=== PATIENT | female | born 1965 | race Caucasian/White ===

== ENCOUNTER 2020-09-02 10:09 | Inpatient (IN) | payer OTHER ==
[~2020-09-02] VITALS: Ht 157.5 cm; Wt 85.1 kg
[2020-09-02 09:30] VITALS: BP 102/59
[~2020-09-02 10:09] MED LIST: ACETAMINOPHEN 325 MG TABLET PO PRN; CALCIUM CARBONATE 500 MG (TUMS) TAB.CHEW PO PRN; DOCUSATE SODIUM 100 MG (COLACE) CAP PO PRN; FLEET ENEMA ADULT 1 EA BTL PR PRN; LACTULOSE SYRUP 10GM/15ML (ENULOSE) 30ML UDC PO PRN; MELATONIN 3 MG TABLET PO PRN; ONDANSETRON 4 MG (ZOFRAN) ORAL DISSOLVE TAB PO PRN; diphenhydrAMINE 25 MG TAB (BENADRYL) PO PRN; guaiFENesin/CODEINE (ROBITUSSIN AC) 10ML UDC PO PRN
[2020-09-02] MEDS ORDERED: BISACODYL 10 MG SUPP (DULCOLAX) PR PRN (10:30)
[2020-09-02] MEDS: DOCUSATE SODIUM 100 MG (COLACE) CAP PO SCH ×2 (12:08→19:40)
[2020-09-02] MEDS: polyethylene glycoL POWDER 17 GM (MIRALAX) PACK PO SCH ×2 (12:09→19:40)
[2020-09-02] MEDS: SENNA W/DOCUSATE (SENOKOT S) TABLET PO SCH ×2 (12:09→19:40)
--- NOTE | 2020-09-02 12:24 | Occupational Therapy Eval ---
OT Evaluation-General/PLF Medical Diagnosis Admission Date Sep 02, 2020 at 10:09 Medical Diagnosis: Debility s/p COVID Onset Date: June 20, 2020 Therapy Diagnosis Therapy Diagnosis: Weakness, Decreased ADL skills Weight Bear Status Weight Bearing Restriction: Weight Bearing/Tolerated Referral Physician: Dr. Kim Referral Reason: Activity Tolerance, Self Care, Evaluation/Treatment, Strengthening/ROM Medical History Additional Medical History Scoliosis, breast reduction, hysterectomy, tonsillectomy, gout, breast reduction Current History Pt. admitted to [place] on 06-20-20 with Covid- 19. Treated with Remdesivir and Decadron. Discharged. Returned to ED secondary to worsening breathing. Placed on bipap. Transferred eventually to Bipap. Reviewed History: Yes Social History Home: Single Level Current Living Status: Alone Entry Into Home: Stairs With Railing Steps Into Home: 4 ADL-Prior Level of Function SCALE: Activities may be completed with or without assistive devices. 2-Uzmwchrfpq-eapwfdc completes the activity by him/herself with no assistance from a helper. 5-Set-up or Clean-up Assistance-helper sets up or cleans up; patient completes activity. [place] assists only prior to or following the activity. 4-Supervision or Touching Assistance-helper provides verbal cues and/or touching/steadying and/or contact guard assistance as patient completes activity. Assistance may be provided throughout the activity or intermittently. 3-Partial/Moderate Assistance-helper does LESS THAN HALF the effort. [place] lifts, holds or supports trunk or limbs, but provides less than half the effort. 2-Substantial/Maximal Assistance-helper does MORE THAN HALF the effort. [place] lifts or holds trunk or limbs and provides more than half the effort. 3-Pxfpgdhdr-zcosgr does ALL the effort. Patient does none of the effort to complete the activity. Or, the assistance of 2 or more helpers is required for the patient to complete the activity. If activity was not attempted, code reason: 7-Patient Refused. 9-Not Applicable-not attempted and the patient did not perform the activity before the current illness, exacerbation or injury. 10-Not Attempted due to Environmental Limitations-(lack of equipment, weather restraints, etc.). 88-Not Attempted due to Medical Conditions or Safety Concerns. ADL PLOF Comments Pt. states that she is independent with daily skills. She lives alone and drives. Works at [employer]. She has a friend that will come and stay with her. Self Care: Independent Functional Cognition: Independent DME/Equipment: Tub/Shower Occupation: Conformity Self: Yes OT Current Status Subjective No pain reported but pt. does have SOA with any exertion. Mental Status/Objective Patient Orientation: Person, Place, Time, Situation Attachments: Oxygen Current Upper Extremity ROM WFL Upper Extremity Strength 3/5 bilateral UE strength. Overall weakness and decreased endurance. ADL-Treatment Eating (QC): 88 Oral Hygiene (QC): 88 Shower/Bathe Self (QC): 88 Upper Body Dressing (QC): 88 Lower Body Dressing (QC): 1 (Per clinical judgement) On/Off Footwear (QC): 3 (Mod assist. Pt. able to don right slipper sock at bed level, but unable to bring left LE up at bed level to don.) Toileting Hygiene (QC): 2 (Per clinical judgement.) Other Treatments OT/PT completed co-treatment due to pt's need of skilled assistance x 2. Pt. transferred this date via EMS. Pt. significantly weak. OT facilitated UE assessment and ADL skills assessment while PT assessed mobility and transfers. Pt. on 4 L 02 when therapy entered, but per nursing, bumped up to 6 L during mo vement as pt. dropped from 92% -low 70s. Pt. recovers with cues for breathing and rest, back up to 90-92%. Transferred supine-sit with min/mod assist. Stood at bed side with walker and max x 2. Pt. unable to tolerate standing very long and had to sit quickly. Rested, and stood again. Able to stand approximately 1-2 minutes. Transferred sit-supine with mod assist and bed mobility with max x 2. After sats recovered, oxygen turned back to 4L per nursing. All needs met in room. Education OT Patient Education: Correct positioning, Exercise program, Modified ADL techniques, Progress toward Goal/Update tx plan, Purpose of tx/functional activities, Reviewed precautions, Rehab process, Transfer techniques Teaching Recipient: Patient Teaching Methods: Demonstration, Discussion Response to Teaching: Verbalize Understanding, Return Demonstration OT Short Term Goals Short Term Goals Time Frame: Sep 16, 2020 Eatin Oral hygiene: 4 Toileting hygiene: 3 Shower/bathe self: 3 Upper body dressin Lower body dressin Putting on/taking off footwear: 3 OT Set Designer Goals Set Designer Goals Time Frame: Sep 30, 2020 Eating (QC): 6 Oral Hygiene (QC): 6 Toileting Hygiene (QC): 6 Shower/Bathe Self (QC): 4 Upper Body Dressing (QC): 5 Lower Body Dressing (QC): 4 On/Off Footwear (QC): 5 Additional Goals: 1-Demonstrate ADL Tasks, 2-Verbalize Understanding, 3- ImproveStrength/Luis Manuel 1=Demonstrate adherence to instructed precautions during ADL tasks. 2=Patient will verbalize/demonstrate understanding of assistive devices /modifications for ADL. 3=Patient will improve strength/tolerance for activity to enable patient to perform ADL's. OT Education/Plan Problem List/Assessment Assessment: Decreased Activ Tolerance, Decreased UE Strength, Dependent Transfers, Impaired Bed Mobility, Impaired Funct Balance, Impaired I ADL's, Impaired Self-Care Skills Discharge Recommendations Plan/Recommendations: Continue POC Therapy Discharge Recommendati: Post Acute OT Treatment Plan/Plan of Care Treatment,Training & Education: Yes Patient would benefit from OT for education, treatment and training to promote independence in ADL's, mobility, safety and/or upper extremity function for ADL's. Plan of Care: ADL Retraining, Functional Mobility, UE Funct Exercise/Act Treatment Duration: Sep 30, 2020 Frequency: At least 5 of 7 days/Wk (IRF) Estimated Hrs Per Day: 1.5 hours per day Agreement: Yes Rehab Potential: Good Time/GCodes Start Time: 11:12 Stop Time: 11:43 Total Time Billed (hr/min): 31 Billed Treatment Time 1629-9795 PT eval, no charge [id number] 1, EVH x 10minutes [id number] FA x 11minutes- Co-treatment. Please see above note for designated roles. YEE ROJAS OT Sep 02, 2020 12:24
--- NOTE | 2020-09-02 13:34 | Physical Therapy Evaluation ---
PT Evaluation-General Medical Diagnosis Admission Date Sep 02, 2020 at 10:09 Medical Diagnosis: Debility s/p COVID Onset Date: June 20, 2020 Therapy Diagnosis Therapy Diagnosis: debility Precautions Precautions/Isolations: Fall Prevention, Standard Precautions Weight Bear Status Right Lower Extremity: Right Full Weight Bearing Left Lower Extremity: Left Full Weight Bearing Referral Physician: Dr. Kim Reason for Referral: Evaluation/Treatment Medical History Additional Medical History Claustrophobia, scoliosis, breast reduction, hysterectomy, tonsillectomy, gout, (B) knee pain, tendonitis Current History 06/20/20 admit to [place] with COVID-19, treated with Remdesivir and Decadron. On 06/26/20, returned to ER with difficulty breathing. Transferred to [place] with eventual transfer to ARU today. Reviewed History: Yes Social History Home: Single Level Current Living Status: Alone Entry Into Home: Stairs With Railing PT Steps Into Home: 4 Prior Prior Level of Function SCALE: Activities may be completed with or without assistive devices. 7-Vpuffgytbr-cxjfpet completes the activity by him/herself with no assistance from a helper. 5-Set-up or Clean-up Assistance-helper sets up or cleans up; patient completes activity. [place] assists only prior to or following the activity. 4-Supervision or Touching Assistance-helper provides verbal cues and/or touching/steadying and/or contact guard assistance as patient completes activity. Assistance may be provided throughout the activity or intermittently. 3-Partial/Moderate Assistance-helper does LESS THAN HALF the effort. [place] lifts, holds or supports trunk or limbs, but provides less than half the effort. 2-Substantial/Maximal Assistance-helper does MORE THAN HALF the effort. [place] lifts or holds trunk or limbs and provides more than half the effort. 2-Gpwihmtnk-xrcpvg does ALL the effort. Patient does none of the effort to complete the activity. Or, the assistance of 2 or more helpers is required for the patient to complete the activity. If activity was not attempted, code reason: 7-Patient Refused. 9-Not Applicable-not attempted and the patient did not perform the activity before the current illness, exacerbation or injury. 10-Not Attempted due to Environmental Limitations-(lack of equipment, weather restraints, etc.). 88-Not Attempted due to Medical Conditions or Safety Concerns. Bed Mobility: 6 Transfers (B,C,W/C): 6 Gait: 6 Stairs: 6 Wheelchair Mobility: 9 Indoor Mobility (Ambulation): Independent Stairs: Independent Prior Devices Use: None (+) driving, works at [employer] PT Evaluation-Current Subjective Pt agreeable. Motivated to improve. Pt/Family Goals Home with friend Objective Patient Orientation: Person, Place, Time, Situation Attachments: Oxygen ROM/Strength ROM Upper Extremities See OT ROM Lower Extremities Grossly WFL for functional mobility Strength Upper Extremities See OT Strength Lower Extremities (B) ankles grossly 3/5, (B) knee extension 3-/5, (B) knee flexion: 3+/5, (B) hip flexion: 2+/5, (B) hip extension: 2+/5 Integumentary/Posture Integumentary See nursing notes Bowel Incontinence: No Posture kyphotic, scoliosis Neuromuscular (Tone, Coordination, Reflexes) Decreased coordination Sensory Vision: Functional Hearing: Functional Hand Dominance: Right Sensation Right Upper Extremit: Intact Sensation Left Upper Extremity: Intact Sensation Right Lower Extremit: Intact Sensation Left Lower Extremity: Intact Transfers Roll Left & Right (QC): 4 Sit to Lying (QC): 4 Lying to Sitting/Side of Bed(Q: 3 Sit to Stand (QC): 1 Chair/Jsp-tl-Rkfua Xfer(QC): 88 Toilet Transfer (QC): 88 Car Transfer (QC): 88 Gait Does the Patient Walk?: No and Walking Goal IS indicated Mode of Locomotion: Walk Anticipated Mode of Locomotion: Walk Walk 10 feet (QC): 88 Walk 50 ft with 2 Turns(QC): 88 Walk 150 ft (QC): 88 Walking 10ft/uneven surface-QC: 88 Wheelchair Training Does the Pt Use a Wheelchair?: No Wheel 50 ft with 2 turns (QC): 9 Wheel 150 ft (QC): 9 Type of Wheelchair: N/A Stairs 1 Step (curb) (QC): 88 4 Steps (QC): 88 12 Steps (QC): 88 Balance Sitting Static: Normal Sitting Dynamic: Good Standing Static: Fair Standing Dynamic: Poor Picking up an Object (QC): 88 Treatment Pt. on 4 L 02 when therapy entered, but per nursing, bumped up to 6 L during movement as pt. dropped from 92% -low 70s. Pt. recovers with cues for breathing and rest, back up to 90-92%. Able to stand approximately 1-2 minutes. Transferred sit-supine with mod assist and bed mobility with max x 2. After sats recovered, oxygen turned back to 4L per nursing. All needs met in room. Assessment/Needs Pt would benefit from skilled PT to improve LE functional strength to increase (I) with transfers and gait to restore PLOF. Rehab Potential: Good PT Short Term Goals Short Term Goals Time Frame: Sep 16, 2020 Roll Left & Right: 6 Sit to lyin Lying to sitting on side of be: 6 Sit to stand: 4 PT Fish Machine Feeder Goals Fish Machine Feeder Goals PT Longterm Goals Time Frame: Sep 30, 2020 Roll Left & Right (QC): 6 Sit to Lying (QC): 6 Lying-Sitting on Side/Bed(QC): 6 Sit to Stand (QC): 6 Chair/Ijq-mg-Bdqbp Xfer(QC): 6 Toilet Transfer (QC): 6 Car Transfer (QC): 6 Does the Patient Walk: No and Walking Goal IS indicated Walk 10 feet (QC): 6 Walk 50ft with 2 Turns (QC): 6 Walk 150 ft (QC): 6 Walking 10ft on Uneven Surface: 6 1 Step (curb) (QC): 6 4 Steps (QC): 6 12 Steps (QC): 9 Picking up an Object (QC): 6 Does the Pt use WC or Scooter?: No Wheel 50 feet with 2 turns (QC: 9 Type: N/A Wheel 150 feet: 9 Type: N/A PT LTGs established to allow safe return home (I) PT Plan Problem List Problem List: Activity Tolerance, Functional Strength, Safety, Balance, Gait, Transfer, Bed Mobility, ROM Treatment/Plan Treatment Plan: Continue Plan of Care Treatment Plan: Bed Mobility, Education, Functional Activity Luis Manuel, Functional Strength, Group Therapy, Gait, Safety, Therapeutic Exercise, Transfers Treatment Duration: Sep 30, 2020 Frequency: Modified Program (IRF) Estimated Hrs Per Day: 1.5 hours per day Patient and/or Family Agrees t: Yes Safety Risks/Education Teaching Recipient: Patient Teaching Methods: Discussion Response to Teaching: Verbalize Understanding PT POC Time/GCodes Time In: 1112 Time Out: 1143 Total Billed Treatment Time: 21 Total Billed Treatment [id number] PT eval [id number] Unattended OT eval [id number] FA OT/PT completed co-treatment due to pt's need of skilled assistance x 2. Pt. transferred this date via EMS. Pt. significantly weak. OT facilitated UE assessment and ADL skills assessment while PT assessed mobility and transfers. JESSICA MICHELE DPT Sep 02, 2020 13:34
[2020-09-02] MEDS: RT-ALBUTEROL/IPRATROPIUM 3 ML (DUONEB) VIAL INH SCH ×2 (14:38→18:40)
--- NOTE | 2020-09-02 16:55 | Progress Note ---
Progress Note Chief complaint: COVID-19 with debility and severe hypoxia History of present illness: This is a 54-year-old white female of Dr. Gutierrez who presents to the inpatient rehab unit in need of recovery following a long course at [facility] after originally admitted to [facility] on 06/20/2020. She was hypoxic at that time and she was treated with remdesivir and Decadron and bacterial pneumonia was treated with antibiotic course. She was then discharged with a diagnosis of hypoxic respiratory failure secondary to Covid pneumonia complicated by restrictive lung disease elevated D-dimer and anxiety with chronic scoliosis pain. She then presented to the ER on 06/26/2020 due to respiratory distress and her O2 sat was in the 70s was placed on BiPAP but could not tolerate that so she was eventually transferred to [facility] maintained on nonrebreather mask and transition to Vapotherm at 30 L of 80% FiO2. She eventually weaned down to nasal cannula but fluctuates with hypoxia requiring anywhere from 5-12 L/min nasal cannula at any given time. She lives at home alone but her high school friend will be helping her when she is discharged. She quit smoking in 2004. She works at [employer] in the [employer]. Her scoliosis back pain is managed with nonnarcotics due to previous difficulty with addiction potential with narcotics. Assessment: COVID-19 pneumonia with ongoing hypoxic respiratory failure Chronic scoliosis back pain History of pain pill addiction Claustrophobia Anxiety Gout Restrictive lung disease Recent pneumomediastinum Thrombocytopenia Plan: Inpatient rehab protocol Slow therapy 31/08 due to severe hypoxia with exertion due to COVID-19 pneumonia Monitor closely JULES ROJAS DO Sep 02, 2020 16:55
[2020-09-02] MEDS: ALPRAZolam 0.25 MG (XANAX) TAB PO PRN (19:36)
[2020-09-02 20:00] VITALS: BP 115/55
[2020-09-02] MEDS: SILDENAFIL 20 MG (REVATIO) TAB NON-FORMULARY PO SCH (21:47)
[2020-09-02] MEDS: clonazePAM 1 MG (KlonoPIN) TAB PO SCH (21:48)
[2020-09-02] MEDS: MONTELUKAST 10 MG (SINGULAIR) TAB PO SCH (21:49)
[2020-09-02] MEDS: ATENOLOL 25 MG (TENORMIN) TAB PO SCH (21:50)
[2020-09-02] MEDS: ASCORBIC ACID (VIT C) 500 MG TABLET PO SCH (21:50)
[2020-09-02] MEDS: guaiFENesin (MUCINEX) 600 MG TAB PO SCH (21:50)
[2020-09-02] MEDS: MELATONIN 3 MG TABLET PO SCH (21:50)
[2020-09-02] MEDS: HYDROcodone/APAP 5 MG/325 MG (LORTAB) TAB PO PRN (21:59)
[2020-09-03 05:27] LABS: BASOPHILS % (AUTO) 1 % (0-10); EOSINOPHILS # (AUTO) 0.1 10^3/uL (0.0-0.3); EOSINOPHILS % (AUTO) 1 % (0-10); HEMATOCRIT 28 % (35-52); HEMOGLOBIN 8.9 g/dL (11.5-16.0); LYMPHOCYTES # (AUTO) 1.8 10^3/uL (1.0-4.0); LYMPHOCYTES % (AUTO) 33 % (12-44); MEAN CORPUSCULAR HEMOGLOBIN 30 pg (25-34); MEAN CORPUSCULAR HGB CONC 32 g/dL (32-36); MEAN CORPUSCULAR VOLUME 95 fL (80-99); MEAN PLATELET VOLUME 9.1 fL (9.0-12.2); MONOCYTES # (AUTO) 0.5 10^3/uL (0.0-1.0); MONOCYTES % (AUTO) 10 % (0-12); NEUTROPHILS # (AUTO) 2.8 10^3/uL (1.8-7.8); NEUTROPHILS % (AUTO) 51 % (42-75); PLATELET COUNT 172 10^3/uL (130-400); WHITE BLOOD COUNT 5.5 10^3/uL (4.3-11.0)
[2020-09-03 05:48] LABS: ALBUMIN 3.1 GM/DL (3.2-4.5); CHLORIDE 103 MMOL/L (98-107); POTASSIUM 3.1 MMOL/L (3.6-5.0); SODIUM 144 MMOL/L (135-145)
[2020-09-03 05:49] LABS: CALCIUM 8.1 MG/DL (8.5-10.1)
[2020-09-03 05:51] LABS: GLUCOSE 109 MG/DL (70-105); TOTAL PROTEIN 5.4 GM/DL (6.4-8.2)
[2020-09-03 05:52] LABS: BILIRUBIN,TOTAL 0.4 MG/DL (0.1-1.0); CARBON DIOXIDE 29 MMOL/L (21-32)
[2020-09-03 05:54] LABS: ALKALINE PHOSPHATASE 52 U/L (40-136); CREATININE SERUM 0.43 MG/DL (0.60-1.30); GFR ESTIMATED > 60
[2020-09-03 05:55] LABS: BUN/CREATININE RATIO 26
[2020-09-03 05:57] LABS: ALANINE AMINOTRANSFERASE 35 U/L (0-55)
[2020-09-03] MEDS: predniSONE 20 MG TAB PO SCH (06:31)
--- NOTE | 2020-09-03 06:38 | PM&R Post Admission Assessment ---
PM&R HP Date of Visit: Sep 03, 2020 Time of Visit: 10:00 History of Present Illness Chief complaint: COVID-19 with debility and severe hypoxia History of present illness: This is a 54-year-old white female of Dr. Gutierrez who presents to the inpatient rehab unit in need of recovery following a long course at [facility] after originally admitted to [facility] on 06/20/2020. She was hypoxic at that time and she was treated with remdesivir and Decadron and bacterial pneumonia was treated with antibiotic course. She was then discharged with a diagnosis of hypoxic respiratory failure secondary to Covid pneumonia complicated by restrictive lung disease elevated D-dimer and anxiety with chronic scoliosis pain. She then presented to the ER on 06/26/2020 due to respiratory distress and her O2 sat was in the 70s was placed on BiPAP but could not tolerate that so she was eventually transferred to [facility] maintained on nonrebreather mask and transition to Vapotherm at 30 L of 80% FiO2. She eventually weaned down to nasal cannula but fluctuates with hypoxia requiring anywhere from 5-12 L/min nasal cannula at any given time. She lives at home alone but her high school friend will be helping her when she is discharged. She quit smoking in 2004. She works at [employer] in the [employer] department. Her scoliosis back pain is managed with nonnarcotics due to previous difficulty with addiction potential with narcotics. Past Yfjhmln-Dllnzb-Zwkqon Hx Past Med/Social Hx: Reviewed Nursing Past Med/Soc Hx, Reviewed and Corrections made Patient Social History Marrital Status: single Employed/Student: employed Alcohol Use: Denies Use Smoking Status: Former Smoker (quit 2004) Recent Foreign Travel: No Contact w/other who traveled: No Past Medical History COVID-19 PNA 06/20/20 Musculoskeletal: Scoliosis, Chronic Back Pain Prior Level of Function Bed Mobility: 6 Transfers: 6 Gait: 6 Stairs: 6 Wheelchair Mobility: 9 Indoor Mobility (Ambulation): Independent Stairs: Independent Prior Devices Use: None Self Care: Independent Functional Cognition: Independent Occupation: [employer] Self: Yes Current Level of Fuctioning Roll Left to Right: 4 Sit to Lyin Lying to Sitting/Side of Bed: 3 Sit to Stand: 1 Chair/Jay-rh-Prttt Xfer: 88 Car Transfer: 88 Does the Patient Walk: No and Walking Goal IS indicated Mode of Locomotion: Walk Anticipated Mode of Locomotion: Walk Walk 10 feet: 88 Walk 50 ft with 2 Turns: 88 Walk 150 ft: 88 Walking 10ft on uneven surface: 88 Does the Pt Use a Wheelchair: No Wheel 50 ft with 2 turns: 9 Wheel 150 ft: 9 Type of Wheelchair: N/A 1 Step (curb): 88 4 Steps: 88 12 Steps: 88 Picking up an Object: 88 Eatin Oral Hygiene: 88 Shower/Bathe Self: 88 Upper Body Dressin Lower Body Dressin (Per clinical judgement) On/Off Footwear: 3 (Mod assist. Pt. able to don right slipper sock at bed level, but unable to bring left LE up at bed level to don.) Toileting Hygiene: 2 (Per clinical judgement.) PM&R Allergy/Meds/Data Review Allergies Coded Allergies: latex (Verified Allergy, Unknown, 09/02/20) Current Medications Current Medications Reviewed Laboratory Data Laboratory Tests 09/03/20 05:05: White Blood Count 5.5, Red Blood Count 2.97L, Hemoglobin 8.9L, Hematocrit 28L, Mean Corpuscular Volume 95, Mean Corpuscular Hemoglobin 30, Mean Corpuscular Hemoglobin Concent 32, Red Cell Distribution Width 18.4H, Platelet Count 172, Mean Platelet Volume 9.1, Immature Granulocyte % (Auto) 5, Neutrophils (%) (Auto) 51, Lymphocytes (%) (Auto) 33, Monocytes (%) (Auto) 10, Eosinophils (%) (Auto) 1, Basophils (%) (Auto) 1, Neutrophils # (Auto) 2.8, Lymphocytes # (Auto) 1.8, Monocytes # (Auto) 0.5, Eosinophils # (Auto) 0.1, Basophils # (Auto) 0.0, Immature Granulocyte # (Auto) 0.3H, Sodium Level 144, Potassium Level 3.1L, Chloride Level 103, Carbon Dioxide Level 29, Anion Gap 12, Blood Urea Nitrogen 11, Creatinine 0.43L, Estimat Glomerular Filtration Rate > 60, BUN/Creatinine Ratio 26, Glucose Level 109H, Calcium Level 8.1L, Corrected Calcium 8.8, Total Bilirubin 0.4, Aspartate Amino Transf (AST/SGOT) 15, Alanine Aminotransferase (ALT/SGPT) 35, Alkaline Phosphatase 52, Total Protein 5.4L, Albumin 3.1L Review of Systems Constitutional: see HPI EENTM: no symptoms reported Respiratory: dyspnea on exertion, short of breath Cardiovascular: no symptoms reported Gastrointestinal: no symptoms reported Musculoskeletal: back pain Skin: no symptoms reported Psychiatric/Neurological: No Symptoms Reported All Other Systems Reviewed Negative Unless Noted: Yes Physical Exam Physical Exam Vital Signs Vital Signs - First Documented 09/02/20 09:30 Temp 36.2 Pulse 82 Resp 20 B/P (MAP) 102/59 (73) Pulse Ox 87 O2 Delivery Nasal Cannula O2 Flow Rate 4.00 Capillary Refill : Height, Weight, BMI Height: '" Weight: lbs. oz. kg; 31.40 BMI Method: General Appearance: No Apparent Distress, WD/WN, Chronically ill, Obese Eyes: Bilateral Eye Normal Inspection, Bilateral Eye PERRL HEENT: PERRL/EOMI, Normal ENT Inspection, Pharynx Normal Neck: Full Range of Motion, Normal Inspection, Non Tender, Supple, Carotid Bruit Respiratory: Chest Non Tender, Lungs Clear, No Accessory Muscle Use, No Respiratory Distress, Decreased Breath Sounds Cardiovascular: Regular Rate, Rhythm, No Edema, No Gallop, No JVD, No Murmur, Normal Peripheral Pulses Gastrointestinal: Normal Bowel Sounds, No Organomegaly, No Pulsatile Mass, Non Tender, Soft Back: Normal Inspection, No CVA Tenderness, No Vertebral Tenderness Extremity: Normal Capillary Refill, Normal Inspection, Normal Range of Motion, Non Tender, No Calf Tenderness, No Pedal Edema Neurologic/Psychiatric: Alert, Oriented x3, No Motor/Sensory Deficits, Normal Mood/Affect, oceanography professor II-XII Norm as Tested, Motor Weakness (generalized 3/5) Skin: Normal Color, Warm/Dry Lymphatic: No Adenopathy PM&R Medical Assessment & Plan REHAB/MEDICAL ASSESSMENT AND PLAN: REHAB IMPAIRMENT GROUP: COVID 19 ETIOLOGIC DIAGNOSIS: COVID 19 The comorbidities that impact the patients function and/or functional outcome by: severe hypoxia, severe debility, severe hypokalemia REHAB PLAN: The patient is being admitted to our comprehensive inpatient rehabilitation facility and can tolerate the intensity of service consisting of at least: 180 minutes of therapy a day, 5 out of 7 days a week Rehab treatment will consist of: PT OT will focus in regaining function in ambulation and independence in ADL's while supporting oxygen requirements The patient/family has a good understanding of our discharge process and will benefit from an interdisciplinary inpatient rehabilitation program. The patient has potential to make improvement and is in need of at least two of the following multidisciplinary therapies including but not limited to physical, occupational, speech, and prosthetics and orthotics. Additionally the patient will need services from respiratory, nutritional services, wound care, psych ology, etc. (Customize this to each patient). Given the patients complex condition and risk of further medical complications, rehabilitation services cannot be safely or effectively provided at a lower level of care such as a longterm facility. BARRIERS TO DISCHARGE: Severe hypoxia ESTIMATED LOS: 21 days DISPOSITION: Home with friend RELEVANT CHANGES SINCE PREADMISSION SCREENING: I have compared the patients medical and functional status at the time of the preadmission screening and there are: no changes PROGNOSIS: Good REHABILITATION GOALS: 1. PT OT will focus in regaining function in ambulation and independence in ADL's while supporting oxygen requirements All the above goals were reviewed with the patient and he/she is in agreement. By signing this document, I acknowledge that I have personally performed a full physical examination on this patient within 24 hours of admission to this inpatient rehabilitation facility and have determined the patient to be able to tolerate the above course of treatment at an intensive level for a reasonable period of time. I will be completing a detailed individualized Plan of Care for this patient by day #4 of the patients stay based upon the Preadmission Screen, the Post-Admission Evaluation, and the therapy evaluations. Admission Dx/Comorbidities: (1) COVID-19 ICD Codes: U07.1 - COVID-19 Assessment/Plan Assessment and Plan Assess & Plan/Chief Complaint Assessment: COVID-19 pneumonia with ongoing hypoxic respiratory failure Chronic scoliosis back pain History of pain pill addiction Claustrophobia Anxiety Gout Restrictive lung disease Recent pneumomediastinum Thrombocytopenia Anemia Hypokalemia Hypomag Plan: Inpatient rehab protocol Slow therapy 31/08 due to severe hypoxia with exertion due to COVID-19 pneumonia Monitor closely Replace potassium and mag JULES ROJAS DO Sep 03, 2020 06:38
[2020-09-03 06:51] LABS: PHOSPHORUS 4.5 MG/DL (2.3-4.7)
[2020-09-03] MEDS ORDERED: KCL 20 MEQ TAB (K-DUR) PO SCH (07:00)
[2020-09-03 07:24] LABS: MAGNESIUM 1.1 MG/DL (1.6-2.4)
[2020-09-03 07:30] VITALS: BP 141/85
[2020-09-03] MEDS: clonazePAM 1 MG (KlonoPIN) TAB PO SCH ×2 (09:01→21:43)
[2020-09-03] MEDS: ATENOLOL 25 MG (TENORMIN) TAB PO SCH ×2 (09:01→21:43)
[2020-09-03] MEDS: PANTOPRAZOLE 40 MG (PROTONIX) TAB PO SCH (09:02)
[2020-09-03] MEDS: guaiFENesin (MUCINEX) 600 MG TAB PO SCH ×2 (09:02→21:43)
[2020-09-03] MEDS: ASCORBIC ACID (VIT C) 500 MG TABLET PO SCH ×2 (09:02→21:43)
[2020-09-03] MEDS: COLCHICINE 0.6 MG (COLCRYS) TABLET PO SCH (09:02)
[2020-09-03] MEDS: ROFLUMILAST 500 MCG TAB (DALIRESP) PO SCH (09:03)
[2020-09-03] MEDS: SILDENAFIL 20 MG (REVATIO) TAB NON-FORMULARY PO SCH ×3 (09:03→21:47)
[2020-09-03] MEDS: KCL 20 MEQ TAB (K-DUR) PO SCH ×3 (09:03→17:44)
[2020-09-03] MEDS: DOCUSATE SODIUM 100 MG (COLACE) CAP PO SCH ×2 (09:04→21:48)
[2020-09-03] MEDS: polyethylene glycoL POWDER 17 GM (MIRALAX) PACK PO SCH ×2 (09:04→21:48)
[2020-09-03] MEDS: SENNA W/DOCUSATE (SENOKOT S) TABLET PO SCH ×2 (09:04→21:53)
[2020-09-03] MEDS: LIDOCAINE 4% (SALONPAS) PATCH TOP SCH (09:05)
[2020-09-03] MEDS: RT-ALBUTEROL/IPRATROPIUM 3 ML (DUONEB) VIAL INH SCH ×3 (09:35→19:11)
[2020-09-03] MEDS ORDERED: ENOXAPARIN 40 MG/0.4 ML (LOVENOX) SYR SC SCH (10:00)
[2020-09-03] MEDS: PARoxetine 20 MG (PAXIL) TAB PO SCH (10:07)
--- NOTE | 2020-09-03 10:09 | Individualized Plan of Care ---
Individualized Plan of Care Rehab Nursing IPOC Order Admission Date Sep 02, 2020 at 10:09 Current Orders Orders Admission Order(Inpt,Obs,Sdc) (09/01/20 12:18) Vital Signs: Per Unit Policy ( (09/01/20 12:18) Osmel Ladonnaconstance (09/01/20 12:18) Sequential Compression Device .admit (09/01/20 12:18) Tire Changer-Inpt Rehab Con (09/01/20 12:18) Rehab Nursing Orders-Ipoc (09/01/20 12:18) Physical Therapy Rehab Orders (09/01/20 12:18) Occupational Therapy Rehab Ord (09/01/20 12:18) Speech Therapy Rehab Orders (09/01/20 12:18) Cbc With Automated Diff (09/03/20 06:00) Comprehensive Metabolic Panel (09/03/20 06:00) Precautions (Aru) (09/01/20 12:18) Initiate Admission Nursing Pro .admission (09/01/20 12:18) Acetaminophen Tablet/Caplet (Tylenol T (09/01/20 12:30) Alprazolam Tablet (Xanax Tablet) (09/01/20 12:30) Calcium Carbonate Chew Tablet (Antacid C (09/01/20 12:30) Diphenhydramine Tablet (Benadryl Tablet) (09/01/20 12:30) Docusate Sodium Capsule (Colace Capsule) (09/01/20 12:30) Lactulose Oral Solution (Enulose Oral So (09/01/20 12:30) Na Phos/Na Biphos Enema (Fleet Enema Dwain (09/01/20 12:30) Guaifenesin/Codeine Syrup (Robitussin Ac (09/01/20 12:30) Hydrocodone/Apap 5/325 Tablet (Lortab 5 (09/01/20 12:30) Loperamide Tablet (Imodium Tablet) (09/01/20 12:30) Melatonin Tablet (Melatonin Tablet) (09/01/20 12:30) Ondansetron Oral Dissolve Tab (Zofran (09/01/20 12:30) Initiate Admission Nursing Pro .admission (09/01/20 12:18) Admission Arrival Bed Request (09/02/20 09:33) Melatonin Tablet (Melatonin Tablet) (09/02/20 21:00) Albuterol/Ipra Inhalation Soln (Duoneb I (09/02/20 14:00) Svn Small Volume Nebulizer (09/02/20 09:40) Ascorbic Acid Tablet (Vitamin C Tablet) (09/02/20 21:00) Atenolol Tablet (Tenormin Tablet) (09/02/20 21:00) Clonazepam Tablet (Klonopin Tablet) (09/02/20 21:00) Colchicine Tablet (Colcrys Tablet) (09/03/20 09:00) Guaifenesin Tablet (Mucinex Tablet) (09/02/20 21:00) Lidocaine 4% Patch (Salonpas 4% Patch) (09/03/20 09:00) Pantoprazole Tablet (Protonix Tablet) (09/03/20 09:00) Paroxetine Tablet (Paxil Tablet) (09/03/20 09:00) Potassium Chloride (Tablet) (K Dur Table (09/03/20 07:00) Prednisone Tablet (Deltasone Tablet) (09/03/20 07:00) Montelukast Tablet (Singulair Tablet) (09/02/20 21:00) Roflumilast Tablet (Daliresp Tablet) (09/03/20 09:00) Docusate Sodium Capsule (Colace Capsule) (09/02/20 10:30) Bisacodyl Suppository (Dulcolax Supposit (09/02/20 10:30) Polyethylene Glycol Powder Pkt (Miralax (09/02/20 10:30) Senna S Tablet (Senokot S Tablet) (09/02/20 10:30) Enoxaparin Injection (Lovenox Injection) (09/03/20 10:00) Patch Removal (Patch Removal) (09/03/20 21:00) Patient Visit (09/02/20 ) Pt Eval High Complexity (09/02/20 ) Functional Activities, Ea 15 (09/02/20 ) General/Regular (09/02/20 Lunch) Rt Request For Service (09/02/20 11:51) Code/Resuscitation (09/02/20 11:51) Rehab-Intensity Of Therapy (09/02/20 12:43) Pharmacy Consult/Message (09/02/20 16:57) Sildenafil Tablet (Non-Form) (Revatio Ta (09/02/20 21:00) Potassium Chloride (Tablet) (K Dur Table (09/03/20 08:00) Iron Test (Fe) (09/03/20 06:35) Magnesium (09/03/20 06:35) Phosphorus (09/03/20 06:35) Magnesium Oxide Tablet (Mag Ox Tablet) (09/03/20 10:30) Magnesium Oxide Tablet (Mag Ox Tablet) (09/03/20 18:00) Apixaban Tablet (Eliquis Tablet) (09/03/20 10:30) Sodium Chloride Flush (Catheter Flush Sy (09/03/20 13:15) Sodium Chloride Flush (Catheter Flush Sy (09/03/20 14:00) Rt Request For Service (09/03/20 14:11) Saline Nasal Sidney (Jerauld Nasal Sidney) (09/03/20 21:00) Rehab Nursing Orders: Ongoing Assess. of Cognitive Status, Ongoing Assess. of Function Status, Bladder Management, Bladder Scan, Bladder Training, Bowel Management, Bowel Training, Disease Management & Educaiton, DVT Prophylaxis, Fall Prevention, Fluid/Electrolyte/Nutrition Mgmt, Infection Prevention, Medication Management & Education, Management of Risks & Complications, Management of Skin Intergrity, Nutrition Management, Pain Management, Patient/Family Support, Safety Management Intensity of Therapy to be met Patient to be seen: 15 hrs over 7 cons. days PT IPOC Problem List: Activity Tolerance, Functional Strength, Safety, Balance, Gait, Transfer, Bed Mobility, ROM Treatment Plan: Continue Plan of Care Bed Mobility, Education, Functional Activity Luis Manuel, Functional Strength, Group Therapy, Gait, Safety, Therapeutic Exercise, Transfers Treatment Duration: Sep 30, 2020 Frequency: Modified Program (IRF) Estimated Hrs Per Day: 1.5 hours per day OT IPOC Problems: Decreased Activ Tolerance, Decreased UE Strength, Dependent Transfers, Impaired Bed Mobility, Impaired Funct Balance, Impaired I ADL's, Impaired Self-Care Skills OT Treatment, Training and Edu: Yes Plan of Care: ADL Retraining, Functional Mobility, UE Funct Exercise/Act Treatment Duration: Sep 30, 2020 Frequency: At least 5 of 7 days/Wk (IRF) Estimated Hrs Per Day: 1.[address] IPOC Speech Therapy Treatment Plan: Discontinue ST Treatment Duration: Sep 04, 2020 Frequency: Modified Program (IRF) Estimated Hrs Per Day: Other Tire Changer/Case Mgmt Tire Changer/Case Managemen: Discharge Planning Dietitian/Information Systems Security Analyst Dietitian/Information Systems Security Analyst to monitor nutritional status and make changes and/or recommendations as needed and work with speech pathology on dietary upgrades as the occur. Physician IPOC Medical Issues being managed closely and that require the 24 hour availability of a physician: Severe COVID-19 pneumonia with severe hypoxia requiring aggressive oxygen supplementation will need close monitoring for decompensation Medical Issues: Bowel/Bladder Function, DVT Prophylaxis, Falls Precautions, Fluid/Electrolyte/Nutrition Balance, Infection Protection, Pain Management Brief Synthesis of Preadmission Screen, Post-Admission Evaluation, and Therapy Evaluations: PT and OT will focus on regaining ambulatory skills and independent ADLs while supporting oxygen requirements Medical Prognosis: Good Anticipated Length of Stay: 20 days JULES ROJAS DO Sep 03, 2020 10:09
[2020-09-03] MEDS ORDERED: MAGNESIUM OXIDE (MAG-OX)400 MG TAB PO NR (10:30)
[2020-09-03] MEDS: APIXABAN 2.5 MG (ELIQUIS) TABLET PO SCH (10:39)
[2020-09-03] MEDS: CATHETER FLUSH 10 ML SYR IV SCH ×2 (13:35→21:50)
[2020-09-03] MEDS: LOPERAMIDE 2 MG (IMODIUM) TABLET PO PRN ×3 (16:22→19:37)
[2020-09-03] MEDS: MAGNESIUM OXIDE (MAG-OX)400 MG TAB PO SCH (17:44)
[2020-09-03] MEDS: ALPRAZolam 0.25 MG (XANAX) TAB PO PRN (17:53)
[2020-09-03 20:00] VITALS: BP 101/56
[2020-09-03] MEDS: SALINE NASAL SPRAY (OCEAN) 45 ML BTL SCH (21:42)
[2020-09-03] MEDS: MONTELUKAST 10 MG (SINGULAIR) TAB PO SCH (21:43)
[2020-09-03] MEDS: MELATONIN 3 MG TABLET PO SCH (21:43)
[2020-09-03] MEDS: LIDOCAINE PATCH REMOVAL TP SCH (21:53)
--- NOTE | 2020-09-04 06:01 | PM&R Progress Note ---
Subjective HPI/CC On Admission Date Seen by Provider: Sep 04, 2020 Time Seen by Provider: 09:00 Subjective/Events-last exam 09/04/2020: Pt doing pretty well Wonders if she should have a continuous pulse-ox and I told her we are monitoring that with frequent spot checks. Chest X-ray ordered for pulmonary consultation She even gets SOB on the bed-almazan Echo was recommended so we will order Review of Systems General: Fatigue, Malaise Pulmonary: Dyspnea Objective Exam Vital Signs Vital Signs Date Time Temp Pulse Resp B/P (MAP) Pulse Ox O2 Delivery O2 Flow Rate FiO2 09/04/20 22:08 Nasal Cannula 4.00 09/04/20 20:00 36.2 84 18 110/70 (83) 100 Capillary Refill : General Appearance: No Apparent Distress, WD/WN, Chronically ill, Obese HEENT: PERRL/EOMI, Normal ENT Inspection, Pharynx Normal Neck: Full Range of Motion, Normal Inspection, Non Tender, Supple, Carotid Bruit Respiratory: Chest Non Tender, Lungs Clear, No Accessory Muscle Use, No Respiratory Distress, Decreased Breath Sounds Cardiovascular: Regular Rate, Rhythm, No Edema, No Gallop, No JVD, No Murmur, Normal Peripheral Pulses Gastrointestinal: Normal Bowel Sounds, No Organomegaly, No Pulsatile Mass, Non Tender, Soft Back: Normal Inspection, No CVA Tenderness, No Vertebral Tenderness Extremity: Normal Capillary Refill, Normal Inspection, Normal Range of Motion, Non Tender, No Calf Tenderness, No Pedal Edema Neurologic/Psychiatric: Alert, Oriented x3, No Motor/Sensory Deficits, Normal Mood/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 FIM Transfers Therapy Code Descriptions/Definitions Functional [place] Measure: 0=Not Assessed/NA 4=Minimal Assistance 1=Total Assistance 5=Supervision or Setup 2=Maximal Assistance 6=Modified [place] 3=Moderate Assistance 7=Complete IndependenceSCALE: Activities may be completed with or without assistive devices. 9-Exfrgapmka-iifieze completes the activity by him/herself with no assistance from a helper. 5-Set-up or Clean-up Assistance-helper sets up or cleans up; patient completes activity. [place] assists only prior to or following the activity. 4-Supervision or Touching Assistance-helper provides verbal cues and/or touching/steadying and/or contact guard assistance as patient completes activity. Assistance may be provided throughout the activity or intermittently. 3-Partial/Moderate Assistance-helper does LESS THAN HALF the effort. [place] lifts, holds or supports trunk or limbs, but provides less than half the effort. 2-Substantial/Maximal Assistance-helper does MORE THAN HALF the effort. [place] lifts or holds trunk or limbs and provides more than half the effort. 2-Hpkrljajx-lvewek does ALL the effort. Patient does none of the effort to complete the activity. Or, the assistance of 2 or more helpers is required for the patient to complete the activity. If activity was not attempted, code reason: 7-Patient Refused. 9-Not Applicable-not attempted and the patient did not perform the activity before the current illness, exacerbation or injury. 10-Not Attempted due to Environmental Limitations-(lack of equipment, weather restraints, etc.). 88-Not Attempted due to Medical Conditions or Safety Concerns. Roll Left to Right (QC): 4 Sit to Lying (QC): 4 Sit to Stand (QC): 1 Chair/Oxy-hv-Vcqly Xfer(QC): 88 Car Transfer (QC): 88 Gait Training Does the Patient Walk?: No and Walking Goal IS indicated Walk 10 feet (QC): 88 Walk 50 ft with 2 Turns(QC): 88 Walk 150 ft (QC): 88 Walking 10ft/uneven surface-QC: 88 Wheelchair Training Does the Pt Use a Wheelchair?: No Wheel 50 ft with 2 turns (QC): 9 Wheel 150 ft (QC): 9 Type of Wheelchair: N/A Stair Training 1 Step (curb) (QC): 88 4 Steps (QC): 88 12 Steps (QC): 88 Balance Picking up an Object (QC): 88 ADL-Treatment Eating (QC): 88 Oral Hygiene (QC): 88 Shower/Bathe Self (QC): 88 Upper Body Dressing (QC): 88 Lower Body Dressing (QC): 1 (Per clinical judgement) On/Off Footwear (QC): 3 (Mod assist. Pt. able to don right slipper sock at bed level, but unable to bring left LE up at bed level to don.) Toileting Hygiene (QC): 2 (Per clinical judgement.) Assessment/Plan Assessment and Plan Assess & Plan/Chief Complaint Assessment: COVID-19 pneumonia with ongoing hypoxic respiratory failure Chronic scoliosis back pain History of pain pill addiction Claustrophobia Anxiety Gout Restrictive lung disease Recent pneumomediastinum Thrombocytopenia Anemia Hypokalemia Hypomag Plan: Inpatient rehab protocol Slow therapy 31/08 due to severe hypoxia with exertion due to COVID-19 pneumonia Monitor closely Replace potassium and mag 09/04/2020: Supportive care Pulmonary consultation appreciated Echo Slow taper (1) COVID-19 JULES ROJAS DO Sep 04, 2020 06:00
[2020-09-04] MEDS: predniSONE 20 MG TAB PO SCH (06:47)
[2020-09-04] MEDS: CATHETER FLUSH 10 ML SYR IV SCH ×3 (06:47→21:14)
[2020-09-04] MEDS: RT-ALBUTEROL/IPRATROPIUM 3 ML (DUONEB) VIAL INH SCH (07:10)
[2020-09-04 07:51] VITALS: BP 125/71
[2020-09-04] MEDS: COLCHICINE 0.6 MG (COLCRYS) TABLET PO SCH (07:56)
[2020-09-04] MEDS: PARoxetine 20 MG (PAXIL) TAB PO SCH (07:56)
[2020-09-04] MEDS: guaiFENesin (MUCINEX) 600 MG TAB PO SCH ×2 (07:56→21:11)
[2020-09-04] MEDS: clonazePAM 1 MG (KlonoPIN) TAB PO SCH ×2 (07:56→21:12)
[2020-09-04] MEDS: ROFLUMILAST 500 MCG TAB (DALIRESP) PO SCH (07:56)
[2020-09-04] MEDS: KCL 20 MEQ TAB (K-DUR) PO SCH ×3 (07:56→17:19)
[2020-09-04] MEDS: MAGNESIUM OXIDE (MAG-OX)400 MG TAB PO SCH ×2 (07:56→17:19)
[2020-09-04] MEDS: ASCORBIC ACID (VIT C) 500 MG TABLET PO SCH ×2 (07:57→21:12)
[2020-09-04] MEDS: ATENOLOL 25 MG (TENORMIN) TAB PO SCH ×2 (07:57→21:11)
[2020-09-04] MEDS: PANTOPRAZOLE 40 MG (PROTONIX) TAB PO SCH (07:57)
[2020-09-04] MEDS: SALINE NASAL SPRAY (OCEAN) 45 ML BTL SCH ×3 (07:58→21:13)
[2020-09-04] MEDS: SILDENAFIL 20 MG (REVATIO) TAB NON-FORMULARY PO SCH ×3 (07:59→21:13)
[2020-09-04] MEDS: SENNA W/DOCUSATE (SENOKOT S) TABLET PO SCH ×2 (07:59→20:57)
[2020-09-04] MEDS: DOCUSATE SODIUM 100 MG (COLACE) CAP PO SCH ×2 (08:02→20:57)
[2020-09-04] MEDS: polyethylene glycoL POWDER 17 GM (MIRALAX) PACK PO SCH ×2 (08:03→20:57)
[2020-09-04] MEDS: LIDOCAINE 4% (SALONPAS) PATCH TOP SCH (08:03)
--- NOTE | 2020-09-04 09:50 | ST Cognitive Linguistic Eval ---
Speech Evaluation-General Medical Diagnosis Debility s/p COVID Onset Date: June 20, 2020 Therapy Diagnosis Therapy Diagnosis: Cognitive-communication Medical History Reviewed History: Yes Social History Current Living Status: Alone Speech PLF-Current Status Prior Level of Function Patient lived at home alone prior to becoming ill with COVID-19 on 06/22/2020. She was employed at that time and was independent with all daily needs. Subjective Patient was pleasant and cooperative with the cognitive assessment. Language Eval: Auditory Comprehends Simple Yes/No Ques: Functional Indent/Objects Multiple Pope: Functional Ident/Pics in Multiple Pope: Functional Follows 1-Step Commands: Functional Follows Complex Directions: Functional Follows General Conversations: Functional Language Eval: Verbal Language Completes Spontaneous Greeting: Functional Produces Auto, Serial Info: Functional Imitates Simple Words/Phrases: Functional Word Finding: Functional Requests Basic Needs: Functional States Basic Personal Info: Functional Expresses Complex Ideas: Functional Objective Cognitive Domain Attention: WNL Memory: WNL Problem Solving: Functional Executive Functions: WNL Visuospatial Skills: Severe Composite Severity Rating: WNL Objective Formal/Standardized Tests [facility] Mental Status ([facility]) Results 28/30, within normal limits Oral Motor/Speech Production Within Normal Limits Impression Patient is a pleasant 54 y/o woman who was admitted to the ARU s/p COVID-19. The patient is currently on 8L of O2 and very weak. She became ill on 06/22/2020. Patient was given the SLUMS with a score of 28/30 which is within normal range of function. Patient's score does not indicate a need for further ST services at this time. Speech Patient Assess Expression of Ideas/Wants: Expression (4) Understanding Verbal Content: Understands (4) Brief Interview-Mental Status: Yes Repetition of Three Words: Three (3) Temporal Orientation: Year: Correct (3) Temporal Orientation: Month: Accurate within 5 days(2) Temporal Orientation: Day: Correct (1) Recall : Wear to say "Sock": Yes, no cue required (2) Recall : Color: Yes, after cueing (1) Recall : Bed: Yes, no cue required (2) Memory/Recall Ability: Current season, Location of own room, That he or she is in a hsp/hsp unit Speech-Plan Patient/Family Goals Patient/Family Goals: Patient plans on returning home with friends that will be staying with her during her continued recovery. Treatment Plan Speech Therapy Treatment Plan: Discontinue ST Treatment Duration: Sep 04, 2020 Frequency: 1 time per week Estimated Hrs Per Day: .5 hour per day Rehab Potential: Good Barriers to Learning: None identified Pt/Family Agrees to Plan: Yes Safety Risks/Education Teaching Recipient: Patient Teaching Methods: Discussion Response to Teaching: Verbalize Understanding Education Topics Provided: Safety within her room, communication of wants/needs Time Speech Therapy Time In: 09:30 Speech Therapy Time Out: 10:00 Total Billed Time: 30 Billed Treatment Time 1, KAVITA GARAY [address] ST Sep 04, 2020 09:50
--- NOTE | 2020-09-04 10:06 | Diagnostic Imaging Report ---
Indication: Post COVID. Findings: There are some 5 lobe coarse predominantly interstitial infiltrates present. The cardiac silhouette is at least mildly enlarged. No effusion or pneumothorax apparent. Left PICC catheter tip is into the upper right atrium. Impression: 5 lobe infiltrates largely interstitial at least mild cardiomegaly present, no acute pleural pathology. Dictated by: Dictated on workstation # [id number]
--- NOTE | 2020-09-04 10:51 | Physical Therapy Daily Note ---
PT Daily Note-Current Subjective Agrees to PT. Discovers her purse is missing and is concerned about finding it. Also desires to have a continuous pulse ox for self monitoring. Mental Status Patient Orientation: Person, Place, Time, Situation Transfers SCALE: Activities may be completed with or without assistive devices. 2-Rkzdkpmmbr-zssbodu completes the activity by him/herself with no assistance from a helper. 5-Set-up or Clean-up Assistance-helper sets up or cleans up; patient completes activity. [place] assists only prior to or following the activity. 4-Supervision or Touching Assistance-helper provides verbal cues and/or touching/steadying and/or contact guard assistance as patient completes activity. Assistance may be provided throughout the activity or intermittently. 3-Partial/Moderate Assistance-helper does LESS THAN HALF the effort. [place] lifts, holds or supports trunk or limbs, but provides less than half the effort. 2-Substantial/Maximal Assistance-helper does MORE THAN HALF the effort. [place] lifts or holds trunk or limbs and provides more than half the effort. 9-Grxjhasys-uvrbuf does ALL the effort. Patient does none of the effort to complete the activity. Or, the assistance of 2 or more helpers is required for the patient to complete the activity. If activity was not attempted, code reason: 7-Patient Refused. 9-Not Applicable-not attempted and the patient did not perform the activity before the current illness, exacerbation or injury. 10-Not Attempted due to Environmental Limitations-(lack of equipment, weather restraints, etc.). 88-Not Attempted due to Medical Conditions or Safety Concerns. Lying to Sitting/Side of Bed(Q: 3 (mod assist and cues for sequencing. ) Sit to Stand (QC): 1 Chair/Hsc-gx-Rzycs Xfer(QC): 1 Toilet Transfer (QC): 1 Sit to stand from chair or bed is dependent assist but pt able to participate and provide assist with legs, limited ability to weight shift to take steps to turn. Sit to stand at a grab bar in from with max assist. Skilled cues for task initiation, sequencing and hip extension in standing. Pt able to stand approx 20 sec x 4 in shower room with mod assist to maintain standing. Weight Bearing Right Lower Extremity: Right Full Weight Bearing Left Lower Extremity: Left Full Weight Bearing Treatments Co treat with OT as the skill of 2 clinicians indicated to safely and effectively complete all tasks due to the complexity and need for much assist of this patient. Pt transferred out of bed, onto a shower chair, commode and showered and dressed. To complete these tasks, OT addressed UE use and placement as well as assisted with all ADL care; PT addressed use and placement of LE with gross tranfers and mobility tasks. Pt sat EOB several minutes to work on trunk control and core stability to complete ADL tasks in a seated position. Sit to stand and SPT transfers utilized as well to complete bathing/dressing. O2 in situ during and post treatment with consistent monitoring of sats throughout treatment. Sats varied 75-90% throughout and oxygen adjusted accordingly. Pt in wc in her room post visit. Assessment Current Status: Good Progress Pt aware of her oxygen limits and uses pursed lip breathing well. Tremors noted throughout treatment likely due to functional weakness and impaired functional act tolerance. Follows cues well. Did will with progresison of activity but needs dependent assist with all mobilty at this time with frequent rest breaks. PT Short Term Goals Short Term Goals Time Frame: Sep 16, 2020 Roll Left & Right: 6 Sit to lyin Lying to sitting on side of be: 6 Sit to stand: 4 PT Front Desk Agent Goals Residential Goals PT Residential Goals Time Frame: Sep 30, 2020 Roll Left & Right (QC): 6 Sit to Lying (QC): 6 Lying-Sitting on Side/Bed(QC): 6 Sit to Stand (QC): 6 Chair/Bqy-lk-Ytfaa Xfer(QC): 6 Toilet Transfer (QC): 6 Car Transfer (QC): 6 Does the Patient Walk: No and Walking Goal IS indicated Walk 10 feet (QC): 6 Walk 50ft with 2 Turns (QC): 6 Walk 150 ft (QC): 6 Walking 10ft on Uneven Surface: 6 1 Step (curb) (QC): 6 4 Steps (QC): 6 12 Steps (QC): 9 Picking up an Object (QC): 6 Does the Pt use WC or Scooter?: No Wheel 50 feet with 2 turns (QC: 9 Type: N/A Wheel 150 feet: 9 Type: N/A PT Plan Problem List Problem List: Activity Tolerance, Functional Strength, Safety, Balance, Gait, Transfer, Bed Mobility Treatment/Plan Treatment Plan: Continue Plan of Care Treatment Plan: Bed Mobility, Education, Functional Activity Luis Manuel, Functional Strength, Group Therapy, Gait, Safety, Therapeutic Exercise, Transfers Treatment Duration: Sep 30, 2020 Frequency: Modified Program (IRF) Estimated Hrs Per Day: 1.5 hours per day Patient and/or Family Agrees t: Yes Safety Risks/Education Patient Education: Transfer Techniques, Safety Issues Teaching Recipient: Patient Teaching Methods: Demonstration, Discussion Response to Teaching: Reinforcement Needed Time/GCodes Time In: 845 Time Out: 930 Total Billed Treatment Time: 45 Total Billed Treatment visit FA 45 SAHIL AGUILAR PT Sep 04, 2020 10:51
--- NOTE | 2020-09-04 11:54 | Pulmonary Consultation ---
History of Present Illness History of Present Illness Date Seen by Provider: Sep 04, 2020 Time Seen by Provider: 11:46 Date of Admission 54 F asked to see for post COVID, Dx'ed in June 2020, was in hosp since, Was in MICU but not on vent, Now slowly improving, needs oxygen, at 4 lpm Has drops in SpO2 when walks drops as low as 60's Has severe thoracic scoliosis recent PFT's showed moderate drop in lung volumes, no other PMH, ex smoker smoker smoked 20y x 1 PPD and quit 2004 Previously had small PMNTX, did not get chest tube No HTN, HLD, CAD, had hysterectomy and breast reduction did not have problems wi th resp post op CXR now shows the severe scoliosis dev to right and bilateral infiltrates History of Present Illness 54 F asked to see for post COVID, Dx'ed in June 2020, was in hosp since, Was in MICU but not on vent, Now slowly improving, needs oxygen, at 4 lpm Has drops in SpO2 when walks drops as low as 60's Has severe thoracic scoliosis recent PFT's showed moderate drop in lung volumes, no other PMH, ex smoker smoker smoked 20y x 1 PPD and quit 2004 Previously had small PMNTX, did not get chest tube No HTN, HLD, CAD, had hysterectomy and breast reduction did not have problems with resp post op CXR now shows the severe scoliosis dev to right and bilateral infiltrates Previous echo at outside hospital described as "enlarged heart", pt does not know if pulm htn mentioned Has been on prednisone 60 mg Allergies and Home Medications Allergies Coded Allergies: latex (Verified Allergy, Unknown, 09/02/20) Past Medical/Social/Family Hx Patient Social History Marrital Status: single Employed/Student: employed Tobacco Use?: No Smoking Status: Former Smoker (quit 2004) Use of E-Cig and/or Vaping dev: No Substance use?: No Alcohol Use?: Yes Alcohol type: Hard Liquor Alcohol Frequency: Once in a while Pt stated abuse/neglect: No Immunizations Up To Date Influenza Vaccine Up-to-Date: No; Not Current Tetanus Booster (TDap): Unknown Hepatitis A: No Hepatitis B: No TB Skin Test: None Current Status status: No status: No Advance Directives: Yes Advance Directive Location: Home Communicates: Verbally Primary Language: Pakistani Preferred Spoken Language: Pakistani Is interpretation needed?: No Sensory deficits: Vision impairment Implanted or Applied Medical D: None Review of Systems Constitutional: weakness Respiratory: cough, dyspnea on exertion, short of breath Gastrointestinal: No RUQ, No LUQ, No RLQ, No LLQ, No no symptoms reported, No see HPI, No abdominal pain, No constipation, No diarrhea, No dysphagia, No hematemesis, No heartburn, No jaundice, No loss of appetite, No melena, No nausea, No vomiting, No other Sepsis Event Evaluation Height, Weight, BMI Height: '" Weight: lbs. oz. kg; 31.40 BMI Method: Exam Exam Patient acknowledged, consented, and participated in this virtual visit which was conducted using real time audio/video Vital Signs Date Time Temp Pulse Resp B/P (MAP) Pulse Ox O2 Delivery O2 Flow Rate FiO2 09/04/20 07:51 36.4 76 20 125/71 (89) 93 Nasal Cannula 4.00 09/04/20 07:10 95 Nasal Cannula 5.00 09/03/20 21:51 96 Nasal Cannula 4.00 09/03/20 20:00 36.8 85 26 101/56 (71) 93 Nasal Cannula 6.00 09/03/20 19:11 95 Nasal Cannula 4.00 Height & Weight Height: '" Weight: lbs. oz. kg; 31.40 BMI Method: General Appearance: No Apparent Distress, WD/WN, Chronically ill, Moderate Distress, Obese, Other (PRAKASH) HEENT: PERRL/EOMI, Normal ENT Inspection, Pharynx Normal Neck: Full Range of Motion, Normal Inspection, Non Tender, Supple, Carotid Bruit Respiratory: Chest Non Tender, Lungs Clear, No Accessory Muscle Use, No Respiratory Distress, Decreased Breath Sounds, Other (stethescope quality poor but sounds like bilateral crackles) Cardiovascular: Regular Rate, Rhythm, No Edema, No Gallop, No JVD, No Murmur, Normal Peripheral Pulses Gastrointestinal: normal bowel sounds, non tender Extremity: Normal Capillary Refill, Normal Inspection, Normal Range of Motion, Non Tender, No Calf Tenderness, No Pedal Edema Neurologic/Psychiatric: Alert, Oriented x3, No Motor/Sensory Deficits, Normal 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
[2020-09-04] MEDS: ALPRAZolam 0.25 MG (XANAX) TAB PO PRN ×2 (13:00→21:11)
[2020-09-04] MEDS: CATHETER FLUSH 10 ML SYR IV PRN (13:03)
--- NOTE | 2020-09-04 14:49 | Therapy Group Daily Note ---
Therapy Daily Group Note Patient Education Topic Fall Prevention, Exercises Exercises LE Seated Exercise, UE Exercise Session Ratio (pt:therapist): 4:1 Goal of Session: Home Safety Strategies, UE/LE Strengthing Goal Met for this Session: Yes Pt Benefit of Group: Increased Functional Safety, Increased Functional Strength, Improved Cognition, Socialization Other/Notes This group session was a combination of social interaction, functional U/LE strength training, cognition with reading, understanding and demonstrating an exercise to the group, recall of favorite events/activities, as well as U/LE strengthening. Education on fall prevention and safety completed as well. This patient was able to interact appropriately with good recall of safety and past events. This patient was able to participate in therapy session and seemed to enjoy the social aspect of the event. She performed ther ex as led and was able to lead her specific exercise. Good cognition and participation. Start Time: 13:00 Stop Time: 14:00 Total Billed Treatment Time: 60 Total Billed Treatment visit GRP 60 SAIHL AGUILAR PT Sep 04, 2020 14:49
--- NOTE | 2020-09-04 15:19 | Occupational Ther Daily Note ---
OT Current Status-Daily Note Subjective Pt alert, lying in bed. Pt agrees to therapy. No c/o pain. Monitored O2 sat levels throughout session. Multiple and lengthy recovery breaks required due to SOA and decreased O2 saturation levels. Pt was placed on 10-8L O2 during activity. Mental Status/Objective Patient Orientation: Person, Place, Time, Situation Attachments: IV, Oxygen ADL-Treatment Co treat with OT as the skill of 2 clinicians indicated to safely and effectively complete all tasks due to the complexity and need for much assist of this patient. PT focusing on strengthening, transfers and mobility while OT focusing on functional mobility and ADLs. Pt agrees to shower. During treatment, pt stated that she had left her purse at [place] or with the ambulance company, PT alerted SW. Pt fatigues quickly and requires assistance with finishing functional tasks. Sitting on BSC, pt able to complete 50% of shower then assist for other 50%. Mod A for upper body dressing. Max A for lower body dressing and footwear. After therapy, pt sitting up in w/c with call light/phone in reach. All needs met in room. Therapy Code Descriptions/Definitions Functional [place] Measure: 0=Not Assessed/NA 4=Minimal Assistance 1=Total Assistance 5=Supervision or Setup 2=Maximal Assistance 6=Modified [place] 3=Moderate Assistance 7=Complete IndependenceSCALE: Activities may be completed with or without assistive devices. 9-Qgujpypotx-rmohtbj completes the activity by him/herself with no assistance from a helper. 5-Set-up or Clean-up Assistance-helper sets up or cleans up; patient completes activity. [place] assists only prior to or following the activity. 4-Supervision or Touching Assistance-helper provides verbal cues and/or touching/steadying and/or contact guard assistance as patient completes activi ty. Assistance may be provided throughout the activity or intermittently. 3-Partial/Moderate Assistance-helper does LESS THAN HALF the effort. [place] lifts, holds or supports trunk or limbs, but provides less than half the effort. 2-Substantial/Maximal Assistance-helper does MORE THAN HALF the effort. [place] lifts or holds trunk or limbs and provides more than half the effort. 5-Ehtslhcxx-hzjybw does ALL the effort. Patient does none of the effort to complete the activity. Or, the assistance of 2 or more helpers is required for the patient to complete the activity. If activity was not attempted, code reason: 7-Patient Refused. 9-Not Applicable-not attempted and the patient did not perform the activity before the current illness, exacerbation or injury. 10-Not Attempted due to Environmental Limitations-(lack of equipment, weather restraints, etc.). 88-Not Attempted due to Medical Conditions or Safety Concerns. Eating (QC): 6 (per clinical judgement) Oral Hygiene (QC): 6 (per clinical judgement, sitting at sink to complete) Shower/Bathe Self (QC): 2 Upper Body Dressing (QC): 3 Lower Body Dressing (QC): 2 On/Off Footwear: 2 OT Short Term Goals Short Term Goals Time Frame: Sep 16, 2020 Eatin Oral hygiene: 4 Toileting hygiene: 3 Shower/bathe self: 3 Upper body dressin Lower body dressin Putting on/taking off footwear: 3 OT Long-Term Goals Metal Door Assembler Goals Time Frame: Sep 30, 2020 Eating (QC): 6 Oral Hygiene (QC): 6 Toileting Hygiene (QC): 6 Shower/Bathe Self (QC): 4 Upper Body Dressing (QC): 5 Lower Body Dressing (QC): 4 On/Off Footwear (QC): 5 Additional Goals: 1-Demonstrate ADL Tasks, 2-Verbalize Understanding, 3- ImproveStrength/Luis Manuel 1=Demonstrate adherence to instructed precautions during ADL tasks. 2=Patient will verbalize/demonstrate understanding of assistive devices/modifications for ADL. 3=Patient will improve strength/tolerance for activity to enable patient to perform ADL's. OT Education/Plan Problem List/Assessment Assessment: Decreased Activ Tolerance, Impaired Self-Care Skills Discharge Recommendations Plan/Recommendations: Continue POC Treatment Plan/Plan of Care Patient would benefit from OT for education, treatment and training to promote independence in ADL's, mobility, safety and/or upper extremity function for ADL's. Plan of Care: ADL Retraining, Functional Mobility, UE Funct Exercise/Act Treatment Duration: Sep 30, 2020 Frequency: At least 5 of 7 days/Wk (IRF) Estimated Hrs Per Day: 1.5 hours per day Agreement: Yes Rehab Potential: Good Time/GCodes Start Time: 08:45 Stop Time: 09:30 Total Time Billed (hr/min): 45 Billed Treatment Time 1 visit-ADL 3 (45 min) co-treat with PT [id number] SAHIL LARSEN Sep 04, 2020 15:19
[2020-09-04] MEDS: RT-LEVALBUTEROL (XOPENEX) 1.25 MG/3 ML NEB NON-FORMULARY INH SCH ×2 (15:47→22:08)
[2020-09-04 20:00] VITALS: BP 110/70
[2020-09-04] MEDS: LIDOCAINE PATCH REMOVAL TP SCH (20:56)
[2020-09-04] MEDS: MELATONIN 3 MG TABLET PO SCH (21:12)
[2020-09-04] MEDS: MONTELUKAST 10 MG (SINGULAIR) TAB PO SCH (21:12)
--- NOTE | 2020-09-05 05:25 | PM&R Progress Note ---
Subjective HPI/CC On Admission Date Seen by Provider: Sep 05, 2020 Time Seen by Provider: 09:00 Subjective/Events-last exam 09/05/2020: Pt doing pretty well but having loose stools Eliquis restarted since no nose bleeds Echocardiogram ordered per pulmonology consult Four liters of oxygen maintained Talked about her Scoliosis and restrictive lung disease Patient does not want inhaler or breathing treatment 09/04/2020: Pt doing pretty well Wonders if she should have a continuous pulse-ox and I told her we are monitoring that with frequent spot checks. Chest X-ray ordered for pulmonary consultation She even gets SOB on the bed-almazan Echo was recommended so we will order Review of Systems General: Fatigue, Malaise Neurological: Weakness Objective Exam Vital Signs Vital Signs Date Time Temp Pulse Resp B/P (MAP) Pulse Ox O2 Delivery O2 Flow Rate FiO2 09/05/20 20:29 36.7 84 24 109/68 (82) 92 Nasal Cannula 4.00 Capillary Refill : General Appearance: No Apparent Distress, WD/WN, Chronically ill, Obese HEENT: PERRL/EOMI, Normal ENT Inspection, Pharynx Normal Neck: Full Range of Motion, Normal Inspection, Non Tender, Supple, Carotid Bruit Respiratory: Chest Non Tender, Lungs Clear, No Accessory Muscle Use, No Respiratory Distress, Decreased Breath Sounds Cardiovascular: Regular Rate, Rhythm, No Edema, No Gallop, No JVD, No Murmur, Normal Peripheral Pulses Gastrointestinal: Normal Bowel Sounds, No Organomegaly, No Pulsatile Mass, Non Tender, Soft Back: Normal Inspection, No CVA Tenderness, No Vertebral Tenderness Extremity: Normal Capillary Refill, Normal Inspection, Normal Range of Motion, Non Tender, No Calf Tenderness, No Pedal Edema Neurologic/Psychiatric: Alert, Oriented x3, No Motor/Sensory Deficits, Normal Mood/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 FIM Transfers Therapy Code Descriptions/Definitions Functional [place] Measure: 0=Not Assessed/NA 4=Minimal Assistance 1=Total Assistance 5=Supervision or Setup 2=Maximal Assistance 6=Modified [place] 3=Moderate Assistance 7=Complete IndependenceSCALE: Activities may be completed with or without assistive devices. 7-Vmxhwwxllr-nznuobk completes the activity by him/herself with no assistance from a helper. 5-Set-up or Clean-up Assistance-helper sets up or cleans up; patient completes activity. [place] assists only prior to or following the activity. 4-Supervision or Touching Assistance-helper provides verbal cues and/or touching/steadying and/or contact guard assistance as patient completes activity. Assistance may be provided throughout the activity or intermittently. 3-Partial/Moderate Assistance-helper does LESS THAN HALF the effort. [place] lifts, holds or supports trunk or limbs, but provides less than half the effort. 2-Substantial/Maximal Assistance-helper does MORE THAN HALF the effort. [place] lifts or holds trunk or limbs and provides more than half the effort. 9-Mvwulvqvq-inajyg does ALL the effort. Patient does none of the effort to c omplete the activity. Or, the assistance of 2 or more helpers is required for the patient to complete the activity. If activity was not attempted, code reason: 7-Patient Refused. 9-Not Applicable-not attempted and the patient did not perform the activity before the current illness, exacerbation or injury. 10-Not Attempted due to Environmental Limitations-(lack of equipment, weather restraints, etc.). 88-Not Attempted due to Medical Conditions or Safety Concerns. Roll Left to Right (QC): 4 Sit to Lying (QC): 4 Sit to Stand (QC): 1 Chair/Iny-xf-Faevr Xfer(QC): 1 Car Transfer (QC): 88 Gait Training Does the Patient Walk?: No and Walking Goal IS indicated Walk 10 feet (QC): 88 Walk 50 ft with 2 Turns(QC): 88 Walk 150 ft (QC): 88 Walking 10ft/uneven surface-QC: 88 Wheelchair Training Does the Pt Use a Wheelchair?: No Wheel 50 ft with 2 turns (QC): 9 Wheel 150 ft (QC): 9 Type of Wheelchair: N/A Stair Training 1 Step (curb) (QC): 88 4 Steps (QC): 88 12 Steps (QC): 88 Balance Picking up an Object (QC): 88 ADL-Treatment Eating (QC): 6 (per clinical judgement) Oral Hygiene (QC): 6 (per clinical judgement, sitting at sink to complete) Shower/Bathe Self (QC): 2 Upper Body Dressing (QC): 3 Lower Body Dressing (QC): 2 On/Off Footwear (QC): 2 Toileting Hygiene (QC): 2 (Per clinical judgement.) Assessment/Plan Assessment and Plan Assess & Plan/Chief Complaint Assessment: COVID-19 pneumonia with ongoing hypoxic respiratory failure Chronic scoliosis back pain History of pain pill addiction Claustrophobia Anxiety Gout Restrictive lung disease Recent pneumomediastinum Thrombocytopenia Anemia Hypokalemia Hypomag Plan: Inpatient rehab protocol Slow therapy 31/08 due to severe hypoxia with exertion due to COVID-19 pneumonia Monitor closely Replace potassium and mag 09/04/2020: Supportive care Pulmonary consultation appreciated Echo Slow taper 09/05/2020: Discontinue breathing treatments since it makes her too shaky Long taper of prednisone (1) COVID-19 JULES ROJAS DO Sep 05, 2020 05:25
[2020-09-05] MEDS: predniSONE 10 MG TAB PO SCH (06:34)
[2020-09-05] MEDS: CATHETER FLUSH 10 ML SYR IV SCH ×3 (06:34→20:58)
[2020-09-05] MEDS: RT-LEVALBUTEROL (XOPENEX) 1.25 MG/3 ML NEB NON-FORMULARY INH SCH ×2 (06:35→14:23)
[2020-09-05] MEDS: MAGNESIUM OXIDE (MAG-OX)400 MG TAB PO SCH ×2 (07:05→17:54)
[2020-09-05] MEDS: ASCORBIC ACID (VIT C) 500 MG TABLET PO SCH ×2 (07:05→20:56)
[2020-09-05] MEDS: guaiFENesin (MUCINEX) 600 MG TAB PO SCH ×2 (07:05→20:56)
[2020-09-05] MEDS: PANTOPRAZOLE 40 MG (PROTONIX) TAB PO SCH (07:05)
[2020-09-05] MEDS: ATENOLOL 25 MG (TENORMIN) TAB PO SCH ×2 (07:05→19:38)
[2020-09-05] MEDS: PARoxetine 20 MG (PAXIL) TAB PO SCH (07:05)
[2020-09-05] MEDS: clonazePAM 1 MG (KlonoPIN) TAB PO SCH ×2 (07:05→20:55)
[2020-09-05] MEDS: ROFLUMILAST 500 MCG TAB (DALIRESP) PO SCH (07:05)
[2020-09-05] MEDS: ALPRAZolam 0.25 MG (XANAX) TAB PO PRN ×2 (07:05→14:29)
[2020-09-05] MEDS: KCL 20 MEQ TAB (K-DUR) PO SCH ×3 (07:05→17:54)
[2020-09-05] MEDS: COLCHICINE 0.6 MG (COLCRYS) TABLET PO SCH (07:05)
[2020-09-05] MEDS: SILDENAFIL 20 MG (REVATIO) TAB NON-FORMULARY PO SCH ×3 (07:07→20:56)
[2020-09-05 08:00] VITALS: BP 119/72
[2020-09-05] MEDS: SALINE NASAL SPRAY (OCEAN) 45 ML BTL SCH ×3 (09:53→19:24)
[2020-09-05] MEDS: SENNA W/DOCUSATE (SENOKOT S) TABLET PO SCH ×2 (09:53→19:26)
[2020-09-05] MEDS: polyethylene glycoL POWDER 17 GM (MIRALAX) PACK PO SCH ×2 (09:53→19:25)
[2020-09-05] MEDS: LIDOCAINE 4% (SALONPAS) PATCH TOP SCH (09:53)
[2020-09-05] MEDS: DOCUSATE SODIUM 100 MG (COLACE) CAP PO SCH ×2 (09:53→19:25)
--- NOTE | 2020-09-05 10:33 | Physical Therapy Daily Note ---
PT Daily Note-Current Subjective Pt. in w/c with OT upon arrival, agrees to PT. Co-tx with OT for skilled care of 2 for transfers and poor endurance. Mental Status Patient Orientation: Person, Place, Time, Situation Attachments: Oxygen 6-8L O2, monitoring sats during session Transfers SCALE: Activities may be completed with or without assistive devices. 5-Xwufjgayxg-xasorzc completes the activity by him/herself with no assistance from a helper. 5-Set-up or Clean-up Assistance-helper sets up or cleans up; patient completes activity. [place] assists only prior to or following the activity. 4-Supervision or Touching Assistance-helper provides verbal cues and/or touching/steadying and/or contact guard assistance as patient completes activity. Assistance may be provided throughout the activity or intermittently. 3-Partial/Moderate Assistance-helper does LESS THAN HALF the effort. [place] lifts, holds or supports trunk or limbs, but provides less than half the effort. 2-Substantial/Maximal Assistance-helper does MORE THAN HALF the effort. [place] lifts or holds trunk or limbs and provides more than half the effort. 1-Ixdosqrez-kjtpzq does ALL the effort. Patient does none of the effort to complete the activity. Or, the assistance of 2 or more helpers is required for the patient to complete the activity. If activity was not attempted, code reason: 7-Patient Refused. 9-Not Applicable-not attempted and the patient did not perform the activity before the current illness, exacerbation or injury. 10-Not Attempted due to Environmental Limitations-(lack of equipment, weather restraints, etc.). 88-Not Attempted due to Medical Conditions or Safety Concerns. Sit to Stand (QC): 1 Chair/Ipk-fa-Qxbkr Xfer(QC): 1 mod-max A x 2 with sit to stand transfers Weight Bearing Right Lower Extremity: Right Full Weight Bearing Left Lower Extremity: Left Full Weight Bearing Gait Training Does the Patient Walk?: Yes Distance: 2 x 6-8 ft Gait Persons Needed: 2 Gait Assistive Device: Parallel Bars mod A with walking, w/c follow Wheelchair Training Does the Pt Use a Wheelchair?: Yes Type of Wheelchair: Manual therapist propels w/c due to poor endurance and shortness of breath Treatments Co-tx with OT this date for skilled care of 2 clinicians for mobility and patien t poor endurance. Pt. stood in // bars x 3 with max A x 2 but min A upon standing. Pt. ambulated 3 x 6-8 ft with mod A and close w/c follow due to significant LE weakness and poor endurance. O2 sats frequently monitored during session and would drop to low 80s with standing and walking while on 6-8L of O2. Pt. became very short of breath with activity requiring several minutes of seated rest to recover. Pt. completed sit to stand from elevated mat x 4 with mod A x 2. Pt. returned to bedside chair post session with call light, O2 in situ at 6L with sats 98-99% and all needs met. Assessment Current Status: Good Progress Pt. continues to fatigue very quickly with therapy and becomes short of breath. O2 sats drop to low 80s with activity and 8L O2. Pt. was able to ambulate in // bars today and did 10 sit to stand transfers with therapy. PT Short Term Goals Short Term Goals Time Frame: Sep 16, 2020 Roll Left & Right: 6 Sit to lyin Lying to sitting on side of be: 6 Sit to stand: [address] Construction Inspector Goals Shelter Goals PT Shelter Goals Time Frame: Sep 30, 2020 Roll Left & Right (QC): 6 Sit to Lying (QC): 6 Lying-Sitting on Side/Bed(QC): 6 Sit to Stand (QC): 6 Chair/Pbg-qn-Qlihx Xfer(QC): 6 Toilet Transfer (QC): 6 Car Transfer (QC): 6 Does the Patient Walk: No and Walking Goal IS indicated Walk 10 feet (QC): 6 Walk 50ft with 2 Turns (QC): 6 Walk 150 ft (QC): 6 Walking 10ft on Uneven Surface: 6 1 Step (curb) (QC): 6 4 Steps (QC): 6 12 Steps (QC): 9 Picking up an Object (QC): 6 Does the Pt use WC or Scooter?: No Wheel 50 feet with 2 turns (QC: 9 Type: N/A Wheel 150 feet: 9 Type: N/A PT Plan Treatment/Plan Treatment Plan: Continue Plan of Care Treatment Plan: Bed Mobility, Education, Functional Activity Luis Manuel, Functional Strength, Group Therapy, Gait, Safety, Therapeutic Exercise, Transfers Treatment Duration: Sep 30, 2020 Frequency: Modified Program (IRF) Estimated Hrs Per Day: 1.5 hours per day Patient and/or Family Agrees t: Yes Time/GCodes Time In: 900 Time Out: 1000 Total Billed Treatment Time: 60 Total Billed Treatment 1, FA 60' (co-tx with OT 60') RAUL BULL PT Sep 05, 2020 10:33
--- NOTE | 2020-09-05 11:57 | Occupational Ther Daily Note ---
OT Current Status-Daily Note Subjective Pt alert, sitting in recliner. Pt agrees to therapy. No c/o pain at this time. Mental Status/Objective Patient Orientation: Person, Place, Time, Situation ADL-Treatment Max A x1 for SPT from EOB to w/c, pt sits quickly. Sitting at sink, pt completes oral care independently. Fatigues quickly due to using B UE at chest height to complete oral care. Therapy Code Descriptions/Definitions Functional [place] Measure: 0=Not Assessed/NA 4=Minimal Assistance 1=Total Assistance 5=Supervision or Setup 2=Maximal Assistance 6=Modified [place] 3=Moderate Assistance 7=Complete IndependenceSCALE: Activities may be completed with or without assistive devices. 5-Prbdabmsoq-fjhzvyq completes the activity by him/herself with no assistance from a helper. 5-Set-up or Clean-up Assistance-helper sets up or cleans up; patient completes activity. [place] assists only prior to or following the activity. 4-Supervision or Touching Assistance-helper provides verbal cues and/or touching/steadying and/or contact guard assistance as patient completes activity. Assistance may be provided throughout the activity or intermittently. 3-Partial/Moderate Assistance-helper does LESS THAN HALF the effort. [place] lifts, holds or supports trunk or limbs, but provides less than half the effort. 2-Substantial/Maximal Assistance-helper does MORE THAN HALF the effort. [place] lifts or holds trunk or limbs and provides more than half the effort. 1-Spaiyhawr-ixnhmr does ALL the effort. Patient does none of the effort to complete the activity. Or, the assistance of 2 or more helpers is required for the patient to complete the activity. If activity was not attempted, code reason: 7-Patient Refused. 9-Not Applicable-not attempted and the patient did not perform the activity before the current illness, exacerbation or injury. 10-Not Attempted due to Environmental Limitations-(lack of equipment, weather restraints, etc.). 88-Not Attempted due to Medical Conditions or Safety Concerns. Other Treatment Co-tx with PT ([id number]), skills of 2 clinicians required for mobility and increased stamina. PT focusing on standing, ambulation and transfers while OT focusing on ADLs and functional mobility. Pt standing at parallel bars x3 with max A x 2 but min A upon standing. Pt. ambulated 3 x 6-8 ft with mod A with w/c close following due to significant LE weakness and decreased stamina. O2 sats frequently monitored during session and would drop to low 80s with standing and walking while on 6-8L of O2. Pt. became very short of breath with activity re quiring several minutes for recovery. Pt. completed sit to stand from elevated mat x 4 with mod A x 2, working on eccentric control. Pt given medium resistance therapy sponge and 4 exercises to increase director of hemophilia and pinch strength for dressing and functional tasks. Pt able to complete 1 set 10 reps of each exercise. After therapy, pt sitting in recliner with call light/phone in reach. All needs met in room. OT Short Term Goals Short Term Goals Time Frame: Sep 16, 2020 Eatin Oral hygiene: 4 Toileting hygiene: 3 Shower/bathe self: 3 Upper body dressin Lower body dressin Putting on/taking off footwear: 3 OT Prescription Clerk Goals Prescription Clerk Goals Time Frame: Sep 30, 2020 Eating (QC): 6 Oral Hygiene (QC): 6 Toileting Hygiene (QC): 6 Shower/Bathe Self (QC): 4 Upper Body Dressing (QC): 5 Lower Body Dressing (QC): 4 On/Off Footwear (QC): 5 Additional Goals: 1-Demonstrate ADL Tasks, 2-Verbalize Understanding, 3- ImproveStrength/Luis Manuel 1=Demonstrate adherence to instructed precautions during ADL tasks. 2=Patient will verbalize/demonstrate understanding of assistive devices/modifications for ADL. 3=Patient will improve strength/tolerance for activity to enable patient to perform ADL's. OT Education/Plan Problem List/Assessment Assessment: Decreased Activ Tolerance, Decreased UE Strength, Impaired Bed Mobility, Impaired Self-Care Skills Discharge Recommendations Plan/Recommendations: Continue POC Treatment Plan/Plan of Care Patient would benefit from OT for education, treatment and training to promote independence in ADL's, mobility, safety and/or upper extremity function for ADL's. Plan of Care: ADL Retraining, Functional Mobility, UE Funct Exercise/Act Treatment Duration: Sep 30, 2020 Frequency: At least 5 of 7 days/Wk (IRF) Estimated Hrs Per Day: 1.5 hours per day Agreement: Yes Rehab Potential: Good Time/GCodes Start Time: 08:45 Stop Time: 10:15 Total Time Billed (hr/min): 75 Billed Treatment Time 1 visit-ADL 2 (30 min) FA 3 (45 min) EX 1 (15 min) co-treat with PT 0900- 1000, individual [id number] SAHIL LARSEN Sep 05, 2020 11:57
--- NOTE | 2020-09-05 12:00 | Physical Therapy Daily Note ---
PT Daily Note-Current Subjective Agreeable to PT. Transfers SCALE: Activities may be completed with or without assistive devices. 7-Lvkkhvatif-jkhvzea completes the activity by him/herself with no assistance from a helper. 5-Set-up or Clean-up Assistance-helper sets up or cleans up; patient completes activity. [place] assists only prior to or following the activity. 4-Supervision or Touching Assistance-helper provides verbal cues and/or touching/steadying and/or contact guard assistance as patient completes activity. Assistance may be provided throughout the activity or intermittently. 3-Partial/Moderate Assistance-helper does LESS THAN HALF the effort. [place] lifts, holds or supports trunk or limbs, but provides less than half the effort. 2-Substantial/Maximal Assistance-helper does MORE THAN HALF the effort. [place] lifts or holds trunk or limbs and provides more than half the effort. 2-Shpwifpbq-fgnwhf does ALL the effort. Patient does none of the effort to complete the activity. Or, the assistance of 2 or more helpers is required for the patient to complete the activity. If activity was not attempted, code reason: 7-Patient Refused. 9-Not Applicable-not attempted and the patient did not perform the activity before the current illness, exacerbation or injury. 10-Not Attempted due to Environmental Limitations-(lack of equipment, weather restraints, etc.). 88-Not Attempted due to Medical Conditions or Safety Concerns. Weight Bearing Right Lower Extremity: Right Full Weight Bearing Left Lower Extremity: Left Full Weight Bearing Exercises Supine Ex: Ankle pumps, Quad Set, Heel Slides, Short Arc Quads, Hip abd/add Supine Reps: 15 Seated Therapy Exercises: Ankle pumps, Long arc quads, Hip flexion, Glut set Seated Reps: 15 Treatments B LE ther ex with rest breaks as needed for deep breathing and monitor of sats; stayed within 85-91 % throughout treatment with oxygen at 4 l/min. Deep breathing and pursed lip breathing used as needed. Oxygen in situ post treatment Assessment Current Status: Good Progress Tolerated ther ex well. PT Short Term Goals Short Term Goals Time Frame: Sep 16, 2020 Roll Left & Right: 6 Sit to lyin Lying to sitting on side of be: 6 Sit to stand: 4 PT Auger Machine Offbearer Goals Auger Machine Offbearer Goals PT [facility] Goals Time Frame: Sep 30, 2020 Roll Left & Right (QC): 6 Sit to Lying (QC): 6 Lying-Sitting on Side/Bed(QC): 6 Sit to Stand (QC): 6 Chair/Vaa-wh-Inylm Xfer(QC): 6 Toilet Transfer (QC): 6 Car Transfer (QC): 6 Does the Patient Walk: No and Walking Goal IS indicated Walk 10 feet (QC): 6 Walk 50ft with 2 Turns (QC): 6 Walk 150 ft (QC): 6 Walking 10ft on Uneven Surface: 6 1 Step (curb) (QC): 6 4 Steps (QC): 6 12 Steps (QC): 9 Picking up an Object (QC): 6 Does the Pt use WC or Scooter?: No Wheel 50 feet with 2 turns (QC: 9 Type: N/A Wheel 150 feet: 9 Type: N/A PT Plan Problem List Problem List: Activity Tolerance, Functional Strength, Safety Treatment/Plan Treatment Plan: Continue Plan of Care Treatment Plan: Bed Mobility, Education, Functional Activity Luis Manuel, Functional Strength, Group Therapy, Gait, Safety, Therapeutic Exercise, Transfers Treatment Duration: Sep 30, 2020 Frequency: Modified Program (IRF) Estimated Hrs Per Day: 1.5 hours per day Patient and/or Family Agrees t: Yes Time/GCodes Time In: 1120 Time Out: 1155 Total Billed Treatment Time: 35 Total Billed Treatment visit Ther ex 35 SAHIL AGUILAR PT Sep 05, 2020 12:00
--- NOTE | 2020-09-05 13:28 | Occupational Ther Daily Note ---
OT Current Status-Daily Note Subjective Pt alert, sitting in recliner. Pt agrees to therapy. No c/o pain, only fatigue. Mental Status/Objective Patient Orientation: Person, Place, Time, Situation Attachments: Oxygen ADL-Treatment Pt requested to use toilet. Monitor O2 levels during activity. Increased O2 to 8L 88% with activity. 4L when lying, 91% and above. Max A x2 for sit to stand, mod A for SPT from surface to surface. Assist to manipulate clothing for toileting and pt cleansed self on toilet. Pt then chose to go back to bed. Min A x2 for sitting EOB to supine. After therapy, pt lying in bed with call light/phone in reach. Therapy Code Descriptions/Definitions Functional [place] Measure: 0=Not Assessed/NA 4=Minimal Assistance 1=Total Assistance 5=Supervision or Setup 2=Maximal Assistance 6=Modified [place] 3=Moderate Assistance 7=Complete IndependenceSCALE: Activities may be completed with or without assistive devices. 2-Gtkxeghsrv-tjagfen completes the activity by him/herself with no assistance from a helper. 5-Set-up or Clean-up Assistance-helper sets up or cleans up; patient completes activity. [place] assists only prior to or following the activity. 4-Supervision or Touching Assistance-helper provides verbal cues and/or touching/steadying and/or contact guard assistance as patient completes activity. Assistance may be provided throughout the activity or intermittently. 3-Partial/Moderate Assistance-helper does LESS THAN HALF the effort. [place] lifts, holds or supports trunk or limbs, but provides less than half the effort. 2-Substantial/Maximal Assistance-helper does MORE THAN HALF the effort. [place] lifts or holds trunk or limbs and provides more than half the effort. 3-Vfzimqhvp-xjqwcz does ALL the effort. Patient does none of the effort to complete the activity. Or, the assistance of 2 or more helpers is required for the patient to complete the activity. If activity was not attempted, code reason: 7-Patient Refused. 9-Not Applicable-not attempted and the patient did not perform the activity before the current illness, exacerbation or injury. 10-Not Attempted due to Environmental Limitations-(lack of equipment, weather restraints, etc.). 88-Not Attempted due to Medical Conditions or Safety Concerns. OT Short Term Goals Short Term Goals Time Frame: Sep 16, 2020 Eatin Oral hygiene: 4 Toileting hygiene: 3 Shower/bathe self: 3 Upper body dressin Lower body dressin Putting on/taking off footwear: 3 OT Roads Superintendent Goals Prison Goals Time Frame: Sep 30, 2020 Eating (QC): 6 Oral Hygiene (QC): 6 Toileting Hygiene (QC): 6 Shower/Bathe Self (QC): 4 Upper Body Dressing (QC): 5 Lower Body Dressing (QC): 4 On/Off Footwear (QC): 5 Additional Goals: 1-Demonstrate ADL Tasks, 2-Verbalize Understanding, 3- ImproveStrength/Luis Manuel 1=Demonstrate adherence to instructed precautions during ADL tasks. 2=Patient will verbalize/demonstrate understanding of assistive devices/modifications for ADL. 3=Patient will improve strength/tolerance for activity to enable patient to perform ADL's. OT Education/Plan Problem List/Assessment Assessment: Decreased Activ Tolerance, Dependent Transfers, Impaired Self-Care Skills Discharge Recommendations Plan/Recommendations: Continue POC Treatment Plan/Plan of Care Patient would benefit from OT for education, treatment and training to promote independence in ADL's, mobility, safety and/or upper extremity function for ADL's. Plan of Care: ADL Retraining, Functional Mobility, UE Funct Exercise/Act Treatment Duration: Sep 30, 2020 Frequency: At least 5 of 7 days/Wk (IRF) Estimated Hrs Per Day: 1.5 hours per day Agreement: Yes Rehab Potential: Good Time/GCodes Start Time: 13:00 Stop Time: 13:20 Total Time Billed (hr/min): 20 Billed Treatment Time 1 visit-ADL 1 (20 min) SAHIL LARSEN Sep 05, 2020 13:28
[2020-09-05] MEDS: CATHETER FLUSH 10 ML SYR IV PRN (13:44)
[2020-09-05] MEDS ORDERED: RT-LEVALBUTEROL (XOPENEX) 1.25 MG/3 ML NEB NON-FORMULARY INH PRN (15:00)
--- NOTE | 2020-09-05 16:17 | Diagnostic Imaging Report ---
INDICATION: PICC line placement. TECHNIQUE: Frontal chest obtained at 03:56 p.m. and compared with yesterday. FINDINGS: There is cardiomegaly. There are extensive bilateral infiltrates again present. There is no pneumothorax or pleural fluid. Left-sided PICC line is seen with tip overlying the superior portion of the right atrium, its exact location is difficult to determine due to marked scoliotic change and rotation. IMPRESSION: Cardiomegaly with extensive bilateral infiltrates again noted. No pneumothorax or pleural fluid. PICC line is essentially unchanged with tip overlying the right atrium, its exact location is difficult to determine due to marked scoliotic change and rotation. Dictated by: Dictated on workstation # [id number]
[2020-09-05] MEDS: LIDOCAINE PATCH REMOVAL TP SCH (19:27)
[2020-09-05 20:29] VITALS: BP 109/68
[2020-09-05] MEDS: MELATONIN 3 MG TABLET PO SCH (20:55)
[2020-09-05] MEDS: MONTELUKAST 10 MG (SINGULAIR) TAB PO SCH (20:55)
[2020-09-05] MEDS: APIXABAN 2.5 MG (ELIQUIS) TABLET PO SCH (20:55)
[2020-09-06] MEDS: CATHETER FLUSH 10 ML SYR IV SCH ×3 (05:44→21:23)
--- NOTE | 2020-09-06 06:16 | PM&R Progress Note ---
Subjective HPI/CC On Admission Date Seen by Provider: Sep 06, 2020 Time Seen by Provider: 10:00 Subjective/Events-last exam 09/06/2020: Pt doing pretty well Had an episode of SOB in the shower Doing okay now Feels like no other problems are occurring X-ray for picc line to be sure it is functioning adequately 09/05/2020: Pt doing pretty well but having loose stools Eliquis restarted since no nose bleeds Echocardiogram ordered per pulmonology consult Four liters of oxygen maintained Talked about her Scoliosis and restrictive lung disease Patient does not want inhaler or breathing treatment 09/04/2020: Pt doing pretty well Wonders if she should have a continuous pulse-ox and I told her we are monitoring that with frequent spot checks. Chest X-ray ordered for pulmonary consultation She even gets SOB on the bed-almazan Echo was recommended so we will order Review of Systems Pulmonary: Dyspnea Objective Exam Vital Signs Vital Signs Date Time Temp Pulse Resp B/P (MAP) Pulse Ox O2 Delivery O2 Flow Rate FiO2 09/06/20 20:10 Nasal Cannula 4.00 09/06/20 20:00 36.4 87 20 104/67 (79) 95 Capillary Refill : General Appearance: No Apparent Distress, WD/WN, Chronically ill, Obese HEENT: PERRL/EOMI, Normal ENT Inspection, Pharynx Normal Neck: Full Range of Motion, Normal Inspection, Non Tender, Supple, Carotid Bruit Respiratory: Chest Non Tender, Lungs Clear, No Accessory Muscle Use, No Respiratory Distress, Decreased Breath Sounds Cardiovascular: Regular Rate, Rhythm, No Edema, No Gallop, No JVD, No Murmur, Normal Peripheral Pulses Gastrointestinal: Normal Bowel Sounds, No Organomegaly, No Pulsatile Mass, Non Tender, Soft Back: Normal Inspection, No CVA Tenderness, No Vertebral Tenderness Extremity: Normal Capillary Refill, Normal Inspection, Normal Range of Motion, Non Tender, No Calf Tenderness, No Pedal Edema Neurologic/Psychiatric: Alert, Oriented x3, No Motor/Sensory Deficits, Normal Mood/Affect, cosmetic surgeon II-XII Norm as Tested, Motor Weakness (generalized 3/5) Skin: Normal Color, Warm/Dry Lymphatic: No Adenopathy Results/Procedures Lab Patient resulted labs reviewed. FIM Transfers Therapy Code Descriptions/Definitions Functional [place] Measure: 0=Not Assessed/NA 4=Minimal Assistance 1=Total Assistance 5=Supervision or Setup 2=Maximal Assistance 6=Modified [place] 3=Moderate Assistance 7=Complete IndependenceSCALE: Activities may be completed with or without assistive devices. 7-Snbfdrflql-koknoad completes the activity by him/herself with no assistance from a helper. 5-Set-up or Clean-up Assistance-helper sets up or cleans up; patient completes activity. [place] assists only prior to or following the activity. 4-Supervision or Touching Assistance-helper provides verbal cues and/or touching/steadying and/or contact guard assistance as patient completes activity. Assistance may be provided throughout the activity or intermittently. 3-Partial/Moderate Assistance-helper does LESS THAN HALF the effort. [place] lifts, holds or supports trunk or limbs, but provides less than half the effort. 2-Substantial/Maximal Assistance-helper does MORE THAN HALF the effort. [place] lifts or holds trunk or limbs and provides more than half the effort. 6-Citrflype-awixys does ALL the effort. Patient does none of the effort to complete the activity. Or, the assistance of 2 or more helpers is required for the patient to complete the activity. If activity was not attempted, code reason: 7-Patient Refused. 9-Not Applicable-not attempted and the patient did not perform the activity before the current illness, exacerbation or injury. 10-Not Attempted due to Environmental Limitations-(lack of equipment, weather restraints, etc.). 88-Not Attempted due to Medical Conditions or Safety Concerns. Roll Left to Right (QC): 4 Sit to Lying (QC): 4 Sit to Stand (QC): 1 Chair/Bwq-tu-Npqqy Xfer(QC): 1 Car Transfer (QC): 88 Gait Training Does the Patient Walk?: Yes Distance: 2 x 6-8 ft Walk 10 feet (QC): 88 Walk 50 ft with 2 Turns(QC): 88 Walk 150 ft (QC): 88 Walking 10ft/uneven surface-QC: 88 Gait Persons Needed: 2 Gait Assistive Device: Parallel Bars Wheelchair Training Does the Pt Use a Wheelchair?: Yes Wheel 50 ft with 2 turns (QC): 9 Wheel 150 ft (QC): 9 Type of Wheelchair: Manual Stair Training 1 Step (curb) (QC): 88 4 Steps (QC): 88 12 Steps (QC): 88 Balance Picking up an Object (QC): 88 ADL-Treatment Eating (QC): 6 (per clinical judgement) Oral Hygiene (QC): 6 (per clinical judgement, sitting at sink to complete) Shower/Bathe Self (QC): 2 Upper Body Dressing (QC): 3 Lower Body Dressing (QC): 2 On/Off Footwear (QC): 2 Toileting Hygiene (QC): 2 (Per clinical judgement.) Assessment/Plan Assessment and Plan Assess & Plan/Chief Complaint Assessment: COVID-19 pneumonia with ongoing hypoxic respiratory failure Chronic scoliosis back pain History of pain pill addiction Claustrophobia Anxiety Gout Restrictive lung disease Recent pneumomediastinum Thrombocytopenia Anemia Hypokalemia [place] Plan: Inpatient rehab protocol Slow therapy 31/08 due to severe hypoxia with exertion due to COVID-19 pneumonia Monitor closely Replace potassium and mag 09/04/2020: Supportive care Pulmonary consultation appreciated Echo Slow taper 09/05/2020: Discontinue breathing treatments since it makes her too shaky Long taper of prednisone 09/06/2020: Supportive care Oxygen supplementation (1) COVID-19 JULES ROJAS DO Sep 06, 2020 06:16
[2020-09-06] MEDS: predniSONE 10 MG TAB PO SCH (06:53)
[2020-09-06 07:43] VITALS: BP 134/73
[2020-09-06] MEDS: KCL 20 MEQ TAB (K-DUR) PO SCH ×3 (07:54→18:08)
[2020-09-06] MEDS: MAGNESIUM OXIDE (MAG-OX)400 MG TAB PO SCH ×2 (07:54→18:08)
[2020-09-06] MEDS: SALINE NASAL SPRAY (OCEAN) 45 ML BTL SCH ×3 (07:54→20:36)
[2020-09-06] MEDS: DOCUSATE SODIUM 100 MG (COLACE) CAP PO SCH ×2 (07:55→20:36)
[2020-09-06] MEDS: polyethylene glycoL POWDER 17 GM (MIRALAX) PACK PO SCH ×2 (07:55→20:36)
[2020-09-06] MEDS: ATENOLOL 25 MG (TENORMIN) TAB PO SCH ×2 (07:56→20:41)
[2020-09-06] MEDS: guaiFENesin (MUCINEX) 600 MG TAB PO SCH ×2 (07:56→21:20)
[2020-09-06] MEDS: ROFLUMILAST 500 MCG TAB (DALIRESP) PO SCH (07:56)
[2020-09-06] MEDS: PARoxetine 20 MG (PAXIL) TAB PO SCH (07:56)
[2020-09-06] MEDS: APIXABAN 2.5 MG (ELIQUIS) TABLET PO SCH ×2 (07:56→21:20)
[2020-09-06] MEDS: COLCHICINE 0.6 MG (COLCRYS) TABLET PO SCH (07:56)
[2020-09-06] MEDS: LIDOCAINE 4% (SALONPAS) PATCH TOP SCH (07:57)
[2020-09-06] MEDS: ASCORBIC ACID (VIT C) 500 MG TABLET PO SCH ×2 (07:57→21:20)
[2020-09-06] MEDS: SENNA W/DOCUSATE (SENOKOT S) TABLET PO SCH ×2 (07:57→20:36)
[2020-09-06] MEDS: clonazePAM 1 MG (KlonoPIN) TAB PO SCH ×2 (07:57→21:20)
[2020-09-06] MEDS: PANTOPRAZOLE 40 MG (PROTONIX) TAB PO SCH (07:57)
[2020-09-06] MEDS: SILDENAFIL 20 MG (REVATIO) TAB NON-FORMULARY PO SCH ×3 (07:59→21:20)
--- NOTE | 2020-09-06 09:12 | Physical Therapy Daily Note ---
PT Daily Note-Current Subjective Pt agreeable. Pt contemplating if she has enough energy and ability to shower this morning. Pt given options and pt states "I want to shower. I am a shower everyday person." Mental Status Patient Orientation: Person, Place, Situation Transfers SCALE: Activities may be completed with or without assistive devices. 7-Uowudnpwvm-szrrutw completes the activity by him/herself with no assistance from a helper. 5-Set-up or Clean-up Assistance-helper sets up or cleans up; patient completes activity. [place] assists only prior to or following the activity. 4-Supervision or Touching Assistance-helper provides verbal cues and/or t ouching/steadying and/or contact guard assistance as patient completes activity. Assistance may be provided throughout the activity or intermittently. 3-Partial/Moderate Assistance-helper does LESS THAN HALF the effort. [place] lifts, holds or supports trunk or limbs, but provides less than half the effort. 2-Substantial/Maximal Assistance-helper does MORE THAN HALF the effort. [place] lifts or holds trunk or limbs and provides more than half the effort. 3-Jjvzjfhwu-kwrghj does ALL the effort. Patient does none of the effort to complete the activity. Or, the assistance of 2 or more helpers is required for the patient to complete the activity. If activity was not attempted, code reason: 7-Patient Refused. 9-Not Applicable-not attempted and the patient did not perform the activity before the current illness, exacerbation or injury. 10-Not Attempted due to Environmental Limitations-(lack of equipment, weather restraints, etc.). 88-Not Attempted due to Medical Conditions or Safety Concerns. Sit to stand from chair or bed is dependent assist but pt able to participate and provide assist with legs, limited ability to weight shift to take steps to turn. Sit to stand from w/c with max assist of 2 persons. Skilled cues for task initiation, sequencing and hip extension in standing. Pt able to stand approx 20 sec x 2 in shower room with mod assist to maintain standing. Pt transfers max A of 2 persons with dance fashion turning Bed<->w/c. Weight Bearing Right Lower Extremity: Right Full Weight Bearing Left Lower Extremity: Left Full Weight Bearing Treatments Co treat with OT as the skill of 2 clinicians indicated to safely and effectively complete all tasks due to the complexity and need for much assist of this patient. Pt transferred out of bed, onto w/c, commode and showered and dressed. To complete these tasks, OT addressed UE use and placement as well as assisted with all ADL care; PT addressed use and placement of LE with gross tranfers and mobility tasks. Pt sat EOB several minutes to work on trunk control and core stability to complete ADL tasks in a seated position. Sit to stand and SPT transfers utilized as well to complete bathing/dressing. Consistent monitoring of sats throughout treatment. Sats varied 73-98% throughout and oxygen adjusted accordingly. Vc's for diaphragmatic breathing. Pt began coughing during shower and unable to bring up phlegm. Pt non productive cough for several minutes. O2 sats remaining 98% during this time. Pt shallow breathing requiring vc's to slow breathing and fill lower lungs. Pt with increasing anxiety and RT called. Pt returned to her bed requiring Max A of 2 persons for transfers. Pt in care of nurse and RT post therapy session due to labored breathing. Assessment Current Status: Fair Progress Pt continues to be dependent for transfers at this time due to weakness (B) LE. Pt required frequent rest breaks, easily fatigues with exertion. Pt able to bring O2 >90% with pursed lip breathing as needed. Pt appeared to tolerate treatment fair for the first portion of treatment. Pt had episode of coughing with shallow/rapid breathing and subsequent high anxiety. Pt O2 sats were remaining 97-98% during this time with portable O2 increased to 10L/min. Pt would benefit from continued diaphragmatic breathing training. PT Short Term Goals Short Term Goals Time Frame: Sep 16, 2020 Roll Left & Right: 6 Sit to lyin Lying to sitting on side of be: 6 Sit to stand: 4 PT Custodial Goals Restorative Aide Goals PT Restorative Aide Goals Time Frame: Sep 30, 2020 Roll Left & Right (QC): 6 Sit to Lying (QC): 6 Lying-Sitting on Side/Bed(QC): 6 Sit to Stand (QC): 6 Chair/Ola-ei-Fryqv Xfer(QC): 6 Toilet Transfer (QC): 6 Car Transfer (QC): 6 Does the Patient Walk: No and Walking Goal IS indicated Walk 10 feet (QC): 6 Walk 50ft with 2 Turns (QC): 6 Walk 150 ft (QC): 6 Walking 10ft on Uneven Surface: 6 1 Step (curb) (QC): 6 4 Steps (QC): 6 12 Steps (QC): 9 Picking up an Object (QC): 6 Does the Pt use WC or Scooter?: No Wheel 50 feet with 2 turns (QC: 9 Type: N/A Wheel 150 feet: 9 Type: N/A PT Plan Treatment/Plan Treatment Plan: Continue Plan of Care Treatment Plan: Bed Mobility, Education, Functional Activity Luis Manuel, Functional Strength, Group Therapy, Gait, Safety, Therapeutic Exercise, Transfers Treatment Duration: Sep 30, 2020 Frequency: Modified Program (IRF) Estimated Hrs Per Day: 1.5 hours per day Patient and/or Family Agrees t: Yes Time/GCodes Time In: 850 Time Out: 0945 Total Billed Treatment Time: 55 Total Billed Treatment 1, FA 55' (Co-treat with OT x 55') LINCOLN GONZALEZ CPTA Sep 06, 2020 09:12
--- NOTE | 2020-09-06 09:56 | Occupational Ther Daily Note ---
OT Current Status-Daily Note Subjective Pt sleeping in bed, woke easily to name. Pt agrees to therapy. No c/o pain. Monitored pt's O2 levels throughout treatment. With activity upped O2 to 8L then due to anxiety with coughing up phlegm upped to 10L. Pt continued to cough up phlegm, nrsg and respiratory called. Co-treat with PT ([id number]), skilled instructions requires skills of 2 clinicians to increase mobility, decrease fall risk and increase stamina. Mental Status/Objective Patient Orientation: Person, Place, Time, Situation Attachments: Oxygen ADL-Treatment Pt agrees to shower. Throughout session, DIALYSIS REGISTERED NURSE working with pt's deep breathing and decreasing anxiety. PT focusing on breathing, transfers and standing while OT focusing on ADLs and functional transfers. Max A x2 for all transfers. For shower transfer, pt stood with max A x2 then while standing assist x1, 2nd person able to switch out w/c for BSC. Using hand held shower, grabbars and LH sponge pt was able to wash all areas except buttocks. Assist to dry lower legs and buttocks. Assist x2 for lower body drsg. Pt able to complete doffing shirt by self assist only to don by pulling shirt down in back. Max A for footwear. Pt began to cough and was able to cough up some phlegm though continued with coughing and increase of anxiety. Pt placed in bed. Nrsg and respiratory in room. All needs met. Therapy Code Descriptions/Definitions Functional [place] Measure: 0=Not Assessed/NA 4=Minimal Assistance 1=Total Assistance 5=Supervision or Setup 2=Maximal Assistance 6=Modified [place] 3=Moderate Assistance 7=Complete IndependenceSCALE: Activities may be completed with or without assistive devices. 5-Zjqlmlxbly-opapimo completes the activity by him/herself with no assistance from a helper. 5-Set-up or Clean-up Assistance-helper sets up or cleans up; patient completes activity. [place] assists only prior to or following the activity. 4-Supervision or Touching Assistance-helper provides verbal cues and/or touching/steadying and/or contact guard assistance as patient completes activit y. Assistance may be provided throughout the activity or intermittently. 3-Partial/Moderate Assistance-helper does LESS THAN HALF the effort. [place] lifts, holds or supports trunk or limbs, but provides less than half the effort. 2-Substantial/Maximal Assistance-helper does MORE THAN HALF the effort. [place] lifts or holds trunk or limbs and provides more than half the effort. 6-Zsikhpixw-lsrjce does ALL the effort. Patient does none of the effort to complete the activity. Or, the assistance of 2 or more helpers is required for the patient to complete the activity. If activity was not attempted, code reason: 7-Patient Refused. 9-Not Applicable-not attempted and the patient did not perform the activity before the current illness, exacerbation or injury. 10-Not Attempted due to Environmental Limitations-(lack of equipment, weather restraints, etc.). 88-Not Attempted due to Medical Conditions or Safety Concerns. Shower/Bathe Self (QC): 2 Upper Body Dressing (QC): 3 Lower Body Dressing (QC): 1 On/Off Footwear: 2 Toileting Hygiene (QC): 1 Toilet Transfer (QC): 1 OT Short Term Goals Short Term Goals Time Frame: Sep 16, 2020 Eatin Oral hygiene: 4 Toileting hygiene: 3 Shower/bathe self: 3 Upper body dressin Lower body dressin Putting on/taking off footwear: 3 OT Chcf Goals Tax Representative Goals Time Frame: Sep 30, 2020 Eating (QC): 6 Oral Hygiene (QC): 6 Toileting Hygiene (QC): 6 Shower/Bathe Self (QC): 4 Upper Body Dressing (QC): 5 Lower Body Dressing (QC): 4 On/Off Footwear (QC): 5 Additional Goals: 1-Demonstrate ADL Tasks, 2-Verbalize Understanding, 3- ImproveStrength/Luis Manuel 1=Demonstrate adherence to instructed precautions during ADL tasks. 2=Patient will verbalize/demonstrate understanding of assistive devices/modifications for ADL. 3=Patient will improve strength/tolerance for activity to enable patient to perform ADL's. OT Education/Plan Problem List/Assessment Assessment: Decreased Activ Tolerance, Decreased UE Strength, Dependent Transfers, Impaired Bed Mobility, Impaired Coordination, Impaired Funct Balance, Impaired Self-Care Skills Discharge Recommendations Plan/Recommendations: Continue POC Treatment Plan/Plan of Care Patient would benefit from OT for education, treatment and training to promote independence in ADL's, mobility, safety and/or upper extremity function for ADL's. Plan of Care: ADL Retraining, Functional Mobility, UE Funct Exercise/Act Treatment Duration: Sep 30, 2020 Frequency: At least 5 of 7 days/Wk (IRF) Estimated Hrs Per Day: 1.5 hours per day Agreement: Yes Rehab Potential: Good Time/GCodes Start Time: 08:40 Stop Time: 09:45 Total Time Billed (hr/min): 65 Billed Treatment Time 1 visit-ADL 4 (65 min) co-treat with PT [id number], individual [id number] SAHIL LARSEN Sep 06, 2020 09:56
[2020-09-06] MEDS: ALPRAZolam 0.25 MG (XANAX) TAB PO PRN (11:00)
--- NOTE | 2020-09-06 14:42 | Therapy Group Daily Note ---
Therapy Daily Group Note Patient Education Topic Other List Below (energy conservation) Exercises LE Seated Exercise Session Ratio (pt:therapist): 3:1 Goal of Session: Energy Conservation Tech., UE/LE Strengthing Goal Met for this Session: Yes Pt Benefit of Group: Contributions to Others, F/U Use of Strategies @Home, Increased Functional Safety, Increased Functional Strength, Improved Cognition, Recognition of Peers, Socialization Other/Notes Pt transported via w/c to [facility] for OT/PT group. Group consisted of introductions (name, place living, childhood activity), socialization, seated B UE/LE exercises and energy conservation education. Pt introduced self appropriately and actively listened to peers. Pt completed B UE/LE seated exercises though was modified due to low activity tolerance. Pt was able to give own personal examples of energy conservation to acknowledge understanding of topic. After therapy, pt lying in bed with call light/phone in reach. All needs met in room. Start Time: 13:00 Stop Time: 14:00 Total Billed Treatment Time: 60 Total Billed Treatment 1-[facility] SAHIL LARSEN Sep 06, 2020 14:41
[2020-09-06 20:00] VITALS: BP 104/67
[2020-09-06] MEDS: MONTELUKAST 10 MG (SINGULAIR) TAB PO SCH (21:20)
[2020-09-06] MEDS: MELATONIN 3 MG TABLET PO SCH (21:21)
[2020-09-06] MEDS: LIDOCAINE PATCH REMOVAL TP SCH (21:23)
--- NOTE | 2020-09-07 06:34 | PM&R Progress Note ---
Subjective HPI/CC On Admission Date Seen by Provider: Sep 07, 2020 Time Seen by Provider: 12:00 Subjective/Events-last exam 09/07/2020: Pt doing pretty well Pulmonary consult today Nose bleed a little bit today Bowels moving On six liters during bed-almazan which seems to help recovery 09/06/2020: Pt doing pretty well Had an episode of SOB in the shower Doing okay now Feels like no other problems are occurring X-ray for picc line to be sure it is functioning adequately 09/05/2020: Pt doing pretty well but having loose stools Eliquis restarted since no nose bleeds Echocardiogram ordered per pulmonology consult Four liters of oxygen maintained Talked about her Scoliosis and restrictive lung disease Patient does not want inhaler or breathing treatment 09/04/2020: Pt doing pretty well Wonders if she should have a continuous pulse-ox and I told her we are monitoring that with frequent spot checks. Chest X-ray ordered for pulmonary consultation She even gets SOB on the bed-almazan Echo was recommended so we will order Review of Systems General: Fatigue Pulmonary: Dyspnea, Cough Objective Exam Vital Signs Vital Signs Date Time Temp Pulse Resp B/P (MAP) Pulse Ox O2 Delivery O2 Flow Rate FiO2 09/07/20 21:08 36.4 86 14 112/74 (87) 97 Nasal Cannula 6.00 Capillary Refill : General Appearance: No Apparent Distress, WD/WN, Chronically ill, Obese HEENT: PERRL/EOMI, Normal ENT Inspection, Pharynx Normal Neck: Full Range of Motion, Normal Inspection, Non Tender, Supple, Carotid Bruit Respiratory: Chest Non Tender, Lungs Clear, No Accessory Muscle Use, No Respiratory Distress, Decreased Breath Sounds Cardiovascular: Regular Rate, Rhythm, No Edema, No Gallop, No JVD, No Murmur, Normal Peripheral Pulses Gastrointestinal: Normal Bowel Sounds, No Organomegaly, No Pulsatile Mass, Non Tender, Soft Back: Normal Inspection, No CVA Tenderness, No Vertebral Tenderness Extremity: Normal Capillary Refill, Normal Inspection, Normal Range of Motion, Non Tender, No Calf Tenderness, No Pedal Edema Neurologic/Psychiatric: Alert, Oriented x3, No Motor/Sensory Deficits, Normal Mood/Affect, 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 FIM Transfers Therapy Code Descriptions/Definitions Functional [place] Measure: 0=Not Assessed/NA 4=Minimal Assistance 1=Total Assistance 5=Supervision or Setup 2=Maximal Assistance 6=Modified [place] 3=Moderate Assistance 7=Complete IndependenceSCALE: Activities may be completed with or without assistive devices. 9-Rdzdfxozmh-asvfzen completes the activity by him/herself with no assistance from a helper. 5-Set-up or Clean-up Assistance-helper sets up or cleans up; patient completes activity. [place] assists only prior to or following the activity. 4-Supervision or Touching Assistance-helper provides verbal cues and/or touching/steadying and/or contact guard assistance as patient completes activity. Assistance may be provided throughout the activity or intermittently. 3-Partial/Moderate Assistance-helper does LESS THAN HALF the effort. [place] lifts, holds or supports trunk or limbs, but provides less than half the effort. 2-Substantial/Maximal Assistance-helper does MORE THAN HALF the effort. [place] lifts or holds trunk or limbs and provides more than half the effort. 7-Izraeaivz-uwnqky does ALL the effort. Patient does none of the effort to complete the activity. Or, the assistance of 2 or more helpers is required for the patient to complete the activity. If activity was not attempted, code reason: 7-Patient Refused. 9-Not Applicable-not attempted and the patient did not perform the activity before the current illness, exacerbation or injury. 10-Not Attempted due to Environmental Limitations-(lack of equipment, weather restraints, etc.). 88-Not Attempted due to Medical Conditions or Safety Concerns. Roll Left to Right (QC): 4 Sit to Lying (QC): 4 Sit to Stand (QC): 1 Chair/Yko-kb-Kbwai Xfer(QC): 1 Car Transfer (QC): 88 Gait Training Does the Patient Walk?: Yes Distance: 2 x 6-8 ft Walk 10 feet (QC): 88 Walk 50 ft with 2 Turns(QC): 88 Walk 150 ft (QC): 88 Walking 10ft/uneven surface-QC: 88 Gait Persons Needed: 2 Gait Assistive Device: Parallel Bars Wheelchair Training Does the Pt Use a Wheelchair?: Yes Wheel 50 ft with 2 turns (QC): 9 Wheel 150 ft (QC): 9 Type of Wheelchair: Manual Stair Training 1 Step (curb) (QC): 88 4 Steps (QC): 88 12 Steps (QC): 88 Balance Picking up an Object (QC): 88 ADL-Treatment Eating (QC): 6 (per clinical judgement) Oral Hygiene (QC): 6 (per clinical judgement, sitting at sink to complete) Shower/Bathe Self (QC): 2 Upper Body Dressing (QC): 3 Lower Body Dressing (QC): 1 On/Off Footwear (QC): 2 Toileting Hygiene (QC): 1 Toilet Transfer (QC): 1 Assessment/Plan Assessment and Plan Assess & Plan/Chief Complaint Assessment: COVID-19 pneumonia with ongoing hypoxic respiratory failure Chronic scoliosis back pain History of pain pill addiction Claustrophobia Anxiety Gout Restrictive lung disease Recent pneumomediastinum Thrombocytopenia Anemia Hypokalemia [place] Plan: Inpatient rehab protocol Slow therapy 31/08 due to severe hypoxia with exertion due to COVID-19 pneumonia Monitor closely Replace potassium and mag 09/04/2020: Supportive care Pulmonary consultation appreciated Echo Slow taper 09/05/2020: Discontinue breathing treatments since it makes her too shaky Long taper of prednisone 09/06/2020: Supportive care Oxygen supplementation 09/07/2020: Monitor desaturation Supportive care (1) COVID-19 JULES ROJAS DO Sep 07, 2020 06:33
[2020-09-07] MEDS: predniSONE 10 MG TAB PO SCH (06:39)
[2020-09-07] MEDS: CATHETER FLUSH 10 ML SYR IV SCH ×3 (06:39→21:22)
[2020-09-07 07:55] VITALS: BP 114/72
[2020-09-07] MEDS: ATENOLOL 25 MG (TENORMIN) TAB PO SCH ×2 (08:14→21:21)
[2020-09-07] MEDS: guaiFENesin (MUCINEX) 600 MG TAB PO SCH ×2 (08:14→21:20)
[2020-09-07] MEDS: KCL 20 MEQ TAB (K-DUR) PO SCH ×3 (08:14→18:15)
[2020-09-07] MEDS: clonazePAM 1 MG (KlonoPIN) TAB PO SCH ×2 (08:14→21:20)
[2020-09-07] MEDS: COLCHICINE 0.6 MG (COLCRYS) TABLET PO SCH (08:14)
[2020-09-07] MEDS: ROFLUMILAST 500 MCG TAB (DALIRESP) PO SCH (08:15)
[2020-09-07] MEDS: ASCORBIC ACID (VIT C) 500 MG TABLET PO SCH ×2 (08:15→21:21)
[2020-09-07] MEDS: SILDENAFIL 20 MG (REVATIO) TAB NON-FORMULARY PO SCH ×3 (08:15→21:21)
[2020-09-07] MEDS: MAGNESIUM OXIDE (MAG-OX)400 MG TAB PO SCH ×2 (08:15→18:15)
[2020-09-07] MEDS: PANTOPRAZOLE 40 MG (PROTONIX) TAB PO SCH (08:15)
[2020-09-07] MEDS: APIXABAN 2.5 MG (ELIQUIS) TABLET PO SCH ×2 (08:15→21:21)
[2020-09-07] MEDS: PARoxetine 20 MG (PAXIL) TAB PO SCH (08:15)
[2020-09-07] MEDS: polyethylene glycoL POWDER 17 GM (MIRALAX) PACK PO SCH ×2 (08:16→21:00)
[2020-09-07] MEDS: LIDOCAINE 4% (SALONPAS) PATCH TOP SCH (08:16)
[2020-09-07] MEDS: SALINE NASAL SPRAY (OCEAN) 45 ML BTL SCH ×3 (08:16→21:00)
[2020-09-07] MEDS: DOCUSATE SODIUM 100 MG (COLACE) CAP PO SCH ×2 (08:16→21:00)
[2020-09-07] MEDS: SENNA W/DOCUSATE (SENOKOT S) TABLET PO SCH ×2 (08:16→21:00)
--- NOTE | 2020-09-07 09:42 | Physical Therapy Daily Note ---
PT Daily Note-Current Subjective Agreeable to PT. Post treatment, pt requests a Xanax. Transfers SCALE: Activities may be completed with or without assistive devices. 1-Entuknwulu-zibndcj completes the activity by him/herself with no assistance from a helper. 5-Set-up or Clean-up Assistance-helper sets up or cleans up; patient completes activity. [place] assists only prior to or following the activity. 4-Supervision or Touching Assistance-helper provides verbal cues and/or touching/steadying and/or contact guard assistance as patient completes activity. Assistance may be provided throughout the activity or intermittently. 3-Partial/Moderate Assistance-helper does LESS THAN HALF the effort. [place] lifts, holds or supports trunk or limbs, but provides less than half the effort. 2-Substantial/Maximal Assistance-helper does MORE THAN HALF the effort. [place] lifts or holds trunk or limbs and provides more than half the effort. 2-Hezsrfwtt-budzkw does ALL the effort. Patient does none of the effort to complete the activity. Or, the assistance of 2 or more helpers is required for the patient to complete the activity. If activity was not attempted, code reason: 7-Patient Refused. 9-Not Applicable-not attempted and the patient did not perform the activity before the current illness, exacerbation or injury. 10-Not Attempted due to Environmental Limitations-(lack of equipment, weather restraints, etc.). 88-Not Attempted due to Medical Conditions or Safety Concerns. Weight Bearing Right Lower Extremity: Right Full Weight Bearing Left Lower Extremity: Left Full Weight Bearing Treatments Co treat with OT as the skill of 2 clinicians is indicated due to the complexity and high skilled need for this patient. OT addresses use and placement of UE for mobility and self care as PT addressed gross LE mobility and functional transfers. Pt performed SPT x 2 wc to chair with dep assist. Toilet transfer x 2 with dep assist. Sit to tape controlled machine stitcher // bars x 2 with max assist and pt pulling up on the bars. Pt able to take 6-8 steps in // bars with max assist. Pt coughed throughout treatment. Oxygen adjusted and varied to meet pt needs. O2 sats monitored and at times drop to 75%. Nose bleed today as well. Pt in recliner post treatment with needs me.t Assessment Current Status: Fair Progress Difficulty with maintaining sats today, much coughing and a nose bleed. Able to bear weight and take steps with max assist. Pt is motivated. PT Short Term Goals Short Term Goals Time Frame: Sep 16, 2020 Roll Left & Right: 6 Sit to lyin Lying to sitting on side of be: 6 Sit to stand: 4 PT Superintendent Colliery Goals Care Home Goals PT Superintendent Colliery Goals Time Frame: Sep 30, 2020 Roll Left & Right (QC): 6 Sit to Lying (QC): 6 Lying-Sitting on Side/Bed(QC): 6 Sit to Stand (QC): 6 Chair/Sor-tn-Zqyts Xfer(QC): 6 Toilet Transfer (QC): 6 Car Transfer (QC): 6 Does the Patient Walk: No and Walking Goal IS indicated Walk 10 feet (QC): 6 Walk 50ft with 2 Turns (QC): 6 Walk 150 ft (QC): 6 Walking 10ft on Uneven Surface: 6 1 Step (curb) (QC): 6 4 Steps (QC): 6 12 Steps (QC): 9 Picking up an Object (QC): 6 Does the Pt use WC or Scooter?: No Wheel 50 feet with 2 turns (QC: 9 Type: N/A Wheel 150 feet: 9 Type: N/A PT Plan Problem List Problem List: Activity Tolerance, Functional Strength, Safety, Balance, Gait, Transfer, Bed Mobility Treatment/Plan Treatment Plan: Continue Plan of Care Treatment Plan: Bed Mobility, Education, Functional Activity Luis Manuel, Functional Strength, Group Therapy, Gait, Safety, Therapeutic Exercise, Transfers Treatment Duration: Sep 30, 2020 Frequency: Modified Program (IRF) Estimated Hrs Per Day: 1.5 hours per day Patient and/or Family Agrees t: Yes Safety Risks/Education Patient Education: Safety Issues Teaching Recipient: Patient Teaching Methods: Discussion Response to Teaching: Verbalize Understanding Time/GCodes Time In: 845 Time Out: 945 Total Billed Treatment Time: 60 Total Billed Treatment visit FA 60 (co treat with OT) SAHIL AGUILAR PT Sep 07, 2020 09:42
--- NOTE | 2020-09-07 09:49 | Occupational Ther Daily Note ---
OT Current Status-Daily Note Subjective Pt alert, lying in bed. Pt agrees to therapy. No c/o pain. Monitor O2 levels during therapy. Pt began coughing during therapy and was able to bring up phlegm multiple times. Pt's nose began to bleed due to O2 use, reported to nrsg all issues that developed during therapy. Mental Status/Objective Patient Orientation: Person, Place, Time, Situation Attachments: IV, Oxygen (6-10L) ADL-Treatment Therapy Code Descriptions/Definitions Functional [place] Measure: 0=Not Assessed/NA 4=Minimal Assistance 1=Total Assistance 5=Supervision or Setup 2=Maximal Assistance 6=Modified [place] 3=Moderate Assistance 7=Complete IndependenceSCALE: Activities may be completed with or without assistive devices. 2-Vmsrbmjrjb-xywjbdv completes the activity by him/herself with no assistance from a helper. 5-Set-up or Clean-up Assistance-helper sets up or cleans up; patient completes activity. [place] assists only prior to or following the activity. 4-Supervision or Touching Assistance-helper provides verbal cues and/or touching/steadying and/or contact guard assistance as patient completes activity. Assistance may be provided throughout the activity or intermittently. 3-Partial/Moderate Assistance-helper does LESS THAN HALF the effort. [place] lifts, holds or supports trunk or limbs, but provides less than half the effort. 2-Substantial/Maximal Assistance-helper does MORE THAN HALF the effort. [place] lifts or holds trunk or limbs and provides more than half the effort. 7-Qugfycpax-higjaq does ALL the effort. Patient does none of the effort to complete the activity. Or, the assistance of 2 or more helpers is required for the patient to complete the activity. If activity was not attempted, code reason: 7-Patient Refused. 9-Not Applicable-not attempted and the patient did not perform the activity before the current illness, exacerbation or injury. 10-Not Attempted due to Environmental Limitations-(lack of equipment, weather restraints, etc.). 88-Not Attempted due to Medical Conditions or Safety Concerns. Toileting Hygiene (QC): 1 Toilet Transfer (QC): 1 Other Treatment PT/OT co-treat ([id number]), 2 clinician required for skilled instruction, care and modifications to increase activity tolerance, functional mobility, BUE/LE strength and decrease fall risk. PT focusing on transfers, standing and ambulation while OT focusing on functional transfers and mobility. Pt takes increased time to complete tasks due to lengthy multiple recovery breaks to increase O2 levels, nose bleeding and coughing. Pt able to go from supine to EOB sitting with HOB elevated by self. Sitting EOB independently. Max A x2 for toilet transfer. Pt able to cleanse rony area then felt like she was leaning to far forward when attempting to cleanse after BM. Pt requires max A x2 for sit to stand then max to mod A for ambulation with PT and OT following with w/c due to pt's quick need to sit after a few steps. After ambulation, pt began to cough and nose began to bleed. Pt taken back to room to complete OT/PT session. Assist x2 for transfer from w/c to recliner. Pt made comfortable in recliner, call light/phone in reach. All needs met after session. OT Short Term Goals Short Term Goals Time Frame: Sep 16, 2020 Eatin Oral hygiene: 4 Toileting hygiene: 3 Shower/bathe self: 3 Upper body dressin Lower body dressin Putting on/taking off footwear: 3 OT Long-Term Goals Long-Term Goals Time Frame: Sep 30, 2020 Eating (QC): 6 Oral Hygiene (QC): 6 Toileting Hygiene (QC): 6 Shower/Bathe Self (QC): 4 Upper Body Dressing (QC): 5 Lower Body Dressing (QC): 4 On/Off Footwear (QC): 5 Additional Goals: 1-Demonstrate ADL Tasks, 2-Verbalize Understanding, 3- ImproveStrength/Luis Manuel 1=Demonstrate adherence to instructed precautions during ADL tasks. 2=Patient will verbalize/demonstrate understanding of assistive devices/modifications for ADL. 3=Patient will improve strength/tolerance for activity to enable patient to perform ADL's. OT Education/Plan Problem List/Assessment Assessment: Decreased Activ Tolerance, Decreased UE Strength, Dependent Trans fers, Impaired Bed Mobility, Impaired Self-Care Skills Discharge Recommendations Plan/Recommendations: Continue POC Treatment Plan/Plan of Care Patient would benefit from OT for education, treatment and training to promote independence in ADL's, mobility, safety and/or upper extremity function for ADL's. Plan of Care: ADL Retraining, Functional Mobility, UE Funct Exercise/Act Treatment Duration: Sep 30, 2020 Frequency: At least 5 of 7 days/Wk (IRF) Estimated Hrs Per Day: 1.5 hours per day Agreement: Yes Rehab Potential: Good Time/GCodes Start Time: 08:45 Stop Time: 09:45 Total Time Billed (hr/min): 60 Billed Treatment Time 1 visit-ADL 2 (30 min) FA 2 (30 min) co-treat with PT [id number] SAHIL LARSEN Sep 07, 2020 09:49
--- NOTE | 2020-09-07 12:06 | Pulmonary Progress Note ---
Subjective Date Seen by a Provider: Sep 07, 2020 Time Seen by a Provider: 15:00 Subjective/Events-last exam Still getting breathless on exertion, has extensive chronic infiltrates on CXR, on NC @ 5 lpm, goes up to 8 during rehab remains on sildenafil, Eliquis [was having nose bleeds], prednisone 10 mg/d, X openex Coughs frequently and this causes SOB, SpO2 drops to 80's with quick recovery Review of Systems Cardiovascular: Chest Pain Sepsis Event Evaluation Height, Weight, BMI Height: '" Weight: lbs. oz. kg; 31.40 BMI Method: Exam Exam Patient acknowledged, consented, and participated in this virtual visit which was conducted using real time audio/video Vital Signs Date Time Temp Pulse Resp B/P (MAP) Pulse Ox O2 Delivery O2 Flow Rate FiO2 09/07/20 08:21 Nasal Cannula 5.00 09/07/20 07:55 36.2 93 20 114/72 (86) 94 Nasal Cannula 6.00 09/06/20 20:10 Nasal Cannula 4.00 09/06/20 20:00 36.4 87 20 104/67 (79) 95 Nasal Cannula 4.00 09/06/20 19:00 96 High Flow N/C 5.00 Height & Weight Height: '" Weight: lbs. oz. kg; 31.40 BMI Method: General Appearance: No Apparent Distress, WD/WN, Chronically ill, Obese HEENT: PERRL/EOMI, Normal ENT Inspection, Pharynx Normal Neck: Full Range of Motion, Normal Inspection, Non Tender, Supple, Carotid Bruit Respiratory: Chest Non Tender, Lungs Clear, No Accessory Muscle Use, No Respiratory Distress, Crackles (quality of stethescope is poor), Decreased Breath Sounds Cardiovascular: Regular Rate, Rhythm, No Edema, No Gallop, No JVD, No Murmur, Normal Peripheral Pulses Gastrointestinal: normal bowel sounds, non tender, soft, other (obese) Extremity: Normal Capillary Refill, Normal Inspection, Normal Range of Motion, Non Tender, No Calf Tenderness, No Pedal Edema Neurologic/Psychiatric: Alert, Oriented x3, No Motor/Sensory Deficits, Normal Mood/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
--- NOTE | 2020-09-07 13:40 | Occupational Ther Daily Note ---
OT Current Status-Daily Note Subjective Pt alert,sitting in recliner. Pt agrees to therapy. No c/o pain. Mental Status/Objective Patient Orientation: Person, Place, Time, Situation Attachments: IV, Oxygen (6L) ADL-Treatment Max A for sit to stand. Max A for SPT from recliner to w/c. Cushion placed in w/c to raise pt up so that she can reach bathroom sink easier. Pt independent completing oral care sitting at sink. Therapy Code Descriptions/Definitions Functional [place] Measure: 0=Not Assessed/NA 4=Minimal Assistance 1=Total Assistance 5=Supervision or Setup 2=Maximal Assistance 6=Modified [place] 3=Moderate Assistance 7=Complete IndependenceSCALE: Activities may be completed with or without assistive devices. 4-Kpsohnggns-zxgxzlk completes the activity by him/herself with no assistance from a helper. 5-Set-up or Clean-up Assistance-helper sets up or cleans up; patient completes activity. [place] assists only prior to or following the activity. 4-Supervision or Touching Assistance-helper provides verbal cues and/or touching/steadying and/or contact guard assistance as patient completes activity. Assistance may be provided throughout the activity or intermittently. 3-Partial/Moderate Assistance-helper does LESS THAN HALF the effort. [place] lifts, holds or supports trunk or limbs, but provides less than half the effort. 2-Substantial/Maximal Assistance-helper does MORE THAN HALF the effort. [place] lifts or holds trunk or limbs and provides more than half the effort. 0-Uiadbugru-avtaci does ALL the effort. Patient does none of the effort to complete the activity. Or, the assistance of 2 or more helpers is required for the patient to complete the activity. If activity was not attempted, code reason: 7-Patient Refused. 9-Not Applicable-not attempted and the patient did not perform the activity before the current illness, exacerbation or injury. 10-Not Attempted due to Environmental Limitations-(lack of equipment, weather restraints, etc.). 88-Not Attempted due to Medical Conditions or Safety Concerns. Oral Hygiene (QC): 6 Other Treatment Pt able to complete 10 horizontal shldr abd, 10 modified shldr abd, 10 diagonal shldr abd. Recovery break between each exercise. PT took over care of pt in room. All needs met. OT Short Term Goals Short Term Goals Time Frame: Sep 16, 2020 Eatin Oral hygiene: 4 Toileting hygiene: 3 Shower/bathe self: 3 Upper body dressin Lower body dressin Putting on/taking off footwear: 3 OT Discovery Guide Goals Senior Living Goals Time Frame: Sep 30, 2020 Eating (QC): 6 Oral Hygiene (QC): 6 Toileting Hygiene (QC): 6 Shower/Bathe Self (QC): 4 Upper Body Dressing (QC): 5 Lower Body Dressing (QC): 4 On/Off Footwear (QC): 5 Additional Goals: 1-Demonstrate ADL Tasks, 2-Verbalize Understanding, 3- ImproveStrength/Luis Manuel 1=Demonstrate adherence to instructed precautions during ADL tasks. 2=Patient will verbalize/demonstrate understanding of assistive devices/modifications for ADL. 3=Patient will improve strength/tolerance for activity to enable patient to perform ADL's. OT Education/Plan Problem List/Assessment Assessment: Decreased Activ Tolerance, Decreased UE Strength, Impaired Self- Care Skills Discharge Recommendations Plan/Recommendations: Continue POC Treatment Plan/Plan of Care Patient would benefit from OT for education, treatment and training to promote independence in ADL's, mobility, safety and/or upper extremity function for ADL 's. Plan of Care: ADL Retraining, Functional Mobility, UE Funct Exercise/Act Treatment Duration: Sep 30, 2020 Frequency: At least 5 of 7 days/Wk (IRF) Estimated Hrs Per Day: 1.5 hours per day Agreement: Yes Rehab Potential: Good Time/GCodes Start Time: 13:00 Stop Time: 13:30 Total Time Billed (hr/min): 30 Billed Treatment Time 1 visit-ADL 1 (20 min) EX 1 (10 min) SAHIL LARSEN Sep 07, 2020 13:40
--- NOTE | 2020-09-07 14:36 | Physical Therapy Daily Note ---
PT Daily Note-Current Subjective Agreeable to PT. No specific complaints. Mental Status Patient Orientation: Person, Place, Time, Situation Attachments: Oxygen (6-8l/min on during and post treatment) Transfers SCALE: Activities may be completed with or without assistive devices. 6-Wfvuwmtxef-wugsfgo completes the activity by him/herself with no assistance from a helper. 5-Set-up or Clean-up Assistance-helper sets up or cleans up; patient completes activity. [place] assists only prior to or following the activity. 4-Supervision or Touching Assistance-helper provides verbal cues and/or touching/steadying and/or contact guard assistance as patient completes activity. Assistance may be provided throughout the activity or intermittently. 3-Partial/Moderate Assistance-helper does LESS THAN HALF the effort. [place] lifts, holds or supports trunk or limbs, but provides less than half the effort. 2-Substantial/Maximal Assistance-helper does MORE THAN HALF the effort. [place] lifts or holds trunk or limbs and provides more than half the effort. 3-Mkzftbdnh-cpwwls does ALL the effort. Patient does none of the effort to complete the activity. Or, the assistance of 2 or more helpers is required for the patient to complete the activity. If activity was not attempted, code reason: 7-Patient Refused. 9-Not Applicable-not attempted and the patient did not perform the activity before the current illness, exacerbation or injury. 10-Not Attempted due to Environmental Limitations-(lack of equipment, weather restraints, etc.). 88-Not Attempted due to Medical Conditions or Safety Concerns. Sit to Lying (QC): 3 (assist with both legs. ) Sit to Stand (QC): 2 Chair/Fbz-xy-Pnegs Xfer(QC): 2 (able to take steps to transfer) Weight Bearing Right Lower Extremity: Right Full Weight Bearing Left Lower Extremity: Left Full Weight Bearing Exercises Supine Ex: Bridging (10), Ankle pumps (15), Quad Set (15), Glut sets (5), Heel Slides (10), Short Arc Quads (15), Hip abd/add (10) Treatments LE ther ex performed to promote functional strength and activity tolerance to improve functional transfers and gait progression. Assessment Current Status: Good Progress Performed ther ex well with good tolerance. PT Short Term Goals Short Term Goals Time Frame: Sep 16, 2020 Roll Left & Right: 6 Sit to lyin Lying to sitting on side of be: 6 Sit to stand: 4 PT Vendor Management Specialist Goals Vendor Management Specialist Goals PT Vendor Management Specialist Goals Time Frame: Sep 30, 2020 Roll Left & Right (QC): 6 Sit to Lying (QC): 6 Lying-Sitting on Side/Bed(QC): 6 Sit to Stand (QC): 6 Chair/Eer-yg-Nkdvt Xfer(QC): 6 Toilet Transfer (QC): 6 Car Transfer (QC): 6 Does the Patient Walk: No and Walking Goal IS indicated Walk 10 feet (QC): 6 Walk 50ft with 2 Turns (QC): 6 Walk 150 ft (QC): 6 Walking 10ft on Uneven Surface: 6 1 Step (curb) (QC): 6 4 Steps (QC): 6 12 Steps (QC): 9 Picking up an Object (QC): 6 Does the Pt use WC or Scooter?: No Wheel 50 feet with 2 turns (QC: 9 Type: N/A Wheel 150 feet: 9 Type: N/A PT Plan Problem List Problem List: Activity Tolerance, Functional Strength, Safety, Balance, Gait, Transfer, Bed Mobility Treatment/Plan Treatment Plan: Continue Plan of Care Treatment Plan: Bed Mobility, Education, Functional Activity Luis Manuel, Functional Strength, Group Therapy, Gait, Safety, Therapeutic Exercise, Transfers Treatment Duration: Sep 30, 2020 Frequency: Modified Program (IRF) Estimated Hrs Per Day: 1.5 hours per day Patient and/or Family Agrees t: Yes Time/GCodes Time In: 1330 Time Out: 1400 Total Billed Treatment Time: 30 Total Billed Treatment visit EX 30 SAHIL AGUILAR PT Sep 07, 2020 14:36
[2020-09-07] MEDS: ALPRAZolam 0.25 MG (XANAX) TAB PO PRN (19:24)
[2020-09-07 20:00] VITALS: BP 112/74
[2020-09-07] MEDS: LIDOCAINE PATCH REMOVAL TP SCH (21:00)
[2020-09-07 21:08] VITALS: BP 112/74
[2020-09-07] MEDS: MELATONIN 3 MG TABLET PO SCH (21:21)
[2020-09-07] MEDS: MONTELUKAST 10 MG (SINGULAIR) TAB PO SCH (21:21)
[2020-09-07] MEDS: LOPERAMIDE 2 MG (IMODIUM) TABLET PO PRN (21:22)
--- NOTE | 2020-09-08 06:20 | PM&R Progress Note ---
Subjective HPI/CC On Admission Date Seen by Provider: Sep 08, 2020 Time Seen by Provider: 10:00 Subjective/Events-last exam 09/08/2020: Pt doing well but Prednisone was 10mg daily, supposed to be 50 so getting that corrected Oxygenation does go down with any activity but actually showed today and did pretty well 09/07/2020: Pt doing pretty well Pulmonary consult today Nose bleed a little bit today Bowels moving On six liters during bed-almazan which seems to help recovery 09/06/2020: Pt doing pretty well Had an episode of SOB in the shower Doing okay now Feels like no other problems are occurring X-ray for picc line to be sure it is functioning adequately 09/05/2020: Pt doing pretty well but having loose stools Eliquis restarted since no nose bleeds Echocardiogram ordered per pulmonology consult Four liters of oxygen maintained Talked about her Scoliosis and restrictive lung disease Patient does not want inhaler or breathing treatment 09/04/2020: Pt doing pretty well Wonders if she should have a continuous pulse-ox and I told her we are monitoring that with frequent spot checks. Chest X-ray ordered for pulmonary consultation She even gets SOB on the bed-almazan Echo was recommended so we will order Review of Systems General: Fatigue, Malaise Pulmonary: Dyspnea (Get those of back) Objective Exam Vital Signs Vital Signs Date Time Temp Pulse Resp B/P (MAP) Pulse Ox O2 Delivery O2 Flow Rate FiO2 09/08/20 20:00 36.6 83 20 107/71 (83) 97 High Flow N/C 6.00 Capillary Refill : General Appearance: No Apparent Distress, WD/WN, Chronically ill, Obese HEENT: PERRL/EOMI, Normal ENT Inspection, Pharynx Normal Neck: Full Range of Motion, Normal Inspection, Non Tender, Supple, Carotid Bruit Respiratory: Chest Non Tender, Lungs Clear, No Accessory Muscle Use, No Respiratory Distress, Decreased Breath Sounds Cardiovascular: Regular Rate, Rhythm, No Edema, No Gallop, No JVD, No Murmur, Normal Peripheral Pulses Gastrointestinal: Normal Bowel Sounds, No Organomegaly, No Pulsatile Mass, Non Tender, Soft Back: Normal Inspection, No CVA Tenderness, No Vertebral Tenderness Extremity: Normal Capillary Refill, Normal Inspection, Normal Range of Motion, Non Tender, No Calf Tenderness, No Pedal Edema Neurologic/Psychiatric: Alert, Oriented x3, No Motor/Sensory Deficits, Normal Mood/Affect, rewards consultant II-XII Norm as Tested, Motor Weakness (generalized 3/5) Skin: Normal Color, Warm/Dry Lymphatic: No Adenopathy Results/Procedures Lab Patient resulted labs reviewed. FIM Transfers Therapy Code Descriptions/Definitions Functional [place] Measure: 0=Not Assessed/NA 4=Minimal Assistance 1=Total Assistance 5=Supervision or Setup 2=Maximal Assistance 6=Modified [place] 3=Moderate Assistance 7=Complete IndependenceSCALE: Activities may be completed with or without assistive devices. 6-Ibjfdhcdwh-xukgtxb completes the activity by him/herself with no assistance from a helper. 5-Set-up or Clean-up Assistance-helper sets up or cleans up; patient completes activity. [place] assists only prior to or following the activity. 4-Supervision or Touching Assistance-helper provides verbal cues and/or touching/steadying and/or contact guard assistance as patient completes activity. Assistance may be provided throughout the activity or intermittently. 3-Partial/Moderate Assistance-helper does LESS THAN HALF the effort. [place] lifts, holds or supports trunk or limbs, but provides less than half the effort. 2-Substantial/Maximal Assistance-helper does MORE THAN HALF the effort. [place] lifts or holds trunk or limbs and provides more than half the effort. 0-Geejfubro-kbhvuy does ALL the effort. Patient does none of the effort to complete the activity. Or, the assistance of 2 or more helpers is required for the patient to complete the activity. If activity was not attempted, code reason: 7-Patient Refused. 9-Not Applicable-not attempted and the patient did not perform the activity before the current illness, exacerbation or injury. 10-Not Attempted due to Environmental Limitations-(lack of equipment, weather restraints, etc.). 88-Not Attempted due to Medical Conditions or Safety Concerns. Roll Left to Right (QC): 4 Sit to Lying (QC): 3 (assist with both legs. ) Sit to Stand (QC): 2 Chair/Ief-zo-Nczky Xfer(QC): 2 (able to take steps to transfer) Car Transfer (QC): 88 Gait Training Does the Patient Walk?: Yes Distance: 2 x 6-8 ft Walk 10 feet (QC): 88 Walk 50 ft with 2 Turns(QC): 88 Walk 150 ft (QC): 88 Walking 10ft/uneven surface-QC: 88 Gait Persons Needed: 2 Gait Assistive Device: Parallel Bars Wheelchair Training Does the Pt Use a Wheelchair?: Yes Wheel 50 ft with 2 turns (QC): 9 Wheel 150 ft (QC): 9 Type of Wheelchair: Manual Stair Training 1 Step (curb) (QC): 88 4 Steps (QC): 88 12 Steps (QC): 88 Balance Picking up an Object (QC): 88 ADL-Treatment Eating (QC): 6 (per clinical judgement) Oral Hygiene (QC): 6 Shower/Bathe Self (QC): 2 Upper Body Dressing (QC): 3 Lower Body Dressing (QC): 1 On/Off Footwear (QC): 2 Toileting Hygiene (QC): 1 Toilet Transfer (QC): 1 Assessment/Plan Assessment and Plan Assess & Plan/Chief Complaint Assessment: COVID-19 pneumonia with ongoing hypoxic respiratory failure Chronic scoliosis back pain History of pain pill addiction Claustrophobia Anxiety Gout Restrictive lung disease Recent pneumomediastinum Thrombocytopenia Anemia Hypokalemia [place] Plan: Inpatient rehab protocol Slow therapy 31/08 due to severe hypoxia with exertion due to COVID-19 pneumonia Monitor closely Replace potassium and mag 09/04/2020: Supportive care Pulmonary consultation appreciated Echo Slow taper 09/05/2020: Discontinue breathing treatments since it makes her too shaky Long taper of prednisone 09/06/2020: Supportive care Oxygen supplementation 09/07/2020: Monitor desaturation Supportive care 09/08/2020: Maintain prednisone slow taper Monitor closely Improved (1) COVID-19 JULES ROJAS DO Sep 08, 2020 06:20
[2020-09-08] MEDS: predniSONE 10 MG TAB PO SCH (06:38)
[2020-09-08] MEDS: CATHETER FLUSH 10 ML SYR IV SCH ×3 (06:39→21:54)
[2020-09-08 08:00] VITALS: BP 90/61
[2020-09-08] MEDS: APIXABAN 2.5 MG (ELIQUIS) TABLET PO SCH ×2 (08:39→21:45)
[2020-09-08] MEDS: COLCHICINE 0.6 MG (COLCRYS) TABLET PO SCH (08:39)
[2020-09-08] MEDS: ASCORBIC ACID (VIT C) 500 MG TABLET PO SCH ×2 (08:39→21:44)
[2020-09-08] MEDS: clonazePAM 1 MG (KlonoPIN) TAB PO SCH ×2 (08:39→21:44)
[2020-09-08] MEDS: KCL 20 MEQ TAB (K-DUR) PO SCH ×3 (08:39→18:08)
[2020-09-08] MEDS: ATENOLOL 25 MG (TENORMIN) TAB PO SCH ×2 (08:39→21:51)
[2020-09-08] MEDS: ROFLUMILAST 500 MCG TAB (DALIRESP) PO SCH (08:39)
[2020-09-08] MEDS: SILDENAFIL 20 MG (REVATIO) TAB NON-FORMULARY PO SCH ×3 (08:39→21:45)
[2020-09-08] MEDS: PANTOPRAZOLE 40 MG (PROTONIX) TAB PO SCH (08:39)
[2020-09-08] MEDS: PARoxetine 20 MG (PAXIL) TAB PO SCH (08:39)
[2020-09-08] MEDS: MAGNESIUM OXIDE (MAG-OX)400 MG TAB PO SCH ×2 (08:39→18:08)
[2020-09-08] MEDS: guaiFENesin (MUCINEX) 600 MG TAB PO SCH ×2 (08:39→21:44)
[2020-09-08] MEDS: SALINE NASAL SPRAY (OCEAN) 45 ML BTL SCH ×3 (08:41→21:50)
[2020-09-08] MEDS: polyethylene glycoL POWDER 17 GM (MIRALAX) PACK PO SCH ×2 (08:41→21:50)
[2020-09-08] MEDS: SENNA W/DOCUSATE (SENOKOT S) TABLET PO SCH ×2 (08:41→21:51)
[2020-09-08] MEDS: DOCUSATE SODIUM 100 MG (COLACE) CAP PO SCH ×2 (08:41→21:50)
[2020-09-08] MEDS: LIDOCAINE 4% (SALONPAS) PATCH TOP SCH (08:42)
[2020-09-08] MEDS: LOPERAMIDE 2 MG (IMODIUM) TABLET PO PRN ×2 (08:43→23:47)
[2020-09-08] MEDS ORDERED: predniSONE 20 MG TAB PO ONE (10:00)
--- NOTE | 2020-09-08 10:04 | Physical Therapy Daily Note ---
PT Daily Note-Current Subjective Pt with OT finishing shower upon arrival to room, agreeable to PT session. No complaints of pain this date. Appearance Following session, pt up in recliner chair with BLE elevated and call light within reach. All needs currently met. Mental Status Patient Orientation: Person, Place, Situation Transfers SCALE: Activities may be completed with or without assistive devices. 4-Avwlxfxerp-apjhlda completes the activity by him/herself with no assistance from a helper. 5-Set-up or Clean-up Assistance-helper sets up or cleans up; patient completes activity. [place] assists only prior to or following the activity. 4-Supervision or Touching Assistance-helper provides verbal cues and/or touching/steadying and/or contact guard assistance as patient completes activity. Assistance may be provided throughout the activity or intermittently. 3-Partial/Moderate Assistance-helper does LESS THAN HALF the effort. [place] lifts, holds or supports trunk or limbs, but provides less than half the effort. 2-Substantial/Maximal Assistance-helper does MORE THAN HALF the effort. [place] lifts or holds trunk or limbs and provides more than half the effort. 8-Tnlsdzuyq-criqkz does ALL the effort. Patient does none of the effort to complete the activity. Or, the assistance of 2 or more helpers is required for the patient to complete the activity. If activity was not attempted, code reason: 7-Patient Refused. 9-Not Applicable-not attempted and the patient did not perform the activity before the current illness, exacerbation or injury. 10-Not Attempted due to Environmental Limitations-(lack of equipment, weather restraints, etc.). 88-Not Attempted due to Medical Conditions or Safety Concerns. Sit to Stand (QC): 2 Chair/Mok-mw-Gfpio Xfer(QC): 2 Pt transfers x 2 with max A SPT. She is able to progress feet to step towards chair. Weight Bearing Right Lower Extremity: Right Full Weight Bearing Left Lower Extremity: Left Full Weight Bearing Exercises Seated Therapy Exercises: Ankle pumps, Sit to stand (2), Long arc quads, Hip flexion, Glut set Seated Reps: 20 Treatments Co treat with OT as the skill of 2 clinicians is indicated due to the complexity and high skilled need for this patient. OT addresses use and placement of UE for mobility and self care as PT addressed gross LE mobility and functional transfers. Pt transferred from shower chair to de, then had small coughing spell after leaving bathroom. Pt then transferred from wc to recliner chair and completed seated LE exercises to improve functional strength. Pt O2 adjusted to meet pts needs during session. Assessment Current Status: Fair Progress Pt with poor endurance, continues to require max A for transfers. Will continue to progress strength, functional mobility and activity tolerance as able. PT Short Term Goals Short Term Goals Time Frame: Sep 16, 2020 Roll Left & Right: 6 Sit to lyin Lying to sitting on side of be: 6 Sit to stand: 4 PT Bone Worker Goals Bone Worker Goals PT Bone Worker Goals Time Frame: Sep 30, 2020 Roll Left & Right (QC): 6 Sit to Lying (QC): 6 Lying-Sitting on Side/Bed(QC): 6 Sit to Stand (QC): 6 Chair/Mye-cb-Bphnr Xfer(QC): 6 Toilet Transfer (QC): 6 Car Transfer (QC): 6 Does the Patient Walk: No and Walking Goal IS indicated Walk 10 feet (QC): 6 Walk 50ft with 2 Turns (QC): 6 Walk 150 ft (QC): 6 Walking 10ft on Uneven Surface: 6 1 Step (curb) (QC): 6 4 Steps (QC): 6 12 Steps (QC): 9 Picking up an Object (QC): 6 Does the Pt use WC or Scooter?: No Wheel 50 feet with 2 turns (QC: 9 Type: N/A Wheel 150 feet: 9 Type: N/A PT Plan Problem List Problem List: Activity Tolerance, Functional Strength, Safety, Balance, Gait, Transfer, Bed Mobility, ROM, Other Treatment/Plan Treatment Plan: Continue Plan of Care Treatment Plan: Bed Mobility, Education, Functional Activity Luis Manuel, Functional Strength, Group Therapy, Gait, Safety, Therapeutic Exercise, Transfers Treatment Duration: Sep 30, 2020 Frequency: Modified Program (IRF) Estimated Hrs Per Day: 1.5 hours per day Patient and/or Family Agrees t: Yes Time/GCodes Time In: 900 Time Out: 1000 Total Billed Treatment Time: 60 Total Billed Treatment [id number] PT/OT cotreat [id number] PT only 1, FA (30') EX (30') IAM FRAUSTO PT Sep 08, 2020 10:04
--- NOTE | 2020-09-08 11:20 | Occupational Ther Daily Note ---
OT Current Status-Daily Note Subjective Pt alert, lying in bed. Pt agrees to therapy. No c/o pain. Mental Status/Objective Patient Orientation: Person, Place, Time, Situation Attachments: IV, Oxygen (6-9L depending on activity level) ADL-Treatment Co-treat with PT([id number]), skills of 2 clinicians requires skilled instruction and modifications to increase endurance, working on decreasing O2 needs, decreasing fall risk and increasing functional mobility. PT focusing on transfers, sitting balance, increasing endurance while OT working on ADLs and functional mobility. Pt agrees to shower. HOB raised, pt able to go from supine to sitting EOB by self. Mod A for SPT from EOB to w/c. Min A x2 (1 assisting transfer, 1 assisting with manipulating clothing) for SPT from w/c to toilet. Pt completed hygiene for voiding by self sitting on BSC. Min A to transfer from BSC to w/c due to no clothing to manipulate. Mod A to transfer into shower due to longer distance to travel. Sitting on BSC, pt able to complete shower using hand held shower and LH sponge by self with SBA for safety. Assist given to dry buttocks and lower legs. After set up, pt complete s upper body dressing by self. Pt able to thread pants over feet and pull up legs then with assist from PT to stand [place] hiked pants over hips. PT transferred pt to recliner. After OT session, pt left in care of PT. All needs met. Therapy Code Descriptions/Definitions Functional [place] Measure: 0=Not Assessed/NA 4=Minimal Assistance 1=Total Assistance 5=Supervision or Setup 2=Maximal Assistance 6=Modified [place] 3=Moderate Assistance 7=Complete IndependenceSCALE: Activities may be completed with or without assistive devices. 2-Hcotqbuebf-bnuskxh completes the activity by him/herself with no assistance from a helper. 5-Set-up or Clean-up Assistance-helper sets up or cleans up; patient completes activity. [place] assists only prior to or following the activity. 4-Supervision or Touching Assistance-helper provides verbal cues and/or touching/steadying and/or contact guard assistance as patient completes activity. Assistance may be provided throughout the activity or intermittently. 3-Partial/Moderate Assistance-helper does LESS THAN HALF the effort. [place] lifts, holds or supports trunk or limbs, but provides less than half the effort. 2-Substantial/Maximal Assistance-helper does MORE THAN HALF the effort. [place] lifts or holds trunk or limbs and provides more than half the effort. 1-Plsiuiqad-isgvga does ALL the effort. Patient does none of the effort to complete the activity. Or, the assistance of 2 or more helpers is required for the patient to complete the activity. If activity was not attempted, code reason: 7-Patient Refused. 9-Not Applicable-not attempted and the patient did not perform the activity before the current illness, exacerbation or injury. 10-Not Attempted due to Environmental Limitations-(lack of equipment, weather restraints, etc.). 88-Not Attempted due to Medical Conditions or Safety Concerns. Shower/Bathe Self (QC): 3 Upper Body Dressing (QC): 5 Lower Body Dressing (QC): 1 On/Off Footwear: 2 Toileting Hygiene (QC): 1 Toilet Transfer (QC): 3 OT Short Term Goals Short Term Goals Time Frame: Sep 16, 2020 Eatin Oral hygiene: 4 Toileting hygiene: 3 Shower/bathe self: 3 Upper body dressin Lower body dressin Putting on/taking off footwear: 3 OT Alf Goals Group Marketing Vp Goals Time Frame: Sep 30, 2020 Eating (QC): 6 Oral Hygiene (QC): 6 Toileting Hygiene (QC): 6 Shower/Bathe Self (QC): 4 Upper Body Dressing (QC): 5 Lower Body Dressing (QC): 4 On/Off Footwear (QC): 5 Additional Goals: 1-Demonstrate ADL Tasks, 2-Verbalize Understanding, 3-ImproveStrength/Luis Manuel 1=Demonstrate adherence to instructed precautions during ADL tasks. 2=Patient will verbalize/demonstrate understanding of assistive devices/modifications for ADL. 3=Patient will improve strength/tolerance for activity to enable patient to per form ADL's. OT Education/Plan Problem List/Assessment Assessment: Decreased Activ Tolerance, Decreased UE Strength, Impaired Funct Balance, Impaired Self-Care Skills Discharge Recommendations Plan/Recommendations: Continue POC Treatment Plan/Plan of Care Patient would benefit from OT for education, treatment and training to promote independence in ADL's, mobility, safety and/or upper extremity function for ADL's. Plan of Care: ADL Retraining, Functional Mobility, UE Funct Exercise/Act Treatment Duration: Sep 30, 2020 Frequency: At least 5 of 7 days/Wk (IRF) Estimated Hrs Per Day: 1.5 hours per day Agreement: Yes Rehab Potential: Good Time/GCodes Start Time: 08:30 Stop Time: 09:30 Total Time Billed (hr/min): 60 Billed Treatment Time 1 visit-ADL 4 (60 min) co-treat with PT [id number], individual [id number] SAHIL LARSEN Sep 08, 2020 11:20
--- NOTE | 2020-09-08 12:46 | Pulmonary Progress Note ---
Subjective Date Seen by a Provider: Sep 08, 2020 Subjective/Events-last exam Continues on 5 lpm, SpO2 96%, on Revatio for pulmonary hypertension, Singulair, prednisone 10 mg Sepsis Event Evaluation Height, Weight, BMI Height: '" Weight: lbs. oz. kg; 31.40 BMI Method: Exam Exam Patient acknowledged, consented, and participated in this virtual visit which was conducted using real time audio/video Vital Signs Date Time Temp Pulse Resp B/P (MAP) Pulse Ox O2 Delivery O2 Flow Rate FiO2 09/08/20 09:02 Nasal Cannula 5.00 09/08/20 08:00 36.9 80 18 90/61 (71) 96 Nasal Cannula 6.00 09/07/20 21:08 36.4 86 14 112/74 (87) 97 Nasal Cannula 6.00 09/07/20 21:00 Nasal Cannula 5.00 09/07/20 20:00 36.4 86 14 112/74 (87) 97 Room Air Height & Weight Height: '" Weight: lbs. oz. kg; 31.40 BMI Method: General Appearance: No Apparent Distress, WD/WN, Chronically ill, Obese HEENT: PERRL/EOMI, Normal ENT Inspection, Pharynx Normal Neck: Full Range of Motion, Normal Inspection, Non Tender, Supple, Carotid Bruit Respiratory: Chest Non Tender, Lungs Clear, No Accessory Muscle Use, No Respiratory Distress, Decreased Breath Sounds Cardiovascular: Regular Rate, Rhythm, No Edema, No Gallop, No JVD, No Murmur, Normal Peripheral Pulses Gastrointestinal: normal bowel sounds, non tender, soft, other (obese) Extremity: Normal Capillary Refill, Normal Inspection, Normal Range of Motion, Non Tender, No Calf Tenderness, No Pedal Edema Neurologic/Psychiatric: Alert, Oriented x3, No Motor/Sensory Deficits, Normal Mood/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
--- NOTE | 2020-09-08 14:48 | Therapy Group Daily Note ---
Therapy Daily Group Note Patient Education Topic Other List Below (memory, ARU description/expectations) Exercises LE Seated Exercise, UE Exercise Session Ratio (pt:therapist): 8:2 Goal of Session: Education on ARU Expectations, Memory Strategies, UE/LE Strengthing Goal Met for this Session: Yes Pt Benefit of Group: Contributions to Others, F/U Use of Strategies @Home, Increased Functional Safety, Increased Functional Strength, Improved Cognition, Recognition of Peers, Socialization Other/Notes Pt transported via w/c to [facility] for OT/PT group. Group consisted of introductions (name, place living, memory of historical event), socialization, ARU description/expectation, seated B UE/LE exercises and memory strategies/activity. Pt introduced self appropriately and actively listened to peers. Pt participated in B UE/LE seated exercises and tolerated well. Pt acknowledged understanding of educational topics by giving own personal strategies and experiences. After therapy, pt lying in bed with call light/phone in reach. Start Time: 13:00 Stop Time: 14:00 Total Billed Treatment Time: 60 Total Billed Treatment 1-GRP SAHIL LARSEN Sep 08, 2020 14:48
[2020-09-08] MEDS: ALPRAZolam 0.25 MG (XANAX) TAB PO PRN (19:46)
[2020-09-08 20:00] VITALS: BP 107/71
[2020-09-08] MEDS: MONTELUKAST 10 MG (SINGULAIR) TAB PO SCH (21:49)
[2020-09-08] MEDS: MELATONIN 3 MG TABLET PO SCH (21:49)
[2020-09-08] MEDS: LIDOCAINE PATCH REMOVAL TP SCH (21:52)
[2020-09-09] MEDS: predniSONE 20 MG TAB PO SCH (06:46)
[2020-09-09] MEDS: predniSONE 10 MG TAB PO SCH (06:47)
[2020-09-09] MEDS: CATHETER FLUSH 10 ML SYR IV SCH ×3 (06:48→21:55)
[2020-09-09 07:30] VITALS: BP 100/61
--- NOTE | 2020-09-09 07:38 | PM&R Progress Note ---
Subjective HPI/CC On Admission Date Seen by Provider: Sep 09, 2020 Time Seen by Provider: 07:00 Subjective/Events-last exam 09/09/2020: Pt progressing nicely Down to five liters of oxygen Bowels moved on the Much improved 09/08/2020: Pt doing well but Prednisone was 10mg daily, supposed to be 50 so getting that corrected Oxygenation does go down with any activity but actually showed today and did pretty well 09/07/2020: Pt doing pretty well Pulmonary consult today Nose bleed a little bit today Bowels moving On six liters during bed-almazan which seems to help recovery 09/06/2020: Pt doing pretty well Had an episode of SOB in the shower Doing okay now Feels like no other problems are occurring X-ray for picc line to be sure it is functioning adequately 09/05/2020: Pt doing pretty well but having loose stools Eliquis restarted since no nose bleeds Echocardiogram ordered per pulmonology consult Four liters of oxygen maintained Talked about her Scoliosis and restrictive lung disease Patient does not want inhaler or breathing treatment 09/04/2020: Pt doing pretty well Wonders if she should have a continuous pulse-ox and I told her we are monitoring that with frequent spot checks. Chest X-ray ordered for pulmonary consultation She even gets SOB on the bed-almazan Echo was recommended so we will order Review of Systems General: Fatigue, Malaise Pulmonary: Dyspnea Objective Exam Vital Signs Vital Signs Date Time Temp Pulse Resp B/P (MAP) Pulse Ox O2 Delivery O2 Flow Rate FiO2 09/09/20 20:15 36.7 83 20 105/72 (83) 94 Nasal Cannula 4.00 Capillary Refill : General Appearance: No Apparent Distress, WD/WN, Chronically ill, Obese HEENT: PERRL/EOMI, Normal ENT Inspection, Pharynx Normal Neck: Full Range of Motion, Normal Inspection, Non Tender, Supple, Carotid Bruit Respiratory: Chest Non Tender, Lungs Clear, No Accessory Muscle Use, No Resp iratory Distress, Decreased Breath Sounds Cardiovascular: Regular Rate, Rhythm, No Edema, No Gallop, No JVD, No Murmur, Normal Peripheral Pulses Gastrointestinal: Normal Bowel Sounds, No Organomegaly, No Pulsatile Mass, Non Tender, Soft Back: Normal Inspection, No CVA Tenderness, No Vertebral Tenderness Extremity: Normal Capillary Refill, Normal Inspection, Normal Range of Motion, Non Tender, No Calf Tenderness, No Pedal Edema Neurologic/Psychiatric: Alert, Oriented x3, No Motor/Sensory Deficits, Normal 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 FIM Transfers Therapy Code Descriptions/Definitions Functional [place] Measure: 0=Not Assessed/NA 4=Minimal Assistance 1=Total Assistance 5=Supervision or Setup 2=Maximal Assistance 6=Modified [place] 3=Moderate Assistance 7=Complete IndependenceSCALE: Activities may be completed with or without assistive devices. 4-Gabydkzwic-smdimvc completes the activity by him/herself with no assistance from a helper. 5-Set-up or Clean-up Assistance-helper sets up or cleans up; patient completes activity. [place] assists only prior to or following the activity. 4-Supervision or Touching Assistance-helper provides verbal cues and/or touching/steadying and/or contact guard assistance as patient completes activity. Assistance may be provided throughout the activity or intermittently. 3-Partial/Moderate Assistance-helper does LESS THAN HALF the effort. [place] lifts, holds or supports trunk or limbs, but provides less than half the effort. 2-Substantial/Maximal Assistance-helper does MORE THAN HALF the effort. [place] lifts or holds trunk or limbs and provides more than half the effort. 3-Broxnbdch-tocajz does ALL the effort. Patient does none of the effort to complete the activity. Or, the assistance of 2 or more helpers is required for the patient to complete the activity. If activity was not attempted, code reason: 7-Patient Refused. 9-Not Applicable-not attempted and the patient did not perform the activity before the current illness, exacerbation or injury. 10-Not Attempted due to Environmental Limitations-(lack of equipment, weather restraints, etc.). 88-Not Attempted due to Medical Conditions or Safety Concerns. Roll Left to Right (QC): 4 Sit to Lying (QC): 3 (assist with both legs. ) Sit to Stand (QC): 2 Chair/Rxw-ua-Xdrhq Xfer(QC): 2 Car Transfer (QC): 88 Gait Training Does the Patient Walk?: Yes Distance: 2 x 6-8 ft Walk 10 feet (QC): 88 Walk 50 ft with 2 Turns(QC): 88 Walk 150 ft (QC): 88 Walking 10ft/uneven surface-QC: 88 Gait Persons Needed: 2 Gait Assistive Device: Parallel Bars Wheelchair Training Does the Pt Use a Wheelchair?: Yes Wheel 50 ft with 2 turns (QC): 9 Wheel 150 ft (QC): 9 Type of Wheelchair: Manual Stair Training 1 Step (curb) (QC): 88 4 Steps (QC): 88 12 Steps (QC): 88 Balance Picking up an Object (QC): 88 ADL-Treatment Eating (QC): 6 (per clinical judgement) Oral Hygiene (QC): 6 Shower/Bathe Self (QC): 3 Upper Body Dressing (QC): 5 Lower Body Dressing (QC): 1 On/Off Footwear (QC): 2 Toileting Hygiene (QC): 1 Toilet Transfer (QC): 3 Assessment/Plan Assessment and Plan Assess & Plan/Chief Complaint Assessment: COVID-19 pneumonia with ongoing hypoxic respiratory failure Chronic scoliosis back pain History of pain pill addiction Claustrophobia Anxiety Gout Restrictive lung disease Recent pneumomediastinum Thrombocytopenia Anemia Hypokalemia Hypomag Plan: Inpatient rehab protocol Slow therapy 31/08 due to severe hypoxia with exertion due to COVID-19 pneumonia Monitor closely Replace potassium and mag 09/04/2020: Supportive care Pulmonary consultation appreciated Echo Slow taper 09/05/2020: Discontinue breathing treatments since it makes her too shaky Long taper of prednisone 09/06/2020: Supportive care Oxygen supplementation 09/07/2020: Monitor desaturation Supportive care 09/08/2020: Maintain prednisone slow taper Monitor closely Improved 09/09/2020: Supportive care Monitor closely Much improved (1) COVID-19 JULES ROJAS DO Sep 09, 2020 07:38
[2020-09-09] MEDS: APIXABAN 2.5 MG (ELIQUIS) TABLET PO SCH ×2 (08:12→21:49)
[2020-09-09] MEDS: ROFLUMILAST 500 MCG TAB (DALIRESP) PO SCH (08:12)
[2020-09-09] MEDS: guaiFENesin (MUCINEX) 600 MG TAB PO SCH ×2 (08:12→21:49)
[2020-09-09] MEDS: MAGNESIUM OXIDE (MAG-OX)400 MG TAB PO SCH ×2 (08:12→18:36)
[2020-09-09] MEDS: COLCHICINE 0.6 MG (COLCRYS) TABLET PO SCH (08:12)
[2020-09-09] MEDS: PANTOPRAZOLE 40 MG (PROTONIX) TAB PO SCH (08:12)
[2020-09-09] MEDS: ATENOLOL 25 MG (TENORMIN) TAB PO SCH ×2 (08:13→21:49)
[2020-09-09] MEDS: SILDENAFIL 20 MG (REVATIO) TAB NON-FORMULARY PO SCH ×3 (08:13→21:48)
[2020-09-09] MEDS: PARoxetine 20 MG (PAXIL) TAB PO SCH (08:13)
[2020-09-09] MEDS: ASCORBIC ACID (VIT C) 500 MG TABLET PO SCH ×2 (08:13→21:49)
[2020-09-09] MEDS: clonazePAM 1 MG (KlonoPIN) TAB PO SCH ×2 (08:13→21:48)
[2020-09-09] MEDS: KCL 20 MEQ TAB (K-DUR) PO SCH ×3 (08:13→18:36)
[2020-09-09] MEDS: SALINE NASAL SPRAY (OCEAN) 45 ML BTL SCH ×3 (09:49→21:45)
[2020-09-09] MEDS: DOCUSATE SODIUM 100 MG (COLACE) CAP PO SCH ×2 (09:50→21:45)
[2020-09-09] MEDS: polyethylene glycoL POWDER 17 GM (MIRALAX) PACK PO SCH ×2 (09:50→21:45)
[2020-09-09] MEDS: SENNA W/DOCUSATE (SENOKOT S) TABLET PO SCH ×2 (09:50→21:45)
[2020-09-09] MEDS: LIDOCAINE 4% (SALONPAS) PATCH TOP SCH (09:52)
--- NOTE | 2020-09-09 10:52 | Physical Therapy Daily Note ---
PT Daily Note-Current Subjective Pt agreeable and denies pain. Pt says she feels she is improving. Mental Status Patient Orientation: Person, Place, Situation Attachments: Oxygen O2 at 4L/min upon arrival. O2 increased to 6L/min during therapy and returned to 4L/min at end of treatment session. Pt O2 sats monitored throughout treatment. O2 sat prior to treatment 93%, dropped to 80% with bed->recliner transfer. Pt easily recovered to 92% with 1 min rest. O2 dropped again to 78% with sit->stand practice but recovered to 96% with 1 min rest and recovery. Transfers SCALE: Activities may be completed with or without assistive devices. 7-Eewqnwcrvx-ksbcfjf completes the activity by him/herself with no assistance from a helper. 5-Set-up or Clean-up Assistance-helper sets up or cleans up; patient completes activity. [place] assists only prior to or following the activity. 4-Supervision or Touching Assistance-helper provides verbal cues and/or touching/steadying and/or contact guard assistance as patient completes activity. Assistance may be provided throughout the activity or intermittently. 3-Partial/Moderate Assistance-helper does LESS THAN HALF the effort. [place] lifts, holds or supports trunk or limbs, but provides less than half the effort. 2-Substantial/Maximal Assistance-helper does MORE THAN HALF the effort. [place] lifts or holds trunk or limbs and provides more than half the effort. 5-Vnzeiemni-cyvibz does ALL the effort. Patient does none of the effort to complete the activity. Or, the assistance of 2 or more helpers is required for the patient to complete the activity. If activity was not attempted, code reason: 7-Patient Refused. 9-Not Applicable-not attempted and the patient did not perform the activity before the current illness, exacerbation or injury. 10-Not Attempted due to Environmental Limitations-(lack of equipment, weather restraints, etc.). 88-Not Attempted due to Medical Conditions or Safety Concerns. Pt transfer to EOB mod (I). Sit ->stand with mod A and elevated bed. Pt took 2-3 steps in dance fashion bed->recliner. Pt practiced sit-stand x 3 bouts with mod A and elevated lift chair. Weight Bearing Right Lower Extremity: Right Full Weight Bearing Left Lower Extremity: Left Full Weight Bearing Exercises Seated Therapy Exercises: Ankle pumps, Long arc quads, Hip abd/add Seated Reps: 15 Assessment Current Status: Good Progress O2 sats drop easily but pt recovers quickly with rest. Pt pleasant and in good spirits throughout treatment, feels she is making progress. Pt resting in recliner with call light and all needs met. PT Short Term Goals Short Term Goals Time Frame: Sep 16, 2020 Roll Left & Right: 6 Sit to lyin Lying to sitting on side of be: 6 Sit to stand: 4 PT Transcribing Machine Mechanic Goals Fpc Goals PT Transcribing Machine Mechanic Goals Time Frame: Sep 30, 2020 Roll Left & Right (QC): 6 Sit to Lying (QC): 6 Lying-Sitting on Side/Bed(QC): 6 Sit to Stand (QC): 6 Chair/Okj-ib-Dwjgn Xfer(QC): 6 Toilet Transfer (QC): 6 Car Transfer (QC): 6 Does the Patient Walk: No and Walking Goal IS indicated Walk 10 feet (QC): 6 Walk 50ft with 2 Turns (QC): 6 Walk 150 ft (QC): 6 Walking 10ft on Uneven Surface: 6 1 Step (curb) (QC): 6 4 Steps (QC): 6 12 Steps (QC): 9 Picking up an Object (QC): 6 Does the Pt use WC or Scooter?: No Wheel 50 feet with 2 turns (QC: 9 Type: N/A Wheel 150 feet: 9 Type: N/A PT Plan Treatment/Plan Treatment Plan: Continue Plan of Care Treatment Plan: Bed Mobility, Education, Functional Activity Luis Manuel, Functional Strength, Group Therapy, Gait, Safety, Therapeutic Exercise, Transfers Treatment Duration: Sep 30, 2020 Frequency: Modified Program (IRF) Estimated Hrs Per Day: 1.5 hours per day Patient and/or Family Agrees t: Yes Time/GCodes Time In: 1000 Time Out: 1025 Total Billed Treatment Time: 25 Total Billed Treatment 1, ther ex 10', FA 15' LINCOLN GONZALEZ CPTA Sep 09, 2020 10:52
[2020-09-09] MEDS: CATHETER FLUSH 10 ML SYR IV PRN (12:57)
[2020-09-09] MEDS: ALPRAZolam 0.25 MG (XANAX) TAB PO PRN (18:36)
[2020-09-09 20:15] VITALS: BP 105/72
[2020-09-09] MEDS: LIDOCAINE PATCH REMOVAL TP SCH (21:45)
[2020-09-09] MEDS: MELATONIN 3 MG TABLET PO SCH (21:49)
[2020-09-09] MEDS: MONTELUKAST 10 MG (SINGULAIR) TAB PO SCH (21:49)
[2020-09-10] MEDS: predniSONE 20 MG TAB PO SCH (06:33)
[2020-09-10] MEDS: CATHETER FLUSH 10 ML SYR IV SCH ×3 (06:33→21:30)
[2020-09-10] MEDS: predniSONE 10 MG TAB PO SCH (06:33)
--- NOTE | 2020-09-10 06:59 | PM&R Progress Note ---
Subjective HPI/CC On Admission Date Seen by Provider: Sep 10, 2020 Time Seen by Provider: 13:00 Subjective/Events-last exam 09/10/2020: Patient improving Now on 4 L of oxygen Uses bedpan still We will monitor closely 09/09/2020: Pt progressing nicely Down to five liters of oxygen Bowels moved on the Much improved 09/08/2020: Pt doing well but Prednisone was 10mg daily, supposed to be 50 so getting that corrected Oxygenation does go down with any activity but actually showed today and did pretty well 09/07/2020: Pt doing pretty well Pulmonary consult today Nose bleed a little bit today Bowels moving On six liters during bed-almazan which seems to help recovery 09/06/2020: Pt doing pretty well Had an episode of SOB in the shower Doing okay now Feels like no other problems are occurring X-ray for picc line to be sure it is functioning adequately 09/05/2020: Pt doing pretty well but having loose stools Eliquis restarted since no nose bleeds Echocardiogram ordered per pulmonology consult Four liters of oxygen maintained Talked about her Scoliosis and restrictive lung disease Patient does not want inhaler or breathing treatment 09/04/2020: Pt doing pretty well Wonders if she should have a continuous pulse-ox and I told her we are monitoring that with frequent spot checks. Chest X-ray ordered for pulmonary consultation She even gets SOB on the bed-almazan Echo was recommended so we will order Review of Systems General: Fatigue Pulmonary: Dyspnea Objective Exam Vital Signs Vital Signs Date Time Temp Pulse Resp B/P (MAP) Pulse Ox O2 Delivery O2 Flow Rate FiO2 09/10/20 20:15 36.3 89 20 104/50 (68) 94 Nasal Cannula 4.00 Capillary Refill : General Appearance: No Apparent Distress, WD/WN, Chronically ill, Obese HEENT: PERRL/EOMI, Normal ENT Inspection, Pharynx Normal Neck: Full Range of Motion, Normal Inspection, Non Tender, Supple, Carotid Bruit Respiratory: Chest Non Tender, Lungs Clear, No Accessory Muscle Use, No Respiratory Distress, Decreased Breath Sounds Cardiovascular: Regular Rate, Rhythm, No Edema, No Gallop, No JVD, No Murmur, Normal Peripheral Pulses Gastrointestinal: Normal Bowel Sounds, No Organomegaly, No Pulsatile Mass, Non Tender, Soft Back: Normal Inspection, No CVA Tenderness, No Vertebral Tenderness Extremity: Normal Capillary Refill, Normal Inspection, Normal Range of Motion, Non Tender, No Calf Tenderness, No Pedal Edema Neurologic/Psychiatric: Alert, Oriented x3, No Motor/Sensory Deficits, Normal Mood/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 FIM Transfers Therapy Code Descriptions/Definitions Functional [place] Measure: 0=Not Assessed/NA 4=Minimal Assistance 1=Total Assistance 5=Supervision or Setup 2=Maximal Assistance 6=Modified [place] 3=Moderate Assistance 7=Complete IndependenceSCALE: Activities may be completed with or without assistive devices. 3-Ybgcnfopiv-lpuqupi completes the activity by him/herself with no assistance from a helper. 5-Set-up or Clean-up Assistance-helper sets up or cleans up; patient completes activity. [place] assists only prior to or following the activity. 4-Supervision or Touching Assistance-helper provides verbal cues and/or touching/steadying and/or contact guard assistance as patient completes activity. Assistance may be provided throughout the activity or intermittently. 3-Partial/Moderate Assistance-helper does LESS THAN HALF the effort. [place] lifts, holds or supports trunk or limbs, but provides less than half the effort. 2-Substantial/Maximal Assistance-helper does MORE THAN HALF the effort. [place] lifts or holds trunk or limbs and provides more than half the effort. 2-Ebixaobru-zafuwj does ALL the effort. Patient does none of the effort to complete the activity. Or, the assistance of 2 or more helpers is required for the patient to complete the activity. If activity was not attempted, code reason: 7-Patient Refused. 9-Not Applicable-not attempted and the patient did not perform the activity before the current illness, exacerbation or injury. 10-Not Attempted due to Environmental Limitations-(lack of equipment, weather restraints, etc.). 88-Not Attempted due to Medical Conditions or Safety Concerns. Roll Left to Right (QC): 4 Sit to Lying (QC): 3 (assist with both legs. ) Sit to Stand (QC): 2 Chair/Wdh-cs-Lmszt Xfer(QC): 2 Car Transfer (QC): 88 Gait Training Does the Patient Walk?: Yes Distance: 2 x 6-8 ft Walk 10 feet (QC): 88 Walk 50 ft with 2 Turns(QC): 88 Walk 150 ft (QC): 88 Walking 10ft/uneven surface-QC: 88 Gait Persons Needed: 2 Gait Assistive Device: Parallel Bars Wheelchair Training Does the Pt Use a Wheelchair?: Yes Wheel 50 ft with 2 turns (QC): 9 Wheel 150 ft (QC): 9 Type of Wheelchair: Manual Stair Training 1 Step (curb) (QC): 88 4 Steps (QC): 88 12 Steps (QC): 88 Balance Picking up an Object (QC): 88 ADL-Treatment Eating (QC): 6 (per clinical judgement) Oral Hygiene (QC): 6 Shower/Bathe Self (QC): 3 Upper Body Dressing (QC): 5 Lower Body Dressing (QC): 1 On/Off Footwear (QC): 2 Toileting Hygiene (QC): 1 Toilet Transfer (QC): 3 Assessment/Plan Assessment and Plan Assess & Plan/Chief Complaint Assessment: COVID-19 pneumonia with ongoing hypoxic respiratory failure Chronic scoliosis back pain History of pain pill addiction Claustrophobia Anxiety Gout Restrictive lung disease Recent pneumomediastinum Thrombocytopenia Anemia Hypokalemia Hypomag Plan: Inpatient rehab protocol Slow therapy 31/08 due to severe hypoxia with exertion due to COVID-19 pneumonia Monitor closely Replace potassium and mag 09/04/2020: Supportive care Pulmonary consultation appreciated Echo Slow taper 09/05/2020: Discontinue breathing treatments since it makes her too shaky Long taper of prednisone 09/06/2020: Supportive care Oxygen supplementation 09/07/2020: Monitor desaturation Supportive care 09/08/2020: Maintain prednisone slow taper Monitor closely Improved 09/09/2020: Supportive care Monitor closely Much improved 09/10/2020: Continue oxygen wean Maintain slow taper prednisone (1) COVID-19 JULES ROJAS DO Sep 10, 2020 06:59
[2020-09-10 08:09] VITALS: BP 94/52
[2020-09-10] MEDS: PANTOPRAZOLE 40 MG (PROTONIX) TAB PO SCH (08:13)
[2020-09-10] MEDS: clonazePAM 1 MG (KlonoPIN) TAB PO SCH ×2 (08:14→21:29)
[2020-09-10] MEDS: guaiFENesin (MUCINEX) 600 MG TAB PO SCH ×2 (08:14→21:29)
[2020-09-10] MEDS: HYDROcodone/APAP 5 MG/325 MG (LORTAB) TAB PO PRN (08:14)
[2020-09-10] MEDS: KCL 20 MEQ TAB (K-DUR) PO SCH ×3 (08:14→17:01)
[2020-09-10] MEDS: ROFLUMILAST 500 MCG TAB (DALIRESP) PO SCH (08:14)
[2020-09-10] MEDS: COLCHICINE 0.6 MG (COLCRYS) TABLET PO SCH (08:14)
[2020-09-10] MEDS: MAGNESIUM OXIDE (MAG-OX)400 MG TAB PO SCH ×2 (08:14→17:01)
[2020-09-10] MEDS: APIXABAN 2.5 MG (ELIQUIS) TABLET PO SCH ×2 (08:14→21:29)
[2020-09-10] MEDS: PARoxetine 20 MG (PAXIL) TAB PO SCH (08:15)
[2020-09-10] MEDS: ASCORBIC ACID (VIT C) 500 MG TABLET PO SCH ×2 (08:15→21:30)
[2020-09-10] MEDS: SILDENAFIL 20 MG (REVATIO) TAB NON-FORMULARY PO SCH ×3 (08:15→21:29)
[2020-09-10] MEDS: DOCUSATE SODIUM 100 MG (COLACE) CAP PO SCH ×2 (08:15→21:30)
[2020-09-10] MEDS: polyethylene glycoL POWDER 17 GM (MIRALAX) PACK PO SCH ×2 (08:18→21:30)
[2020-09-10] MEDS: SENNA W/DOCUSATE (SENOKOT S) TABLET PO SCH ×2 (08:18→21:30)
[2020-09-10] MEDS: SALINE NASAL SPRAY (OCEAN) 45 ML BTL SCH ×3 (08:18→21:30)
[2020-09-10] MEDS: LIDOCAINE 4% (SALONPAS) PATCH TOP SCH (08:19)
[2020-09-10] MEDS: ATENOLOL 25 MG (TENORMIN) TAB PO SCH ×2 (08:19→21:30)
[2020-09-10] MEDS: ALPRAZolam 0.25 MG (XANAX) TAB PO PRN (10:21)
[2020-09-10] MEDS: CATHETER FLUSH 10 ML SYR IV PRN (12:55)
[2020-09-10] MEDS: LOPERAMIDE 2 MG (IMODIUM) TABLET PO PRN (17:58)
[2020-09-10 20:15] VITALS: BP 104/50
[2020-09-10] MEDS: MONTELUKAST 10 MG (SINGULAIR) TAB PO SCH (21:29)
[2020-09-10] MEDS: MELATONIN 3 MG TABLET PO SCH (21:30)
[2020-09-10] MEDS: LIDOCAINE PATCH REMOVAL TP SCH (21:30)
[2020-09-11] MEDS: CATHETER FLUSH 10 ML SYR IV SCH ×3 (05:46→21:26)
[2020-09-11] MEDS: predniSONE 20 MG TAB PO SCH (05:46)
[2020-09-11] MEDS: predniSONE 10 MG TAB PO SCH (05:46)
[2020-09-11 06:10] LABS: BASOPHILS % (AUTO) 0 % (0-10); EOSINOPHILS # (AUTO) 0.1 10^3/uL (0.0-0.3); EOSINOPHILS % (AUTO) 1 % (0-10); HEMATOCRIT 30 % (35-52); HEMOGLOBIN 9.4 g/dL (11.5-16.0); LYMPHOCYTES # (AUTO) 2.5 10^3/uL (1.0-4.0); LYMPHOCYTES % (AUTO) 30 % (12-44); MEAN CORPUSCULAR HEMOGLOBIN 30 pg (25-34); MEAN CORPUSCULAR HGB CONC 31 g/dL (32-36); MEAN CORPUSCULAR VOLUME 98 fL (80-99); MEAN PLATELET VOLUME 9.4 fL (9.0-12.2); MONOCYTES % (AUTO) 11 % (0-12); NEUTROPHILS # (AUTO) 4.5 10^3/uL (1.8-7.8); NEUTROPHILS % (AUTO) 54 % (42-75); PLATELET COUNT 249 10^3/uL (130-400); WHITE BLOOD COUNT 8.4 10^3/uL (4.3-11.0)
--- NOTE | 2020-09-11 06:23 | PM&R Progress Note ---
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 09/10/2020: Patient improving Now on 4 L of oxygen Uses bedpan still We will monitor closely 09/09/2020: Pt progressing nicely Down to five liters of oxygen Bowels moved on the Much improved 09/08/2020: Pt doing well but Prednisone was 10mg daily, supposed to be 50 so getting that corrected Oxygenation does go down with any activity but actually showed today and did pretty well 09/07/2020: Pt doing pretty well Pulmonary consult today Nose bleed a little bit today Bowels moving On six liters during bed-almazan which seems to help recovery 09/06/2020: Pt doing pretty well Had an episode of SOB in the shower Doing okay now Feels like no other problems are occurring X-ray for picc line to be sure it is functioning adequately 09/05/2020: Pt doing pretty well but having loose stools Eliquis restarted since no nose bleeds Echocardiogram ordered per pulmonology consult Four liters of oxygen maintained Talked about her Scoliosis and restrictive lung disease Patient does not want inhaler or breathing treatment 09/04/2020: Pt doing pretty well Wonders if she should have a continuous pulse-ox and I told her we are monitoring that with frequent spot checks. Chest X-ray ordered for pulmonary consultation She even gets SOB on the bed-almazan Echo was recommended so we will order Review of Systems General: Fatigue, Malaise Pulmonary: Dyspnea Neurological: Weakness Objective Exam Vital Signs Vital Signs Date Time Temp Pulse Resp B/P (MAP) Pulse Ox O2 Delivery O2 Flow Rate FiO2 09/11/20 21:58 94 High Flow N/C 4.00 09/11/20 20:00 36.2 76 20 114/68 (83) Capillary Refill : General Appearance: No Apparent Distress, WD/WN, Chronically ill, Obese HEENT: PERRL/EOMI, Normal ENT Inspection, Pharynx Normal Neck: Full Range of Motion, Normal Inspection, Non Tender, Supple, Carotid Bruit Respiratory: Chest Non Tender, Lungs Clear, No Accessory Muscle Use, No Respiratory Distress, Decreased Breath Sounds Cardiovascular: Regular Rate, Rhythm, No Edema, No Gallop, No JVD, No Murmur, Normal Peripheral Pulses Gastrointestinal: Normal Bowel Sounds, No Organomegaly, No Pulsatile Mass, Non Tender, Soft Back: Normal Inspection, No CVA Tenderness, No Vertebral Tenderness Extremity: Normal Capillary Refill, Normal Inspection, Normal Range of Motion, Non Tender, No Calf Tenderness, No Pedal Edema Neurologic/Psychiatric: Alert, Oriented x3, No Motor/Sensory Deficits, Normal Mood/Affect, ribbon inker II-XII Norm as Tested, Motor Weakness (generalized 3/5) Skin: Normal Color, Warm/Dry Lymphatic: No Adenopathy Results/Procedures Lab Laboratory Tests 09/11/20 05:50 Patient resulted labs reviewed. FIM Transfers Therapy Code Descriptions/Definitions Functional [place] Measure: 0=Not Assessed/NA 4=Minimal Assistance 1=Total Assistance 5=Supervision or Setup 2=Maximal Assistance 6=Modified [place] 3=Moderate Assistance 7=Complete IndependenceSCALE: Activities may be completed with or without assistive devices. 2-Uxvzqallmu-ofvmial completes the activity by him/herself with no assistance from a helper. 5-Set-up or Clean-up Assistance-helper sets up or cleans up; patient completes activity. [place] assists only prior to or following the activity. 4-Supervision or Touching Assistance-helper provides verbal cues and/or touching/steadying and/or contact guard assistance as patient completes activity. Assistance may be provided throughout the activity or intermittently. 3-Partial/Moderate Assistance-helper does LESS THAN HALF the effort. [place] lifts, holds or supports trunk or limbs, but provides less than half the effort. 2-Substantial/Maximal Assistance-helper does MORE THAN HALF the effort. [place] lifts or holds trunk or limbs and provides more than half the effort. 4-Pxrilghwm-gzfrfm does ALL the effort. Patient does none of the effort to complete the activity. Or, the assistance of 2 or more helpers is required for the patient to complete the activity. If activity was not attempted, code reason: 7-Patient Refused. 9-Not Applicable-not attempted and the patient did not perform the activity before the current illness, exacerbation or injury. 10-Not Attempted due to Environmental Limitations-(lack of equipment, weather restraints, etc.). 88-Not Attempted due to Medical Conditions or Safety Concerns. Roll Left to Right (QC): 4 Sit to Lying (QC): 3 (assist with both legs. ) Sit to Stand (QC): 2 Chair/Drq-fm-Lsukq Xfer(QC): 2 Car Transfer (QC): 88 Gait Training Does the Patient Walk?: Yes Distance: 2 x 6-8 ft Walk 10 feet (QC): 88 Walk 50 ft with 2 Turns(QC): 88 Walk 150 ft (QC): 88 Walking 10ft/uneven surface-QC: 88 Gait Persons Needed: 2 Gait Assistive Device: Parallel Bars Wheelchair Training Does the Pt Use a Wheelchair?: Yes Wheel 50 ft with 2 turns (QC): 9 Wheel 150 ft (QC): 9 Type of Wheelchair: Manual Stair Training 1 Step (curb) (QC): 88 4 Steps (QC): 88 12 Steps (QC): 88 Balance Picking up an Object (QC): 88 ADL-Treatment Eating (QC): 6 (per clinical judgement) Oral Hygiene (QC): 6 Shower/Bathe Self (QC): 3 Upper Body Dressing (QC): 5 Lower Body Dressing (QC): 1 On/Off Footwear (QC): 2 Toileting Hygiene (QC): 1 Toilet Transfer (QC): 3 Assessment/Plan Assessment and Plan Assess & Plan/Chief Complaint Assessment: COVID-19 pneumonia with ongoing hypoxic respiratory failure Chronic scoliosis back pain History of pain pill addiction Claustrophobia Anxiety Gout Restrictive lung disease Recent pneumomediastinum Thrombocytopenia Anemia Hypokalemia [place] Plan: Inpatient rehab protocol Slow therapy 31/08 due to severe hypoxia with exertion due to COVID-19 pneumonia Monitor closely Replace potassium and mag 09/04/2020: Supportive care Pulmonary consultation appreciated Echo Slow taper 09/05/2020: Discontinue breathing treatments since it makes her too shaky Long taper of prednisone 09/06/2020: Supportive care Oxygen supplementation 09/07/2020: Monitor desaturation Supportive care 09/08/2020: Maintain prednisone slow taper Monitor closely Improved 09/09/2020: Supportive care Monitor closely Much improved 09/10/2020: Continue oxygen wean Maintain slow taper prednisone 09/11/2020: Continue to wean oxygen Slow taper prednisone (1) COVID-19 JULES ROJAS DO Sep 11, 2020 06:23
[2020-09-11 06:36] LABS: ALBUMIN 3.3 GM/DL (3.2-4.5); BILIRUBIN,TOTAL 0.3 MG/DL (0.1-1.0); CALCIUM 8.8 MG/DL (8.5-10.1); CREATININE SERUM 0.49 MG/DL (0.60-1.30); POTASSIUM 4.4 MMOL/L (3.6-5.0); TOTAL PROTEIN 5.7 GM/DL (6.4-8.2)
[2020-09-11 07:37] VITALS: BP 114/61
[2020-09-11] MEDS: ATENOLOL 25 MG (TENORMIN) TAB PO SCH ×2 (08:37→21:19)
[2020-09-11] MEDS: MAGNESIUM OXIDE (MAG-OX)400 MG TAB PO SCH ×2 (08:37→17:47)
[2020-09-11] MEDS: PARoxetine 20 MG (PAXIL) TAB PO SCH (08:37)
[2020-09-11] MEDS: ROFLUMILAST 500 MCG TAB (DALIRESP) PO SCH (08:37)
[2020-09-11] MEDS: COLCHICINE 0.6 MG (COLCRYS) TABLET PO SCH (08:37)
[2020-09-11] MEDS: PANTOPRAZOLE 40 MG (PROTONIX) TAB PO SCH (08:37)
[2020-09-11] MEDS: guaiFENesin (MUCINEX) 600 MG TAB PO SCH ×2 (08:37→21:20)
[2020-09-11] MEDS: KCL 20 MEQ TAB (K-DUR) PO SCH ×3 (08:37→17:47)
[2020-09-11] MEDS: polyethylene glycoL POWDER 17 GM (MIRALAX) PACK PO SCH (08:38)
[2020-09-11] MEDS: DOCUSATE SODIUM 100 MG (COLACE) CAP PO SCH (08:38)
[2020-09-11] MEDS: SENNA W/DOCUSATE (SENOKOT S) TABLET PO SCH (08:38)
[2020-09-11] MEDS: APIXABAN 2.5 MG (ELIQUIS) TABLET PO SCH ×2 (08:38→21:19)
[2020-09-11] MEDS: ASCORBIC ACID (VIT C) 500 MG TABLET PO SCH ×2 (08:38→21:19)
[2020-09-11] MEDS: clonazePAM 1 MG (KlonoPIN) TAB PO SCH ×2 (08:38→21:19)
[2020-09-11] MEDS: SILDENAFIL 20 MG (REVATIO) TAB NON-FORMULARY PO SCH ×3 (08:38→21:20)
[2020-09-11] MEDS: SALINE NASAL SPRAY (OCEAN) 45 ML BTL SCH (08:39)
--- NOTE | 2020-09-11 08:55 | Occupational Ther Daily Note ---
OT Current Status-Daily Note Subjective Pt alert, lying in bed. Pt agrees to therapy. No c/o pain. Pt able to tolerate more activity today. Mental Status/Objective Patient Orientation: Person, Place, Time, Situation Attachments: IV ADL-Treatment Pt agrees to shower. Independent with HOB elevated for supine to EOB sitting. Mod A x1 for SBA from bed to w/c. Mod A to transfer w/c <--> BSC in shower. SBA for shower sitting on BSC, completing all areas in sitting, assist only to dry feet. After set up, complete upper body dressing by self. Threads pants over feet by self then assist to hike pants over hips with pt stabilizes self with grabbar. Assist to don/doff socks. After therapy, pt sitting in w/c with call light/phone in reach. All needs met in room. Therapy Code Descriptions/Definitions Functional [place] Measure: 0=Not Assessed/NA 4=Minimal Assistance 1=Total Assistance 5=Supervision or Setup 2=Maximal Assistance 6=Modified [place] 3=Moderate Assistance 7=Complete IndependenceSCALE: Activities may be completed with or without assistive devices. 7-Xrklkaujci-hknjnsx completes the activity by him/herself with no assistance from a helper. 5-Set-up or Clean-up Assistance-helper sets up or cleans up; patient completes activity. [place] assists only prior to or following the activity. 4-Supervision or Touching Assistance-helper provides verbal cues and/or touching/steadying and/or contact guard assistance as patient completes activity. Assistance may be provided throughout the activity or intermittently. 3-Partial/Moderate Assistance-helper does LESS THAN HALF the effort. [place] lifts, holds or supports trunk or limbs, but provides less than half the effort. 2-Substantial/Maximal Assistance-helper does MORE THAN HALF the effort. [place] lifts or holds trunk or limbs and provides more than half the effort. 8-Gsqwbaydp-nvqgym does ALL the effort. Patient does none of the effort to complete the activity. Or, the assistance of 2 or more helpers is required for the patient to complete the activity. If activity was not attempted, code reason: 7-Patient Refused. 9-Not Applicable-not attempted and the patient did not perform the activity before the current illness, exacerbation or injury. 10-Not Attempted due to Environmental Limitations-(lack of equipment, weather restraints, etc.). 88-Not Attempted due to Medical Conditions or Safety Concerns. Shower/Bathe Self (QC): 4 Upper Body Dressing (QC): 5 Lower Body Dressing (QC): 3 On/Off Footwear: 2 OT Short Term Goals Short Term Goals Time Frame: Sep 16, 2020 Eatin Oral hygiene: 4 Toileting hygiene: 3 Shower/bathe self: 3 Upper body dressin Lower body dressin Putting on/taking off footwear: 3 OT Human Resources Receptionist Goals Human Resources Receptionist Goals Time Frame: Sep 30, 2020 Eating (QC): 6 Oral Hygiene (QC): 6 Toileting Hygiene (QC): 6 Shower/Bathe Self (QC): 4 Upper Body Dressing (QC): 5 Lower Body Dressing (QC): 4 On/Off Footwear (QC): 5 Additional Goals: 1-Demonstrate ADL Tasks, 2-Verbalize Understanding, 3- ImproveStrength/Luis Manuel 1=Demonstrate adherence to instructed precautions during ADL tasks. 2=Patient will verbalize/demonstrate understanding of assistive devices/modifications for ADL. 3=Patient will improve strength/tolerance for activity to enable patient to perform ADL's. OT Education/Plan Problem List/Assessment Assessment: Decreased Activ Tolerance, Decreased UE Strength, Impaired Self- Care Skills Discharge Recommendations Plan/Recommendations: Continue POC Treatment Plan/Plan of Care Patient would benefit from OT for education, treatment and training to promote independence in ADL's, mobility, safety and/or upper extremity function for ADL's. Plan of Care: ADL Retraining, Functional Mobility, UE Funct Exercise/Act Treatment Duration: Sep 30, 2020 Frequency: At least 5 of 7 days/Wk (IRF) Estimated Hrs Per Day: 1.5 hours per day Agreement: Yes Rehab Potential: Good Time/GCodes Start Time: 08:00 Stop Time: 09:00 Total Time Billed (hr/min): 60 Billed Treatment Time 1 visit-ADL 4 (60 min) SAHIL LARSEN Sep 11, 2020 08:55
[2020-09-11] MEDS ORDERED: LIDOCAINE 4% (SALONPAS) PATCH TOP PRN (09:30)
--- NOTE | 2020-09-11 09:34 | Physical Therapy Daily Note ---
PT Daily Note-Current Subjective Pt up in w/c ready for PT. Pt in good spirits, denies pain at this time. "I have already had one coughing episode so hopefully, I am done." Mental Status Patient Orientation: Person, Place, Situation Attachments: Oxygen Pt on 4L/min per nasal canula. Increased to 6L/min for activity. Portable O2 6L/min for treatment session. Transfers SCALE: Activities may be completed with or without assistive devices. 7-Hozfsxpjkd-wvpnxhl completes the activity by him/herself with no assistance from a helper. 5-Set-up or Clean-up Assistance-helper sets up or cleans up; patient completes activity. [place] assists only prior to or following the activity. 4-Supervision or Touching Assistance-helper provides verbal cues and/or touching/steadying and/or contact guard assistance as patient completes activity. Assistance may be provided throughout the activity or intermittently. 3-Partial/Moderate Assistance-helper does LESS THAN HALF the effort. [place] lifts, holds or supports trunk or limbs, but provides less than half the effort. 2-Substantial/Maximal Assistance-helper does MORE THAN HALF the effort. [place] lifts or holds trunk or limbs and provides more than half the effort. 4-Cmcrlxqud-myhxju does ALL the effort. Patient does none of the effort to complete the activity. Or, the assistance of 2 or more helpers is required for the patient to complete the activity. If activity was not attempted, code reason: 7-Patient Refused. 9-Not Applicable-not attempted and the patient did not perform the activity before the current illness, exacerbation or injury. 10-Not Attempted due to Environmental Limitations-(lack of equipment, weather restraints, etc.). 88-Not Attempted due to Medical Conditions or Safety Concerns. Transfers sit-stand min A of 1 person. Pt able to transfer w/c-Nu-step dance fashion taking 2-3 steps min A. Weight Bearing Right Lower Extremity: Right Full Weight Bearing Left Lower Extremity: Left Full Weight Bearing Gait Training Gait Assistive Device: Parallel Bars Pt amb with close f/u of w/c and CGA 2 x 7ft Wheelchair Training Type of Wheelchair: Manual Pt propelled w/c (I) 2 x 100ft Exercises Seated Therapy Exercises: Ankle pumps, Long arc quads, Hip flexion, Hip abd/add Seated Reps: 20 Performed Nu-step 2 x 5' with 4' rest break between NuStep Minutes: 10 NuStep Workload: 1 Treatments Pt education on diaphragmatic breathing, practiced with hand on diaphragm for feedback. O2 sat monitored throughout treatment: Resting O2 sat 99% and HR 106bpm, after 1st 5 min on Nu-step O2 sat 98% and HR 106bpm. After 2nd 5 min O2 sat 98% and HR 104bpm Assessment Current Status: Good Progress Decreasing dependence with transfers and increasing endurance by maintaining O2 sats > 95% throughout treatment even after ambulation in //bars. Pt SOB with exertion but recovers quickly with pursed lip breathing. Pt progressing nicely. Pt in recliner with call light and all needs met. PT Short Term Goals Short Term Goals Time Frame: Sep 16, 2020 Roll Left & Right: 6 Sit to lyin Lying to sitting on side of be: 6 Sit to stand: 4 PT Care Home Goals Care Home Goals PT Care Home Goals Time Frame: Sep 30, 2020 Roll Left & Right (QC): 6 Sit to Lying (QC): 6 Lying-Sitting on Side/Bed(QC): 6 Sit to Stand (QC): 6 Chair/Nar-zl-Yofin Xfer(QC): 6 Toilet Transfer (QC): 6 Car Transfer (QC): 6 Does the Patient Walk: No and Walking Goal IS indicated Walk 10 feet (QC): 6 Walk 50ft with 2 Turns (QC): 6 Walk 150 ft (QC): 6 Walking 10ft on Uneven Surface: 6 1 Step (curb) (QC): 6 4 Steps (QC): 6 12 Steps (QC): 9 Picking up an Object (QC): 6 Does the Pt use WC or Scooter?: No Wheel 50 feet with 2 turns (QC: 9 Type: N/A Wheel 150 feet: 9 Type: N/A PT Plan Treatment/Plan Treatment Plan: Continue Plan of Care Treatment Plan: Bed Mobility, Education, Functional Activity Luis Manuel, Functional Strength, Group Therapy, Gait, Safety, Therapeutic Exercise, Transfers Treatment Duration: Sep 30, 2020 Frequency: Modified Program (IRF) Estimated Hrs Per Day: 1.5 hours per day Patient and/or Family Agrees t: Yes Time/GCodes Time In: 900 Time Out: 1000 Total Billed Treatment Time: 60 Total Billed Treatment 1, ther ex 30', FA 30' LINCOLN GONZALEZ [facility] HEALTHCAREChicho Sep 11, 2020 09:34
[2020-09-11] MEDS ORDERED: polyethylene glycoL POWDER 17 GM (MIRALAX) PACK PO PRN (10:15)
[2020-09-11] MEDS ORDERED: SALINE NASAL SPRAY (OCEAN) 45 ML BTL PRN (10:15)
[2020-09-11] MEDS ORDERED: SENNA W/DOCUSATE (SENOKOT S) TABLET PO PRN (10:15)
--- NOTE | 2020-09-11 15:15 | Occupational Ther Daily Note ---
OT Current Status-Daily Note Subjective Pt alert, sitting in recliner. Pt agrees to therapy. No c/o pain. Mental Status/Objective Patient Orientation: Person, Place, Time, Situation Attachments: IV (midline), Oxygen ADL-Treatment Co-treat with PT ([id number]), skilled instruction and modifications requires 2 clinicians to increase activity tolerance, safe transfers, decrease fall risk and increase overall strength. PT focusing on transfers, standing and B LE strengthening while OT focusing on functional transfers, dressing and B UE strengthening. After set up, pt dressed upper body by self. Assist x2 to complete lower body drsg due to increased fatigue. Sit to stand mod A x2 then pt able to use FWW to transfer from recliner to bed min A x2 for safety. Sitting to supine independent. Therapy Code Descriptions/Definitions Functional [place] Measure: 0=Not Assessed/NA 4=Minimal Assistance 1=Total Assistance 5=Supervision or Setup 2=Maximal Assistance 6=Modified [place] 3=Moderate Assistance 7=Complete IndependenceSCALE: Activities may be completed with or without assistive devices. 0-Kawqewtcrs-thhcvwo completes the activity by him/herself with no assistance from a helper. 5-Set-up or Clean-up Assistance-helper sets up or cleans up; patient completes activity. [place] assists only prior to or following the activity. 4-Supervision or Touching Assistance-helper provides verbal cues and/or touching/steadying and/or contact guard assistance as patient completes activity. Assistance may be provided throughout the activity or intermittently. 3-Partial/Moderate Assistance-helper does LESS THAN HALF the effort. [place] lifts, holds or supports trunk or limbs, but provides less than half the effort. 2-Substantial/Maximal Assistance-helper does MORE THAN HALF the effort. [place] lifts or holds trunk or limbs and provides more than half the effort. 7-Dbmkiljtj-hhzyta does ALL the effort. Patient does none of the effort to complete the activity. Or, the assistance of 2 or more helpers is required for the patient to complete the activity. If activity was not attempted, code reason: 7-Patient Refused. 9-Not Applicable-not attempted and the patient did not perform the activity before the current illness, exacerbation or injury. 10-Not Attempted due to Environmental Limitations-(lack of equipment, weather restraints, etc.). 88-Not Attempted due to Medical Conditions or Safety Concerns. Upper Body Dressing (QC): 5 Lower Body Dressing (QC): 1 Other Treatment Pt completed B LE exercises for PT in supine. Completed 3 B UE exercises to strengthen shldrs for dressing and functional mobility. After therapy, pt lying in bed with call light/phone in reach. All needs met in room. OT Short Term Goals Short Term Goals Time Frame: Sep 16, 2020 Eatin Oral hygiene: 4 Toileting hygiene: 3 Shower/bathe self: 3 Upper body dressin Lower body dressin Putting on/taking off footwear: 3 OT Retirement Goals Physician Obstetrician Goals Time Frame: Sep 30, 2020 Eating (QC): 6 Oral Hygiene (QC): 6 Toileting Hygiene (QC): 6 Shower/Bathe Self (QC): 4 Upper Body Dressing (QC): 5 Lower Body Dressing (QC): 4 On/Off Footwear (QC): 5 Additional Goals: 1-Demonstrate ADL Tasks, 2-Verbalize Understanding, 3- ImproveStrength/Luis Manuel 1=Demonstrate adherence to instructed precautions during ADL tasks. 2=Patient will verbalize/demonstrate understanding of assistive devices/modifications for ADL. 3=Patient will improve strength/tolerance for activity to enable patient to perform ADL's. OT Education/Plan Problem List/Assessment Assessment: Decreased Activ Tolerance, Decreased UE Strength, Impaired Self- Care Skills Discharge Recommendations Plan/Recommendations: Continue POC Treatment Plan/Plan of Care Patient would benefit from OT for education, treatment and training to promote independence in ADL's, mobility, safety and/or upper extremity function for ADL's. Plan of Care: ADL Retraining, Functional Mobility, UE Funct Exercise/Act Treatment Duration: Sep 30, 2020 Frequency: At least 5 of 7 days/Wk (IRF) Estimated Hrs Per Day: 1.5 hours per day Agreement: Yes Rehab Potential: Good Time/GCodes Start Time: 14:35 Stop Time: 15:05 Total Time Billed (hr/min): 30 Billed Treatment Time 1 visit-ADL 1 (20 min) EX 1 (10 min) co-treat with PT 30 min SAHIL LARSEN Sep 11, 2020 15:15
--- NOTE | 2020-09-11 16:09 | Physical Therapy Daily Note ---
PT Daily Note-Current Subjective Pt sitting in recliner upon arrival. Pt agrees to PT/OT co-treat. Pain Location: No Pain Reported Mental Status Patient Orientation: Person, Place, Situation Attachments: Oxygen (6L while in tx, 4L after tx.) Transfers SCALE: Activities may be completed with or without assistive devices. 5-Pjqsnniusr-lmsvqrh completes the activity by him/herself with no assistance from a helper. 5-Set-up or Clean-up Assistance-helper sets up or cleans up; patient completes activity. [place] assists only prior to or following the activity. 4-Supervision or Touching Assistance-helper provides verbal cues and/or touching/steadying and/or contact guard assistance as patient completes activity. Assistance may be provided throughout the activity or intermittently. 3-Partial/Moderate Assistance-helper does LESS THAN HALF the effort. [place] lifts, holds or supports trunk or limbs, but provides less than half the effort. 2-Substantial/Maximal Assistance-helper does MORE THAN HALF the effort. [place] lifts or holds trunk or limbs and provides more than half the effort. 1-Ffvawnvkt-tdyhcj does ALL the effort. Patient does none of the effort to complete the activity. Or, the assistance of 2 or more helpers is required for the patient to complete the activity. If activity was not attempted, code reason: 7-Patient Refused. 9-Not Applicable-not attempted and the patient did not perform the activity before the current illness, exacerbation or injury. 10-Not Attempted due to Environmental Limitations-(lack of equipment, weather restraints, etc.). 88-Not Attempted due to Medical Conditions or Safety Concerns. Sit to Lying (QC): 6 Sit to Stand (QC): 2 Chair/Mau-pq-Zxtxa Xfer(QC): 3 Weight Bearing Right Lower Extremity: Right Full Weight Bearing Left Lower Extremity: Left Full Weight Bearing Exercises Supine Ex: Ankle pumps, Quad Set, Heel Slides, Hip abd/add Supine Reps: 15 Treatments Co-treat with PT ([id number]), skilled instruction and modifications requires 2 clinicians to increase activity tolerance, safe transfers, decrease fall risk and increase overall strength. PT focusing on transfers, standing and B LE strengthening while OT focusing on functional transfers, dressing and B UE strengthening. After set up, pt dressed upper body by self. Assist x2 to c omplete lower body drsg due to increased fatigue. Sit to stand mod A x2 then pt able to use FWW to transfer from recliner to bed min A x2 for safety. Sitting to supine independent. Assessment Current Status: Fair Progress Pt is gaining strength although still Mod A x2 for sit to stand due to fatigue and weakness. PT Short Term Goals Short Term Goals Time Frame: Sep 16, 2020 Roll Left & Right: 6 Sit to lyin Lying to sitting on side of be: 6 Sit to stand: 4 PT Senior Living Goals Senior Living Goals PT Senior Living Goals Time Frame: Sep 30, 2020 Roll Left & Right (QC): 6 Sit to Lying (QC): 6 Lying-Sitting on Side/Bed(QC): 6 Sit to Stand (QC): 6 Chair/Vbb-bg-Jvqvk Xfer(QC): 6 Toilet Transfer (QC): 6 Car Transfer (QC): 6 Does the Patient Walk: No and Walking Goal IS indicated Walk 10 feet (QC): 6 Walk 50ft with 2 Turns (QC): 6 Walk 150 ft (QC): 6 Walking 10ft on Uneven Surface: 6 1 Step (curb) (QC): 6 4 Steps (QC): 6 12 Steps (QC): 9 Picking up an Object (QC): 6 Does the Pt use WC or Scooter?: No Wheel 50 feet with 2 turns (QC: 9 Type: N/A Wheel 150 feet: 9 Type: N/A PT Plan Problem List Problem List: Activity Tolerance, Functional Strength Treatment/Plan Treatment Plan: Continue Plan of Care Treatment Plan: Bed Mobility, Education, Functional Activity Luis Manuel, Functional Strength, Group Therapy, Gait, Safety, Therapeutic Exercise, Transfers Treatment Duration: Sep 30, 2020 Frequency: Modified Program (IRF) Estimated Hrs Per Day: 1.5 hours per day Patient and/or Family Agrees t: Yes Safety Risks/Education Patient Education: Transfer Techniques Teaching Recipient: Patient Teaching Methods: Discussion Response to Teaching: Verbalize Understanding Time/GCodes Time In: 1435 Time Out: 1505 Total Billed Treatment Time: 30 Total Billed Treatment Co-treat w/OT for 30m 1, FA (15m) & EX (15m) JOSHUA CRANDALL MIXING TECHNICIAN Sep 11, 2020 16:09
[2020-09-11] MEDS: ALPRAZolam 0.25 MG (XANAX) TAB PO PRN (17:47)
--- NOTE | 2020-09-11 17:48 | Behavioral Health Consult ---
Consult- Consult Date Seen by Provider: Sep 11, 2020 Time Seen by Provider: 13:02 [facility]. [facility] PSYCHOLOGICAL CONSULTATION PATIENT: Rosana Zhu DATE: 1965 DATES OF EVALUATION: 09/11/20 (13:02-14:00) DATE OF REPORT: 09/11/20 REFERRAL QUESTION: Rosana Zhu is a 54 year-old female who was admitted to the hospital for rehabilitation following COVID. Dr. Kim asked for a psychological consultation due to anxiety related to COVID. TEST ADMINISTERED: Clinical Interview with Patient PRESENTING PROBLEMS: Rosana Zhu is currently on the rehabilitation unit to gain strength and movement since having COVID. She talked about how she can stand up with only one person helping now instead of two but knows that she needs to get better at that and with walking. She talked about not having issues with anxiety prior to being hospitalized with COVID. She states that she was prescribed Klonopin when at [facility] as she had an anxious/shaky reaction to the antibiotics she was given. She states that her anxiety seems to occur three different times a day now: after taking her morning medications, she feels shaky; when at group; and when she is waiting for her nighttime medication. She states that she does not get her nighttime medication until after 10pm, which frustrates her. She reports that she was prescribed Xanax and Paxil at this hospital. She expressed her concern about being on anxiety medication technician terminal and repeater. CURRENT/PREVIOUS MENTAL HEALTH TREATMENT: Rosana did not report any previous therapy or counseling. MEDICAL HISTORY: See medical chart for detailed history. She reports having severe scoliosis in which she had to wear a back brace for 22 hours a day from 4th to 8th grade. She states that she was not having any physical problems prior to being diagnosed with COVID in June of this year. RECREATIONAL DRUG USAGE: This area was not assessed. 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 She states that she is not sure she will return to work but is on leave until December. FAMILY AND SOCIAL HISTORIES/SOCIAL SUPPORT: Rosana reports that she lives at home on her own. She states that Kane, someone she refers to as a son but is n ot blood-related, is staying down in [place] now with his two daughters and . She states that she they were living in a house on the same property as her. She states that her plan is to move down there with them if they end up liking it down there. She states that she has grown close to them and cannot imagine living away from them. BEHAVIORAL OBSERVATIONS/MENTAL STATUS: The patient was seen in her hospital room as she was sitting up in a chair dressed in street clothes and covered in a blanket. She was alert and engaged well with this telegraphic typewriter repairer. She was open and answered all the questions that were asked. She made good eye contact and was cooperative. She appeared anxious about her current state but did not appear overly anxious. Her appetite is reportedly poor as she admits to losing over forty pounds since COVID and states that sleep has been difficult as well. She states that neither of these were problems prior to COVID. She talked freely during the session and seems to want to get better. SUMMARY: Ms. Rosana Zhu is currently at the hospital for rehabilitation following being hospitalized for COVID. She is experiencing anxiety as she worries about her breathing and her ability to return to normal. This telegraphic typewriter repairer provided her with some ways to cope with her anxiety. Ms. Zhu is likely to benefit from continuing Paxil after discharge but may benefit from being taken off Xanax and Klonopin as her anxiety appears to improve. Some of her anxiety seems to be more related to shakiness with some of the medications such as Prednisone that she is taking. Her anxiety at night could be related to how she perceives getting her medication for nighttime later than everyone else. Hopefully, Ms. Zhu can continue to improve in her therapy. DIAGNOSTIC IMPRESSIONS: F43.22 Adjustment Disorder with Anxiety Thank you for the opportunity to consult on this patient. MAYA BOLAÑOS PSYD Sep 11, 2020 17:48
[2020-09-11 20:00] VITALS: BP 114/68
[2020-09-11] MEDS: MELATONIN 3 MG TABLET PO SCH (21:20)
[2020-09-11] MEDS: MONTELUKAST 10 MG (SINGULAIR) TAB PO SCH (21:20)
[2020-09-11] MEDS: LIDOCAINE PATCH REMOVAL TP SCH (21:23)
--- NOTE | 2020-09-12 05:34 | PM&R Progress Note ---
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 09/10/2020: Patient improving Now on 4 L of oxygen Uses bedpan still We will monitor closely 09/09/2020: Pt progressing nicely Down to five liters of oxygen Bowels moved on the Much improved 09/08/2020: Pt doing well but Prednisone was 10mg daily, supposed to be 50 so getting that corrected Oxygenation does go down with any activity but actually showed today and did pretty well 09/07/2020: Pt doing pretty well Pulmonary consult today Nose bleed a little bit today Bowels moving On six liters during bed-almazan which seems to help recovery 09/06/2020: Pt doing pretty well Had an episode of SOB in the shower Doing okay now Feels like no other problems are occurring X-ray for picc line to be sure it is functioning adequately 09/05/2020: Pt doing pretty well but having loose stools Eliquis restarted since no nose bleeds Echocardiogram ordered per pulmonology consult Four liters of oxygen maintained Talked about her Scoliosis and restrictive lung disease Patient does not want inhaler or breathing treatment 09/04/2020: Pt doing pretty well Wonders if she should have a continuous pulse-ox and I told her we are monitoring that with frequent spot checks. Chest X-ray ordered for pulmonary consultation She even gets SOB on the bed-almazan Echo was recommended so we will order Review of Systems General: Fatigue, Malaise Pulmonary: Dyspnea Objective Exam Vital Signs Vital Signs Date Time Temp Pulse Resp B/P (MAP) Pulse Ox O2 Delivery O2 Flow Rate FiO2 09/12/20 18:44 High Flow N/C 4.00 09/12/20 10:16 82 18 101/62 (75) 95 09/12/20 08:00 36.1 Capillary Refill : General Appearance: No Apparent Distress, WD/WN, Chronically ill, Obese HEENT: PERRL/EOMI, Normal ENT Inspection, Pharynx Normal Neck: Full Range of Motion, Normal Inspection, Non Tender, Supple, Carotid Bruit Respiratory: Chest Non Tender, Lungs Clear, No Accessory Muscle Use, No Respiratory Distress, Decreased Breath Sounds Cardiovascular: Regular Rate, Rhythm, No Edema, No Gallop, No JVD, No Murmur, Normal Peripheral Pulses Gastrointestinal: Normal Bowel Sounds, No Organomegaly, No Pulsatile Mass, Non Tender, Soft Back: Normal Inspection, No CVA Tenderness, No Vertebral Tenderness Extremity: Normal Capillary Refill, Normal Inspection, Normal Range of Motion, Non Tender, No Calf Tenderness, No Pedal Edema Neurologic/Psychiatric: Alert, Oriented x3, No Motor/Sensory Deficits, Normal Mood/Affect, back tender II-XII Norm as Tested, Motor Weakness (generalized 3/5) Skin: Normal Color, Warm/Dry Lymphatic: No Adenopathy Results/Procedures Lab Patient resulted labs reviewed. FIM Transfers Therapy Code Descriptions/Definitions Functional [place] Measure: 0=Not Assessed/NA 4=Minimal Assistance 1=Total Assistance 5=Supervision or Setup 2=Maximal Assistance 6=Modified [place] 3=Moderate Assistance 7=Complete IndependenceSCALE: Activities may be completed with or without assistive devices. 2-Wsmtbvqysi-tbbffgu completes the activity by him/herself with no assistance from a helper. 5-Set-up or Clean-up Assistance-helper sets up or cleans up; patient completes activity. [place] assists only prior to or following the activity. 4-Supervision or Touching Assistance-helper provides verbal cues and/or john torres/steadying and/or contact guard assistance as patient completes activity. Assistance may be provided throughout the activity or intermittently. 3-Partial/Moderate Assistance-helper does LESS THAN HALF the effort. [place] lifts, holds or supports trunk or limbs, but provides less than half the effort. 2-Substantial/Maximal Assistance-helper does MORE THAN HALF the effort. [place] lifts or holds trunk or limbs and provides more than half the effort. 3-Kqrrgzbhz-ognpzv does ALL the effort. Patient does none of the effort to complete the activity. Or, the assistance of 2 or more helpers is required for the patient to complete the activity. If activity was not attempted, code reason: 7-Patient Refused. 9-Not Applicable-not attempted and the patient did not perform the activity before the current illness, exacerbation or injury. 10-Not Attempted due to Environmental Limitations-(lack of equipment, weather restraints, etc.). 88-Not Attempted due to Medical Conditions or Safety Concerns. Roll Left to Right (QC): 4 Sit to Lying (QC): 6 Sit to Stand (QC): 2 Chair/Tdh-ie-Kspzo Xfer(QC): 3 Car Transfer (QC): 88 Gait Training Does the Patient Walk?: Yes Distance: 2 x 6-8 ft Walk 10 feet (QC): 88 Walk 50 ft with 2 Turns(QC): 88 Walk 150 ft (QC): 88 Walking 10ft/uneven surface-QC: 88 Gait Persons Needed: 2 Gait Assistive Device: Parallel Bars Wheelchair Training Does the Pt Use a Wheelchair?: Yes Wheel 50 ft with 2 turns (QC): 9 Wheel 150 ft (QC): 9 Type of Wheelchair: Manual Stair Training 1 Step (curb) (QC): 88 4 Steps (QC): 88 12 Steps (QC): 88 Balance Picking up an Object (QC): 88 ADL-Treatment Eating (QC): 6 (per clinical judgement) Oral Hygiene (QC): 6 Shower/Bathe Self (QC): 4 Upper Body Dressing (QC): 5 Lower Body Dressing (QC): 1 On/Off Footwear (QC): 2 Toileting Hygiene (QC): 1 Toilet Transfer (QC): 3 Assessment/Plan Assessment and Plan Assess & Plan/Chief Complaint Assessment: COVID-19 pneumonia with ongoing hypoxic respiratory failure Chronic scoliosis back pain History of pain pill addiction Claustrophobia Anxiety Gout Restrictive lung disease Recent pneumomediastinum Thrombocytopenia Anemia Hypokalemia Hypomag Plan: Inpatient rehab protocol Slow therapy 31/08 due to severe hypoxia with exertion due to COVID-19 pneumonia Monitor closely Replace potassium and mag 09/04/2020: Supportive care Pulmonary consultation appreciated Echo Slow taper 09/05/2020: Discontinue breathing treatments since it makes her too shaky Long taper of prednisone 09/06/2020: Supportive care Oxygen supplementation 09/07/2020: Monitor desaturation Supportive care 09/08/2020: Maintain prednisone slow taper Monitor closely Improved 09/09/2020: Supportive care Monitor closely Much improved 09/10/2020: Continue oxygen wean Maintain slow taper prednisone 09/11/2020: Continue to wean oxygen Slow taper prednisone 7/27/21: Maintain prednisone O2 wean (1) COVID-19 JULES ROJAS DO Sep 12, 2020 05:34
[2020-09-12] MEDS: predniSONE 20 MG TAB PO SCH (06:35)
[2020-09-12] MEDS: CATHETER FLUSH 10 ML SYR IV SCH ×3 (06:35→22:16)
[2020-09-12] MEDS: predniSONE 10 MG TAB PO SCH (06:35)
[2020-09-12 08:00] VITALS: BP_SYST 112; BP_SYST 92; BP_SYST 93; BP_DIAS 50; BP_DIAS 52; BP_DIAS 67
[2020-09-12] MEDS: MAGNESIUM OXIDE (MAG-OX)400 MG TAB PO SCH ×2 (08:05→17:11)
[2020-09-12] MEDS: guaiFENesin (MUCINEX) 600 MG TAB PO SCH ×2 (08:05→20:05)
[2020-09-12] MEDS: COLCHICINE 0.6 MG (COLCRYS) TABLET PO SCH (08:05)
[2020-09-12] MEDS: clonazePAM 1 MG (KlonoPIN) TAB PO SCH ×2 (08:05→20:05)
[2020-09-12] MEDS: KCL 20 MEQ TAB (K-DUR) PO SCH ×3 (08:05→17:11)
[2020-09-12] MEDS: PARoxetine 20 MG (PAXIL) TAB PO SCH (08:05)
[2020-09-12] MEDS: APIXABAN 2.5 MG (ELIQUIS) TABLET PO SCH ×2 (08:05→20:05)
[2020-09-12] MEDS: PANTOPRAZOLE 40 MG (PROTONIX) TAB PO SCH (08:05)
[2020-09-12] MEDS: ASCORBIC ACID (VIT C) 500 MG TABLET PO SCH ×2 (08:05→20:05)
[2020-09-12] MEDS: ROFLUMILAST 500 MCG TAB (DALIRESP) PO SCH (08:06)
[2020-09-12] MEDS: SILDENAFIL 20 MG (REVATIO) TAB NON-FORMULARY PO SCH ×3 (08:07→20:05)
--- NOTE | 2020-09-12 09:58 | Physical Therapy Daily Note ---
PT Daily Note-Current Subjective Patient in bed pre tx, agrees to PT, has no complaints of pain. Will be co- treating with OT due to poor patient mobility, strength, endurance, severe SOB and drop in O2 with activity, coordinate UE and LE during activity, safety and reduce risk of falls. Appearance Patient in recliner post tx with nurse call, phone, tray, all needs met. Mental Status Patient Orientation: Person, Place, Situation Attachments: Oxygen O2 turned up to 6L with activity, O2 drops to 80% with activity, comes back up to 90% after a minute with purse lip breathing Transfers SCALE: Activities may be completed with or without assistive devices. 8-Dajdjunewn-lruecrb completes the activity by him/herself with no assistance from a helper. 5-Set-up or Clean-up Assistance-helper sets up or cleans up; patient completes activity. [place] assists only prior to or following the activity. 4-Supervision or Touching Assistance-helper provides verbal cues and/or touching/steadying and/or contact guard assistance as patient completes activity. Assistance may be provided throughout the activity or intermittently. 3-Partial/Moderate Assistance-helper does LESS THAN HALF the effort. [place] lifts, holds or supports trunk or limbs, but provides less than half the effort. 2-Substantial/Maximal Assistance-helper does MORE THAN HALF the effort. [place] lifts or holds trunk or limbs and provides more than half the effort. 3-Ctpvvykev-aqbpzv does ALL the effort. Patient does none of the effort to comp lete the activity. Or, the assistance of 2 or more helpers is required for the patient to complete the activity. If activity was not attempted, code reason: 7-Patient Refused. 9-Not Applicable-not attempted and the patient did not perform the activity before the current illness, exacerbation or injury. 10-Not Attempted due to Environmental Limitations-(lack of equipment, weather restraints, etc.). 88-Not Attempted due to Medical Conditions or Safety Concerns. Roll Left & Right (QC): 6 Lying to Sitting/Side of Bed(Q: 6 Sit to Stand (QC): 3 Chair/Hge-ao-Urubm Xfer(QC): 3 Toilet Transfer (QC): 3 Patient sits on the side of the bed for dressing, transfers to and to the restroom, has to perform a stand pivot transfer to toilet with mod assist, OT assists with dressing/undressing for toileting. Weight Bearing Right Lower Extremity: Right Full Weight Bearing Left Lower Extremity: Left Full Weight Bearing Gait Training Does the Patient Walk?: Yes Distance: 3', 5', 10'x2 Walk 10 feet (QC): 4 Gait Assistive Device: FWW WC follow, slow, leans heavily on arms, fatigues quickly Wheelchair Training Does the Pt Use a Wheelchair?: Yes Wheel 50 ft with 2 turns (QC): 4 Type of Wheelchair: Manual 120'x2 SBA, occasional cues for obstacles or positioning through doorways Exercises sit to stand on elevated therapy table x5 Treatments PT performed bed mobility and transfers, toilet transfer, balance and positioning during dressing, ambulation, WC mobility, functional strengthening, OT performed ADL's, UE positioning and safety during activity Assessment Current Status: Fair Progress slightly improved endurance but her O2 goes into the low 80's with activity PT Short Term Goals Short Term Goals Time Frame: Sep 16, 2020 Roll Left & Right: 6 Sit to lyin Lying to sitting on side of be: 6 Sit to stand: 4 PT Railroad Engineer Goals Railroad Engineer Goals PT Shelter Goals Time Frame: Sep 30, 2020 Roll Left & Right (QC): 6 Sit to Lying (QC): 6 Lying-Sitting on Side/Bed(QC): 6 Sit to Stand (QC): 6 Chair/Zng-um-Nvjuy Xfer(QC): 6 Toilet Transfer (QC): 6 Car Transfer (QC): 6 Does the Patient Walk: No and Walking Goal IS indicated Walk 10 feet (QC): 6 Walk 50ft with 2 Turns (QC): 6 Walk 150 ft (QC): 6 Walking 10ft on Uneven Surface: 6 1 Step (curb) (QC): 6 4 Steps (QC): 6 12 Steps (QC): 9 Picking up an Object (QC): 6 Does the Pt use WC or Scooter?: No Wheel 50 feet with 2 turns (QC: 9 Type: N/A Wheel 150 feet: 9 Type: N/A PT Plan Problem List Problem List: Activity Tolerance, Functional Strength, Safety, Balance, Gait, Transfer, Bed Mobility, ROM Treatment/Plan Treatment Plan: Continue Plan of Care Treatment Plan: Bed Mobility, Education, Functional Activity Luis Manuel, Functional Strength, Group Therapy, Gait, Safety, Therapeutic Exercise, Transfers Treatment Duration: Sep 30, 2020 Frequency: Modified Program (IRF) Estimated Hrs Per Day: 1.5 hours per day Patient and/or Family Agrees t: Yes Safety Risks/Education Patient Education: Gait Training, Transfer Techniques, Correct Positioning, W/C Management, Safety Issues Teaching Recipient: Patient Teaching Methods: Demonstration, Discussion Response to Teaching: Reinforcement Needed Time/GCodes Time In: 0900 Time Out: 1000 Total Billed Treatment Time: 60 Total Billed Treatment 1 visit EX 15' FA 45' co-treated with OT for 60' OCTAVIO HENDERSON PT Sep 12, 2020 09:58
[2020-09-12 10:16] VITALS: BP 101/62
[2020-09-12] MEDS: ATENOLOL 25 MG (TENORMIN) TAB PO SCH ×2 (10:16→20:05)
--- NOTE | 2020-09-12 10:16 | Occupational Ther Daily Note ---
OT Current Status-Daily Note Subjective Pt alert, lying in bed. Pt agrees to therapy. No c/o pain at this time. Mental Status/Objective Patient Orientation: Person, Place, Time, Situation Attachments: IV (midline), Oxygen (4-6L) ADL-Treatment 1st treatment: Co-treat with PT ([id number]), skilled instruction and modifications requires 2 clinicians to decrease fall risk, increase activity tolerance, increase functional mobility and transfers. PT working on B LE strengthening, sit to stands, transfers and ambulation while OT working on B UE strengthening, ADLs, functional mobility and increasing activity tolerance. With HOB fully elevated, pt able to go from sit to stand independently. After set up, pt able to complete upper body dressing and footwear by self. Pt is able to thread pants over feet/legs then 1 person assist for standing and 1 person assist to hike pants over hips. Pt ambulated a few steps with FWW then sat in w/c to go to bathroom. Assist to SPT with 1 person, 2nd person to manipulate clothing. Pt completed hygiene by self sitting on toilet. 2nd treatment: Co-treat with PT ([id number]), skilled instruction and modifications requires 2 clinicians to decrease fall risk, increase activity tolerance, increase functional mobility and transfers. PT working on B LE strengthening, sit to stands, transfers and ambulation while OT working on B UE strengthening, ADLs, functional mobility and increasing activity tolerance. Pt propelled w/c to <--> from bathroom. Assist x1 SPT to toilet with PT while MONTENEGRO manipulated clothing for toileting. During return SPT, PT completed SPT while pt was able to hike pants over hips, MONTENEGRO assisted with back of pants. Then pt stood at sink using counter to stabilize self 2x's. Pt able to complete washing hands and oral care with CGA in standing with 1 lengthy recovery break. Pt requested to go back to bed. Mod A for sit to stand and min A using bed rail to SPT from w/c to bed. Pt changed clothing sitting on EOB. Pt able to complete bed mobility with HOB flat with mod A. After therapy, pt lying in bed with call light/phone in reach. All needs met in room. Therapy Code Descriptions/Definitions Functional [place] Measure: 0=Not Assessed/NA 4=Minimal Assistance 1=Total Assistance 5=Supervision or Setup 2=Maximal Assistance 6=Modified [place] 3=Moderate Assistance 7=Complete IndependenceSCALE: Activities may be completed with or without assistive devices. 9-Qmdredmnod-yhhccav completes the activity by him/herself with no assistance from a helper. 5-Set-up or Clean-up Assistance-helper sets up or cleans up; patient completes activity. [place] assists only prior to or following the activity. 4-Supervision or Touching Assistance-helper provides verbal cues and/or touching/steadying and/or contact guard assistance as patient completes activity. Assistance may be provided throughout the activity or intermittently. 3-Partial/Moderate Assistance-helper does LESS THAN HALF the effort. [place] lifts, holds or supports trunk or limbs, but provides less than half the effort. 2-Substantial/Maximal Assistance-helper does MORE THAN HALF the effort. [place] lifts or holds trunk or limbs and provides more than half the effort. 3-Ngbnxvate-jvdgrb does ALL the effort. Patient does none of the effort to complete the activity. Or, the assistance of 2 or more helpers is required for the patient to complete the activity. If activity was not attempted, code reason: 7-Patient Refused. 9-Not Applicable-not attempted and the patient did not perform the activity before the current illness, exacerbation or injury. 10-Not Attempted due to Environmental Limitations-(lack of equipment, weather restraints, etc.). 88-Not Attempted due to Medical Conditions or Safety Concerns. Eating (QC): 6 (per clinical judgment) Oral Hygiene (QC): 4 Upper Body Dressing (QC): 5 Lower Body Dressing (QC): 1 On/Off Footwear: 5 Toileting Hygiene (QC): 1 Toilet Transfer (QC): 2 Other Treatment 1st treatment ([id number])Pt propelled w/c to/from gym to/from room. See PT notes for ambulation and sit to stand progress. After therapy, pt sitting in recliner with call light/phone in reach. All needs met in room. OT Short Term Goals Short Term Goals Time Frame: Sep 16, 2020 Eatin Oral hygiene: 4 Toileting hygiene: 3 Shower/bathe self: 3 Upper body dressin Lower body dressin Putting on/taking off footwear: 3 OT Seismograph Operator Goals Mcc Goals Time Frame: Sep 30, 2020 Eating (QC): 6 Oral Hygiene (QC): 6 Toileting Hygiene (QC): 6 Shower/Bathe Self (QC): 4 Upper Body Dressing (QC): 5 Lower Body Dressing (QC): 4 On/Off Footwear (QC): 5 Additional Goals: 1-Demonstrate ADL Tasks, 2-Verbalize Understanding, 3- ImproveStrength/Luis Manuel 1=Demonstrate adherence to instructed precautions during ADL tasks. 2=Patient will verbalize/demonstrate understanding of assistive devices/modifications for ADL. 3=Patient will improve strength/tolerance for activity to enable patient to perform ADL's. OT Education/Plan Problem List/Assessment Assessment: Decreased Activ Tolerance, Decreased UE Strength, Impaired Funct Balance, Impaired Self-Care Skills Discharge Recommendations Plan/Recommendations: Continue POC Treatment Plan/Plan of Care Patient would benefit from OT for education, treatment and training to promote independence in ADL's, mobility, safety and/or upper extremity function for ADL's. Plan of Care: ADL Retraining, Functional Mobility, UE Funct Exercise/Act Treatment Duration: Sep 30, 2020 Frequency: At least 5 of 7 days/Wk (IRF) Estimated Hrs Per Day: 1.5 hours per day Agreement: Yes Rehab Potential: Good Time/GCodes Start Time: 09:00 (1300) Stop Time: 10:00 (1330) Total Time Billed (hr/min): 90 Billed Treatment Time 1 visit-ADL 2 (35 min) FA 2 (25 min) co-treat with PT [id number] 1 visit-ADL 2 (30 min) co-treat with PT [id number] SAHIL LARSEN Sep 12, 2020 10:16
--- NOTE | 2020-09-12 13:30 | Physical Therapy Daily Note ---
PT Daily Note-Current Subjective Patient in recliner pre tx, agrees to PT, has no complaints of pain. Appearance Patient in WC post tx, to continue with OT for a bit for dressing. Mental Status Patient Orientation: Normal For Age Attachments: Oxygen Transfers SCALE: Activities may be completed with or without assistive devices. 9-Dbsijfibvy-vrjwigh completes the activity by him/herself with no assistance from a helper. 5-Set-up or Clean-up Assistance-helper sets up or cleans up; patient completes activity. [place] assists only prior to or following the activity. 4-Supervision or Touching Assistance-helper provides verbal cues and/or touching/steadying and/or contact guard assistance as patient completes activity. Assistance may be provided throughout the activity or intermittently. 3-Partial/Moderate Assistance-helper does LESS THAN HALF the effort. [place] lifts, holds or supports trunk or limbs, but provides less than half the effort. 2-Substantial/Maximal Assistance-helper does MORE THAN HALF the effort. [place] lifts or holds trunk or limbs and provides more than half the effort. 0-Vxjyzhsyo-lsvdce does ALL the effort. Patient does none of the effort to complete the activity. Or, the assistance of 2 or more helpers is required for the patient to complete the activity. If activity was not attempted, code reason: 7-Patient Refused. 9-Not Applicable-not attempted and the patient did not perform the activity before the current illness, exacerbation or injury. 10-Not Attempted due to Environmental Limitations-(lack of equipment, weather restraints, etc.). 88-Not Attempted due to Medical Conditions or Safety Concerns. Sit to Stand (QC): 3 Chair/Tcr-cs-Agbps Xfer(QC): 3 Toilet Transfer (QC): 3 Stand pivot from recliner to mod assist, propel to restroom and toilet transfer min assist, OT help get pants down/up during toileting, mod assist stand pivot back to , propel to sink and stands twice for cleaning teeth and washing hands. Weight Bearing Right Lower Extremity: Right Full Weight Bearing Left Lower Extremity: Left Full Weight Bearing Treatments transfers, standing balance and positioning during ADL's Assessment Current Status: Fair Progress very SOB with activity, shallow breathing PT Short Term Goals Short Term Goals Time Frame: Sep 16, 2020 Roll Left & Right: 6 Sit to lyin Lying to sitting on side of be: 6 Sit to stand: 4 PT Sport [employer] Goals Senior Care Goals PT Senior Care Goals Time Frame: Sep 30, 2020 Roll Left & Right (QC): 6 Sit to Lying (QC): 6 Lying-Sitting on Side/Bed(QC): 6 Sit to Stand (QC): 6 Chair/Dmd-ay-Bpmrc Xfer(QC): 6 Toilet Transfer (QC): 6 Car Transfer (QC): 6 Does the Patient Walk: No and Walking Goal IS indicated Walk 10 feet (QC): 6 Walk 50ft with 2 Turns (QC): 6 Walk 150 ft (QC): 6 Walking 10ft on Uneven Surface: 6 1 Step (curb) (QC): 6 4 Steps (QC): 6 12 Steps (QC): 9 Picking up an Object (QC): 6 Does the Pt use WC or Scooter?: No Wheel 50 feet with 2 turns (QC: 9 Type: N/A Wheel 150 feet: 9 Type: N/A PT Plan Problem List Problem List: Activity Tolerance, Functional Strength, Safety, Balance, Gait, Transfer, Bed Mobility, ROM Treatment/Plan Treatment Plan: Continue Plan of Care Treatment Plan: Bed Mobility, Education, Functional Activity Luis Manuel, Functional Strength, Group Therapy, Gait, Safety, Therapeutic Exercise, Transfers Treatment Duration: Sep 30, 2020 Frequency: Modified Program (IRF) Estimated Hrs Per Day: 1.5 hours per day Patient and/or Family Agrees t: Yes Safety Risks/Education Patient Education: Transfer Techniques, Correct Positioning, Safety Issues Teaching Recipient: Patient Teaching Methods: Demonstration, Discussion Response to Teaching: Reinforcement Needed Time/GCodes Time In: 1300 Time Out: 1330 Total Billed Treatment Time: 30 Total Billed Treatment 1 visit FA 30' OCTAVIO HENDERSON PT Sep 12, 2020 13:30
[2020-09-12] MEDS: ALPRAZolam 0.25 MG (XANAX) TAB PO PRN (13:38)
[2020-09-12 20:00] VITALS: BP 120/67
[2020-09-12] MEDS: MELATONIN 3 MG TABLET PO SCH (20:04)
[2020-09-12] MEDS: MONTELUKAST 10 MG (SINGULAIR) TAB PO SCH (20:05)
[2020-09-12] MEDS: LIDOCAINE PATCH REMOVAL TP SCH (20:08)
--- NOTE | 2020-09-13 05:26 | PM&R Progress Note ---
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 09/10/2020: Patient improving Now on 4 L of oxygen Uses bedpan still We will monitor closely 09/09/2020: Pt progressing nicely Down to five liters of oxygen Bowels moved on the Much improved 09/08/2020: Pt doing well but Prednisone was 10mg daily, supposed to be 50 so getting that corrected Oxygenation does go down with any activity but actually showed today and did pretty well 09/07/2020: Pt doing pretty well Pulmonary consult today Nose bleed a little bit today Bowels moving On six liters during bed-almazan which seems to help recovery 09/06/2020: Pt doing pretty well Had an episode of SOB in the shower Doing okay now Feels like no other problems are occurring X-ray for picc line to be sure it is functioning adequately 09/05/2020: Pt doing pretty well but having loose stools Eliquis restarted since no nose bleeds Echocardiogram ordered per pulmonology consult Four liters of oxygen maintained Talked about her Scoliosis and restrictive lung disease Patient does not want inhaler or breathing treatment 09/04/2020: Pt doing pretty well Wonders if she should have a continuous pulse-ox and I told her we are monitoring that with frequent spot checks. Chest X-ray ordered for pulmonary consultation She even gets SOB on the bed-almazan Echo was recommended so we will order Review of Systems General: Fatigue Pulmonary: Dyspnea Objective Exam Vital Signs Vital Signs Date Time Temp Pulse Resp B/P (MAP) Pulse Ox O2 Delivery O2 Flow Rate FiO2 09/13/20 21:54 Nasal Cannula 4.00 09/13/20 21:51 96 09/13/20 20:00 36.4 76 18 110/56 (74) Capillary Refill : General Appearance: No Apparent Distress, WD/WN, Chronically ill, Obese HEENT: PERRL/EOMI, Normal ENT Inspection, Pharynx Normal Neck: Full Range of Motion, Normal Inspection, Non Tender, Supple, Carotid Bruit Respiratory: Chest Non Tender, Lungs Clear, No Accessory Muscle Use, No Respiratory Distress, Decreased Breath Sounds Cardiovascular: Regular Rate, Rhythm, No Edema, No Gallop, No JVD, No Murmur, Normal Peripheral Pulses Gastrointestinal: Normal Bowel Sounds, No Organomegaly, No Pulsatile Mass, Non Tender, Soft Back: Normal Inspection, No CVA Tenderness, No Vertebral Tenderness Extremity: Normal Capillary Refill, Normal Inspection, Normal Range of Motion, Non Tender, No Calf Tenderness, No Pedal Edema Neurologic/Psychiatric: Alert, Oriented x3, No Motor/Sensory Deficits, Normal 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 FIM Transfers Therapy Code Descriptions/Definitions Functional [place] Measure: 0=Not Assessed/NA 4=Minimal Assistance 1=Total Assistance 5=Supervision or Setup 2=Maximal Assistance 6=Modified [place] 3=Moderate Assistance 7=Complete IndependenceSCALE: Activities may be completed with or without assistive devices. 3-Tqaunizwls-rxdelja completes the activity by him/herself with no assistance from a helper. 5-Set-up or Clean-up Assistance-helper sets up or cleans up; patient completes activity. [place] assists only prior to or following the activity. 4-Supervision or Touching Assistance-helper provides verbal cues and/or touching/steadying and/or contact guard assistance as patient completes activity. Assistance may be provided throughout the activity or intermittently. 3-Partial/Moderate Assistance-helper does LESS THAN HALF the effort. [place] lifts, holds or supports trunk or limbs, but provides less than half the effort. 2-Substantial/Maximal Assistance-helper does MORE THAN HALF the effort. [place] lifts or holds trunk or limbs and provides more than half the effort. 6-Sofkxnuvv-wuekyd does ALL the effort. Patient does none of the effort to complete the activity. Or, the assistance of 2 or more helpers is required for the patient to complete the activity. If activity was not attempted, code reason: 7-Patient Refused. 9-Not Applicable-not attempted and the patient did not perform the activity before the current illness, exacerbation or injury. 10-Not Attempted due to Environmental Limitations-(lack of equipment, weather restraints, etc.). 88-Not Attempted due to Medical Conditions or Safety Concerns. Roll Left to Right (QC): 6 Sit to Lying (QC): 6 Sit to Stand (QC): 3 Chair/Ccq-fh-[place] Xfer(QC): 3 Car Transfer (QC): 88 Gait Training Does the Patient Walk?: Yes Distance: 3', 5', 10'x2 Walk 10 feet (QC): 4 Walk 50 ft with 2 Turns(QC): 88 Walk 150 ft (QC): 88 Walking 10ft/uneven surface-QC: 88 Gait Persons Needed: 2 Gait Assistive Device: FWW Wheelchair Training Does the Pt Use a Wheelchair?: Yes Wheel 50 ft with 2 turns (QC): 4 Wheel 150 ft (QC): 9 Type of Wheelchair: Manual Stair Training 1 Step (curb) (QC): 88 4 Steps (QC): 88 12 Steps (QC): 88 Balance Picking up an Object (QC): 88 ADL-Treatment Eating (QC): 6 (per clinical judgment) Oral Hygiene (QC): 4 Shower/Bathe Self (QC): 4 Upper Body Dressing (QC): 5 Lower Body Dressing (QC): 1 On/Off Footwear (QC): 5 Toileting Hygiene (QC): 1 Toilet Transfer (QC): 2 Assessment/Plan Assessment and Plan Assess & Plan/Chief Complaint Assessment: COVID-19 pneumonia with ongoing hypoxic respiratory failure Chronic scoliosis back pain History of pain pill addiction Claustrophobia Anxiety Gout Restrictive lung disease Recent pneumomediastinum Thrombocytopenia Anemia Hypokalemia [place]ag Plan: Inpatient rehab protocol Slow therapy 31/08 due to severe hypoxia with exertion due to COVID-19 pneumonia Monitor closely Replace potassium and mag 09/04/2020: Supportive care Pulmonary consultation appreciated Echo Slow taper 09/05/2020: Discontinue breathing treatments since it makes her too shaky Long taper of prednisone 09/06/2020: Supportive care Oxygen supplementation 09/07/2020: Monitor desaturation Supportive care 09/08/2020: Maintain prednisone slow taper Monitor closely Improved 09/09/2020: Supportive care Monitor closely Much improved 09/10/2020: Continue oxygen wean Maintain slow taper prednisone 09/11/2020: Continue to wean oxygen Slow taper prednisone 09/12/20: Maintain prednisone O2 wean 09/13/2020: Supportive care Improving but slowly (1) COVID-19 JULES ROJAS DO Sep 13, 2020 05:26
[2020-09-13] MEDS: CATHETER FLUSH 10 ML SYR IV SCH (06:14)
[2020-09-13] MEDS: predniSONE 10 MG TAB PO SCH (06:16)
[2020-09-13] MEDS: predniSONE 20 MG TAB PO SCH (06:17)
[2020-09-13 07:25] VITALS: BP 120/69
[2020-09-13] MEDS: COLCHICINE 0.6 MG (COLCRYS) TABLET PO SCH (08:06)
[2020-09-13] MEDS: guaiFENesin (MUCINEX) 600 MG TAB PO SCH ×2 (08:06→21:02)
[2020-09-13] MEDS: MAGNESIUM OXIDE (MAG-OX)400 MG TAB PO SCH ×2 (08:06→18:54)
[2020-09-13] MEDS: APIXABAN 2.5 MG (ELIQUIS) TABLET PO SCH ×2 (08:06→21:02)
[2020-09-13] MEDS: ROFLUMILAST 500 MCG TAB (DALIRESP) PO SCH (08:07)
[2020-09-13] MEDS: clonazePAM 1 MG (KlonoPIN) TAB PO SCH ×2 (08:08→21:03)
[2020-09-13] MEDS: ASCORBIC ACID (VIT C) 500 MG TABLET PO SCH ×2 (08:08→21:03)
[2020-09-13] MEDS: ATENOLOL 25 MG (TENORMIN) TAB PO SCH ×2 (08:08→21:02)
[2020-09-13] MEDS: KCL 20 MEQ TAB (K-DUR) PO SCH ×3 (08:08→18:54)
[2020-09-13] MEDS: SILDENAFIL 20 MG (REVATIO) TAB NON-FORMULARY PO SCH ×3 (08:08→21:02)
[2020-09-13] MEDS: PARoxetine 20 MG (PAXIL) TAB PO SCH (08:08)
[2020-09-13] MEDS: PANTOPRAZOLE 40 MG (PROTONIX) TAB PO SCH (08:08)
--- NOTE | 2020-09-13 09:54 | Physical Therapy Daily Note ---
PT Daily Note-Current Subjective Patient in shower pre tx with OT, has no complaints of pain, agrees to PT. Will be co-treating with OT for part of tx due to poor patient mobility, strength, endurance, severe SOB and dropping O2 with activity, coordinate UE and LE during activity, safety and reduce risk of falls. Appearance Patient in recliner post tx with nurse call, phone, tray, all needs met. Mental Status Patient Orientation: Normal For Age Attachments: Oxygen Transfers SCALE: Activities may be completed with or without assistive devices. 7-Rkhmznelhx-ijadwos completes the activity by him/herself with no assistance from a helper. 5-Set-up or Clean-up Assistance-helper sets up or cleans up; patient completes activity. [place] assists only prior to or following the activity. 4-Supervision or Touching Assistance-helper provides verbal cues and/or touching/steadying and/or contact guard assistance as patient completes activity. Assistance may be provided throughout the activity or intermittently. 3-Partial/Moderate Assistance-helper does LESS THAN HALF the effort. [place] lifts, holds or supports trunk or limbs, but provides less than half the effort. 2-Substantial/Maximal Assistance-helper does MORE THAN HALF the effort. [place] lifts or holds trunk or limbs and provides more than half the effort. 9-Zqskxqqui-swdajy does ALL the effort. Patient does none of the effort to complete the activity. Or, the assistance of 2 or more helpers is required for the patient to complete the activity. If activity was not attempted, code reason: 7-Patient Refused. 9-Not Applicable-not attempted and the patient did not perform the activity before the current illness, exacerbation or injury. 10-Not Attempted due to Environmental Limitations-(lack of equipment, weather restraints, etc.). 88-Not Attempted due to Medical Conditions or Safety Concerns. Sit to Stand (QC): 3 Chair/Hpo-hz-Dbbxy Xfer(QC): 4 Assist during the latter part of shower for standing and transfers and positioning and the same during dressing. Weight Bearing Right Lower Extremity: Right Full Weight Bearing Left Lower Extremity: Left Full Weight Bearing Gait Training Does the Patient Walk?: Yes Distance: 5', 10' Walk 10 feet (QC): 4 Gait Assistive Device: FWW WC follow, patient more SOB today and after ambulating 10' her O2 went down to 70% on 8L of oxygen, took a couple of minutes to come back up to 90% with purse lip breathing. Wheelchair Training Does the Pt Use a Wheelchair?: Yes Wheel 50 ft with 2 turns (QC): 4 Type of Wheelchair: Manual 120'x2 Exercises NuStep Minutes: 10 NuStep Workload: 4 Treatments PT performed standing and transfers and positioning during bathing and dressing, ambulation, WC mobility, functional strengthening, OT performed bathing and dressing, UE positioning and safety during activity Assessment Current Status: Fair Progress Patient had a harder time with SOB and endurance today, worse drop in O2 with activity, even with light activity she drops into the upper 80's PT Short Term Goals Short Term Goals Time Frame: Sep 16, 2020 Roll Left & Right: 6 Sit to lyin Lying to sitting on side of be: 6 Sit to stand: 4 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 Longterm Goals 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 Goals Time Frame: Sep 30, 2020 Roll Left & Right (QC): 6 Sit to Lying (QC): 6 Lying-Sitting on Side/Bed(QC): 6 Sit to Stand (QC): 6 Chair/Bly-wx-[place]clom Xfer(QC): 6 Toilet Transfer (QC): 6 Car Transfer (QC): 6 Does the Patient Walk: No and Walking Goal IS indicated Walk 10 feet (QC): 6 Walk 50ft with 2 Turns (QC): 6 Walk 150 ft (QC): 6 Walking 10ft on Uneven Surface: 6 1 Step (curb) (QC): 6 4 Steps (QC): 6 12 Steps (QC): 9 Picking up an Object (QC): 6 Does the Pt use WC or Scooter?: No Wheel 50 feet with 2 turns (QC: 9 Type: N/A Wheel 150 feet: 9 Type: N/A PT Plan Problem List Problem List: Activity Tolerance, Functional Strength, Safety, Balance, Gait, Transfer, Bed Mobility, ROM Treatment/Plan Treatment Plan: Continue Plan of Care Treatment Plan: Bed Mobility, Education, Functional Activity Luis Manuel, Functional Strength, Group Therapy, Gait, Safety, Therapeutic Exercise, Transfers Treatment Duration: Sep 30, 2020 Frequency: Modified Program (IRF) Estimated Hrs Per Day: 1.5 hours per day Patient and/or Family Agrees t: Yes Safety Risks/Education Patient Education: Gait Training, Transfer Techniques, Correct Positioning, W/C Management, Safety Issues Teaching Recipient: Patient Teaching Methods: Demonstration, Discussion Response to Teaching: Reinforcement Needed Time/GCodes Time In: 0900 Time Out: 1000 Total Billed Treatment Time: 60 Total Billed Treatment 1 visit EX 10' FA 50' co-treated with OT from [id number] OCTAVIO HENDERSON PT Sep 13, 2020 09:54
--- NOTE | 2020-09-13 11:32 | Occupational Ther Daily Note ---
OT Current Status-Daily Note Subjective Pt alert, lying in bed. Pt agrees to therapy. No c/o pain. Mental Status/Objective Patient Orientation: Person, Place, Time, Situation Attachments: Oxygen (4-8L) ADL-Treatment PT/OT cotreat ([id number]), 2 clinicians required due to pt's O2 needs, decrease fall risk and improve mobility. PT focusing on transfers, ambulation and sit to stands while OT focusing on functional transfers and ADLs. Supine to EOB independently with HOB raised. Mod A for sit to stand and min A for SPT to s urface. Min A for toilet transfer and pt then manipulated own clothing with assist to stand and cleansed self on toilet. Sitting on BSC to allow cleansing of buttocks and rony area, pt complete shower by self. Pt able to thread pants over feet then assist to stand while she hikes pants. Therapy Code Descriptions/Definitions Functional [place] Measure: 0=Not Assessed/NA 4=Minimal Assistance 1=Total Assistance 5=Supervision or Setup 2=Maximal Assistance 6=Modified [place] 3=Moderate Assistance 7=Complete IndependenceSCALE: Activities may be completed with or without assistive devices. 1-Atrbahlykh-ztuyksk completes the activity by him/herself with no assistance from a helper. 5-Set-up or Clean-up Assistance-helper sets up or cleans up; patient completes activity. [place] assists only prior to or following the activity. 4-Supervision or Touching Assistance-helper provides verbal cues and/or touch ing/steadying and/or contact guard assistance as patient completes activity. Assistance may be provided throughout the activity or intermittently. 3-Partial/Moderate Assistance-helper does LESS THAN HALF the effort. [place] lifts, holds or supports trunk or limbs, but provides less than half the effort. 2-Substantial/Maximal Assistance-helper does MORE THAN HALF the effort. [place] lifts or holds trunk or limbs and provides more than half the effort. 6-Ncuywpjmd-txktjy does ALL the effort. Patient does none of the effort to complete the activity. Or, the assistance of 2 or more helpers is required for the patient to complete the activity. If activity was not attempted, code reason: 7-Patient Refused. 9-Not Applicable-not attempted and the patient did not perform the activity before the current illness, exacerbation or injury. 10-Not Attempted due to Environmental Limitations-(lack of equipment, weather restraints, etc.). 88-Not Attempted due to Medical Conditions or Safety Concerns. Shower/Bathe Self (QC): 6 Upper Body Dressing (QC): 5 Lower Body Dressing (QC): 3 On/Off Footwear: 5 Toileting Hygiene (QC): 2 Toilet Transfer (QC): 3 Other Treatment See PT notes for ambulation progress. After therapy, pt left in care of PT. 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 2=Patient will verbalize/demonstrate understanding of assistive devices/modifications for ADL. 3=Patient will improve strength/tolerance for activity to enable patient to perform ADL's. OT Education/Plan Problem List/Assessment Assessment: Decreased Activ Tolerance, Decreased UE Strength, Impaired Self- Care Skills Discharge Recommendations Plan/Recommendations: Continue POC Treatment Plan/Plan of Care Patient would benefit from OT for education, treatment and training to promote independence in ADL's, mobility, safety and/or upper extremity function for ADL's. Plan of Care: ADL Retraining, Functional Mobility, UE Funct Exercise/Act Treatment Duration: Sep 30, 2020 Frequency: At least 5 of 7 days/Wk (IRF) Estimated Hrs Per Day: 1.5 hours per day Agreement: Yes Rehab Potential: Good Time/GCodes Start Time: 08:30 Stop Time: 09:30 Total Time Billed (hr/min): 60 Billed Treatment Time 1 visit-ADL 3 (45 min) FA 1 (15 min) co-treat with PT [id number], individual [id number] SAHIL LARSEN Sep 13, 2020 11:32
[2020-09-13] MEDS: HYDROcodone/APAP 5 MG/325 MG (LORTAB) TAB PO PRN (14:21)
--- NOTE | 2020-09-13 15:12 | Therapy Group Daily Note ---
Therapy Daily Group Note Patient Education Topic Home Safety (environmental) Exercises LE Seated Exercise, UE Exercise Session Ratio (pt:therapist): 4:1 Goal of Session: Home Safety Strategies, UE/LE Strengthing Goal Met for this Session: Yes Pt Benefit of Group: Contributions to Others, F/U Use of Strategies @Home, Increased Functional Safety, Increased Functional Strength, Improved Cognition, Recognition of Peers, Socialization Other/Notes Pt was transported via w/c to [facility] for OT/PT group. Group consisted of introductions (name, place living), socialization, B UE/LE seated exercises and home/environmental education. Pt able to appropriately introduce self and actively listen to peers. Pt tolerated and completed B UE/LE seated exercises without difficulty. Pt completed environmental Bingo using fine and gross motor to place tokens on designated areas. Pt demonstrated knowledge of educational topic by participating in Bingo and giving own experiences. After session, pt lying in bed with call light/phone in reach. All needs met in room. Start Time: 13:00 Stop Time: 14:20 Total Billed Treatment Time: 80 Total Billed Treatment 1-GRP SAHIL LARSEN Sep 13, 2020 15:12
[2020-09-13] MEDS: ALPRAZolam 0.25 MG (XANAX) TAB PO PRN (18:59)
[2020-09-13 20:00] VITALS: BP_SYST 101; BP_SYST 110; BP_DIAS 56
[2020-09-13] MEDS: MONTELUKAST 10 MG (SINGULAIR) TAB PO SCH (21:02)
[2020-09-13] MEDS: MELATONIN 3 MG TABLET PO SCH (21:03)
--- NOTE | 2020-09-14 05:38 | PM&R Progress Note ---
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 09/10/2020: Patient improving Now on 4 L of oxygen Uses bedpan still We will monitor closely 09/09/2020: Pt progressing nicely Down to five liters of oxygen Bowels moved on the Much improved 09/08/2020: Pt doing well but Prednisone was 10mg daily, supposed to be 50 so getting that corrected Oxygenation does go down with any activity but actually showed today and did pretty well 09/07/2020: Pt doing pretty well Pulmonary consult today Nose bleed a little bit today Bowels moving On six liters during bed-almazan which seems to help recovery 09/06/2020: Pt doing pretty well Had an episode of SOB in the shower Doing okay now Feels like no other problems are occurring X-ray for picc line to be sure it is functioning adequately 09/05/2020: Pt doing pretty well but having loose stools Eliquis restarted since no nose bleeds Echocardiogram ordered per pulmonology consult Four liters of oxygen maintained Talked about her Scoliosis and restrictive lung disease Patient does not want inhaler or breathing treatment 09/04/2020: Pt doing pretty well Wonders if she should have a continuous pulse-ox and I told her we are monitoring that with frequent spot checks. Chest X-ray ordered for pulmonary consultation She even gets SOB on the bed-almazan Echo was recommended so we will order Review of Systems General: Fatigue, Malaise Objective Exam Vital Signs Vital Signs Date Time Temp Pulse Resp B/P (MAP) Pulse Ox O2 Delivery O2 Flow Rate FiO2 09/14/20 09:00 Nasal Cannula 4.00 09/14/20 07:34 36.2 70 14 116/63 (80) 97 Capillary Refill : General Appearance: No Apparent Distress, WD/WN, Chronically ill, Obese HEENT: PERRL/EOMI, Normal ENT Inspection, Pharynx Normal Neck: Full Range of Motion, Normal Inspection, Non Tender, Supple, Carotid Bruit Respiratory: Chest Non Tender, Lungs Clear, No Accessory Muscle Use, No Respiratory Distress, Decreased Breath Sounds Cardiovascular: Regular Rate, Rhythm, No Edema, No Gallop, No JVD, No Murmur, Normal Peripheral Pulses Gastrointestinal: Normal Bowel Sounds, No Organomegaly, No Pulsatile Mass, Non Tender, Soft Back: Normal Inspection, No CVA Tenderness, No Vertebral Tenderness Extremity: Normal Capillary Refill, Normal Inspection, Normal Range of Motion, Non Tender, No Calf Tenderness, No Pedal Edema Neurologic/Psychiatric: Alert, Oriented x3, No Motor/Sensory Deficits, Normal Mood/Affect, intermodal dispatcher II-XII Norm as Tested, Motor Weakness (generalized 3/5) Skin: Normal Color, Warm/Dry Lymphatic: No Adenopathy Results/Procedures Lab Patient resulted labs reviewed. FIM Transfers Therapy Code Descriptions/Definitions Functional [place] Measure: 0=Not Assessed/NA 4=Minimal Assistance 1=Total Assistance 5=Supervision or Setup 2=Maximal Assistance 6=Modified [place] 3=Moderate Assistance 7=Complete IndependenceSCALE: Activities may be completed with or without assistive devices. 1-Hcnqsyyrtq-xenehso completes the activity by him/herself with no assistance from a helper. 5-Set-up or Clean-up Assistance-helper sets up or cleans up; patient completes activity. [place] assists only prior to or following the activity. 4-Supervision or Touching Assistance-helper provides verbal cues and/or touching/steadying and/or contact guard assistance as patient completes activity. Assistance may be provided throughout the activity or intermittently. 3-Partial/Moderate Assistance-helper does LESS THAN HALF the effort. [place] li fts, holds or supports trunk or limbs, but provides less than half the effort. 2-Substantial/Maximal Assistance-helper does MORE THAN HALF the effort. [place] lifts or holds trunk or limbs and provides more than half the effort. 4-Hddghtnoq-ybilny does ALL the effort. Patient does none of the effort to complete the activity. Or, the assistance of 2 or more helpers is required for the patient to complete the activity. If activity was not attempted, code reason: 7-Patient Refused. 9-Not Applicable-not attempted and the patient did not perform the activity before the current illness, exacerbation or injury. 10-Not Attempted due to Environmental Limitations-(lack of equipment, weather restraints, etc.). 88-Not Attempted due to Medical Conditions or Safety Concerns. Roll Left to Right (QC): 6 Sit to Lying (QC): 6 Sit to Stand (QC): 3 Chair/Oee-oa-Lsaio Xfer(QC): 4 Car Transfer (QC): 88 Gait Training Does the Patient Walk?: Yes Distance: 5', 10' Walk 10 feet (QC): 4 Walk 50 ft with 2 Turns(QC): 88 Walk 150 ft (QC): 88 Walking 10ft/uneven surface-QC: 88 Gait Persons Needed: 2 Gait Assistive Device: FWW Wheelchair Training Does the Pt Use a Wheelchair?: Yes Wheel 50 ft with 2 turns (QC): 4 Wheel 150 ft (QC): 9 Type of Wheelchair: Manual Stair Training 1 Step (curb) (QC): 88 4 Steps (QC): 88 12 Steps (QC): 88 Balance Picking up an Object (QC): 88 ADL-Treatment Eating (QC): 6 (per clinical judgment) Oral Hygiene (QC): 4 Shower/Bathe Self (QC): 6 Upper Body Dressing (QC): 5 Lower Body Dressing (QC): 3 On/Off Footwear (QC): 5 Toileting Hygiene (QC): 2 Toilet Transfer (QC): 3 Assessment/Plan Assessment and Plan Assess & Plan/Chief Complaint Assessment: COVID-19 pneumonia with ongoing hypoxic respiratory failure Chronic scoliosis back pain History of pain pill addiction Claustrophobia Anxiety Gout Restrictive lung disease Recent pneumomediastinum Thrombocytopenia Anemia Hypokalemia [place]ag Plan: Inpatient rehab protocol Slow therapy 31/08 due to severe hypoxia with exertion due to COVID-19 pneumonia Monitor closely Replace potassium and mag 09/04/2020: Supportive care Pulmonary consultation appreciated Echo Slow taper 09/05/2020: Discontinue breathing treatments since it makes her too shaky Long taper of prednisone 09/06/2020: Supportive care Oxygen supplementation 09/07/2020: Monitor desaturation Supportive care 09/08/2020: Maintain prednisone slow taper Monitor closely Improved 09/09/2020: Supportive care Monitor closely Much improved 09/10/2020: Continue oxygen wean Maintain slow taper prednisone 09/11/2020: Continue to wean oxygen Slow taper prednisone 09/12/20: Maintain prednisone O2 wean 09/13/2020: Supportive care Improving but slowly 09/14/2020: Improving a little bit each day Continue aggressive treatment Oxygen supplementation (1) COVID-19 JULES ROJAS DO Sep 14, 2020 05:38
[2020-09-14] MEDS: predniSONE 20 MG TAB PO SCH (06:03)
[2020-09-14 07:34] VITALS: BP 116/63
[2020-09-14] MEDS: clonazePAM 1 MG (KlonoPIN) TAB PO SCH ×2 (07:52→21:35)
[2020-09-14] MEDS: PARoxetine 20 MG (PAXIL) TAB PO SCH (07:52)
[2020-09-14] MEDS: ASCORBIC ACID (VIT C) 500 MG TABLET PO SCH ×2 (07:52→21:36)
[2020-09-14] MEDS: APIXABAN 2.5 MG (ELIQUIS) TABLET PO SCH ×2 (07:52→21:34)
[2020-09-14] MEDS: PANTOPRAZOLE 40 MG (PROTONIX) TAB PO SCH (07:52)
[2020-09-14] MEDS: SILDENAFIL 20 MG (REVATIO) TAB NON-FORMULARY PO SCH ×3 (07:52→21:35)
[2020-09-14] MEDS: ROFLUMILAST 500 MCG TAB (DALIRESP) PO SCH (07:52)
[2020-09-14] MEDS: ATENOLOL 25 MG (TENORMIN) TAB PO SCH ×2 (07:52→21:30)
[2020-09-14] MEDS: MAGNESIUM OXIDE (MAG-OX)400 MG TAB PO SCH ×2 (07:52→17:30)
[2020-09-14] MEDS: guaiFENesin (MUCINEX) 600 MG TAB PO SCH ×2 (07:52→21:35)
[2020-09-14] MEDS: KCL 20 MEQ TAB (K-DUR) PO SCH ×3 (07:52→17:30)
[2020-09-14] MEDS: COLCHICINE 0.6 MG (COLCRYS) TABLET PO SCH (07:52)
--- NOTE | 2020-09-14 09:53 | Occupational Ther Daily Note ---
OT Current Status-Daily Note Subjective Pt alert, sitting EOB. Pt agrees to therapy. No c/o pain. Mental Status/Objective Patient Orientation: Person, Place, Time, Situation Attachments: IV (midline) ADL-Treatment 1st session: Co-treat with PT ([id number]), skills of 2 clinicians required to increase activity tolerance, functional mobility and decrease fall risk. PT focusing on transfers, ambulation while OT focusing on ADLs and functional mobility. Pt sitting EOB to complete dressing. Pt was set up for upper body dressing and footwear. Pt able to thread feet into pant legs then assist for sit to stand and CGA in standing while pt hiked pants over hips. Pt transferred using FWW with min to CGA. 2nd session([id number]): Min A for sit to stand from lift chair, CGA for SPT to BSC. CGA to manipulate clothing and pt completes hygiene sitting on BSC. Therapy Code Descriptions/Definitions Functional [place] Measure: 0=Not Assessed/NA 4=Minimal Assistance 1=Total Assistance 5=Supervision or Setup 2=Maximal Assistance 6=Modified [place] 3=Moderate Assistance 7=Complete IndependenceSCALE: Activities may be completed with or without assistive devices. 7-Jeskdiesgc-zymelpx completes the activity by him/herself with no assistance from a helper. 5-Set-up or Clean-up Assistance-helper sets up or cleans up; patient completes activity. [place] assists only prior to or following the activity. 4-Supervision or Touching Assistance-helper provides verbal cues and/or touching/steadying and/or contact guard assistance as patient completes activity. Assistance may be provided throughout the activity or intermittently. 3-Partial/Moderate Assistance-helper does LESS THAN HALF the effort. [place] lifts, holds or supports trunk or limbs, but provides less than half the effort. 2-Substantial/Maximal Assistance-helper does MORE THAN HALF the effort. [place] lifts or holds trunk or limbs and provides more than half the effort. 7-Hxumqgunj-tilofk does ALL the effort. Patient does none of the effort to complete the activity. Or, the assistance of 2 or more helpers is required for the patient to complete the activity. If activity was not attempted, code reason: 7-Patient Refused. 9-Not Applicable-not attempted and the patient did not perform the activity before the current illness, exacerbation or injury. 10-Not Attempted due to Environmental Limitations-(lack of equipment, weather restraints, etc.). 88-Not Attempted due to Medical Conditions or Safety Concerns. Upper Body Dressing (QC): 5 Lower Body Dressing (QC): 4 On/Off Footwear: 5 Toileting Hygiene (QC): 4 Toilet Transfer (QC): 3 Other Treatment 1st session([id number]): Pt propels w/c to therapy gym independently. Pt completes ambulation using FWW, increased distance and decreased assistance needed. Pt then completed the NuStep for B UE/LE strengthening. Pt using 0.5# wrist wts on each wrist to complete 4 B UE exercises 1 min each with 2 min recovery break between each exercise while pedaling NuStep with B LE's. Pt then propelled w/c back to room and transferred to recliner. At end of therapy pt sitting in recliner with call light/phone in reach. All needs met in room. 2nd session([id number]): Pt given HEP and medium resistance theraputty to increase fine motor strength for daily functional tasks. Pt demonstrated understanding of each exercise and was able to complete correctly. After session, pt sitting in recliner with call light/phone in reach. All needs met in room. Education OT Patient Education: Exercise program Teaching Recipient: Patient Teaching Methods: Demonstration, Handout Response to Teaching: Verbalize Understanding, Return Demonstration OT Short Term Goals Short Term Goals Time Frame: Sep 16, 2020 Eatin Oral hygiene: 4 Toileting hygiene: 3 Shower/bathe self: 3 Upper body dressin Lower body dressin Putting on/taking off footwear: 3 OT Sdet Goals Sdet Goals Time Frame: Sep 30, 2020 Eating (QC): 6 Oral Hygiene (QC): 6 Toileting Hygiene (QC): 6 Shower/Bathe Self (QC): 4 Upper Body Dressing (QC): 5 Lower Body Dressing (QC): 4 On/Off Footwear (QC): 5 Additional Goals: 1-Demonstrate ADL Tasks, 2-Verbalize Understanding, 3- ImproveStrength/Luis Manuel 1=Demonstrate adherence to instructed precautions during ADL tasks. 2=Patient will verbalize/demonstrate understanding of assistive devices/modifications for ADL. 3=Patient will improve strength/tolerance for activity to enable patient to perform ADL's. OT Education/Plan Problem List/Assessment Assessment: Decreased Activ Tolerance, Decreased UE Strength, Impaired Funct Balance, Impaired Self-Care Skills Discharge Recommendations Plan/Recommendations: Continue POC Treatment Plan/Plan of Care Patient would benefit from OT for education, treatment and training to promote independence in ADL's, mobility, safety and/or upper extremity function for ADL's. Plan of Care: ADL Retraining, Functional Mobility, UE Funct Exercise/Act Treatment Duration: Sep 30, 2020 Frequency: At least 5 of 7 days/Wk (IRF) Estimated Hrs Per Day: 1.5 hours per day Agreement: Yes Rehab Potential: Good Time/GCodes Start Time: 09:00 (1130) Stop Time: 10:00 (1200) Total Time Billed (hr/min): 90 Billed Treatment Time 1 visit([id number])-ADL 1 (20 min) FA 3 (40 min) co-treat with PT [id number] 1 visit([id number])-EX 1 (22 min) ADL 1 (8 min) SAHIL LARSEN Sep 14, 2020 09:53
--- NOTE | 2020-09-14 09:57 | Physical Therapy Daily Note ---
PT Daily Note-Current Subjective Patient sitting EOB pre tx, agrees to PT, has no complaints of pain. Will be co-treating with OT due to poor patient mobility, strength, endurance, severe SOB and O2 drop with activity, coordinate UE and LE during activity, safety and reduce risk of falls. Appearance Patient in recliner post tx with nurse call, phone, tray, all needs met. Mental Status Patient Orientation: Person, Place, Situation Attachments: Oxygen Transfers SCALE: Activities may be completed with or without assistive devices. 4-Molktikjed-muwxych completes the activity by him/herself with no assistance from a helper. 5-Set-up or Clean-up Assistance-helper sets up or cleans up; patient completes activity. [place] assists only prior to or following the activity. 4-Supervision or Touching Assistance-helper provides verbal cues and/or touching/steadying and/or contact guard assistance as patient completes activity. Assistance may be provided throughout the activity or intermittently. 3-Partial/Moderate Assistance-helper does LESS THAN HALF the effort. [place] lifts, holds or supports trunk or limbs, but provides less than half the effort. 2-Substantial/Maximal Assistance-helper does MORE THAN HALF the effort. [place] lifts or holds trunk or limbs and provides more than half the effort. 8-Bouhmeigc-qknqhe does ALL the effort. Patient does none of the effort to complete the activity. Or, the assistance of 2 or more helpers is required for the patient to complete the activity. If activity was not attempted, code reason: 7-Patient Refused. 9-Not Applicable-not attempted and the patient did not perform the activity before the current illness, exacerbation or injury. 10-Not Attempted due to Environmental Limitations-(lack of equipment, weather restraints, etc.). 88-Not Attempted due to Medical Conditions or Safety Concerns. Sit to Stand (QC): 3 Chair/Ljp-sr-Yyhcf Xfer(QC): 4 mod assist for sit to stand. From the side of the bed patient finishes dressing and stands to pull her pants up. Weight Bearing Right Lower Extremity: Right Full Weight Bearing Left Lower Extremity: Left Full Weight Bearing Gait Training Distance: 10'x4 Walk 10 feet (QC): 4 Gait Assistive Device: FWW WC follow, fatigues quickly, O2 goes down to around 80% on 6L of O2 just going 10'. Wheelchair Training Does the Pt Use a Wheelchair?: Yes Wheel 50 ft with 2 turns (QC): 4 Type of Wheelchair: Manual 120'x2 Exercises NuStep Minutes: 15 NuStep Workload: 5 (patient performs UE and LE exercises at the same time) Treatments PT performed transfers, ambulation, WC mobility, LE strengthening, balance and safety during dressing, OT performed dressing, UE positioning and safety during activity, UE strengthening Assessment Current Status: Fair Progress patient continues to have severe drop in O2 with minimal activity PT Short Term Goals Short Term Goals Time Frame: Sep 16, 2020 Roll Left & Right: 6 Sit to lyin Lying to sitting on side of be: 6 Sit to stand: 4 PT Residential Goals Residential Goals PT Service Promoter Salesperson Goals Time Frame: Sep 30, 2020 Roll Left & Right (QC): 6 Sit to Lying (QC): 6 Lying-Sitting on Side/Bed(QC): 6 Sit to Stand (QC): 6 Chair/Zob-pp-Dtxlb Xfer(QC): 6 Toilet Transfer (QC): 6 Car Transfer (QC): 6 Does the Patient Walk: No and Walking Goal IS indicated Walk 10 feet (QC): 6 Walk 50ft with 2 Turns (QC): 6 Walk 150 ft (QC): 6 Walking 10ft on Uneven Surface: 6 1 Step (curb) (QC): 6 4 Steps (QC): 6 12 Steps (QC): 9 Picking up an Object (QC): 6 Does the Pt use WC or Scooter?: No Wheel 50 feet with 2 turns (QC: 9 Type: N/A Wheel 150 feet: 9 Type: N/A PT Plan Problem List Problem List: Activity Tolerance, Functional Strength, Safety, Balance, Gait, Transfer, Bed Mobility, ROM Treatment/Plan Treatment Plan: Continue Plan of Care Treatment Plan: Bed Mobility, Education, Functional Activity Luis Manuel, Functional Strength, Group Therapy, Gait, Safety, Therapeutic Exercise, Transfers Treatment Duration: Sep 30, 2020 Frequency: Modified Program (IRF) Estimated Hrs Per Day: 1.5 hours per day Patient and/or Family Agrees t: Yes Safety Risks/Education Patient Education: Gait Training, Transfer Techniques, Correct Positioning, W/C Management, Safety Issues Teaching Recipient: Patient Teaching Methods: Demonstration, Discussion Response to Teaching: Reinforcement Needed Time/GCodes Time In: 0900 Time Out: 1000 Total Billed Treatment Time: 60 Total Billed Treatment 1 visit EX 15' FA 45' OCTAVIO HENDERSON PT Sep 14, 2020 09:57
[2020-09-14] MEDS: ALPRAZolam 0.25 MG (XANAX) TAB PO PRN (12:10)
[2020-09-14] MEDS: HYDROcodone/APAP 5 MG/325 MG (LORTAB) TAB PO PRN ×2 (13:37→21:35)
--- NOTE | 2020-09-14 13:37 | Physical Therapy Daily Note ---
PT Daily Note-Current Subjective Patient in recliner pre tx, agrees to PT, has no complaints of pain. Appearance Patient sitting on bedside to change into nightgown, with nurse call, phone, tray, all needs met. Mental Status Patient Orientation: Person, Place, Situation Attachments: Oxygen Transfers SCALE: Activities may be completed with or without assistive devices. 5-Ykwkktkyjj-xhvjuuj completes the activity by him/herself with no assistance from a helper. 5-Set-up or Clean-up Assistance-helper sets up or cleans up; patient completes activity. [place] assists only prior to or following the activity. 4-Supervision or Touching Assistance-helper provides verbal cues and/or touching/steadying and/or contact guard assistance as patient completes activity. Assistance may be provided throughout the activity or intermittently. 3-Partial/Moderate Assistance-helper does LESS THAN HALF the effort. [place] lifts, holds or supports trunk or limbs, but provides less than half the effort. 2-Substantial/Maximal Assistance-helper does MORE THAN HALF the effort. [place] lifts or holds trunk or limbs and provides more than half the effort. 8-Fbelbaqir-pwhxtn does ALL the effort. Patient does none of the effort to complete the activity. Or, the assistance of 2 or more helpers is required for the patient to complete the activity. If activity was not attempted, code reason: 7-Patient Refused. 9-Not Applicable-not attempted and the patient did not perform the activity before the current illness, exacerbation or injury. 10-Not Attempted due to Environmental Limitations-(lack of equipment, weather restraints, etc.). 88-Not Attempted due to Medical Conditions or Safety Concerns. Sit to Stand (QC): 3 Chair/Ybt-rl-Fjujs Xfer(QC): 4 Weight Bearing Right Lower Extremity: Right Full Weight Bearing Left Lower Extremity: Left Full Weight Bearing Gait Training Distance: 10'x2 Walk 10 feet (QC): 4 Gait Persons Needed: 1 Gait Assistive Device: FWW slow, very SOB after ambulation but recovers after a minute of purse lip breathing Exercises Seated Therapy Exercises: Ankle pumps, Hip flexion, Hip abd/add Seated Reps: 20 LAQ alternating for 5 min Treatments transfers, ambulation, LE strengthening Assessment Current Status: Fair Progress patient has very shallow breaths PT Short Term Goals Short Term Goals Time Frame: Sep 16, 2020 Roll Left & Right: 6 Sit to lyin Lying to sitting on side of be: 6 Sit to stand: 4 PT Yam Curer Goals Half-Way Goals PT Half-Way Goals Time Frame: Sep 30, 2020 Roll Left & Right (QC): 6 Sit to Lying (QC): 6 Lying-Sitting on Side/Bed(QC): 6 Sit to Stand (QC): 6 Chair/Yam-sq-Kddys Xfer(QC): 6 Toilet Transfer (QC): 6 Car Transfer (QC): 6 Does the Patient Walk: No and Walking Goal IS indicated Walk 10 feet (QC): 6 Walk 50ft with 2 Turns (QC): 6 Walk 150 ft (QC): 6 Walking 10ft on Uneven Surface: 6 1 Step (curb) (QC): 6 4 Steps (QC): 6 12 Steps (QC): 9 Picking up an Object (QC): 6 Does the Pt use WC or Scooter?: No Wheel 50 feet with 2 turns (QC: 9 Type: N/A Wheel 150 feet: 9 Type: N/A PT Plan Problem List Problem List: Activity Tolerance, Functional Strength, Safety, Balance, Gait, Transfer, Bed Mobility, ROM Treatment/Plan Treatment Plan: Continue Plan of Care Treatment Plan: Bed Mobility, Education, Functional Activity Luis Manuel, Functional Strength, Group Therapy, Gait, Safety, Therapeutic Exercise, Transfers Treatment Duration: Sep 30, 2020 Frequency: Modified Program (IRF) Estimated Hrs Per Day: 1.5 hours per day Patient and/or Family Agrees t: Yes Safety Risks/Education Patient Education: Gait Training, Transfer Techniques, Correct Positioning, Safety Issues Teaching Recipient: Patient Teaching Methods: Demonstration, Discussion Response to Teaching: Reinforcement Needed Time/GCodes Time In: 1255 Time Out: 1325 Total Billed Treatment Time: 30 Total Billed Treatment 1 visit FA 20' EX 10' OCTAVIO HENDERSON PT Sep 14, 2020 13:37
[2020-09-14 20:30] VITALS: BP 109/61
[2020-09-14] MEDS: MELATONIN 3 MG TABLET PO SCH (21:36)
[2020-09-14] MEDS: MONTELUKAST 10 MG (SINGULAIR) TAB PO SCH (21:37)
--- NOTE | 2020-09-15 05:56 | PM&R Progress Note ---
Subjective HPI/CC On Admission Date Seen by Provider: Sep 15, 2020 Time Seen by Provider: 06:00 Subjective/Events-last exam 09/15/2020: Patient doing very well Much improved Moving around a lot more Oxygen maintained Continue aggressive rehab 09/14/2020: Pt progressing Maintain on 4 liters of oxygen Checked meds and labs No major issues 09/13/2020: Pt doing pretty well No bed almazan use now, only commode 4 liters of O2 Decreasing Prednisone to 40mg daily 09/12/2020: Pt doing really well Four liters of oxygen maintained Very weak Dramatically improved though 09/11/2020: Pt doing pretty well Sleeping now 4 liters of O2 maintained Bowels moved yesterday 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 09/10/2020: Patient improving Now on 4 L of oxygen Uses bedpan still We will monitor closely 09/09/2020: Pt progressing nicely Down to five liters of oxygen Bowels moved on the Much improved 09/08/2020: Pt doing well but Prednisone was 10mg daily, supposed to be 50 so getting that corrected Oxygenation does go down with any activity but actually showed today and did pretty well 09/07/2020: Pt doing pretty well Pulmonary consult today Nose bleed a little bit today Bowels moving On six liters during bed-almazan which seems to help recovery 09/06/2020: Pt doing pretty well Had an episode of SOB in the shower Doing okay now Feels like no other problems are occurring X-ray for picc line to be sure it is functioning adequately 09/05/2020: Pt doing pretty well but having loose stools Eliquis restarted since no nose bleeds Echocardiogram ordered per pulmonology consult Four liters of oxygen maintained Talked about her Scoliosis and restrictive lung disease Patient does not want inhaler or breathing treatment 09/04/2020: Pt doing pretty well Wonders if she should have a continuous pulse-ox and I told her we are monitoring that with frequent spot checks. Chest X-ray ordered for pulmonary consultation She even gets SOB on the bed-almazan Echo was recommended so we will order Review of Systems General: Fatigue Pulmonary: Dyspnea Neurological: Weakness Objective Exam Vital Signs Vital Signs Date Time Temp Pulse Resp B/P (MAP) Pulse Ox O2 Delivery O2 Flow Rate FiO2 09/15/20 20:04 36.6 79 20 112/62 (79) 96 Nasal Cannula 4.00 Capillary Refill : General Appearance: No Apparent Distress, WD/WN, Chronically ill, Obese HEENT: PERRL/EOMI, Normal ENT Inspection, Pharynx Normal Neck: Full Range of Motion, Normal Inspection, Non Tender, Supple, Carotid Bruit Respiratory: Chest Non Tender, Lungs Clear, No Accessory Muscle Use, No Respiratory Distress, Decreased Breath Sounds Cardiovascular: Regular Rate, Rhythm, No Edema, No Gallop, No JVD, No Murmur, Normal Peripheral Pulses Gastrointestinal: Normal Bowel Sounds, No Organomegaly, No Pulsatile Mass, Non Tender, Soft Back: Normal Inspection, No CVA Tenderness, No Vertebral Tenderness Extremity: Normal Capillary Refill, Normal Inspection, Normal Range of Motion, Non Tender, No Calf Tenderness, No Pedal Edema Neurologic/Psychiatric: Alert, Oriented x3, No Motor/Sensory Deficits, Normal Mood/Affect, brush cleaner II-XII Norm as Tested, Motor Weakness (generalized 3/5) Skin: Normal Color, Warm/Dry Lymphatic: No Adenopathy Results/Procedures Lab Patient resulted labs reviewed. FIM Transfers Therapy Code Descriptions/Definitions Functional [place] Measure: 0=Not Assessed/NA 4=Minimal Assistance 1=Total Assistance 5=Supervision or Setup 2=Maximal Assistance 6=Modified [place] 3=Moderate Assistance 7=Complete IndependenceSCALE: Activities may be completed with or without assistive devices. 0-Foqxogpkhr-jgkydki completes the activity by him/herself with no assistance from a helper. 5-Set-up or Clean-up Assistance-helper sets up or cleans up; patient completes activity. [place] assists only prior to or following the activity. 4-Supervision or Touching Assistance-helper provides verbal cues and/or touching/steadying and/or contact guard assistance as patient completes activity. Assistance may be provided throughout the activity or intermittently. 3-Partial/Moderate Assistance-helper does LESS THAN HALF the effort. [place] lifts, holds or supports trunk or limbs, but provides less than half the effort. 2-Substantial/Maximal Assistance-helper does MORE THAN HALF the effort. [place] lifts or holds trunk or limbs and provides more than half the effort. 9-Joglulolp-wvfqfo does ALL the effort. Patient does none of the effort to complete the activity. Or, the assistance of 2 or more helpers is required for the patient to complete the activity. If activity was not attempted, code reason: 7-Patient Refused. 9-Not Applicable-not attempted and the patient did not perform the activity before the current illness, exacerbation or injury. 10-Not Attempted due to Environmental Limitations-(lack of equipment, weather restraints, etc.). 88-Not Attempted due to Medical Conditions or Safety Concerns. Roll Left to Right (QC): 6 Sit to Lying (QC): 6 Sit to Stand (QC): 3 Chair/Ssc-mr-Ukshw Xfer(QC): 4 Car Transfer (QC): 88 Gait Training Does the Patient Walk?: Yes Distance: 10'x2 Walk 10 feet (QC): 4 Walk 50 ft with 2 Turns(QC): 88 Walk 150 ft (QC): 88 Walking 10ft/uneven surface-QC: 88 Gait Persons Needed: 1 Gait Assistive Device: FWW Wheelchair Training Does the Pt Use a Wheelchair?: Yes Wheel 50 ft with 2 turns (QC): 4 Wheel 150 ft (QC): 9 Type of Wheelchair: Manual Stair Training 1 Step (curb) (QC): 88 4 Steps (QC): 88 12 Steps (QC): 88 Balance Picking up an Object (QC): 88 ADL-Treatment Eating (QC): 6 (per clinical judgment) Oral Hygiene (QC): 4 Shower/Bathe Self (QC): 6 Upper Body Dressing (QC): 5 Lower Body Dressing (QC): 4 On/Off Footwear (QC): 5 Toileting Hygiene (QC): 4 Toilet Transfer (QC): 3 Assessment/Plan Assessment and Plan Assess & Plan/Chief Complaint Assessment: COVID-19 pneumonia with ongoing hypoxic respiratory failure Chronic scoliosis back pain History of pain pill addiction Claustrophobia Anxiety Gout Restrictive lung disease Recent pneumomediastinum Thrombocytopenia Anemia Hypokalemia Hypomag Plan: Inpatient rehab protocol Slow therapy 31/08 due to severe hypoxia with exertion due to COVID-19 pneumonia Monitor closely Replace potassium and mag 09/04/2020: Supportive care Pulmonary consultation appreciated Echo Slow taper 09/05/2020: Discontinue breathing treatments since it makes her too shaky Long taper of prednisone 09/06/2020: Supportive care Oxygen supplementation 09/07/2020: Monitor desaturation Supportive care 09/08/2020: Maintain prednisone slow taper Monitor closely Improved 09/09/2020: Supportive care Monitor closely Much improved 09/10/2020: Continue oxygen wean Maintain slow taper prednisone 09/11/2020: Continue to wean oxygen Slow taper prednisone 09/12/20: Maintain prednisone O2 wean 09/13/2020: Supportive care Improving but slowly 09/14/2020: Improving a little bit each day Continue aggressive treatment Oxygen supplementation 09/15/2020: Oxygen maintained Continue aggressive rehab (1) COVID-19 JULES ROJAS DO Sep 15, 2020 05:56
[2020-09-15] MEDS: predniSONE 20 MG TAB PO SCH (06:12)
[2020-09-15] MEDS: PANTOPRAZOLE 40 MG (PROTONIX) TAB PO SCH (07:36)
[2020-09-15] MEDS: PARoxetine 20 MG (PAXIL) TAB PO SCH (07:36)
[2020-09-15] MEDS: KCL 20 MEQ TAB (K-DUR) PO SCH ×3 (07:36→17:21)
[2020-09-15] MEDS: guaiFENesin (MUCINEX) 600 MG TAB PO SCH ×2 (07:36→20:27)
[2020-09-15] MEDS: APIXABAN 2.5 MG (ELIQUIS) TABLET PO SCH ×2 (07:36→20:28)
[2020-09-15] MEDS: clonazePAM 1 MG (KlonoPIN) TAB PO SCH ×2 (07:36→20:27)
[2020-09-15] MEDS: ASCORBIC ACID (VIT C) 500 MG TABLET PO SCH ×2 (07:37→20:28)
[2020-09-15] MEDS: ROFLUMILAST 500 MCG TAB (DALIRESP) PO SCH (07:37)
[2020-09-15] MEDS: MAGNESIUM OXIDE (MAG-OX)400 MG TAB PO SCH ×2 (07:37→17:21)
[2020-09-15] MEDS: ATENOLOL 25 MG (TENORMIN) TAB PO SCH ×2 (07:37→19:56)
[2020-09-15] MEDS: COLCHICINE 0.6 MG (COLCRYS) TABLET PO SCH (07:37)
[2020-09-15] MEDS: SILDENAFIL 20 MG (REVATIO) TAB NON-FORMULARY PO SCH ×3 (07:37→20:27)
[2020-09-15 08:00] VITALS: BP 111/73
--- NOTE | 2020-09-15 09:59 | Physical Therapy Daily Note ---
PT Daily Note-Current Subjective Patient in shower pre tx, working with OT, has no complaints of pain, agrees to PT. Will be co-treating with OT due to poor patient mobility, strength, endurance, severe SOB and O2 drop with activity, coordinate UE and LE with activity, safety and reduce risk of falls. Appearance Patient in in room, will continue for a bit with OT. Mental Status Patient Orientation: Person, Place, Situation Attachments: Oxygen Transfers SCALE: Activities may be completed with or without assistive devices. 4-Ndsxolkpdm-egjuvpb completes the activity by him/herself with no assistance from a helper. 5-Set-up or Clean-up Assistance-helper sets up or cleans up; patient completes activity. [place] assists only prior to or following the activity. 4-Supervision or Touching Assistance-helper provides verbal cues and/or touching/steadying and/or contact guard assistance as patient completes activity. Assistance may be provided throughout the activity or intermittently. 3-Partial/Moderate Assistance-helper does LESS THAN HALF the effort. [place] lifts, holds or supports trunk or limbs, but provides less than half the effort. 2-Substantial/Maximal Assistance-helper does MORE THAN HALF the effort. [place] lifts or holds trunk or limbs and provides more than half the effort. 5-Bsbcmdkvb-jbzbxh does ALL the effort. Patient does none of the effort to comp lete the activity. Or, the assistance of 2 or more helpers is required for the patient to complete the activity. If activity was not attempted, code reason: 7-Patient Refused. 9-Not Applicable-not attempted and the patient did not perform the activity before the current illness, exacerbation or injury. 10-Not Attempted due to Environmental Limitations-(lack of equipment, weather restraints, etc.). 88-Not Attempted due to Medical Conditions or Safety Concerns. Sit to Stand (QC): 3 Chair/Rkb-as-Swgzl Xfer(QC): 4 Patient now requires min assist for sit to stand. Patient in shower at the beginning of tx, needs assist to stand and transfer to , then propel to bedside and assist to stand to complete dressing. Weight Bearing Right Lower Extremity: Right Full Weight Bearing Left Lower Extremity: Left Full Weight Bearing Gait Training Distance: 10'x3 Walk 10 feet (QC): 4 Gait Assistive Device: FWW follow, slow, SOB with ambulation and O2 dropped to 80-83%, recovers after a moderately long rest and purse lip breathing. Wheelchair Training Does the Pt Use a Wheelchair?: Yes Wheel 50 ft with 2 turns (QC): 4 Wheel 150 ft (QC): 4 Type of Wheelchair: Manual SBA, practiced endurance and figure 8 obstacle course x3 Treatments PT peformed transfers, ambulation, WC mobility, standing and transfer and positioning during bathing and dressing, OT performed bathing and dressing, ADL's, UE positioning and safety during activity Assessment Current Status: Fair Progress improving sit to stand PT Short Term Goals Short Term Goals Time Frame: Sep 16, 2020 Roll Left & Right: 6 Sit to lyin Lying to sitting on side of be: 6 Sit to stand: 4 PT Care Home Goals Care Home Goals PT Care Home Goals Time Frame: Sep 30, 2020 Roll Left & Right (QC): 6 Sit to Lying (QC): 6 Lying-Sitting on Side/Bed(QC): 6 Sit to Stand (QC): 6 Chair/Rim-lr-Nxjin Xfer(QC): 6 Toilet Transfer (QC): 6 Car Transfer (QC): 6 Does the Patient Walk: No and Walking Goal IS indicated Walk 10 feet (QC): 6 Walk 50ft with 2 Turns (QC): 6 Walk 150 ft (QC): 6 Walking 10ft on Uneven Surface: 6 1 Step (curb) (QC): 6 4 Steps (QC): 6 12 Steps (QC): 9 Picking up an Object (QC): 6 Does the Pt use WC or Scooter?: No Wheel 50 feet with 2 turns (QC: 9 Type: N/A Wheel 150 feet: 9 Type: N/A PT Plan Problem List Problem List: Activity Tolerance, Functional Strength, Safety, Balance, Gait, Transfer, Bed Mobility, ROM Treatment/Plan Treatment Plan: Continue Plan of Care Treatment Plan: Bed Mobility, Education, Functional Activity Luis Manuel, Functional Strength, Group Therapy, Gait, Safety, Therapeutic Exercise, Transfers Treatment Duration: Sep 30, 2020 Frequency: Modified Program (IRF) Estimated Hrs Per Day: 1.5 hours per day Patient and/or Family Agrees t: Yes Safety Risks/Education Patient Education: Gait Training, Transfer Techniques, Correct Positioning, W/C Management, Safety Issues Teaching Recipient: Patient Teaching Methods: Demonstration, Discussion Response to Teaching: Reinforcement Needed Time/GCodes Time In: 0900 Time Out: 1000 Total Billed Treatment Time: 60 Total Billed Treatment 1 visit FA Lakshmi' OCTAVIO HENDERSON PT Sep 15, 2020 09:59
--- NOTE | 2020-09-15 11:50 | Physical Therapy Daily Note ---
PT Daily Note-Current Subjective Patient agrees to second session of PT. Patient does report fatigue due to increase in activity this morning. Mental Status Patient Orientation: Normal For Age Attachments: Oxygen (4L NC HF with increase to 6L with activity) Transfers SCALE: Activities may be completed with or without assistive devices. 0-Zyiulzaueq-ktomqsu completes the activity by him/herself with no assistance from a helper. 5-Set-up or Clean-up Assistance-helper sets up or cleans up; patient completes activity. [place] assists only prior to or following the activity. 4-Supervision or Touching Assistance-helper provides verbal cues and/or touching/steadying and/or contact guard assistance as patient completes activity. Assistance may be provided throughout the activity or intermittently. 3-Partial/Moderate Assistance-helper does LESS THAN HALF the effort. [place] lifts, holds or supports trunk or limbs, but provides less than half the effort. 2-Substantial/Maximal Assistance-helper does MORE THAN HALF the effort. [place] lifts or holds trunk or limbs and provides more than half the effort. 3-Zlnjtbdun-hysidj does ALL the effort. Patient does none of the effort to complete the activity. Or, the assistance of 2 or more helpers is required for the patient to complete the activity. If activity was not attempted, code reason: 7-Patient Refused. 9-Not Applicable-not attempted and the patient did not perform the activity before the current illness, exacerbation or injury. 10-Not Attempted due to Environmental Limitations-(lack of equipment, weather restraints, etc.). 88-Not Attempted due to Medical Conditions or Safety Concerns. Sit to Stand (QC): 2 Patient required more assist due to weakness/fatigue from increase in activity this a.m. Weight Bearing Right Lower Extremity: Right Full Weight Bearing Left Lower Extremity: Left Full Weight Bearing Gait Training Does the Patient Walk?: Yes Distance: 25' x 2 Walk 10 feet (QC): 3 Walk 50 ft with 2 Turns(QC): 88 Walk 150 ft (QC): 88 Gait Assistive Device: FWW slow, steady gait sequence Exercises Seated Therapy Exercises: Ankle pumps, Long arc quads, Hip flexion Seated Reps: 12 seated deep breathing techniques to improve lung function (trunk rotation with grabbing arm rests and performing deep breathing and UE shoulder flexion with deep breathing) 5 reps each x 3 sets. Assessment Improving slowly. Increase SOA with activity with fairly quick recovery. Increase activity. PT Short Term Goals Short Term Goals Time Frame: Sep 16, 2020 Roll Left & Right: 6 Sit to lyin Lying to sitting on side of be: 6 Sit to stand: 4 PT Digital Marketing Executive Goals Longterm Goals PT Longterm Goals Time Frame: Sep 30, 2020 Roll Left & Right (QC): 6 Sit to Lying (QC): 6 Lying-Sitting on Side/Bed(QC): 6 Sit to Stand (QC): 6 Chair/Vjz-no-Ndzsw Xfer(QC): 6 Toilet Transfer (QC): 6 Car Transfer (QC): 6 Does the Patient Walk: No and Walking Goal IS indicated Walk 10 feet (QC): 6 Walk 50ft with 2 Turns (QC): 6 Walk 150 ft (QC): 6 Walking 10ft on Uneven Surface: 6 1 Step (curb) (QC): 6 4 Steps (QC): 6 12 Steps (QC): 9 Picking up an Object (QC): 6 Does the Pt use WC or Scooter?: No Wheel 50 feet with 2 turns (QC: 9 Type: N/A Wheel 150 feet: 9 Type: N/A PT Plan Treatment/Plan Treatment Plan: Continue Plan of Care Treatment Plan: Bed Mobility, Education, Functional Activity Luis Manuel, Functional Strength, Group Therapy, Gait, Safety, Therapeutic Exercise, Transfers Treatment Duration: Sep 30, 2020 Frequency: Modified Program (IRF) Estimated Hrs Per Day: 1.5 hours per day Patient and/or Family Agrees t: Yes Time/GCodes Time In: 1110 Time Out: 1140 Total Billed Treatment Time: 30 Total Billed Treatment 1 visit GT 9 min EX 21 min DEREJE WEISS PT Sep 15, 2020 11:50
[2020-09-15] MEDS: DICLOFENAC 1% GEL 100 GM (VOLTAREN) TUBE TOP PRN (12:05)
--- NOTE | 2020-09-15 12:59 | Occupational Ther Daily Note ---
OT Current Status-Daily Note Subjective Pt alert, lying in bed. Pt agrees to therapy. No c/o pain. Co-treat with PT ([id number]) 2 clinician required to increase activity tolerance, increase B UE/LE strength and increase functional mobility. Mental Status/Objective Patient Orientation: Person, Place, Time, Situation ADL-Treatment Pt agrees to shower. Min A for sit to stands. CGA for SBA for SPT. Min A for sit to stand then uses grabbar to transfer to shower. Pt completes bathing by self, assist to dry lower legs and feet. After set up, pt completes upper body and footwear by self. Threads feet into pant legs then CGA while pt hikes pants over hips, min A for sit to stand. Pt completed oral care in shower by self. Therapy Code Descriptions/Definitions Functional [place] Measure: 0=Not Assessed/NA 4=Minimal Assistance 1=Total Assistance 5=Supervision or Setup 2=Maximal Assistance 6=Modified [place] 3=Moderate Assistance 7=Complete IndependenceSCALE: Activities may be completed with or without assistive devices. 2-Mijweyafql-bnrlxko completes the activity by him/herself with no assistance from a helper. 5-Set-up or Clean-up Assistance-helper sets up or cleans up; patient completes activity. [place] assists only prior to or following the activity. 4-Supervision or Touching Assistance-helper provides verbal cues and/or touching/steadying and/or contact guard assistance as patient completes activity. Assistance may be provided throughout the activity or intermittently. 3-Partial/Moderate Assistance-helper does LESS THAN HALF the effort. [place] lifts, holds or supports trunk or limbs, but provides less than half the effort. 2-Substantial/Maximal Assistance-helper does MORE THAN HALF the effort. [place] lifts or holds trunk or limbs and provides more than half the effort. 2-Loztcdhag-ovprav does ALL the effort. Patient does none of the effort to complete the activity. Or, the assistance of 2 or more helpers is required for the patient to complete the activity. If activity was not attempted, code reason: 7-Patient Refused. 9-Not Applicable-not attempted and the patient did not perform the activity before the current illness, exacerbation or injury. 10-Not Attempted due to Environmental Limitations-(lack of equipment, weather restraints, etc.). 88-Not Attempted due to Medical Conditions or Safety Concerns. Oral Hygiene (QC): 6 Shower/Bathe Self (QC): 3 Upper Body Dressing (QC): 5 Lower Body Dressing (QC): 4 On/Off Footwear: 5 Toileting Hygiene (QC): 4 Toilet Transfer (QC): 3 Other Treatment PT focusing on standing, transfers and strengthening while OT focusing on functional mobility, ADLs and strengthening. Pt able to complete ambulation using FWW with assist from PT, see progress notes. Pt working on increased strength and activity tolerance with w/c mobility. While pt sitting in recliner, B UE strengthening completed 2 sets 10 reps for 3 exercises. After session, pt sitting in recliner with call light/phone in reach. All needs met in room. OT Short Term Goals Short Term Goals Time Frame: Sep 16, 2020 Eatin Oral hygiene: 4 Toileting hygiene: 3 Shower/bathe self: 3 Upper body dressin Lower body dressin Putting on/taking off footwear: 3 OT [facility] Goals Cosmetics Supervisor Goals Time Frame: Sep 30, 2020 Eating (QC): 6 Oral Hygiene (QC): 6 Toileting Hygiene (QC): 6 Shower/Bathe Self (QC): 4 Upper Body Dressing (QC): 5 Lower Body Dressing (QC): 4 On/Off Footwear (QC): 5 Additional Goals: 1-Demonstrate ADL Tasks, 2-Verbalize Understanding, 3- ImproveStrength/Luis Manuel 1=Demonstrate adherence to instructed precautions during ADL tasks. 2=Patient will verbalize/demonstrate understanding of assistive de vices/modifications for ADL. 3=Patient will improve strength/tolerance for activity to enable patient to perform ADL's. OT Education/Plan Problem List/Assessment Assessment: Decreased Activ Tolerance, Decreased UE Strength, Impaired Self- Care Skills, Restricted Funct UE ROM Discharge Recommendations Plan/Recommendations: Continue POC Treatment Plan/Plan of Care Patient would benefit from OT for education, treatment and training to promote independence in ADL's, mobility, safety and/or upper extremity function for ADL's. Plan of Care: ADL Retraining, Functional Mobility, UE Funct Exercise/Act Treatment Duration: Sep 30, 2020 Frequency: At least 5 of 7 days/Wk (IRF) Estimated Hrs Per Day: 1.5 hours per day Agreement: Yes Rehab Potential: Good Time/GCodes Start Time: 08:45 Stop Time: 10:15 Total Time Billed (hr/min): 90 Billed Treatment Time 1 visit-FA 1 (15 min) EX 2 (30 min) ADL 3 (45 min) co-treat with PT 0900- 1000, individual [id number] SAHIL LARSEN Sep 15, 2020 12:59
[2020-09-15] MEDS: LOPERAMIDE 2 MG (IMODIUM) TABLET PO PRN (13:30)
[2020-09-15] MEDS: ALPRAZolam 0.25 MG (XANAX) TAB PO PRN (17:24)
[2020-09-15 20:04] VITALS: BP 112/62
[2020-09-15] MEDS: MELATONIN 3 MG TABLET PO SCH (20:27)
[2020-09-15] MEDS: MONTELUKAST 10 MG (SINGULAIR) TAB PO SCH (20:27)
[2020-09-15] MEDS: HYDROcodone/APAP 5 MG/325 MG (LORTAB) TAB PO PRN (20:28)
--- NOTE | 2020-09-16 05:59 | PM&R Progress Note ---
Subjective HPI/CC On Admission Date Seen by Provider: Sep 16, 2020 Time Seen by Provider: 06:00 Subjective/Events-last exam 09/16/2020: Patient much improved Getting more more independent No falls No shortness of breath she really exerts herself 09/15/2020: Patient doing very well Much improved Moving around a lot more Oxygen maintained Continue aggressive rehab 09/14/2020: Pt progressing Maintain on 4 liters of oxygen Checked meds and labs No major issues 09/13/2020: Pt doing pretty well No bed almazan use now, only commode 4 liters of O2 Decreasing Prednisone to 40mg daily 09/12/2020: Pt doing really well Four liters of oxygen maintained Very weak Dramatically improved though 09/11/2020: Pt doing pretty well Sleeping now 4 liters of O2 maintained Bowels moved yesterday 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 09/10/2020: Patient improving Now on 4 L of oxygen Uses bedpan still We will monitor closely 09/09/2020: Pt progressing nicely Down to five liters of oxygen Bowels moved on the Much improved 09/08/2020: Pt doing well but Prednisone was 10mg daily, supposed to be 50 so getting that corrected Oxygenation does go down with any activity but actually showed today and did pretty well 09/07/2020: Pt doing pretty well Pulmonary consult today Nose bleed a little bit today Bowels moving On six liters during bed-almazan which seems to help recovery 09/06/2020: Pt doing pretty well Had an episode of SOB in the shower Doing okay now Feels like no other problems are occurring X-ray for picc line to be sure it is functioning adequately 09/05/2020: Pt doing pretty well but having loose stools Eliquis restarted since no nose bleeds Echocardiogram ordered per pulmonology consult Four liters of oxygen maintained Talked about her Scoliosis and restrictive lung disease Patient does not want inhaler or breathing treatment 09/04/2020: Pt doing pretty well Wonders if she should have a continuous pulse-ox and I told her we are monitoring that with frequent spot checks. Chest X-ray ordered for pulmonary consultation She even gets SOB on the bed-almazan Echo was recommended so we will order Review of Systems General: Fatigue, Malaise Neurological: Weakness Objective Exam Vital Signs Vital Signs Date Time Temp Pulse Resp B/P (MAP) Pulse Ox O2 Delivery O2 Flow Rate FiO2 09/16/20 09:40 Nasal Cannula 4.00 09/16/20 08:54 36.4 100 20 125/69 (87) 95 Capillary Refill : General Appearance: No Apparent Distress, WD/WN, Chronically ill, Obese HEENT: PERRL/EOMI, Normal ENT Inspection, Pharynx Normal Neck: Full Range of Motion, Normal Inspection, Non Tender, Supple, Carotid Bruit Respiratory: Chest Non Tender, Lungs Clear, No Accessory Muscle Use, No Respiratory Distress, Decreased Breath Sounds Cardiovascular: Regular Rate, Rhythm, No Edema, No Gallop, No JVD, No Murmur, Normal Peripheral Pulses Gastrointestinal: Normal Bowel Sounds, No Organomegaly, No Pulsatile Mass, Non Tender, Soft Back: Normal Inspection, No CVA Tenderness, No Vertebral Tenderness Extremity: Normal Capillary Refill, Normal Inspection, Normal Range of Motion, Non Tender, No Calf Tenderness, No Pedal Edema Neurologic/Psychiatric: Alert, Oriented x3, No Motor/Sensory Deficits, Normal Mood/Affect, 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 FIM Transfers Therapy Code Descriptions/Definitions Functional [place] Measure: 0=Not Assessed/NA 4=Minimal Assistance 1=Total Assistance 5=Supervision or Setup 2=Maximal Assistance 6=Modified [place] 3=Moderate Assistance 7=Complete IndependenceSCALE: Activities may be completed with or without assistive devices. 5-Nhozpcxhvk-hharrsq completes the activity by him/herself with no assistance from a helper. 5-Set-up or Clean-up Assistance-helper sets up or cleans up; patient completes activity. [place] assists only prior to or following the activity. 4-Supervision or Touching Assistance-helper provides verbal cues and/or touching/steadying and/or contact guard assistance as patient completes acti vity. Assistance may be provided throughout the activity or intermittently. 3-Partial/Moderate Assistance-helper does LESS THAN HALF the effort. [place] lifts, holds or supports trunk or limbs, but provides less than half the effort. 2-Substantial/Maximal Assistance-helper does MORE THAN HALF the effort. [place] lifts or holds trunk or limbs and provides more than half the effort. 9-Iwtkmkeuq-vhgorr does ALL the effort. Patient does none of the effort to complete the activity. Or, the assistance of 2 or more helpers is required for the patient to complete the activity. If activity was not attempted, code reason: 7-Patient Refused. 9-Not Applicable-not attempted and the patient did not perform the activity before the current illness, exacerbation or injury. 10-Not Attempted due to Environmental Limitations-(lack of equipment, weather restraints, etc.). 88-Not Attempted due to Medical Conditions or Safety Concerns. Roll Left to Right (QC): 6 Sit to Lying (QC): 6 Sit to Stand (QC): 2 Chair/Kui-vf-Cpacm Xfer(QC): 4 Car Transfer (QC): 88 Gait Training Does the Patient Walk?: Yes Distance: 25' x 2 Walk 10 feet (QC): 3 Walk 50 ft with 2 Turns(QC): 88 Walk 150 ft (QC): 88 Walking 10ft/uneven surface-QC: 88 Gait Persons Needed: 1 Gait Assistive Device: FWW Wheelchair Training Does the Pt Use a Wheelchair?: Yes Wheel 50 ft with 2 turns (QC): 4 Wheel 150 ft (QC): 4 Type of Wheelchair: Manual Stair Training 1 Step (curb) (QC): 88 4 Steps (QC): 88 12 Steps (QC): 88 Balance Picking up an Object (QC): 88 ADL-Treatment Eating (QC): 6 (per clinical judgment) Oral Hygiene (QC): 6 Shower/Bathe Self (QC): 3 Upper Body Dressing (QC): 5 Lower Body Dressing (QC): 4 On/Off Footwear (QC): 5 Toileting Hygiene (QC): 4 Toilet Transfer (QC): 3 Assessment/Plan Assessment and Plan Assess & Plan/Chief Complaint Assessment: COVID-19 pneumonia with ongoing hypoxic respiratory failure Chronic scoliosis back pain History of pain pill addiction Claustrophobia Anxiety Gout Restrictive lung disease Recent pneumomediastinum Thrombocytopenia Anemia Hypokalemia Hypomag Plan: Inpatient rehab protocol Slow therapy 31/08 due to severe hypoxia with exertion due to COVID-19 pneumonia Monitor closely Replace potassium and mag 09/04/2020: Supportive care Pulmonary consultation appreciated Echo Slow taper 09/05/2020: Discontinue breathing treatments since it makes her too shaky Long taper of prednisone 09/06/2020: Supportive care Oxygen supplementation 09/07/2020: Monitor desaturation Supportive care 09/08/2020: Maintain prednisone slow taper Monitor closely Improved 09/09/2020: Supportive care Monitor closely Much improved 09/10/2020: Continue oxygen wean Maintain slow taper prednisone 09/11/2020: Continue to wean oxygen Slow taper prednisone 09/12/20: Maintain prednisone O2 wean 09/13/2020: Supportive care Improving but slowly 09/14/2020: Improving a little bit each day Continue aggressive treatment Oxygen supplementation 09/15/2020: Oxygen maintained Continue aggressive rehab 09/16/2020: Dramatic improvement Continue recovery Maintain oxygen (1) COVID-19 JULES ROJAS DO Sep 16, 2020 05:59
[2020-09-16] MEDS: predniSONE 20 MG TAB PO SCH (06:39)
[2020-09-16 08:54] VITALS: BP 125/69
[2020-09-16] MEDS: KCL 20 MEQ TAB (K-DUR) PO SCH ×3 (08:56→17:05)
[2020-09-16] MEDS: COLCHICINE 0.6 MG (COLCRYS) TABLET PO SCH (08:56)
[2020-09-16] MEDS: guaiFENesin (MUCINEX) 600 MG TAB PO SCH ×2 (08:56→20:15)
[2020-09-16] MEDS: APIXABAN 2.5 MG (ELIQUIS) TABLET PO SCH ×2 (08:56→20:16)
[2020-09-16] MEDS: ROFLUMILAST 500 MCG TAB (DALIRESP) PO SCH (08:56)
[2020-09-16] MEDS: ASCORBIC ACID (VIT C) 500 MG TABLET PO SCH ×2 (08:56→20:16)
[2020-09-16] MEDS: clonazePAM 1 MG (KlonoPIN) TAB PO SCH ×2 (08:56→20:15)
[2020-09-16] MEDS: PANTOPRAZOLE 40 MG (PROTONIX) TAB PO SCH (08:56)
[2020-09-16] MEDS: PARoxetine 20 MG (PAXIL) TAB PO SCH (08:56)
[2020-09-16] MEDS: SILDENAFIL 20 MG (REVATIO) TAB NON-FORMULARY PO SCH ×3 (08:56→20:16)
[2020-09-16] MEDS: MAGNESIUM OXIDE (MAG-OX)400 MG TAB PO SCH ×2 (08:56→17:05)
[2020-09-16] MEDS: ATENOLOL 25 MG (TENORMIN) TAB PO SCH ×2 (08:56→20:16)
[2020-09-16] MEDS: DICLOFENAC 1% GEL 100 GM (VOLTAREN) TUBE TOP PRN (08:58)
--- NOTE | 2020-09-16 09:00 | Physical Therapy Daily Note ---
PT Daily Note-Current Subjective Patient agrees to PT. No c/o on this date. Mental Status Patient Orientation: Normal For Age Attachments: Oxygen Transfers SCALE: Activities may be completed with or without assistive devices. 1-Insuxauqas-gzondph completes the activity by him/herself with no assistance from a helper. 5-Set-up or Clean-up Assistance-helper sets up or cleans up; patient completes activity. [place] assists only prior to or following the activity. 4-Supervision or Touching Assistance-helper provides verbal cues and/or touching/steadying and/or contact guard assistance as patient completes activity. Assistance may be provided throughout the activity or intermittently. 3-Partial/Moderate Assistance-helper does LESS THAN HALF the effort. [place] lifts, holds or supports trunk or limbs, but provides less than half the effort. 2-Substantial/Maximal Assistance-helper does MORE THAN HALF the effort. [place] lifts or holds trunk or limbs and provides more than half the effort. 6-Czzbtvrvx-syudll does ALL the effort. Patient does none of the effort to complete the activity. Or, the assistance of 2 or more helpers is required for the patient to complete the activity. If activity was not attempted, code reason: 7-Patient Refused. 9-Not Applicable-not attempted and the patient did not perform the activity before the current illness, exacerbation or injury. 10-Not Attempted due to Environmental Limitations-(lack of equipment, weather restraints, etc.). 88-Not Attempted due to Medical Conditions or Safety Concerns. Lying to Sitting/Side of Bed(Q: 6 Sit to Stand (QC): 3 Chair/Wka-jl-Annzx Xfer(QC): 3 Weight Bearing Right Lower Extremity: Right Full Weight Bearing Left Lower Extremity: Left Full Weight Bearing Gait Training Does the Patient Walk?: Yes Distance: 25' x 2 Walk 10 feet (QC): 3 Gait Assistive Device: FWW slow, functional gait sequence with seated recovery period due to SOA on 6L O2 NC Exercises Seated Therapy Exercises: Ankle pumps, Long arc quads, Hip flexion, Hip abd/add, Glut set Seated Reps: 15 (x 2) Treatments deep breathing exercises with trunk rotation and shoulder flexion Assessment Improving with treatment plan. Fatigues quickly. PT Short Term Goals Short Term Goals Time Frame: Sep 16, 2020 Roll Left & Right: 6 Sit to lyin Lying to sitting on side of be: 6 Sit to stand: 4 PT Railroad Switchman Goals Shelter Goals PT Railroad Switchman Goals Time Frame: Sep 30, 2020 Roll Left & Right (QC): 6 Sit to Lying (QC): 6 Lying-Sitting on Side/Bed(QC): 6 Sit to Stand (QC): 6 Chair/Gko-mr-Cafgj Xfer(QC): 6 Toilet Transfer (QC): 6 Car Transfer (QC): 6 Does the Patient Walk: No and Walking Goal IS indicated Walk 10 feet (QC): 6 Walk 50ft with 2 Turns (QC): 6 Walk 150 ft (QC): 6 Walking 10ft on Uneven Surface: 6 1 Step (curb) (QC): 6 4 Steps (QC): 6 12 Steps (QC): 9 Picking up an Object (QC): 6 Does the Pt use WC or Scooter?: No Wheel 50 feet with 2 turns (QC: 9 Type: N/A Wheel 150 feet: 9 Type: N/A PT Plan Treatment/Plan Treatment Plan: Continue Plan of Care Treatment Plan: Bed Mobility, Education, Functional Activity Luis Manuel, Functional Strength, Group Therapy, Gait, Safety, Therapeutic Exercise, Transfers Treatment Duration: Sep 30, 2020 Frequency: Modified Program (IRF) Estimated Hrs Per Day: 1.5 hours per day Patient and/or Family Agrees t: Yes Time/GCodes Time In: 822 Time Out: 850 Total Billed Treatment Time: 28 Total Billed Treatment 1 visit GT 10 min EX 18 min DEREJE WEISS PT Sep 16, 2020 09:00
[2020-09-16] MEDS: ALPRAZolam 0.25 MG (XANAX) TAB PO PRN (17:05)
[2020-09-16 20:00] VITALS: BP 120/72
[2020-09-16] MEDS: MONTELUKAST 10 MG (SINGULAIR) TAB PO SCH (20:15)
[2020-09-16] MEDS: HYDROcodone/APAP 5 MG/325 MG (LORTAB) TAB PO PRN (20:15)
[2020-09-16] MEDS: MELATONIN 3 MG TABLET PO SCH (20:16)
--- NOTE | 2020-09-17 06:10 | PM&R Progress Note ---
Subjective HPI/CC On Admission Date Seen by Provider: Sep 17, 2020 Time Seen by Provider: 06:10 Subjective/Events-last exam 09/17/2020: Patient in a good mood Slept pretty well last night Check meds and labs 09/16/2020: Patient much improved Getting more more independent No falls No shortness of breath she really exerts herself 09/15/2020: Patient doing very well Much improved Moving around a lot more Oxygen maintained Continue aggressive rehab 09/14/2020: Pt progressing Maintain on 4 liters of oxygen Checked meds and labs No major issues 09/13/2020: Pt doing pretty well No bed almazan use now, only commode 4 liters of O2 Decreasing Prednisone to 40mg daily 09/12/2020: Pt doing really well Four liters of oxygen maintained Very weak Dramatically improved though 09/11/2020: Pt doing pretty well Sleeping now 4 liters of O2 maintained Bowels moved yesterday 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 09/10/2020: Patient improving Now on 4 L of oxygen Uses bedpan still We will monitor closely 09/09/2020: Pt progressing nicely Down to five liters of oxygen Bowels moved on the Much improved 09/08/2020: Pt doing well but Prednisone was 10mg daily, supposed to be 50 so getting that corrected Oxygenation does go down with any activity but actually showed today and did pretty well 09/07/2020: Pt doing pretty well Pulmonary consult today Nose bleed a little bit today Bowels moving On six liters during bed-almazan which seems to help recovery 09/06/2020: Pt doing pretty well Had an episode of SOB in the shower Doing okay now Feels like no other problems are occurring X-ray for picc line to be sure it is functioning adequately 09/05/2020: Pt doing pretty well but having loose stools Eliquis restarted since no nose bleeds Echocardiogram ordered per pulmonology consult Four liters of oxygen maintained Talked about her Scoliosis and restrictive lung disease Patient does not want inhaler or breathing treatment 09/04/2020: Pt doing pretty well Wonders if she should have a continuous pulse-ox and I told her we are monitoring that with frequent spot checks. Chest X-ray ordered for pulmonary consultation She even gets SOB on the bed-almazan Echo was recommended so we will order Review of Systems General: Fatigue, Malaise Pulmonary: Dyspnea Neurological: Weakness Objective Exam Vital Signs Vital Signs Date Time Temp Pulse Resp B/P (MAP) Pulse Ox O2 Delivery O2 Flow Rate FiO2 09/17/20 20:20 Nasal Cannula 4.00 09/17/20 20:00 36.6 93 24 124/59 (80) 95 Capillary Refill : General Appearance: No Apparent Distress, WD/WN, Chronically ill, Obese HEENT: PERRL/EOMI, Normal ENT Inspection, Pharynx Normal Neck: Full Range of Motion, Normal Inspection, Non Tender, Supple, Carotid Bruit Respiratory: Chest Non Tender, Lungs Clear, No Accessory Muscle Use, No Respiratory Distress, Decreased Breath Sounds Cardiovascular: Regular Rate, Rhythm, No Edema, No Gallop, No JVD, No Murmur, Normal Peripheral Pulses Gastrointestinal: Normal Bowel Sounds, No Organomegaly, No Pulsatile Mass, Non Tender, Soft Back: Normal Inspection, No CVA Tenderness, No Vertebral Tenderness Extremity: Normal Capillary Refill, Normal Inspection, Normal Range of Motion, Non Tender, No Calf Tenderness, No Pedal Edema Neurologic/Psychiatric: Alert, Oriented x3, No Motor/Sensory Deficits, Normal Mood/Affect, 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 FIM Transfers Therapy Code Descriptions/Definitions Functional [place] Measure: 0=Not Assessed/NA 4=Minimal Assistance 1=Total Assistance 5=Supervision or Setup 2=Maximal Assistance 6=Modified [place] 3=Moderate Assistance 7=Complete IndependenceSCALE: Activities may be completed with or without assistive devices. 8-Gavlaktohh-yfwyyeq completes the activity by him/herself with no assistance from a helper. 5-Set-up or Clean-up Assistance-helper sets up or cleans up; patient completes activity. [place] assists only prior to or following the activity. 4-Supervision or Touching Assistance-helper provides verbal cues and/or touching/steadying and/or contact guard assistance as patient completes activity. Assistance may be provided throughout the activity or intermittently. 3-Partial/Moderate Assistance-helper does LESS THAN HALF the effort. [place] lifts, holds or supports trunk or limbs, but provides less than half the effort. 2-Substantial/Maximal Assistance-helper does MORE THAN HALF the effort. [place] lifts or holds trunk or limbs and provides more than half the effort. 2-Bqqjgregh-prlwtx does ALL the effort. Patient does none of the effort to complete the activity. Or, the assistance of 2 or more helpers is required for the patient to complete the activity. If activity was not attempted, code reason: 7-Patient Refused. 9-Not Applicable-not attempted and the patient did not perform the activity before the current illness, exacerbation or injury. 10-Not Attempted due to Environmental Limitations-(lack of equipment, weather restraints, etc.). 88-Not Attempted due to Medical Conditions or Safety Concerns. Roll Left to Right (QC): 6 Sit to Lying (QC): 6 Sit to Stand (QC): 3 Chair/Prt-rr-Tutnz Xfer(QC): 3 Car Transfer (QC): 88 Gait Training Does the Patient Walk?: Yes Distance: 25' x 2 Walk 10 feet (QC): 3 Walk 50 ft with 2 Turns(QC): 88 Walk 150 ft (QC): 88 Walking 10ft/uneven surface-QC: 88 Gait Persons Needed: 1 Gait Assistive Device: FWW Wheelchair Training Does the Pt Use a Wheelchair?: Yes Wheel 50 ft with 2 turns (QC): 4 Wheel 150 ft (QC): 4 Type of Wheelchair: Manual Stair Training 1 Step (curb) (QC): 88 4 Steps (QC): 88 12 Steps (QC): 88 Balance Picking up an Object (QC): 88 ADL-Treatment Eating (QC): 6 (per clinical judgment) Oral Hygiene (QC): 6 Shower/Bathe Self (QC): 3 Upper Body Dressing (QC): 5 Lower Body Dressing (QC): 4 On/Off Footwear (QC): 5 Toileting Hygiene (QC): 4 Toilet Transfer (QC): 3 Assessment/Plan Assessment and Plan Assess & Plan/Chief Complaint Assessment: COVID-19 pneumonia with ongoing hypoxic respiratory failure Chronic scoliosis back pain History of pain pill addiction Claustrophobia Anxiety Gout Restrictive lung disease Recent pneumomediastinum Thrombocytopenia Anemia Hypokalemia Hypomag Plan: Inpatient rehab protocol Slow therapy 31/08 due to severe hypoxia with exertion due to COVID-19 pneumonia Monitor closely Replace potassium and mag 09/04/2020: Supportive care Pulmonary consultation appreciated Echo Slow taper 09/05/2020: Discontinue breathing treatments since it makes her too shaky Long taper of prednisone 09/06/2020: Supportive care Oxygen supplementation 09/07/2020: Monitor desaturation Supportive care 09/08/2020: Maintain prednisone slow taper Monitor closely Improved 09/09/2020: Supportive care Monitor closely Much improved 09/10/2020: Continue oxygen wean Maintain slow taper prednisone 09/11/2020: Continue to wean oxygen Slow taper prednisone 09/12/20: Maintain prednisone O2 wean 09/13/2020: Supportive care Improving but slowly 09/14/2020: Improving a little bit each day Continue aggressive treatment Oxygen supplementation 09/15/2020: Oxygen maintained Continue aggressive rehab 09/16/2020: Dramatic improvement Continue recovery Maintain oxygen 09/17/2020: Supportive care Check chest x-ray and labs in the morning (1) COVID-19 JULES ROJAS DO Sep 17, 2020 06:10
[2020-09-17] MEDS: predniSONE 20 MG TAB PO SCH (06:27)
[2020-09-17 08:03] VITALS: BP 108/53
[2020-09-17] MEDS: MAGNESIUM OXIDE (MAG-OX)400 MG TAB PO SCH ×2 (08:04→17:03)
[2020-09-17] MEDS: KCL 20 MEQ TAB (K-DUR) PO SCH ×3 (08:05→17:03)
[2020-09-17] MEDS: ROFLUMILAST 500 MCG TAB (DALIRESP) PO SCH (08:05)
[2020-09-17] MEDS: SILDENAFIL 20 MG (REVATIO) TAB NON-FORMULARY PO SCH ×3 (08:05→20:25)
[2020-09-17] MEDS: clonazePAM 1 MG (KlonoPIN) TAB PO SCH ×2 (08:05→20:25)
[2020-09-17] MEDS: COLCHICINE 0.6 MG (COLCRYS) TABLET PO SCH (08:05)
[2020-09-17] MEDS: PARoxetine 20 MG (PAXIL) TAB PO SCH (08:05)
[2020-09-17] MEDS: ASCORBIC ACID (VIT C) 500 MG TABLET PO SCH ×2 (08:05→20:25)
[2020-09-17] MEDS: APIXABAN 2.5 MG (ELIQUIS) TABLET PO SCH ×2 (08:05→20:26)
[2020-09-17] MEDS: PANTOPRAZOLE 40 MG (PROTONIX) TAB PO SCH (08:05)
[2020-09-17] MEDS: guaiFENesin (MUCINEX) 600 MG TAB PO SCH ×2 (08:05→20:26)
[2020-09-17] MEDS: ATENOLOL 25 MG (TENORMIN) TAB PO SCH ×2 (08:06→20:26)
[2020-09-17] MEDS: ALPRAZolam 0.25 MG (XANAX) TAB PO PRN ×2 (08:11→18:29)
[2020-09-17 20:00] VITALS: BP 124/59
[2020-09-17] MEDS: MONTELUKAST 10 MG (SINGULAIR) TAB PO SCH (20:26)
[2020-09-17] MEDS: MELATONIN 3 MG TABLET PO SCH (20:26)
[2020-09-17] MEDS: HYDROcodone/APAP 5 MG/325 MG (LORTAB) TAB PO PRN (20:26)
[2020-09-18] MEDS: predniSONE 20 MG TAB PO SCH (06:07)
[2020-09-18 07:08] LABS: BASOPHILS % (AUTO) 0 % (0-10); EOSINOPHILS # (AUTO) 0.2 10^3/uL (0.0-0.3); EOSINOPHILS % (AUTO) 2 % (0-10); HEMATOCRIT 34 % (35-52); HEMOGLOBIN 10.3 g/dL (11.5-16.0); LYMPHOCYTES % (AUTO) 33 % (12-44); MEAN CORPUSCULAR HEMOGLOBIN 30 pg (25-34); MEAN CORPUSCULAR HGB CONC 31 g/dL (32-36); MEAN CORPUSCULAR VOLUME 98 fL (80-99); MEAN PLATELET VOLUME 9.3 fL (9.0-12.2); MONOCYTES % (AUTO) 10 % (0-12); NEUTROPHILS # (AUTO) 4.9 10^3/uL (1.8-7.8); NEUTROPHILS % (AUTO) 53 % (42-75); PLATELET COUNT 210 10^3/uL (130-400); WHITE BLOOD COUNT 9.3 10^3/uL (4.3-11.0)
[2020-09-18 07:19] VITALS: BP 101/60
[2020-09-18 07:19] LABS: ALBUMIN 3.5 GM/DL (3.2-4.5); POTASSIUM 4.3 MMOL/L (3.6-5.0)
[2020-09-18 07:20] LABS: CALCIUM 9.3 MG/DL (8.5-10.1)
[2020-09-18 07:22] LABS: TOTAL PROTEIN 5.7 GM/DL (6.4-8.2)
[2020-09-18 07:23] LABS: BILIRUBIN,TOTAL 0.3 MG/DL (0.1-1.0)
[2020-09-18 07:25] LABS: CREATININE SERUM 0.55 MG/DL (0.60-1.30)
--- NOTE | 2020-09-18 07:46 | Diagnostic Imaging Report ---
EXAM: CHEST 1 VIEW, AP/PA ONLY INDICATION: Pneumonia. COVID. COMPARISON: Chest radiograph 09/05/2020. FINDINGS: Low lung volumes. Heart size is obscured. Dense interstitial airspace opacities throughout both lungs are similar to the prior exam. No pneumothorax is seen. No acute osseous findings. IMPRESSION: Examination limited by markedly low lung volumes. Persistent dense infiltrates throughout both lungs. Dictated by: Dictated on workstation # [id number]
[2020-09-18] MEDS: COLCHICINE 0.6 MG (COLCRYS) TABLET PO SCH (07:59)
[2020-09-18] MEDS: ASCORBIC ACID (VIT C) 500 MG TABLET PO SCH ×2 (07:59→21:24)
[2020-09-18] MEDS: clonazePAM 1 MG (KlonoPIN) TAB PO SCH ×2 (07:59→21:24)
[2020-09-18] MEDS: SILDENAFIL 20 MG (REVATIO) TAB NON-FORMULARY PO SCH ×3 (07:59→21:25)
[2020-09-18] MEDS: PARoxetine 20 MG (PAXIL) TAB PO SCH (07:59)
[2020-09-18] MEDS: ROFLUMILAST 500 MCG TAB (DALIRESP) PO SCH (08:00)
[2020-09-18] MEDS: PANTOPRAZOLE 40 MG (PROTONIX) TAB PO SCH (08:00)
[2020-09-18] MEDS: KCL 20 MEQ TAB (K-DUR) PO SCH ×3 (08:00→17:44)
[2020-09-18] MEDS: APIXABAN 2.5 MG (ELIQUIS) TABLET PO SCH ×2 (08:00→21:25)
[2020-09-18] MEDS: MAGNESIUM OXIDE (MAG-OX)400 MG TAB PO SCH ×2 (08:00→17:44)
[2020-09-18] MEDS: guaiFENesin (MUCINEX) 600 MG TAB PO SCH ×2 (08:01→21:25)
[2020-09-18] MEDS: ATENOLOL 25 MG (TENORMIN) TAB PO SCH ×2 (08:03→21:25)
[2020-09-18] MEDS: ALPRAZolam 0.25 MG (XANAX) TAB PO PRN ×2 (08:07→18:19)
--- NOTE | 2020-09-18 09:53 | PM&R Progress Note ---
Subjective HPI/CC On Admission Date Seen by Provider: Sep 18, 2020 Time Seen by Provider: 09:30 Subjective/Events-last exam 09/18/2020: Pt doing really well Remains on four liters No change in her dyspnea Magnesium is normal at 1.8 on supplement Chest X-ray no acute changes Labs good 09/17/2020: Patient in a good mood Slept pretty well last night Check meds and labs 09/16/2020: Patient much improved Getting more more independent No falls No shortness of breath she really exerts herself 09/15/2020: Patient doing very well Much improved Moving around a lot more Oxygen maintained Continue aggressive rehab 09/14/2020: Pt progressing Maintain on 4 liters of oxygen Checked meds and labs No major issues 09/13/2020: Pt doing pretty well No bed almazan use now, only commode 4 liters of O2 Decreasing Prednisone to 40mg daily 09/12/2020: Pt doing really well Four liters of oxygen maintained Very weak Dramatically improved though 09/11/2020: Pt doing pretty well Sleeping now 4 liters of O2 maintained Bowels moved yesterday 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 09/10/2020: Patient improving Now on 4 L of oxygen Uses bedpan still We will monitor closely 09/09/2020: Pt progressing nicely Down to five liters of oxygen Bowels moved on the Much improved 09/08/2020: Pt doing well but Prednisone was 10mg daily, supposed to be 50 so getting that corrected Oxygenation does go down with any activity but actually showed today and did pretty well 09/07/2020: Pt doing pretty well Pulmonary consult today Nose bleed a little bit today Bowels moving On six liters during bed-almazan which seems to help recovery 09/06/2020: Pt doing pretty well Had an episode of SOB in the shower Doing okay now Feels like no other problems are occurring X-ray for picc line to be sure it is functioning adequately 09/05/2020: Pt doing pretty well but having loose stools Eliquis restarted since no nose bleeds Echocardiogram ordered per pulmonology consult Four liters of oxygen maintained Talked about her Scoliosis and restrictive lung disease Patient does not want inhaler or breathing treatment 09/04/2020: Pt doing pretty well Wonders if she should have a continuous pulse-ox and I told her we are monitoring that with frequent spot checks. Chest X-ray ordered for pulmonary consultation She even gets SOB on the bed-almazan Echo was recommended so we will order Review of Systems General: Fatigue, Malaise Pulmonary: Dyspnea Objective Exam Vital Signs Vital Signs Date Time Temp Pulse Resp B/P (MAP) Pulse Ox O2 Delivery O2 Flow Rate FiO2 09/18/20 20:15 97 High Flow N/C 4.00 09/18/20 20:00 36.5 81 18 114/75 (88) Capillary Refill : General Appearance: No Apparent Distress, WD/WN, Chronically ill, Obese HEENT: PERRL/EOMI, Normal ENT Inspection, Pharynx Normal Neck: Full Range of Motion, Normal Inspection, Non Tender, Supple, Carotid Bruit Respiratory: Chest Non Tender, Lungs Clear, No Accessory Muscle Use, No Respiratory Distress, Decreased Breath Sounds Cardiovascular: Regular Rate, Rhythm, No Edema, No Gallop, No JVD, No Murmur, Normal Peripheral Pulses Gastrointestinal: Normal Bowel Sounds, No Organomegaly, No Pulsatile Mass, Non Tender, Soft Back: Normal Inspection, No CVA Tenderness, No Vertebral Tenderness Extremity: Normal Capillary Refill, Normal Inspection, Normal Range of Motion, Non Tender, No Calf Tenderness, No Pedal Edema Neurologic/Psychiatric: Alert, Oriented x3, No Motor/Sensory Deficits, Normal 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 FIM Transfers Therapy Code Descriptions/Definitions Functional [place] Measure: 0=Not Assessed/NA 4=Minimal Assistance 1=Total Assistance 5=Supervision or Setup 2=Maximal Assistance 6=Modified [place] 3=Moderate Assistance 7=Complete IndependenceSCALE: Activities may be completed with or without assistive devices. 3-Rzexpubjuc-hybboer completes the activity by him/herself with no assistance from a helper. 5-Set-up or Clean-up Assistance-helper sets up or cleans up; patient completes activity. [place] assists only prior to or following the activity. 4-Supervision or Touching Assistance-helper provides verbal cues and/or touching/steadying and/or contact guard assistance as patient completes activity. Assistance may be provided throughout the activity or intermittently. 3-Partial/Moderate Assistance-helper does LESS THAN HALF the effort. [place] lifts, holds or supports trunk or limbs, but provides less than half the effort. 2-Substantial/Maximal Assistance-helper does MORE THAN HALF the effort. [place] lifts or holds trunk or limbs and provides more than half the effort. 5-Bumifodby-hiazpx does ALL the effort. Patient does none of the effort to complete the activity. Or, the assistance of 2 or more helpers is required for the patient to complete the activity. If activity was not attempted, code reason: 7-Patient Refused. 9-Not Applicable-not attempted and the patient did not perform the activity before the current illness, exacerbation or injury. 10-Not Attempted due to Environmental Limitations-(lack of equipment, weather restraints, etc.). 88-Not Attempted due to Medical Conditions or Safety Concerns. Roll Left to Right (QC): 6 Sit to Lying (QC): 6 Sit to Stand (QC): 3 Chair/Sau-mw-Nzyzw Xfer(QC): 3 Car Transfer (QC): 88 Gait Training Does the Patient Walk?: Yes Distance: 25' x 2 Walk 10 feet (QC): 3 Walk 50 ft with 2 Turns(QC): 88 Walk 150 ft (QC): 88 Walking 10ft/uneven surface-QC: 88 Gait Persons Needed: 1 Gait Assistive Device: FWW Wheelchair Training Does the Pt Use a Wheelchair?: Yes Wheel 50 ft with 2 turns (QC): 4 Wheel 150 ft (QC): 4 Type of Wheelchair: Manual Stair Training 1 Step (curb) (QC): 88 4 Steps (QC): 88 12 Steps (QC): 88 Balance Picking up an Object (QC): 88 ADL-Treatment Eating (QC): 6 (per clinical judgment) Oral Hygiene (QC): 6 Shower/Bathe Self (QC): 3 Upper Body Dressing (QC): 5 Lower Body Dressing (QC): 4 On/Off Footwear (QC): 5 Toileting Hygiene (QC): 4 Toilet Transfer (QC): 3 Assessment/Plan Assessment and Plan Assess & Plan/Chief Complaint Assessment: COVID-19 pneumonia with ongoing hypoxic respiratory failure Chronic scoliosis back pain History of pain pill addiction Claustrophobia Anxiety Gout Restrictive lung disease Recent pneumomediastinum Thrombocytopenia Anemia Hypokalemia [place]omag Plan: Inpatient rehab protocol Slow therapy 31/08 due to severe hypoxia with exertion due to COVID-19 pneumonia Monitor closely Replace potassium and mag 09/04/2020: Supportive care Pulmonary consultation appreciated Echo Slow taper 09/05/2020: Discontinue breathing treatments since it makes her too shaky Long taper of prednisone 09/06/2020: Supportive care Oxygen supplementation 09/07/2020: Monitor desaturation Supportive care 09/08/2020: Maintain prednisone slow taper Monitor closely Improved 09/09/2020: Supportive care Monitor closely Much improved 09/10/2020: Continue oxygen wean Maintain slow taper prednisone 09/11/2020: Continue to wean oxygen Slow taper prednisone 09/12/20: Maintain prednisone O2 wean 09/13/2020: Supportive care Improving but slowly 09/14/2020: Improving a little bit each day Continue aggressive treatment Oxygen supplementation 09/15/2020: Oxygen maintained Continue aggressive rehab 09/16/2020: Dramatic improvement Continue recovery Maintain oxygen 09/17/2020: Supportive care Check chest x-ray and labs in the morning 09/18/2020: Supportive care Oxygen maintained (1) COVID-19 JULES ROJAS DO Sep 18, 2020 09:53
--- NOTE | 2020-09-18 10:04 | Occupational Ther Daily Note ---
OT Current Status-Daily Note Subjective Pt alert, lying in bed. Pt agrees to therapy. No c/o pain. Pt states that she has purchased handles to attach to toilet, tub seat and 4WW. Mental Status/Objective Patient Orientation: Person, Place, Time, Situation Attachments: Oxygen (4L at sitting, 6L with movement) ADL-Treatment Co-treat with PT([id number]), 2 clinicians require for higher level functional skills, increase stamina and decrease fall risks. PT focusing on transfers, mobility and ambulation while OT focusing on ADLs, B UE strength and placement during functional mobility. Pt agrees to shower. Independent for bed mobility. CGA from elevated surfaces, min A for lower surfaces to complete sit to stand. SBA for SPT. Min A for sit to stand then uses grabbar to transfer to shower. Pt completes bathing by self, assist to dry lower legs and feet. After set up, pt completes upper body and footwear by self. Threads feet into pant legs then SBA while pt hikes pants over hips, min A for sit to stand. Pt completed oral care in shower by self. Pt left in care of PT. All needs met in room. Therapy Code Descriptions/Definitions Functional [place] Measure: 0=Not Assessed/NA 4=Minimal Assistance 1=Total Assistance 5=Supervision or Setup 2=Maximal Assistance 6=Modified [place] 3=Moderate Assistance 7=Complete IndependenceSCALE: Activities may be completed with or without assistive devices. 8-Upbfawtmna-wanoiry completes the activity by him/herself with no assistance from a helper. 5-Set-up or Clean-up Assistance-helper sets up or cleans up; patient completes activity. [place] assists only prior to or following the activity. 4-Supervision or Touching Assistance-helper provides verbal cues and/or touching/steadying and/or contact guard assistance as patient completes activity. Assistance may be provided throughout the activity or intermittently. 3-Partial/Moderate Assistance-helper does LESS THAN HALF the effort. [place] lifts, holds or supports trunk or limbs, but provides less than half the effort. 2-Substantial/Maximal Assistance-helper does MORE THAN HALF the effort. [place] lifts or holds trunk or limbs and provides more than half the effort. 5-Ffsbdrbfk-hjltkh does ALL the effort. Patient does none of the effort to complete the activity. Or, the assistance of 2 or more helpers is required for the patient to complete the activity. If activity was not attempted, code reason: 7-Patient Refused. 9-Not Applicable-not attempted and the patient did not perform the activity before the current illness, exacerbation or injury. 10-Not Attempted due to Environmental Limitations-(lack of equipment, weather restraints, etc.). 88-Not Attempted due to Medical Conditions or Safety Concerns. Oral Hygiene (QC): 6 Shower/Bathe Self (QC): 3 Upper Body Dressing (QC): 5 Lower Body Dressing (QC): 3 On/Off Footwear: 5 Toileting Hygiene (QC): 4 Toilet Transfer (QC): 3 Other Treatment See PT notes for mobility progress. OT Short Term Goals Short Term Goals Time Frame: Sep 16, 2020 Eatin Oral hygiene: 4 Toileting hygiene: 3 Shower/bathe self: 3 Upper body dressin Lower body dressin Putting on/taking off footwear: 3 OT Halfway Goals Sheet Rock Installer Goals Time Frame: Sep 30, 2020 Eating (QC): 6 Oral Hygiene (QC): 6 Toileting Hygiene (QC): 6 Shower/Bathe Self (QC): 4 Upper Body Dressing (QC): 5 Lower Body Dressing (QC): 4 On/Off Footwear (QC): 5 Additional Goals: 1-Demonstrate ADL Tasks, 2-Verbalize Understanding, 3- ImproveStrength/Luis Manuel 1=Demonstrate adherence to instructed precautions during ADL tasks. 2=Patient will verbalize/demonstrate understanding of assistive devices/modifications for ADL. 3=Patient will improve strength/tolerance for activity to enable patient to perform ADL's. OT Education/Plan Problem List/Assessment Assessment: Decreased Activ Tolerance, Decreased UE Strength, Impaired Self- Care Skills Discharge Recommendations Plan/Recommendations: Continue POC Treatment Plan/Plan of Care Patient would benefit from OT for education, treatment and training to promote independence in ADL's, mobility, safety and/or upper extremity function for ADL's. Plan of Care: ADL Retraining, Functional Mobility, UE Funct Exercise/Act Treatment Duration: Sep 30, 2020 Frequency: At least 5 of 7 days/Wk (IRF) Estimated Hrs Per Day: 1.5 hours per day Agreement: Yes Rehab Potential: Good Time/GCodes Start Time: 09:00 Stop Time: 10:00 Total Time Billed (hr/min): 60 Billed Treatment Time 1 visit-ADL 4 (60 min) co-treat with PT [id number], individual [id number] SAHIL LARSEN Sep 18, 2020 10:04
--- NOTE | 2020-09-18 10:51 | Physical Therapy Daily Note ---
PT Daily Note-Current Subjective Patient working with OT already getting ready for shower, has no complaints of pain, agrees to PT. Will be co-treating with OT for part of tx due to poor patient mobility, strength, endurance, severe SOB and drop in O2 with activity, coordinate UE and LE during activity, safety and reduce risk of falls. Appearance Patient in recliner post tx with nurse call, phone, tray, all needs met. Mental Status Patient Orientation: Normal For Age Attachments: Oxygen Transfers SCALE: Activities may be completed with or without assistive devices. 6-Witpgcxgcm-adimeor completes the activity by him/herself with no assistance from a helper. 5-Set-up or Clean-up Assistance-helper sets up or cleans up; patient completes activity. [place] assists only prior to or following the activity. 4-Supervision or Touching Assistance-helper provides verbal cues and/or touching/steadying and/or contact guard assistance as patient completes activity. Assistance may be provided throughout the activity or intermittently. 3-Partial/Moderate Assistance-helper does LESS THAN HALF the effort. [place] lifts, holds or supports trunk or limbs, but provides less than half the effort. 2-Substantial/Maximal Assistance-helper does MORE THAN HALF the effort. [place] lifts or holds trunk or limbs and provides more than half the effort. 5-Hrhuzkfvm-qrlkuf does ALL the effort. Patient does none of the effort to complete the activity. Or, the assistance of 2 or more helpers is required for the patient to complete the activity. If activity was not attempted, code reason: 7-Patient Refused. 9-Not Applicable-not attempted and the patient did not perform the activity before the current illness, exacerbation or injury. 10-Not Attempted due to Environmental Limitations-(lack of equipment, weather restraints, etc.). 88-Not Attempted due to Medical Conditions or Safety Concerns. Sit to Stand (QC): 3 Chair/Dup-wh-Xsuvu Xfer(QC): 4 Patient has improved in strength and is now min assist for sit to stand. Weight Bearing Right Lower Extremity: Right Full Weight Bearing Left Lower Extremity: Left Full Weight Bearing Gait Training Distance: 10', 20'x2, 30' Walk 10 feet (QC): 4 Gait Assistive Device: FWW WC follow, severe SOB Wheelchair Training Does the Pt Use a Wheelchair?: Yes Wheel 50 ft with 2 turns (QC): 4 Type of Wheelchair: Manual 120' Exercises Standing: Heel/toe raises, Mini squats Standing Reps: 10 NuStep Minutes: 15 NuStep Workload: 4 Treatments PT performed transfers, standing and positioning and safety during shower and dressing, ambulation, WC mobility, LE strengthening, OT performed shower, dressing, UE positioning and safety during ambulation. Assessment Current Status: Fair Progress slowly improving strength and endurance PT Short Term Goals Short Term Goals Time Frame: Sep 16, 2020 Roll Left & Right: 6 Sit to lyin Lying to sitting on side of be: 6 Sit to stand: 4 PT Loan Servicing Specialist Goals Loan Servicing Specialist Goals PT Longterm Goals Time Frame: Sep 30, 2020 Roll Left & Right (QC): 6 Sit to Lying (QC): 6 Lying-Sitting on Side/Bed(QC): 6 Sit to Stand (QC): 6 Chair/Ywt-gt-Mctsn Xfer(QC): 6 Toilet Transfer (QC): 6 Car Transfer (QC): 6 Does the Patient Walk: No and Walking Goal IS indicated Walk 10 feet (QC): 6 Walk 50ft with 2 Turns (QC): 6 Walk 150 ft (QC): 6 Walking 10ft on Uneven Surface: 6 1 Step (curb) (QC): 6 4 Steps (QC): 6 12 Steps (QC): 9 Picking up an Object (QC): 6 Does the Pt use WC or Scooter?: No Wheel 50 feet with 2 turns (QC: 9 Type: N/A Wheel 150 feet: 9 Type: N/A PT Plan Problem List Problem List: Activity Tolerance, Functional Strength, Safety, Balance, Gait, Transfer, Bed Mobility, ROM Treatment/Plan Treatment Plan: Continue Plan of Care Treatment Plan: Bed Mobility, Education, Functional Activity Luis Manuel, Functional Strength, Group Therapy, Gait, Safety, Therapeutic Exercise, Transfers Treatment Duration: Sep 30, 2020 Frequency: Modified Program (IRF) Estimated Hrs Per Day: 1.5 hours per day Patient and/or Family Agrees t: Yes Safety Risks/Education Patient Education: Gait Training, Transfer Techniques, Correct Positioning, W/C Management, Safety Issues Teaching Recipient: Patient Teaching Methods: Demonstration, Discussion Response to Teaching: Reinforcement Needed Time/GCodes Time In: 0920 Time Out: 1050 Total Billed Treatment Time: 90 Total Billed Treatment 1 visit GT 30' EX 30' FA 30' co-treated with OT from [id number] OCTAVIO HENDERSON PT Sep 18, 2020 10:51
[2020-09-18 20:00] VITALS: BP 114/75
[2020-09-18] MEDS: MELATONIN 3 MG TABLET PO SCH (21:24)
[2020-09-18] MEDS: MONTELUKAST 10 MG (SINGULAIR) TAB PO SCH (21:25)
[2020-09-18] MEDS: MIRTAZAPINE 15 MG (REMERON) TAB PO SCH (21:25)
[2020-09-19] MEDS: predniSONE 20 MG TAB PO SCH (05:56)
--- NOTE | 2020-09-19 06:16 | PM&R Progress Note ---
Subjective HPI/CC On Admission Date Seen by Provider: Sep 19, 2020 Time Seen by Provider: 10:00 Subjective/Events-last exam 09/19/2020: Pt doing a little better 4 liters of O2 maintained No SOB when she is resting Overall much improved 09/18/2020: Pt doing really well Remains on four liters No change in her dyspnea Magnesium is normal at 1.8 on supplement Chest X-ray no acute changes Labs good 09/17/2020: Patient in a good mood Slept pretty well last night Check meds and labs 09/16/2020: Patient much improved Getting more more independent No falls No shortness of breath she really exerts herself 09/15/2020: Patient doing very well Much improved Moving around a lot more Oxygen maintained Continue aggressive rehab 09/14/2020: Pt progressing Maintain on 4 liters of oxygen Checked meds and labs No major issues 09/13/2020: Pt doing pretty well No bed almazan use now, only commode 4 liters of O2 Decreasing Prednisone to 40mg daily 09/12/2020: Pt doing really well Four liters of oxygen maintained Very weak Dramatically improved though 09/11/2020: Pt doing pretty well Sleeping now 4 liters of O2 maintained Bowels moved yesterday 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 09/10/2020: Patient improving Now on 4 L of oxygen Uses bedpan still We will monitor closely 09/09/2020: Pt progressing nicely Down to five liters of oxygen Bowels moved on the Much improved 09/08/2020: Pt doing well but Prednisone was 10mg daily, supposed to be 50 so getting that corrected Oxygenation does go down with any activity but actually showed today and did pretty well 09/07/2020: Pt doing pretty well Pulmonary consult today Nose bleed a little bit today Bowels moving On six liters during bed-almazan which seems to help recovery 09/06/2020: Pt doing pretty well Had an episode of SOB in the shower Doing okay now Feels like no other problems are occurring X-ray for picc line to be sure it is functioning adequately 09/05/2020: Pt doing pretty well but having loose stools Eliquis restarted since no nose bleeds Echocardiogram ordered per pulmonology consult Four liters of oxygen maintained Talked about her Scoliosis and restrictive lung disease Patient does not want inhaler or breathing treatment 09/04/2020: Pt doing pretty well Wonders if she should have a continuous pulse-ox and I told her we are mon itoring that with frequent spot checks. Chest X-ray ordered for pulmonary consultation She even gets SOB on the bed-almazan Echo was recommended so we will order Review of Systems Pulmonary: Dyspnea Objective Exam Vital Signs Vital Signs Date Time Temp Pulse Resp B/P (MAP) Pulse Ox O2 Delivery O2 Flow Rate FiO2 09/19/20 20:16 91 Nasal Cannula 4.00 09/19/20 20:00 36.5 85 20 99/65 (76) Capillary Refill : General Appearance: No Apparent Distress, WD/WN, Chronically ill, Obese HEENT: PERRL/EOMI, Normal ENT Inspection, Pharynx Normal Neck: Full Range of Motion, Normal Inspection, Non Tender, Supple, Carotid Bruit Respiratory: Chest Non Tender, Lungs Clear, No Accessory Muscle Use, No Respiratory Distress, Decreased Breath Sounds Cardiovascular: Regular Rate, Rhythm, No Edema, No Gallop, No JVD, No Murmur, Normal Peripheral Pulses Gastrointestinal: Normal Bowel Sounds, No Organomegaly, No Pulsatile Mass, Non Tender, Soft Back: Normal Inspection, No CVA Tenderness, No Vertebral Tenderness Extremity: Normal Capillary Refill, Normal Inspection, Normal Range of Motion, Non Tender, No Calf Tenderness, No Pedal Edema Neurologic/Psychiatric: Alert, Oriented x3, No Motor/Sensory Deficits, Normal Mood/Affect, 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 FIM Transfers Therapy Code Descriptions/Definitions Functional [place] Measure: 0=Not Assessed/NA 4=Minimal Assistance 1=Total Assistance 5=Supervision or Setup 2=Maximal Assistance 6=Modified [place] 3=Moderate Assistance 7=Complete IndependenceSCALE: Activities may be completed with or without assistive devices. 6-Mmjdnmsytu-wjxgtrx completes the activity by him/herself with no assistance from a helper. 5-Set-up or Clean-up Assistance-helper sets up or cleans up; patient completes activity. [place] assists only prior to or following the activity. 4-Supervision or Touching Assistance-helper provides verbal cues and/or touching/steadying and/or contact guard assistance as patient completes activity. Assistance may be provided throughout the activity or intermittently. 3-Partial/Moderate Assistance-helper does LESS THAN HALF the effort. [place] lifts, holds or supports trunk or limbs, but provides less than half the effort. 2-Substantial/Maximal Assistance-helper does MORE THAN HALF the effort. [place] lifts or holds trunk or limbs and provides more than half the effort. 0-Suoeztphe-iqrczq does ALL the effort. Patient does none of the effort to c omplete the activity. Or, the assistance of 2 or more helpers is required for the patient to complete the activity. If activity was not attempted, code reason: 7-Patient Refused. 9-Not Applicable-not attempted and the patient did not perform the activity before the current illness, exacerbation or injury. 10-Not Attempted due to Environmental Limitations-(lack of equipment, weather restraints, etc.). 88-Not Attempted due to Medical Conditions or Safety Concerns. Roll Left to Right (QC): 6 Sit to Lying (QC): 6 Sit to Stand (QC): 3 Chair/Dsy-uk-Khrgf Xfer(QC): 4 Car Transfer (QC): 88 Gait Training Does the Patient Walk?: Yes Distance: 10', 20'x2, 30' Walk 10 feet (QC): 4 Walk 50 ft with 2 Turns(QC): 88 Walk 150 ft (QC): 88 Walking 10ft/uneven surface-QC: 88 Gait Persons Needed: 1 Gait Assistive Device: FWW Wheelchair Training Does the Pt Use a Wheelchair?: Yes Wheel 50 ft with 2 turns (QC): 4 Wheel 150 ft (QC): 4 Type of Wheelchair: Manual Stair Training 1 Step (curb) (QC): 88 4 Steps (QC): 88 12 Steps (QC): 88 Balance Picking up an Object (QC): 88 ADL-Treatment Eating (QC): 6 (per clinical judgment) Oral Hygiene (QC): 6 Shower/Bathe Self (QC): 3 Upper Body Dressing (QC): 5 Lower Body Dressing (QC): 3 On/Off Footwear (QC): 5 Toileting Hygiene (QC): 4 Toilet Transfer (QC): 3 Assessment/Plan Assessment and Plan Assess & Plan/Chief Complaint Assessment: COVID-19 pneumonia with ongoing hypoxic respiratory failure Chronic scoliosis back pain History of pain pill addiction Claustrophobia Anxiety Gout Restrictive lung disease Recent pneumomediastinum Thrombocytopenia Anemia Hypokalemia Hypomag Plan: Inpatient rehab protocol Slow therapy 31/08 due to severe hypoxia with exertion due to COVID-19 pneumonia Monitor closely Replace potassium and mag 09/04/2020: Supportive care Pulmonary consultation appreciated Echo Slow taper 09/05/2020: Discontinue breathing treatments since it makes her too shaky Long taper of prednisone 09/06/2020: Supportive care Oxygen supplementation 09/07/2020: Monitor desaturation Supportive care 09/08/2020: Maintain prednisone slow taper Monitor closely Improved 09/09/2020: Supportive care Monitor closely Much improved 09/10/2020: Continue oxygen wean Maintain slow taper prednisone 09/11/2020: Continue to wean oxygen Slow taper prednisone 09/12/20: Maintain prednisone O2 wean 09/13/2020: Supportive care Improving but slowly 09/14/2020: Improving a little bit each day Continue aggressive treatment Oxygen supplementation 09/15/2020: Oxygen maintained Continue aggressive rehab 09/16/2020: Dramatic improvement Continue recovery Maintain oxygen 09/17/2020: Supportive care Check chest x-ray and labs in the morning 09/18/2020: Supportive care Oxygen maintained 09/19/2020: Titrate prednisone down Maintain oxygen (1) COVID-19 JULES ROJAS DO Sep 19, 2020 06:16
[2020-09-19 07:37] VITALS: BP 111/60
[2020-09-19 08:00] VITALS: BP 116/65
[2020-09-19] MEDS: ROFLUMILAST 500 MCG TAB (DALIRESP) PO SCH (08:02)
[2020-09-19] MEDS: PARoxetine 20 MG (PAXIL) TAB PO SCH (08:02)
[2020-09-19] MEDS: ASCORBIC ACID (VIT C) 500 MG TABLET PO SCH ×2 (08:02→20:13)
[2020-09-19] MEDS: clonazePAM 1 MG (KlonoPIN) TAB PO SCH ×2 (08:02→20:14)
[2020-09-19] MEDS: guaiFENesin (MUCINEX) 600 MG TAB PO SCH ×2 (08:02→20:14)
[2020-09-19] MEDS: KCL 20 MEQ TAB (K-DUR) PO SCH ×3 (08:02→18:04)
[2020-09-19] MEDS: MAGNESIUM OXIDE (MAG-OX)400 MG TAB PO SCH ×2 (08:02→18:05)
[2020-09-19] MEDS: APIXABAN 2.5 MG (ELIQUIS) TABLET PO SCH ×2 (08:02→20:13)
[2020-09-19] MEDS: PANTOPRAZOLE 40 MG (PROTONIX) TAB PO SCH (08:02)
[2020-09-19] MEDS: COLCHICINE 0.6 MG (COLCRYS) TABLET PO SCH (08:02)
[2020-09-19] MEDS: ATENOLOL 25 MG (TENORMIN) TAB PO SCH ×2 (08:02→20:16)
[2020-09-19] MEDS: SILDENAFIL 20 MG (REVATIO) TAB NON-FORMULARY PO SCH ×3 (08:02→20:13)
[2020-09-19] MEDS: ALPRAZolam 0.25 MG (XANAX) TAB PO PRN ×2 (08:31→18:06)
--- NOTE | 2020-09-19 10:38 | Occupational Ther Daily Note ---
OT Current Status-Daily Note Subjective Pt sleeping in bed, woke easily to name. Pt agrees to therapy. No c/o pain. Mental Status/Objective Patient Orientation: Person, Place, Time, Situation Attachments: Oxygen (4L at rest, 6L with movement) ADL-Treatment 1st session([id number]): Pt declines shower at this time. Using elevated surfaces, pt requires close SBA for SPT. If using lower surface, pt requires min A for sit to stand then close SBA for SPT. After set up, pt completes upper body dressing and footwear by self. Pt able to thread feet into pant legs then min A for sit to stand, hikes pants over hips by self with close SBA. 2nd session([id number]): Pt agrees to complete oral care and requests to change to pajamas. When MONTENEGRO entered room pt sitting on BSC. Pt requires assistance to cleanse after BM. Min A for sit to stand then SBA for pt to manipulate clothing. SBA for SPT from standing at BSC to w/c. Independent with oral care. Min A for sit to stand from w/c then SBA for SPT to bed. With bed elevated, pt able to complete sit to stand and hike pants down over hips. After set up, pt able to thread B LE's into pajama legs then SBA from elevated bed to hike pants over hips. After set up, pt able to don pajama top. Pt independent with bed mobility. After therapy, pt lying in bed with call light/phone in reach. All needs met in room. Therapy Code Descriptions/Definitions Functional [place] Measure: 0=Not Assessed/NA 4=Minimal Assistance 1=Total Assistance 5=Supervision or Setup 2=Maximal Assistance 6=Modified [place] 3=Moderate Assistance 7=Complete IndependenceSCALE: Activities may be completed with or without assistive devices. 2-Rldmxxmhym-nyuycyg completes the activity by him/herself with no assistance from a helper. 5-Set-up or Clean-up Assistance-helper sets up or cleans up; patient completes activity. [place] assists only prior to or following the activity. 4-Supervision or Touching Assistance-helper provides verbal cues and/or touching/steadying and/or contact guard assistance as patient completes activity. Assistance may be provided throughout the activity or intermittently. 3-Partial/Moderate Assistance-helper does LESS THAN HALF the effort. [place] lifts, holds or supports trunk or limbs, but provides less than half the effort. 2-Substantial/Maximal Assistance-helper does MORE THAN HALF the effort. [place] lifts or holds trunk or limbs and provides more than half the effort. 9-Nralmkzlr-ayjqux does ALL the effort. Patient does none of the effort to complete the activity. Or, the assistance of 2 or more helpers is required for the patient to complete the activity. If activity was not attempted, code reason: 7-Patient Refused. 9-Not Applicable-not attempted and the patient did not perform the activity before the current illness, exacerbation or injury. 10-Not Attempted due to Environmental Limitations-(lack of equipment, weather restraints, etc.). 88-Not Attempted due to Medical Conditions or Safety Concerns. Upper Body Dressing (QC): 5 Lower Body Dressing (QC): 3 On/Off Footwear: 5 Toileting Hygiene (QC): 3 (Min A for sit to stand then close SBA for managing clothing and hygiene in standing.) Toilet Transfer (QC): 3 (Min A for sit to stand then close SBA for SPT) Other Treatment Pt propelled w/c to therapy gym by self. Pt using 6L of O2 with exercise. B UE exercises completed to increase strength and stamina for daily functional tasks. Arm bike completed with minimal resistance for 8 min. B UE pulleys completed against gravity for 5 min. Pt then used dowel mag with B UE's to hit ball at different heights ~40x's. Pt then propelled w/c back to room. After therapy, pt sitting in recliner with call light/phone in reach. All needs met in room. OT Short Term Goals Short Term Goals Time Frame: Sep 16, 2020 Eatin Oral hygiene: 4 Toileting hygiene: 3 Shower/bathe self: 3 Upper body dressin Lower body dressin Putting on/taking off footwear: 3 OT Concrete Stone Fabricating Supervisor Goals Half-Way Goals Time Frame: Sep 30, 2020 Eating (QC): 6 Oral Hygiene (QC): 6 Toileting Hygiene (QC): 6 Shower/Bathe Self (QC): 4 Upper Body Dressing (QC): 5 Lower Body Dressing (QC): 4 On/Off Footwear (QC): 5 Additional Goals: 1-Demonstrate ADL Tasks, 2-Verbalize Understanding, 3- ImproveStrength/Luis Manuel 1=Demonstrate adherence to instructed precautions during ADL tasks. 2=Patient will verbalize/demonstrate understanding of assistive devices/modifications for ADL. 3=Patient will improve strength/tolerance for activity to enable patient to perform ADL's. OT Education/Plan Problem List/Assessment Assessment: Decreased Activ Tolerance, Decreased UE Strength, Impaired Self- Care Skills Discharge Recommendations Plan/Recommendations: Continue POC Treatment Plan/Plan of Care Patient would benefit from OT for education, treatment and training to promote independence in ADL's, mobility, safety and/or upper extremity function for ADL's. Plan of Care: ADL Retraining, Functional Mobility, UE Funct Exercise/Act Treatment Duration: Sep 30, 2020 Frequency: At least 5 of 7 days/Wk (IRF) Estimated Hrs Per Day: 1.5 hours per day Agreement: Yes Rehab Potential: Good Time/GCodes Start Time: 09:00 (13) Stop Time: 10:00 (1330) Total Time Billed (hr/min): 90 Billed Treatment Time 1 visit([id number])-ADL 2 (30 min) EX 2 (30 min) 1 visit([id number])-ADL 2 (30 min) SAHIL LARSEN Sep 19, 2020 10:38
--- NOTE | 2020-09-19 11:48 | Physical Therapy Daily Note ---
PT Daily Note-Current Subjective Patient in recliner pre tx, agrees to PT, has no complaints of pain. Appearance Patient in recliner post tx with nurse call, phone,tray, all needs met. Mental Status Patient Orientation: Normal For Age Attachments: Oxygen Transfers SCALE: Activities may be completed with or without assistive devices. 8-Lzibcppnzj-hzexvqf completes the activity by him/herself with no assistance from a helper. 5-Set-up or Clean-up Assistance-helper sets up or cleans up; patient completes activity. [place] assists only prior to or following the activity. 4-Supervision or Touching Assistance-helper provides verbal cues and/or touching/steadying and/or contact guard assistance as patient completes activity. Assistance may be provided throughout the activity or intermittently. 3-Partial/Moderate Assistance-helper does LESS THAN HALF the effort. [place] lifts, holds or supports trunk or limbs, but provides less than half the effort. 2-Substantial/Maximal Assistance-helper does MORE THAN HALF the effort. [place] lifts or holds trunk or limbs and provides more than half the effort. 0-Ghluwdgjz-zufttg does ALL the effort. Patient does none of the effort to complete the activity. Or, the assistance of 2 or more helpers is required for the patient to complete the activity. If activity was not attempted, code reason: 7-Patient Refused. 9-Not Applicable-not attempted and the patient did not perform the activity before the current illness, exacerbation or injury. 10-Not Attempted due to Environmental Limitations-(lack of equipment, weather restraints, etc.). 88-Not Attempted due to Medical Conditions or Safety Concerns. Sit to Stand (QC): 3 Chair/Klm-hg-Jocna Xfer(QC): 4 Weight Bearing Right Lower Extremity: Right Full Weight Bearing Left Lower Extremity: Left Full Weight Bearing Gait Training Distance: 20'x4 Walk 10 feet (QC): 4 Gait Persons Needed: 1 Gait Assistive Device: FWW slow but steady ambulation, very SOB after ambulation and O2 dropped to 87-88% on 6L of O2, which is better than it has been. Wheelchair Training Does the Pt Use a Wheelchair?: Yes Wheel 50 ft with 2 turns (QC): 4 Type of Wheelchair: Manual 120'x2 SBA Exercises Seated Therapy Exercises: Ankle pumps, Hip flexion, Hip abd/add (with ball and RTB) Standing: Heel/toe raises, Mini squats Standing Reps: 10 LAQ alternating for 5 min, sit to stand from elevated therapy table x5 NuStep Minutes: 15 NuStep Workload: 5 Treatments transfers, ambulation, functional strengthening Assessment Current Status: Fair Progress slowly improving in strength overall but still requires very frequent rest breaks to recover from O2 drop and fatigue PT Short Term Goals Short Term Goals Time Frame: Sep 16, 2020 Roll Left & Right: 6 Sit to lyin Lying to sitting on side of be: 6 Sit to stand: 4 PT Skilled Nursing Goals Commercial Carpet Installer Goals PT Commercial Carpet Installer Goals Time Frame: Sep 30, 2020 Roll Left & Right (QC): 6 Sit to Lying (QC): 6 Lying-Sitting on Side/Bed(QC): 6 Sit to Stand (QC): 6 Chair/Rmh-el-Uunrb Xfer(QC): 6 Toilet Transfer (QC): 6 Car Transfer (QC): 6 Does the Patient Walk: No and Walking Goal IS indicated Walk 10 feet (QC): 6 Walk 50ft with 2 Turns (QC): 6 Walk 150 ft (QC): 6 Walking 10ft on Uneven Surface: 6 1 Step (curb) (QC): 6 4 Steps (QC): 6 12 Steps (QC): 9 Picking up an Object (QC): 6 Does the Pt use WC or Scooter?: No Wheel 50 feet with 2 turns (QC: 9 Type: N/A Wheel 150 feet: 9 Type: N/A PT Plan Problem List Problem List: Activity Tolerance, Functional Strength, Safety, Balance, Gait, Transfer, Bed Mobility, ROM Treatment/Plan Treatment Plan: Continue Plan of Care Treatment Plan: Bed Mobility, Education, Functional Activity Luis Manuel, Functional Strength, Group Therapy, Gait, Safety, Therapeutic Exercise, Transfers Treatment Duration: Sep 30, 2020 Frequency: Modified Program (IRF) Estimated Hrs Per Day: 1.5 hours per day Patient and/or Family Agrees t: Yes Safety Risks/Education Patient Education: Gait Training, Transfer Techniques, Correct Positioning, W/C Management, Safety Issues Teaching Recipient: Patient Teaching Methods: Demonstration, Discussion Response to Teaching: Reinforcement Needed Time/GCodes Time In: 1030 Time Out: 1200 Total Billed Treatment Time: 90 Total Billed Treatment 1 visit GT 30' FA 15' EX 45' OCTAVIO HENDERSON PT Sep 19, 2020 11:48
[2020-09-19 20:00] VITALS: BP 99/65
[2020-09-19] MEDS: MELATONIN 3 MG TABLET PO SCH (20:13)
[2020-09-19] MEDS: HYDROcodone/APAP 5 MG/325 MG (LORTAB) TAB PO PRN (20:14)
[2020-09-19] MEDS: MIRTAZAPINE 15 MG (REMERON) TAB PO SCH (20:14)
[2020-09-19] MEDS: MONTELUKAST 10 MG (SINGULAIR) TAB PO SCH (20:14)
[2020-09-20] MEDS: predniSONE 20 MG TAB PO SCH (06:37)
[2020-09-20 07:34] VITALS: BP 122/73
[2020-09-20] MEDS: ROFLUMILAST 500 MCG TAB (DALIRESP) PO SCH (08:01)
[2020-09-20] MEDS: clonazePAM 1 MG (KlonoPIN) TAB PO SCH ×2 (08:01→21:31)
[2020-09-20] MEDS: PANTOPRAZOLE 40 MG (PROTONIX) TAB PO SCH (08:01)
[2020-09-20] MEDS: ASCORBIC ACID (VIT C) 500 MG TABLET PO SCH ×2 (08:01→21:32)
[2020-09-20] MEDS: COLCHICINE 0.6 MG (COLCRYS) TABLET PO SCH (08:01)
[2020-09-20] MEDS: APIXABAN 2.5 MG (ELIQUIS) TABLET PO SCH ×2 (08:01→21:32)
[2020-09-20] MEDS: guaiFENesin (MUCINEX) 600 MG TAB PO SCH ×2 (08:01→21:32)
[2020-09-20] MEDS: ATENOLOL 25 MG (TENORMIN) TAB PO SCH ×2 (08:01→21:32)
[2020-09-20] MEDS: KCL 20 MEQ TAB (K-DUR) PO SCH ×3 (08:01→17:50)
[2020-09-20] MEDS: SILDENAFIL 20 MG (REVATIO) TAB NON-FORMULARY PO SCH ×3 (08:01→21:32)
[2020-09-20] MEDS: PARoxetine 20 MG (PAXIL) TAB PO SCH (08:01)
[2020-09-20] MEDS: MAGNESIUM OXIDE (MAG-OX)400 MG TAB PO SCH ×2 (08:01→17:49)
[2020-09-20] MEDS: ALPRAZolam 0.25 MG (XANAX) TAB PO PRN ×2 (09:41→17:53)
--- NOTE | 2020-09-20 09:58 | Occupational Ther Daily Note ---
OT Current Status-Daily Note Subjective Pt alert, lying in bed. Pt agrees to therapy. No c/o pain. Mental Status/Objective Patient Orientation: Person, Place, Time, Situation Attachments: Oxygen (4L at rest, 6-8L with activity) ADL-Treatment 1st session ([id number])Pt agrees to shower. Independent for bed mobility. CGA from elevated surfaces, min A for lower surfaces to complete sit to stand. SBA for SPT from w/c to toilet then min A to stand from toilet due to lower height. Pt able to complete clothing manipulation and toileting with SBA. SBA for sit to stand then uses grabbar to transfer to shower. Pt completes bathing by self, assist to dry lower legs and feet. After set up, pt completes upper body and footwear by self. Threads feet into pant legs then SBA while pt hikes pants over hips, SBA for sit to stand. Pt completed oral care in shower by self. After therapy, pt sitting in recliner with call light/phone in reach. All needs met in room. Visitor in room. 2nd session ([id number])Pt ambulated from recliner to bathroom with CGA. CGA to transfer onto toilet using FWW then min A due to low surface to stand from toilet. CGA to manipulate clothing, completed hygiene sitting on toilet. After set up, pt completed lower body dressing, SBA to hike pants over hips. Therapy Code Descriptions/Definitions Functional [place] Measure: 0=Not Assessed/NA 4=Minimal Assistance 1=Total Assistance 5=Supervision or Setup 2=Maximal Assistance 6=Modified [place] 3=Moderate Assistance 7=Complete IndependenceSCALE: Activities may be completed with or without assistive devices. 6-Ysgoczqrtf-obwdpne completes the activity by him/herself with no assistance from a helper. 5-Set-up or Clean-up Assistance-helper sets up or cleans up; patient completes activity. [place] assists only prior to or following the activity. 4-Supervision or Touching Assistance-helper provides verbal cues and/or touching/steadying and/or contact guard assistance as patient completes activity. Assistance may be provided throughout the activity or intermittently. 3-Partial/Moderate Assistance-helper does LESS THAN HALF the effort. [place] lifts, holds or supports trunk or limbs, but provides less than half the effort. 2-Substantial/Maximal Assistance-helper does MORE THAN HALF the effort. [place] lifts or holds trunk or limbs and provides more than half the effort. 4-Ojerfnffg-zinclv does ALL the effort. Patient does none of the effort to complete the activity. Or, the assistance of 2 or more helpers is required for the patient to complete the activity. If activity was not attempted, code reason: 7-Patient Refused. 9-Not Applicable-not attempted and the patient did not perform the activity before the current illness, exacerbation or injury. 10-Not Attempted due to Environmental Limitations-(lack of equipment, weather restraints, etc.). 88-Not Attempted due to Medical Conditions or Safety Concerns. Oral Hygiene (QC): 6 Shower/Bathe Self (QC): 3 Upper Body Dressing (QC): 5 Lower Body Dressing (QC): 4 On/Off Footwear: 5 Toileting Hygiene (QC): 4 Toilet Transfer (QC): 3 Pt requires multiple recovery breaks throughout session. Started out a 6L of O2 with activity then pt requested to raise to 8L of O2. Other Treatment 2nd session([id number])Independent with bed mobility. Pt completed 3 B UE exercises to increase strength and stamina for daily functional tasks. Exercises completed 10 reps 2 sets in all planes. After session, pt lying in bed with call light/phone in reach. All needs met in room. OT Short Term Goals Short Term Goals Time Frame: Sep 16, 2020 Eatin Oral hygiene: 4 Toileting hygiene: 3 Shower/bathe self: 3 Upper body dressin Lower body dressin Putting on/taking off footwear: 3 OT Actuary Clerk Goals Fdc Goals Time Frame: Sep 30, 2020 Eating (QC): 6 Oral Hygiene (QC): 6 Toileting Hygiene (QC): 6 Shower/Bathe Self (QC): 4 Upper Body Dressing (QC): 5 Lower Body Dressing (QC): 4 On/Off Footwear (QC): 5 Additional Goals: 1-Demonstrate ADL Tasks, 2-Verbalize Understanding, 3- ImproveStrength/Luis Manuel 1=Demonstrate adherence to instructed precautions during ADL tasks. 2=Patient will verbalize/demonstrate understanding of assistive devices/modifications for ADL. 3=Patient will improve strength/tolerance for activity to enable patient to perform ADL's. OT Education/Plan Problem List/Assessment Assessment: Decreased Activ Tolerance, Decreased UE Strength, Impaired Self- Care Skills Discharge Recommendations Plan/Recommendations: Continue POC Treatment Plan/Plan of Care Patient would benefit from OT for education, treatment and training to promote independence in ADL's, mobility, safety and/or upper extremity function for ADL's. Plan of Care: ADL Retraining, Functional Mobility, UE Funct Exercise/Act Treatment Duration: Sep 30, 2020 Frequency: At least 5 of 7 days/Wk (IRF) Estimated Hrs Per Day: 1.5 hours per day Agreement: Yes Rehab Potential: Good Time/GCodes Start Time: 09:00 (1300) Stop Time: 10:00 (1330) Total Time Billed (hr/min): 90 Billed Treatment Time 1 visit([id number]) ADL 4 (60 min) 1 visit([id number]) ADL 1 (15 min) EX 1 (15 min) SAHIL LARSEN Sep 20, 2020 09:58
--- NOTE | 2020-09-20 11:59 | Physical Therapy Daily Note ---
PT Daily Note-Current Subjective Pt excited to report she has been able to stand from chair (I) 4x today. Pt rates pain 4/10 in back. Pt agreeable and reports she is getting stronger. Mental Status Patient Orientation: Person, Place, Situation Attachments: Oxygen Pt O2 at 4L/min per nasal canula and portable O2 6L/min for gait and ther ex. Returned to 4L/min end of treatment. Transfers SCALE: Activities may be completed with or without assistive devices. 7-Kcabkqlziz-ozvaskx completes the activity by him/herself with no assistance from a helper. 5-Set-up or Clean-up Assistance-helper sets up or cleans up; patient completes activity. [place] assists only prior to or following the activity. 4-Supervision or Touching Assistance-helper provides verbal cues and/or touching/steadying and/or contact guard assistance as patient completes activity. Assistance may be provided throughout the activity or intermittently. 3-Partial/Moderate Assistance-helper does LESS THAN HALF the effort. [place] lifts, holds or supports trunk or limbs, but provides less than half the effort. 2-Substantial/Maximal Assistance-helper does MORE THAN HALF the effort. [place] lifts or holds trunk or limbs and provides more than half the effort. 0-Bzodvxknf-yrlwhv does ALL the effort. Patient does none of the effort to complete the activity. Or, the assistance of 2 or more helpers is required for the patient to complete the activity. If activity was not attempted, code reason: 7-Patient Refused. 9-Not Applicable-not attempted and the patient did not perform the activity before the current illness, exacerbation or injury. 10-Not Attempted due to Environmental Limitations-(lack of equipment, weather restraints, etc.). 88-Not Attempted due to Medical Conditions or Safety Concerns. Pt showing ability to stand from chair and recliner mod (I) today 7x. Weight Bearing Right Lower Extremity: Right Full Weight Bearing Left Lower Extremity: Left Full Weight Bearing Gait Training Gait Assistive Device: FWW Pt amb with O2 6L/min, close f/u w/c and FWW, CGA 1 x 16' (O2 sat 83% and HR 97), 2 x 20'(O2 sat 87% HR 87bpm and 86% HR 89bpm), 1 x 26' O2 sat 76% HR 94 bpm). Wheelchair Training Type of Wheelchair: Manual Pt self propelled w/c x 250ft Exercises Supine Ex: Ankle pumps, Quad Set, Heel Slides, Short Arc Quads, Straight leg raise, Hip abd/add Supine Reps: 20 NuStep Minutes: 15 NuStep Workload: 1 Treatments O2 monitored throughout treatment. Pt O2 dropped as low as 83% after gait x 16ft, 76% after gait x 26ft. Pt recovered quickly >90% with seated rest breaks and pursed lip breathing. O2 above 96% throughout time on Nu-step. Required 1 rest break during Nu-step. Assessment Current Status: Good Progress Pt progressing steadily with endurance, strength and functional mobility. Pt shows ability to recover to >90% quickly with rest and pursed lip breathing. Pt back to recliner with call light and all needs met. PT Short Term Goals Short Term Goals Time Frame: Sep 16, 2020 Roll Left & Right: 6 Sit to lyin Lying to sitting on side of be: 6 Sit to stand: 4 PT Senior Living Goals Senior Living Goals PT Senior Living Goals Time Frame: Sep 30, 2020 Roll Left & Right (QC): 6 Sit to Lying (QC): 6 Lying-Sitting on Side/Bed(QC): 6 Sit to Stand (QC): 6 Chair/Jpb-iy-Wvxfx Xfer(QC): 6 Toilet Transfer (QC): 6 Car Transfer (QC): 6 Does the Patient Walk: No and Walking Goal IS indicated Walk 10 feet (QC): 6 Walk 50ft with 2 Turns (QC): 6 Walk 150 ft (QC): 6 Walking 10ft on Uneven Surface: 6 1 Step (curb) (QC): 6 4 Steps (QC): 6 12 Steps (QC): 9 Picking up an Object (QC): 6 Does the Pt use WC or Scooter?: No Wheel 50 feet with 2 turns (QC: 9 Type: N/A Wheel 150 feet: 9 Type: N/A PT Plan Treatment/Plan Treatment Plan: Continue Plan of Care Treatment Plan: Bed Mobility, Education, Functional Activity Luis Manuel, Functional Strength, Group Therapy, Gait, Safety, Therapeutic Exercise, Transfers Treatment Duration: Sep 30, 2020 Frequency: Modified Program (IRF) Estimated Hrs Per Day: 1.5 hours per day Patient and/or Family Agrees t: Yes Time/GCodes Time In: 1030 Time Out: 1200 Total Billed Treatment Time: 90 Total Billed Treatment 1, ther ex 60', gait 30' LINCOLN GONZALEZ CPTA Sep 20, 2020 11:59
[2020-09-20 20:07] VITALS: BP 113/58
--- NOTE | 2020-09-20 21:01 | PM&R Progress Note ---
Subjective HPI/CC On Admission Date Seen by Provider: Sep 20, 2020 Time Seen by Provider: 10:30 Subjective/Events-last exam 09/20/2020: Pt doing really well Was able to stand for the first time today and has done is several times today Very proud of this Checked meds and labs Lungs are clear 09/19/2020: Pt doing a little better 4 liters of O2 maintained No SOB when she is resting Overall much improved 09/18/2020: Pt doing really well Remains on four liters No change in her dyspnea Magnesium is normal at 1.8 on supplement Chest X-ray no acute changes Labs good 09/17/2020: Patient in a good mood Slept pretty well last night Check meds and labs 09/16/2020: Patient much improved Getting more more independent No falls No shortness of breath she really exerts herself 09/15/2020: Patient doing very well Much improved Moving around a lot more Oxygen maintained Continue aggressive rehab 09/14/2020: Pt progressing Maintain on 4 liters of oxygen Checked meds and labs No major issues 09/13/2020: Pt doing pretty well No bed almazan use now, only commode 4 liters of O2 Decreasing Prednisone to 40mg daily 09/12/2020: Pt doing really well Four liters of oxygen maintained Very weak Dramatically improved though 09/11/2020: Pt doing pretty well Sleeping now 4 liters of O2 maintained Bowels moved yesterday 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 09/10/2020: Patient improving Now on 4 L of oxygen Uses bedpan still We will monitor closely 09/09/2020: Pt progressing nicely Down to five liters of oxygen Bowels moved on the Much improved 09/08/2020: Pt doing well but Prednisone was 10mg daily, supposed to be 50 so getting that corrected Oxygenation does go down with any activity but actually showed today and did pretty well 09/07/2020: Pt doing pretty well Pulmonary consult today Nose bleed a little bit today Bowels moving On six liters during bed-almazan which seems to help recovery 09/06/2020: Pt doing pretty well Had an episode of SOB in the shower Doing okay now Feels like no other problems are occurring X-ray for picc line to be sure it is functioning adequately 09/05/2020: Pt doing pretty well but having loose stools Eliquis restarted since no nose bleeds Echocardiogram ordered per pulmonology consult Four liters of oxygen maintained Talked about her Scoliosis and restrictive lung disease Patient does not want inhaler or breathing treatment 09/04/2020: Pt doing pretty well Wonders if she should have a continuous pulse-ox and I told her we are monitoring that with frequent spot checks. Chest X-ray ordered for pulmonary consultation She even gets SOB on the bed-almazan Echo was recommended so we will order Review of Systems General: Fatigue Pulmonary: Dyspnea Objective Exam Vital Signs Vital Signs Date Time Temp Pulse Resp B/P (MAP) Pulse Ox O2 Delivery O2 Flow Rate FiO2 09/20/20 20:07 36.6 86 18 113/58 (76) 96 Nasal Cannula 4.00 Capillary Refill : General Appearance: No Apparent Distress, WD/WN, Chronically ill, Obese HEENT: PERRL/EOMI, Normal ENT Inspection, Pharynx Normal Neck: Full Range of Motion, Normal Inspection, Non Tender, Supple, Carotid Bruit Respiratory: Chest Non Tender, Lungs Clear, No Accessory Muscle Use, No Respiratory Distress, Decreased Breath Sounds Cardiovascular: Regular Rate, Rhythm, No Edema, No Gallop, No JVD, No Murmur, Normal Peripheral Pulses Gastrointestinal: Normal Bowel Sounds, No Organomegaly, No Pulsatile Mass, Non Tender, Soft Back: Normal Inspection, No CVA Tenderness, No Vertebral Tenderness Extremity: Normal Capillary Refill, Normal Inspection, Normal Range of Motion, Non Tender, No Calf Tenderness, No Pedal Edema Neurologic/Psychiatric: Alert, Oriented x3, No Motor/Sensory Deficits, Normal Mood/Affect, regional recruiter II-XII Norm as Tested, Motor Weakness (generalized 3/5) Skin: Normal Color, Warm/Dry Lymphatic: No Adenopathy Results/Procedures Lab Patient resulted labs reviewed. FIM Transfers Therapy Code Descriptions/Definitions Functional [place] Measure: 0=Not Assessed/NA 4=Minimal Assistance 1=Total Assistance 5=Supervision or Setup 2=Maximal Assistance 6=Modified [place] 3=Moderate Assistance 7=Complete IndependenceSCALE: Activities may be completed with or without assistive devices. 6-Reyroewqqq-mwsrmeq completes the activity by him/herself with no assistance from a helper. 5-Set-up or Clean-up Assistance-helper sets up or cleans up; patient completes activity. [place] assists only prior to or following the activity. 4-Supervision or Touching Assistance-helper provides verbal cues and/or touching/steadying and/or contact guard assistance as patient completes activity. Assistance may be provided throughout the activity or intermittently. 3-Partial/Moderate Assistance-helper does LESS THAN HALF the effort. [place] lifts, holds or supports trunk or limbs, but provides less than half the effort. 2-Substantial/Maximal Assistance-helper does MORE THAN HALF the effort. [place] lifts or holds trunk or limbs and provides more than half the effort. 7-Jwppxhyca-kspddb does ALL the effort. Patient does none of the effort to complete the activity. Or, the assistance of 2 or more helpers is required for the patient to complete the activity. If activity was not attempted, code reason: 7-Patient Refused. 9-Not Applicable-not attempted and the patient did not perform the activity before the current illness, exacerbation or injury. 10-Not Attempted due to Environmental Limitations-(lack of equipment, weather restraints, etc.). 88-Not Attempted due to Medical Conditions or Safety Concerns. Roll Left to Right (QC): 6 Sit to Lying (QC): 6 Sit to Stand (QC): 3 Chair/Abb-yz-Jbciy Xfer(QC): 4 Car Transfer (QC): 88 Gait Training Does the Patient Walk?: Yes Distance: 20'x4 Walk 10 feet (QC): 4 Walk 50 ft with 2 Turns(QC): 88 Walk 150 ft (QC): 88 Walking 10ft/uneven surface-QC: 88 Gait Persons Needed: 1 Gait Assistive Device: FWW Wheelchair Training Does the Pt Use a Wheelchair?: Yes Wheel 50 ft with 2 turns (QC): 4 Wheel 150 ft (QC): 4 Type of Wheelchair: Manual Stair Training 1 Step (curb) (QC): 88 4 Steps (QC): 88 12 Steps (QC): 88 Balance Picking up an Object (QC): 88 ADL-Treatment Eating (QC): 6 (per clinical judgment) Oral Hygiene (QC): 6 Shower/Bathe Self (QC): 3 Upper Body Dressing (QC): 5 Lower Body Dressing (QC): 4 On/Off Footwear (QC): 5 Toileting Hygiene (QC): 4 Toilet Transfer (QC): 3 Assessment/Plan Assessment and Plan Assess & Plan/Chief Complaint Assessment: COVID-19 pneumonia with ongoing hypoxic respiratory failure Chronic scoliosis back pain History of pain pill addiction Claustrophobia Anxiety Gout Restrictive lung disease Recent pneumomediastinum Thrombocytopenia Anemia Hypokalemia Hypomag Plan: Inpatient rehab protocol Slow therapy 31/08 due to severe hypoxia with exertion due to COVID-19 pneumonia Monitor closely Replace potassium and mag 09/04/2020: Supportive care Pulmonary consultation appreciated Echo Slow taper 09/05/2020: Discontinue breathing treatments since it makes her too shaky Long taper of prednisone 09/06/2020: Supportive care Oxygen supplementation 09/07/2020: Monitor desaturation Supportive care 09/08/2020: Maintain prednisone slow taper Monitor closely Improved 09/09/2020: Supportive care Monitor closely Much improved 09/10/2020: Continue oxygen wean Maintain slow taper prednisone 09/11/2020: Continue to wean oxygen Slow taper prednisone 09/12/20: Maintain prednisone O2 wean 09/13/2020: Supportive care Improving but slowly 09/14/2020: Improving a little bit each day Continue aggressive treatment Oxygen supplementation 09/15/2020: Oxygen maintained Continue aggressive rehab 09/16/2020: Dramatic improvement Continue recovery Maintain oxygen 09/17/2020: Supportive care Check chest x-ray and labs in the morning 09/18/2020: Supportive care Oxygen maintained 09/19/2020: Titrate prednisone down Maintain oxygen 09/20/2020: Decrease prednisone Aggressive therapy (1) COVID-19 JULES ROJAS DO Sep 20, 2020 21:01
[2020-09-20] MEDS: MIRTAZAPINE 15 MG (REMERON) TAB PO SCH (21:32)
[2020-09-20] MEDS: HYDROcodone/APAP 5 MG/325 MG (LORTAB) TAB PO PRN (21:32)
[2020-09-20] MEDS: MONTELUKAST 10 MG (SINGULAIR) TAB PO SCH (21:32)
[2020-09-20] MEDS: MELATONIN 3 MG TABLET PO SCH (21:33)
--- NOTE | 2020-09-21 05:24 | PM&R Progress Note ---
Subjective HPI/CC On Admission Date Seen by Provider: Sep 21, 2020 Time Seen by Provider: 13:00 Subjective/Events-last exam 09/21/2020: Pt doing really well Standing a lot now Bowels moved today DC planned for 09/2909/20/2020: Pt doing really well Was able to stand for the first time today and has done is several times today Very proud of this Checked meds and labs Lungs are clear 09/19/2020: Pt doing a little better 4 liters of O2 maintained No SOB when she is resting Overall much improved 09/18/2020: Pt doing really well Remains on four liters No change in her dyspnea Magnesium is normal at 1.8 on supplement Chest X-ray no acute changes Labs good 09/17/2020: Patient in a good mood Slept pretty well last night Check meds and labs 09/16/2020: Patient much improved Getting more more independent No falls No shortness of breath she really exerts herself 09/15/2020: Patient doing very well Much improved Moving around a lot more Oxygen maintained Continue aggressive rehab 09/14/2020: Pt progressing Maintain on 4 liters of oxygen Checked meds and labs No major issues 09/13/2020: Pt doing pretty well No bed almazan use now, only commode 4 liters of O2 Decreasing Prednisone to 40mg daily 09/12/2020: Pt doing really well Four liters of oxygen maintained Very weak Dramatically improved though 09/11/2020: Pt doing pretty well Sleeping now 4 liters of O2 maintained Bowels moved yesterday 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 09/10/2020: Patient improving Now on 4 L of oxygen Uses bedpan still We will monitor closely 09/09/2020: Pt progressing nicely Down to five liters of oxygen Bowels moved on the Much improved 09/08/2020: Pt doing well but Prednisone was 10mg daily, supposed to be 50 so getting that corrected Oxygenation does go down with any activity but actually showed today and did pretty well 09/07/2020: Pt doing pretty well Pulmonary consult today Nose bleed a little bit today Bowels moving On six liters during bed-almazan which seems to help recovery 09/06/2020: Pt doing pretty well Had an episode of SOB in the shower Doing okay now Feels like no other problems are occurring X-ray for picc line to be sure it is functioning adequately 09/05/2020: Pt doing pretty well but having loose stools Eliquis restarted since no nose bleeds Echocardiogram ordered per pulmonology consult Four liters of oxygen maintained Talked about her Scoliosis and restrictive lung disease Patient does not want inhaler or breathing treatment 09/04/2020: Pt doing pretty well Wonders if she should have a continuous pulse-ox and I told her we are monitoring that with frequent spot checks. Chest X-ray ordered for pulmonary consultation She even gets SOB on the bed-almazan Echo was recommended so we will order Review of Systems General: Fatigue Pulmonary: Dyspnea Objective Exam Vital Signs Vital Signs Date Time Temp Pulse Resp B/P (MAP) Pulse Ox O2 Delivery O2 Flow Rate FiO2 09/21/20 21:00 91 Nasal Cannula 4.00 09/21/20 20:00 36.8 90 20 112/67 (82) Capillary Refill : General Appearance: No Apparent Distress, WD/WN, Chronically ill, Obese HEENT: PERRL/EOMI, Normal ENT Inspection, Pharynx Normal Neck: Full Range of Motion, Normal Inspection, Non Tender, Supple, Carotid Bruit Respiratory: Chest Non Tender, Lungs Clear, No Accessory Muscle Use, No Respiratory Distress, Decreased Breath Sounds Cardiovascular: Regular Rate, Rhythm, No Edema, No Gallop, No JVD, No Murmur, Normal Peripheral Pulses Gastrointestinal: Normal Bowel Sounds, No Organomegaly, No Pulsatile Mass, Non Tender, Soft Back: Normal Inspection, No CVA Tenderness, No Vertebral Tenderness Extremity: Normal Capillary Refill, Normal Inspection, Normal Range of Motion, Non Tender, No Calf Tenderness, No Pedal Edema Neurologic/Psychiatric: Alert, Oriented x3, No Motor/Sensory Deficits, Normal Mood/Affect, demand planning analyst II-XII Norm as Tested, Motor Weakness (generalized 3/5) Skin: Normal Color, Warm/Dry Lymphatic: No Adenopathy Results/Procedures Lab Patient resulted labs reviewed. FIM Transfers Therapy Code Descriptions/Definitions Functional [place] Measure: 0=Not Assessed/NA 4=Minimal Assistance 1=Total Assistance 5=Supervision or Setup 2=Maximal Assistance 6=Modified [place] 3=Moderate Assistance 7=Complete IndependenceSCALE: Activities may be completed with or without assistive devices. 5-Sulqwoimig-ftixnke completes the activity by him/herself with no assistance from a helper. 5-Set-up or Clean-up Assistance-helper sets up or cleans up; patient completes activity. [place] assists only prior to or following the activity. 4-Supervision or Touching Assistance-helper provides verbal cues and/or touching/steadying and/or contact guard assistance as patient completes activity. Assistance may be provided throughout the activity or intermittently. 3-Partial/Moderate Assistance-helper does LESS THAN HALF the effort. [place] l ifts, holds or supports trunk or limbs, but provides less than half the effort. 2-Substantial/Maximal Assistance-helper does MORE THAN HALF the effort. [place] lifts or holds trunk or limbs and provides more than half the effort. 8-Zpbesxwqj-hafvxv does ALL the effort. Patient does none of the effort to complete the activity. Or, the assistance of 2 or more helpers is required for t he patient to complete the activity. If activity was not attempted, code reason: 7-Patient Refused. 9-Not Applicable-not attempted and the patient did not perform the activity before the current illness, exacerbation or injury. 10-Not Attempted due to Environmental Limitations-(lack of equipment, weather restraints, etc.). 88-Not Attempted due to Medical Conditions or Safety Concerns. Roll Left to Right (QC): 6 Sit to Lying (QC): 6 Sit to Stand (QC): 3 Chair/Ucz-hz-Ysvhv Xfer(QC): 4 Car Transfer (QC): 88 Gait Training Does the Patient Walk?: Yes Distance: 20'x4 Walk 10 feet (QC): 4 Walk 50 ft with 2 Turns(QC): 88 Walk 150 ft (QC): 88 Walking 10ft/uneven surface-QC: 88 Gait Persons Needed: 1 Gait Assistive Device: FWW Wheelchair Training Does the Pt Use a Wheelchair?: Yes Wheel 50 ft with 2 turns (QC): 4 Wheel 150 ft (QC): 4 Type of Wheelchair: Manual Stair Training 1 Step (curb) (QC): 88 4 Steps (QC): 88 12 Steps (QC): 88 Balance Picking up an Object (QC): 88 ADL-Treatment Eating (QC): 6 (per clinical judgment) Oral Hygiene (QC): 6 Shower/Bathe Self (QC): 3 Upper Body Dressing (QC): 5 Lower Body Dressing (QC): 4 On/Off Footwear (QC): 5 Toileting Hygiene (QC): 4 Toilet Transfer (QC): 3 Assessment/Plan Assessment and Plan Assess & Plan/Chief Complaint Assessment: COVID-19 pneumonia with ongoing hypoxic respiratory failure Chronic scoliosis back pain History of pain pill addiction Claustrophobia Anxiety Gout Restrictive lung disease Recent pneumomediastinum Thrombocytopenia Anemia Hypokalemia Hypomag Plan: Inpatient rehab protocol Slow therapy 31/08 due to severe hypoxia with exertion due to COVID-19 pneumonia Monitor closely Replace potassium and mag 09/04/2020: Supportive care Pulmonary consultation appreciated Echo Slow taper 09/05/2020: Discontinue breathing treatments since it makes her too shaky Long taper of prednisone 09/06/2020: Supportive care Oxygen supplementation 09/07/2020: Monitor desaturation Supportive care 09/08/2020: Maintain prednisone slow taper Monitor closely Improved 09/09/2020: Supportive care Monitor closely Much improved 09/10/2020: Continue oxygen wean Maintain slow taper prednisone 09/11/2020: Continue to wean oxygen Slow taper prednisone 09/12/20: Maintain prednisone O2 wean 09/13/2020: Supportive care Improving but slowly 09/14/2020: Improving a little bit each day Continue aggressive treatment Oxygen supplementation 09/15/2020: Oxygen maintained Continue aggressive rehab 09/16/2020: Dramatic improvement Continue recovery Maintain oxygen 09/17/2020: Supportive care Check chest x-ray and labs in the morning 09/18/2020: Supportive care Oxygen maintained 09/19/2020: Titrate prednisone down Maintain oxygen 09/20/2020: Decrease prednisone Aggressive therapy 09/21/2020: Continue aggressive physical therapy Much improved status (1) COVID-19 JULES ROJAS DO Sep 21, 2020 05:24
[2020-09-21] MEDS: predniSONE 20 MG TAB PO SCH (06:32)
[2020-09-21 07:29] VITALS: BP 101/59
[2020-09-21] MEDS: KCL 20 MEQ TAB (K-DUR) PO SCH ×3 (07:44→17:37)
[2020-09-21] MEDS: APIXABAN 2.5 MG (ELIQUIS) TABLET PO SCH ×2 (07:44→21:27)
[2020-09-21] MEDS: clonazePAM 1 MG (KlonoPIN) TAB PO SCH ×2 (07:44→21:26)
[2020-09-21] MEDS: ROFLUMILAST 500 MCG TAB (DALIRESP) PO SCH (07:44)
[2020-09-21] MEDS: ASCORBIC ACID (VIT C) 500 MG TABLET PO SCH ×2 (07:44→21:26)
[2020-09-21] MEDS: guaiFENesin (MUCINEX) 600 MG TAB PO SCH ×2 (07:44→21:26)
[2020-09-21] MEDS: SILDENAFIL 20 MG (REVATIO) TAB NON-FORMULARY PO SCH ×3 (07:44→21:26)
[2020-09-21] MEDS: MAGNESIUM OXIDE (MAG-OX)400 MG TAB PO SCH ×2 (07:44→17:37)
[2020-09-21] MEDS: PARoxetine 20 MG (PAXIL) TAB PO SCH (07:45)
[2020-09-21] MEDS: COLCHICINE 0.6 MG (COLCRYS) TABLET PO SCH (07:45)
[2020-09-21] MEDS: PANTOPRAZOLE 40 MG (PROTONIX) TAB PO SCH (07:45)
[2020-09-21] MEDS: ALPRAZolam 0.25 MG (XANAX) TAB PO PRN ×2 (07:50→13:52)
[2020-09-21] MEDS: ATENOLOL 25 MG (TENORMIN) TAB PO SCH ×2 (08:03→21:26)
--- NOTE | 2020-09-21 10:09 | Physical Therapy Daily Note ---
PT Daily Note-Current Subjective Patient in recliner pre tx, agrees to PT, has no complaints of pain. Appearance Patient on toilet post tx, will use nurse call when done. Mental Status Patient Orientation: Normal For Age Attachments: Oxygen Transfers SCALE: Activities may be completed with or without assistive devices. 6-Zjtxjkarad-pxgafzp completes the activity by him/herself with no assistance from a helper. 5-Set-up or Clean-up Assistance-helper sets up or cleans up; patient completes activity. [place] assists only prior to or following the activity. 4-Supervision or Touching Assistance-helper provides verbal cues and/or touching/steadying and/or contact guard assistance as patient completes activity. Assistance may be provided throughout the activity or intermittently. 3-Partial/Moderate Assistance-helper does LESS THAN HALF the effort. [place] lifts, holds or supports trunk or limbs, but provides less than half the effort. 2-Substantial/Maximal Assistance-helper does MORE THAN HALF the effort. [place] lifts or holds trunk or limbs and provides more than half the effort. 8-Aautztrfb-pgbhep does ALL the effort. Patient does none of the effort to complete the activity. Or, the assistance of 2 or more helpers is required for the patient to complete the activity. If activity was not attempted, code reason: 7-Patient Refused. 9-Not Applicable-not attempted and the patient did not perform the activity before the current illness, exacerbation or injury. 10-Not Attempted due to Environmental Limitations-(lack of equipment, weather restraints, etc.). 88-Not Attempted due to Medical Conditions or Safety Concerns. Sit to Stand (QC): 3 Chair/Zvs-sz-Hkllp Xfer(QC): 4 Patient can now stand with CGA from higher surfaces but still needs min assist to stand from lower surfaces. Weight Bearing Right Lower Extremity: Right Full Weight Bearing Left Lower Extremity: Left Full Weight Bearing Gait Training Distance: 30'x4 Walk 10 feet (QC): 4 Gait Persons Needed: 1 Gait Assistive Device: FWW slow but steady ambulation, very SOB after ambulation, O2 goes down to 83% with ambulation on 6L of O2 Wheelchair Training Does the Pt Use a Wheelchair?: Yes Type of Wheelchair: Manual 120', SBA Exercises Standing: Step-ups Standing Reps: 3 (each leg) NuStep Minutes: 15 NuStep Workload: 5 Treatments transfers, ambulation, WC mobility, LE strengthening Assessment Current Status: Fair Progress slow progress with strength and endurance PT Short Term Goals Short Term Goals Time Frame: Sep 16, 2020 Roll Left & Right: 6 Sit to lyin Lying to sitting on side of be: 6 Sit to stand: 4 PT Jail Goals Flight Control Specialist Goals PT Flight Control Specialist Goals Time Frame: Sep 30, 2020 Roll Left & Right (QC): 6 Sit to Lying (QC): 6 Lying-Sitting on Side/Bed(QC): 6 Sit to Stand (QC): 6 Chair/Agj-dy-Inzuz Xfer(QC): 6 Toilet Transfer (QC): 6 Car Transfer (QC): 6 Does the Patient Walk: No and Walking Goal IS indicated Walk 10 feet (QC): 6 Walk 50ft with 2 Turns (QC): 6 Walk 150 ft (QC): 6 Walking 10ft on Uneven Surface: 6 1 Step (curb) (QC): 6 4 Steps (QC): 6 12 Steps (QC): 9 Picking up an Object (QC): 6 Does the Pt use WC or Scooter?: No Wheel 50 feet with 2 turns (QC: 9 Type: N/A Wheel 150 feet: 9 Type: N/A PT Plan Problem List Problem List: Activity Tolerance, Functional Strength, Safety, Balance, Gait, Transfer, Bed Mobility, ROM Treatment/Plan Treatment Plan: Continue Plan of Care Treatment Plan: Bed Mobility, Education, Functional Activity Luis Manuel, Functional Strength, Group Therapy, Gait, Safety, Therapeutic Exercise, Transfers Treatment Duration: Sep 30, 2020 Frequency: Modified Program (IRF) Estimated Hrs Per Day: 1.5 hours per day Patient and/or Family Agrees t: Yes Safety Risks/Education Patient Education: Gait Training, Transfer Techniques, Correct Positioning, W/C Management, Safety Issues Teaching Recipient: Patient Teaching Methods: Demonstration, Discussion Response to Teaching: Reinforcement Needed Time/GCodes Time In: 15 Time Out: 1015 Total Billed Treatment Time: 60 Total Billed Treatment 1 visit EX 20' FA 40' OCTAVIO HENDERSON PT Sep 21, 2020 10:09
--- NOTE | 2020-09-21 11:00 | Occupational Ther Daily Note ---
OT Current Status-Daily Note Subjective Pt alert, sitting in w/c. Pt agrees to therapy. No c/o pain. Mental Status/Objective Patient Orientation: Person, Place, Time, Situation Attachments: Oxygen (4L at rest, 6L with activity) ADL-Treatment Pt states that she was able to dress self this morning with only set up. 2nd session([id number]): Pt able to ambulate from recliner to bathroom with CGA and assist to manipulate tubing. Transferred onto toilet with CGA and completed clothing manipulation with CGA. Pt able to cleanse self sitting on toilet independently. Min A for sit to stand from toilet then transferred to w/c with close SBA. Pt then propelled w/c back to recliner and transferred with CGA. After session, pt sitting in recliner with call light/phone in reach. All needs met in room. Therapy Code Descriptions/Definitions Functional [place] Measure: 0=Not Assessed/NA 4=Minimal Assistance 1=Total Assistance 5=Supervision or Setup 2=Maximal Assistance 6=Modified [place] 3=Moderate Assistance 7=Complete IndependenceSCALE: Activities may be completed with or without assistive devices. 6-Qdufxpmlql-ypedkdj completes the activity by him/herself with no assistance fr om a helper. 5-Set-up or Clean-up Assistance-helper sets up or cleans up; patient completes activity. [place] assists only prior to or following the activity. 4-Supervision or Touching Assistance-helper provides verbal cues and/or touching/steadying and/or contact guard assistance as patient completes activity. Assistance may be provided throughout the activity or intermittently. 3-Partial/Moderate Assistance-helper does LESS THAN HALF the effort. [place] lifts, holds or supports trunk or limbs, but provides less than half the effort. 2-Substantial/Maximal Assistance-helper does MORE THAN HALF the effort. [place] lifts or holds trunk or limbs and provides more than half the effort. 1-Bwqjprecj-mifyih does ALL the effort. Patient does none of the effort to complete the activity. Or, the assistance of 2 or more helpers is required for the patient to complete the activity. If activity was not attempted, code reason: 7-Patient Refused. 9-Not Applicable-not attempted and the patient did not perform the activity before the current illness, exacerbation or injury. 10-Not Attempted due to Environmental Limitations-(lack of equipment, weather restraints, etc.). 88-Not Attempted due to Medical Conditions or Safety Concerns. Toileting Hygiene (QC): 4 Toilet Transfer (QC): 3 Other Treatment 1st session ([id number]) Pt working on B UE strengthening and w/c mobility throughout hospital. Pt able to go over uneven surfaces with min A, all other v arying surfaces and corners was completed independently. Assist given to manipulate O2 tank/tubing. Pt was able to take only minimal breaks to recovery from low O2 levels. After therapy, pt sitting in recliner with call light/phone in reach. All needs met in room. 2nd session ([id number]) Co-treat with PT ([id number]), 2 clinicians to work on higher level standing balance tasks, increasing B UE/LE strengthening and increase stamina. PT focusing on B LE strengthening and standing while OT focusing on B UE strengthening and functional dynamic standing balance. Pt able to complete standing while completing B UE strengthening and challenging balance without LOB. Pt did take frequent breaks and required time to regain O2 levels. Pt complete B UE strengthening for 5 min in sitting while completing B LE exercises for PT. OT Short Term Goals Short Term Goals Time Frame: Sep 16, 2020 Eatin Oral hygiene: 4 Toileting hygiene: 3 Shower/bathe self: 3 Upper body dressin Lower body dressin Putting on/taking off footwear: 3 OT Signwriter Goals Signwriter Goals Time Frame: Sep 30, 2020 Eating (QC): 6 Oral Hygiene (QC): 6 Toileting Hygiene (QC): 6 Shower/Bathe Self (QC): 4 Upper Body Dressing (QC): 5 Lower Body Dressing (QC): 4 On/Off Footwear (QC): 5 Additional Goals: 1-Demonstrate ADL Tasks, 2-Verbalize Understanding, 3- ImproveStrength/Luis Manuel 1=Demonstrate adherence to instructed precautions during ADL tasks. 2=Patient will verbalize/demonstrate understanding of assistive de vices/modifications for ADL. 3=Patient will improve strength/tolerance for activity to enable patient to perform ADL's. OT Education/Plan Problem List/Assessment Assessment: Decreased Activ Tolerance, Decreased UE Strength, Impaired Self- Care Skills Discharge Recommendations Plan/Recommendations: Continue POC Treatment Plan/Plan of Care Patient would benefit from OT for education, treatment and training to promote independence in ADL's, mobility, safety and/or upper extremity function for ADL's. Plan of Care: ADL Retraining, Functional Mobility, UE Funct Exercise/Act Treatment Duration: Sep 30, 2020 Frequency: At least 5 of 7 days/Wk (IRF) Estimated Hrs Per Day: 1.5 hours per day Agreement: Yes Rehab Potential: Good Time/GCodes Start Time: 10:15 (1115) Stop Time: 11:00 (1200) Total Time Billed (hr/min): 90 Billed Treatment Time 1 visit([id number]) EX 3 (45 min) 2nd visit ([id number]) EX 2 (30 min) ADL 1 (15 min) co-treat with PT [id number], individual [id number] SAHIL LARSEN Sep 21, 2020 11:00
--- NOTE | 2020-09-21 11:51 | Physical Therapy Daily Note ---
PT Daily Note-Current Subjective Patient in recliner pre tx, agrees to PT, has no complaints of pain. Will be co-treating with OT due to poor patient mobility, strength, endurance, severe SOB and O2 drop with activity, coordinate UE and LE during activity, safety and reduce risk of falls. Appearance Patient in recliner post tx with nurse call, phone, tray, all needs met. Mental Status Patient Orientation: Normal For Age Attachments: Oxygen Transfers SCALE: Activities may be completed with or without assistive devices. 1-Dgbsdiwtkr-yjwtutx completes the activity by him/herself with no assistance from a helper. 5-Set-up or Clean-up Assistance-helper sets up or cleans up; patient completes activity. [place] assists only prior to or following the activity. 4-Supervision or Touching Assistance-helper provides verbal cues and/or touching/steadying and/or contact guard assistance as patient completes activity. Assistance may be provided throughout the activity or intermittently. 3-Partial/Moderate Assistance-helper does LESS THAN HALF the effort. [place] lifts, holds or supports trunk or limbs, but provides less than half the effort. 2-Substantial/Maximal Assistance-helper does MORE THAN HALF the effort. [place] lifts or holds trunk or limbs and provides more than half the effort. 1-Sxjervjae-wxhhwa does ALL the effort. Patient does none of the effort to complete the activity. Or, the assistance of 2 or more helpers is required for the patient to complete the activity. If activity was not attempted, code reason: 7-Patient Refused. 9-Not Applicable-not attempted and the patient did not perform the activity befo re the current illness, exacerbation or injury. 10-Not Attempted due to Environmental Limitations-(lack of equipment, weather re straints, etc.). 88-Not Attempted due to Medical Conditions or Safety Concerns. Sit to Stand (QC): 3 Patient performed sit to stand about 6 times to perform standing activities. UE activity includes cone reaching, digital manipulation, performed with both UE's with full weight on legs. Weight Bearing Right Lower Extremity: Right Full Weight Bearing Left Lower Extremity: Left Full Weight Bearing Exercises Standing: Heel/toe raises, Mini squats Standing Reps: 10 LAQ alternating for 5 min while performing UE cross body activity Treatments PT performed standing, LE strengthening, OT performed UE activities and seated UE activities Assessment Current Status: Fair Progress slowly improving endurance PT Short Term Goals Short Term Goals Time Frame: Sep 16, 2020 Roll Left & Right: 6 Sit to lyin Lying to sitting on side of be: 6 Sit to stand: 4 PT Plastics Sheet Finishing Press Operator Goals [facility] Goals PT [facility] Goals Time Frame: Sep 30, 2020 Roll Left & Right (QC): 6 Sit to Lying (QC): 6 Lying-Sitting on Side/Bed(QC): 6 Sit to Stand (QC): 6 Chair/Qgm-do-Tawnf Xfer(QC): 6 Toilet Transfer (QC): 6 Car Transfer (QC): 6 Does the Patient Walk: No and Walking Goal IS indicated Walk 10 feet (QC): 6 Walk 50ft with 2 Turns (QC): 6 Walk 150 ft (QC): 6 Walking 10ft on Uneven Surface: 6 1 Step (curb) (QC): 6 4 Steps (QC): 6 12 Steps (QC): 9 Picking up an Object (QC): 6 Does the Pt use WC or Scooter?: No Wheel 50 feet with 2 turns (QC: 9 Type: N/A Wheel 150 feet: 9 Type: N/A PT Plan Problem List Problem List: Activity Tolerance, Functional Strength, Safety, Balance, Gait, Transfer, Bed Mobility, ROM Treatment/Plan Treatment Plan: Continue Plan of Care Treatment Plan: Bed Mobility, Education, Functional Activity Luis Manuel, Functional Strength, Group Therapy, Gait, Safety, Therapeutic Exercise, Transfers Treatment Duration: Sep 30, 2020 Frequency: Modified Program (IRF) Estimated Hrs Per Day: 1.5 hours per day Patient and/or Family Agrees t: Yes Safety Risks/Education Patient Education: Correct Positioning, Safety Issues Teaching Recipient: Patient Teaching Methods: Demonstration, Discussion Response to Teaching: Reinforcement Needed Time/GCodes Time In: 1115 Time Out: 1145 Total Billed Treatment Time: 30 Total Billed Treatment 1 visit EX 10' FA 20' OCTAVIO HENDERSON PT Sep 21, 2020 11:51
[2020-09-21 20:00] VITALS: BP 112/67
[2020-09-21] MEDS: MONTELUKAST 10 MG (SINGULAIR) TAB PO SCH (21:26)
[2020-09-21] MEDS: MIRTAZAPINE 15 MG (REMERON) TAB PO SCH (21:26)
[2020-09-21] MEDS: MELATONIN 3 MG TABLET PO SCH (21:27)
[2020-09-22] MEDS: predniSONE 20 MG TAB PO SCH (06:36)
--- NOTE | 2020-09-22 07:19 | PM&R Progress Note ---
Subjective HPI/CC On Admission Date Seen by Provider: Sep 22, 2020 Time Seen by Provider: 14:00 Subjective/Events-last exam 09/22/2020: Patient much improved Lungs remain diminished Working hard Monitor closely 09/21/2020: Pt doing really well Standing a lot now Bowels moved today DC planned for 09/2909/20/2020: Pt doing really well Was able to stand for the first time today and has done is several times today Very proud of this Checked meds and labs Lungs are clear 09/19/2020: Pt doing a little better 4 liters of O2 maintained No SOB when she is resting Overall much improved 09/18/2020: Pt doing really well Remains on four liters No change in her dyspnea Magnesium is normal at 1.8 on supplement Chest X-ray no acute changes Labs good 09/17/2020: Patient in a good mood Slept pretty well last night Check meds and labs 09/16/2020: Patient much improved Getting more more independent No falls No shortness of breath she really exerts herself 09/15/2020: Patient doing very well Much improved Moving around a lot more Oxygen maintained Continue aggressive rehab 09/14/2020: Pt progressing Maintain on 4 liters of oxygen Checked meds and labs No major issues 09/13/2020: Pt doing pretty well No bed almazan use now, only commode 4 liters of O2 Decreasing Prednisone to 40mg daily 09/12/2020: Pt doing really well Four liters of oxygen maintained Very weak Dramatically improved though 09/11/2020: Pt doing pretty well Sleeping now 4 liters of O2 maintained Bowels moved yesterday 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 09/10/2020: Patient improving Now on 4 L of oxygen Uses bedpan still We will monitor closely 09/09/2020: Pt progressing nicely Down to five liters of oxygen Bowels moved on the Much improved 09/08/2020: Pt doing well but Prednisone was 10mg daily, supposed to be 50 so getting that corrected Oxygenation does go down with any activity but actually showed today and did pretty well 09/07/2020: Pt doing pretty well Pulmonary consult today Nose bleed a little bit today Bowels moving On six liters during bed-almazan which seems to help recovery 09/06/2020: Pt doing pretty well Had an episode of SOB in the shower Doing okay now Feels like no other problems are occurring X-ray for picc line to be sure it is functioning adequately 09/05/2020: Pt doing pretty well but having loose stools Eliquis restarted since no nose bleeds Echocardiogram ordered per pulmonology consult Four liters of oxygen maintained Talked about her Scoliosis and restrictive lung disease Patient does not want inhaler or breathing treatment 09/04/2020: Pt doing pretty well Wonders if she should have a continuous pulse-ox and I told her we are monitoring that with frequent spot checks. Chest X-ray ordered for pulmonary consultation She even gets SOB on the bed-almazan Echo was recommended so we will order Review of Systems General: Fatigue Pulmonary: Dyspnea Objective Exam Vital Signs Vital Signs Date Time Temp Pulse Resp B/P (MAP) Pulse Ox O2 Delivery O2 Flow Rate FiO2 09/22/20 21:20 Nasal Cannula 4.00 09/22/20 20:26 93 09/22/20 19:51 36.2 84 20 112/73 (86) Capillary Refill : General Appearance: No Apparent Distress, WD/WN, Chronically ill, Obese HEENT: PERRL/EOMI, Normal ENT Inspection, Pharynx Normal Neck: Full Range of Motion, Normal Inspection, Non Tender, Supple, Carotid Bruit Respiratory: Chest Non Tender, Lungs Clear, No Accessory Muscle Use, No Respiratory Distress, Decreased Breath Sounds Cardiovascular: Regular Rate, Rhythm, No Edema, No Gallop, No JVD, No Murmur, Normal Peripheral Pulses Gastrointestinal: Normal Bowel Sounds, No Organomegaly, No Pulsatile Mass, Non Tender, Soft Back: Normal Inspection, No CVA Tenderness, No Vertebral Tenderness Extremity: Normal Capillary Refill, Normal Inspection, Normal Range of Motion, Non Tender, No Calf Tenderness, No Pedal Edema Neurologic/Psychiatric: Alert, Oriented x3, No Motor/Sensory Deficits, Normal M ood/Affect, bee farmer II-XII Norm as Tested, Motor Weakness (generalized 3/5) Skin: Normal Color, Warm/Dry Lymphatic: No Adenopathy Results/Procedures Lab Patient resulted labs reviewed. FIM Transfers Therapy Code Descriptions/Definitions Functional [place] Measure: 0=Not Assessed/NA 4=Minimal Assistance 1=Total Assistance 5=Supervision or Setup 2=Maximal Assistance 6=Modified [place] 3=Moderate Assistance 7=Complete IndependenceSCALE: Activities may be completed with or without assistive devices. 4-Ddyblbqyuh-gnoejbv completes the activity by him/herself with no assistance from a helper. 5-Set-up or Clean-up Assistance-helper sets up or cleans up; patient completes activity. [place] assists only prior to or following the activity. 4-Supervision or Touching Assistance-helper provides verbal cues and/or touching/steadying and/or contact guard assistance as patient completes activity. Assistance may be provided throughout the activity or intermittently. 3-Partial/Moderate Assistance-helper does LESS THAN HALF the effort. [place] lifts, holds or supports trunk or limbs, but provides less than half the effort. 2-Substantial/Maximal Assistance-helper does MORE THAN HALF the effort. [place] lifts or holds trunk or limbs and provides more than half the effort. 2-Tmlwoesrw-obpbub does ALL the effort. Patient does none of the effort to complete the activity. Or, the assistance of 2 or more helpers is required for the patient to complete the activity. If activity was not attempted, code reason: 7-Patient Refused. 9-Not Applicable-not attempted and the patient did not perform the activity before the current illness, exacerbation or injury. 10-Not Attempted due to Environmental Limitations-(lack of equipment, weather restraints, etc.). 88-Not Attempted due to Medical Conditions or Safety Concerns. Roll Left to Right (QC): 6 Sit to Lying (QC): 6 Sit to Stand (QC): 3 Chair/Osh-oz-Ekjdq Xfer(QC): 4 Car Transfer (QC): 88 Gait Training Does the Patient Walk?: Yes Distance: 30'x4 Walk 10 feet (QC): 4 Walk 50 ft with 2 Turns(QC): 88 Walk 150 ft (QC): 88 Walking 10ft/uneven surface-QC: 88 Gait Persons Needed: 1 Gait Assistive Device: FWW Wheelchair Training Does the Pt Use a Wheelchair?: Yes Wheel 50 ft with 2 turns (QC): 4 Wheel 150 ft (QC): 4 Type of Wheelchair: Manual Stair Training 1 Step (curb) (QC): 88 4 Steps (QC): 88 12 Steps (QC): 88 Balance Picking up an Object (QC): 88 ADL-Treatment Eating (QC): 6 (per clinical judgment) Oral Hygiene (QC): 6 Shower/Bathe Self (QC): 3 Upper Body Dressing (QC): 5 Lower Body Dressing (QC): 4 On/Off Footwear (QC): 5 Toileting Hygiene (QC): 4 Toilet Transfer (QC): 3 Assessment/Plan Assessment and Plan Assess & Plan/Chief Complaint Assessment: COVID-19 pneumonia with ongoing hypoxic respiratory failure Chronic scoliosis back pain History of pain pill addiction Claustrophobia Anxiety Gout Restrictive lung disease Recent pneumomediastinum Thrombocytopenia Anemia Hypokalemia [place]ag Plan: Inpatient rehab protocol Slow therapy 31/08 due to severe hypoxia with exertion due to COVID-19 pneumonia Monitor closely Replace potassium and mag 09/04/2020: Supportive care Pulmonary consultation appreciated Echo Slow taper 09/05/2020: Discontinue breathing treatments since it makes her too shaky Long taper of prednisone 09/06/2020: Supportive care Oxygen supplementation 09/07/2020: Monitor desaturation Supportive care 09/08/2020: Maintain prednisone slow taper Monitor closely Improved 09/09/2020: Supportive care Monitor closely Much improved 09/10/2020: Continue oxygen wean Maintain slow taper prednisone 09/11/2020: Continue to wean oxygen Slow taper prednisone 09/12/20: Maintain prednisone O2 wean 09/13/2020: Supportive care Improving but slowly 09/14/2020: Improving a little bit each day Continue aggressive treatment Oxygen supplementation 09/15/2020: Oxygen maintained Continue aggressive rehab 09/16/2020: Dramatic improvement Continue recovery Maintain oxygen 09/17/2020: Supportive care Check chest x-ray and labs in the morning 09/18/2020: Supportive care Oxygen maintained 09/19/2020: Titrate prednisone down Maintain oxygen 09/20/2020: Decrease prednisone Aggressive therapy 09/21/2020: Continue aggressive physical therapy Much improved status 09/22/2020: Discharge is planned for Friday Wean oxygen if possible (1) COVID-19 JULES ROJAS DO Sep 22, 2020 07:19
[2020-09-22] MEDS: MAGNESIUM OXIDE (MAG-OX)400 MG TAB PO SCH ×2 (07:20→18:15)
[2020-09-22] MEDS: APIXABAN 2.5 MG (ELIQUIS) TABLET PO SCH ×2 (07:20→20:51)
[2020-09-22] MEDS: clonazePAM 1 MG (KlonoPIN) TAB PO SCH ×2 (07:20→20:50)
[2020-09-22] MEDS: ATENOLOL 25 MG (TENORMIN) TAB PO SCH ×3 (07:20→20:50)
[2020-09-22] MEDS: guaiFENesin (MUCINEX) 600 MG TAB PO SCH ×2 (07:20→20:50)
[2020-09-22] MEDS: ASCORBIC ACID (VIT C) 500 MG TABLET PO SCH ×2 (07:20→20:51)
[2020-09-22] MEDS: ROFLUMILAST 500 MCG TAB (DALIRESP) PO SCH (07:20)
[2020-09-22] MEDS: SILDENAFIL 20 MG (REVATIO) TAB NON-FORMULARY PO SCH ×3 (07:20→20:51)
[2020-09-22] MEDS: ALPRAZolam 0.25 MG (XANAX) TAB PO PRN ×2 (07:20→16:31)
[2020-09-22] MEDS: KCL 20 MEQ TAB (K-DUR) PO SCH ×3 (07:20→18:15)
[2020-09-22] MEDS: COLCHICINE 0.6 MG (COLCRYS) TABLET PO SCH (07:20)
[2020-09-22] MEDS: PARoxetine 20 MG (PAXIL) TAB PO SCH (07:20)
[2020-09-22] MEDS: PANTOPRAZOLE 40 MG (PROTONIX) TAB PO SCH (07:20)
[2020-09-22 07:27] VITALS: BP 134/77
--- NOTE | 2020-09-22 09:27 | Physical Therapy Daily Note ---
PT Daily Note-Current Subjective Patient in bed pre tx, agrees to PT, has no complaints of pain. Needs to get dressed and she does it on her own. Will be co-treating with OT to work on more advanced balance and endurance training, patient has severe SOB and O2 drop with activity. Appearance Patient in recliner post tx with nurse call, phone, tray, all needs met. Mental Status Patient Orientation: Normal For Age Attachments: Oxygen Transfers SCALE: Activities may be completed with or without assistive devices. 4-Nzjmismjdw-sfvpznf completes the activity by him/herself with no assistance from a helper. 5-Set-up or Clean-up Assistance-helper sets up or cleans up; patient completes activity. [place] assists only prior to or following the activity. 4-Supervision or Touching Assistance-helper provides verbal cues and/or touching/steadying and/or contact guard assistance as patient completes activity. Assistance may be provided throughout the activity or intermittently. 3-Partial/Moderate Assistance-helper does LESS THAN HALF the effort. [place] lifts, holds or supports trunk or limbs, but provides less than half the effort. 2-Substantial/Maximal Assistance-helper does MORE THAN HALF the effort. [place] lifts or holds trunk or limbs and provides more than half the effort. 7-Muvjrcgrd-bgzlhx does ALL the effort. Patient does none of the effort to complete the activity. Or, the assistance of 2 or more helpers is required for the patient to complete the activity. If activity was not attempted, code reason: 7-Patient Refused. 9-Not Applicable-not attempted and the patient did not perform the activity before the current illness, exacerbation or injury. 10-Not Attempted due to Environmental Limitations-(lack of equipment, weather restraints, etc.). 88-Not Attempted due to Medical Conditions or Safety Concerns. Sit to Stand (QC): 3 Chair/Uwx-xg-Nwhoy Xfer(QC): 4 sit to stand CGA for higher surfaces, min assist from lower surfaces Weight Bearing Right Lower Extremity: Right Full Weight Bearing Left Lower Extremity: Left Full Weight Bearing Gait Training Distance: 30'x6 Walk 10 feet (QC): 4 Gait Assistive Device: FWW slow but steady ambulation, O2 drops into mid 80's but recovers quickly with pur se lip breathing Exercises standing balloon activity, hitting balloon back and forth, working on [place] strength and balance and endurance, UE strength, core strength Treatments PT worked on transfers, ambulation, standing balloon activity, OT worked on UE positioning and safety during activity, balance and UE strengthening during ba lloon activity Assessment Current Status: Fair Progress slowly improving endurance but still needs very frequent rest breaks and fatigues quickly PT Short Term Goals Short Term Goals Time Frame: Sep 16, 2020 Roll Left & Right: 6 Sit to lyin Lying to sitting on side of be: 6 Sit to stand: 4 PT Hydrologic Engineer Goals Hydrologic Engineer Goals PT Residential Goals Time Frame: Sep 30, 2020 Roll Left & Right (QC): 6 Sit to Lying (QC): 6 Lying-Sitting on Side/Bed(QC): 6 Sit to Stand (QC): 6 Chair/Shr-yu-Bkbfc Xfer(QC): 6 Toilet Transfer (QC): 6 Car Transfer (QC): 6 Does the Patient Walk: No and Walking Goal IS indicated Walk 10 feet (QC): 6 Walk 50ft with 2 Turns (QC): 6 Walk 150 ft (QC): 6 Walking 10ft on Uneven Surface: 6 1 Step (curb) (QC): 6 4 Steps (QC): 6 12 Steps (QC): 9 Picking up an Object (QC): 6 Does the Pt use WC or Scooter?: No Wheel 50 feet with 2 turns (QC: 9 Type: N/A Wheel 150 feet: 9 Type: N/A PT Plan Problem List Problem List: Activity Tolerance, Functional Strength, Safety, Balance, Gait, Transfer, Bed Mobility, ROM Treatment/Plan Treatment Plan: Continue Plan of Care Treatment Plan: Bed Mobility, Education, Functional Activity Luis Manuel, Functional Strength, Group Therapy, Gait, Safety, Therapeutic Exercise, Transfers Treatment Duration: Sep 30, 2020 Frequency: Modified Program (IRF) Estimated Hrs Per Day: 1.5 hours per day Patient and/or Family Agrees t: Yes Safety Risks/Education Patient Education: Gait Training, Transfer Techniques, Correct Positioning, Safety Issues Teaching Recipient: Patient Teaching Methods: Demonstration, Discussion Response to Teaching: Reinforcement Needed Time/GCodes Time In: 829 Time Out: 929 Total Billed Treatment Time: 60 Total Billed Treatment 1 visit GT 30' EX 30' OCTAVIO HENDERSON PT Sep 22, 2020 09:27
--- NOTE | 2020-09-22 10:56 | Occupational Ther Daily Note ---
OT Current Status-Daily Note Subjective Pt alert, lying in bed. Pt agrees to therapy. No c/o pain. Mental Status/Objective Patient Orientation: Person, Place, Time, Situation Attachments: Oxygen (4L at rest, 6L with activity) ADL-Treatment 1st session([id number])After set up, pt able to complete dressing by self. 2nd session([id number])Pt agrees to shower. Pt ambulated to bathroom using FWW with CGA. Transferred onto toilet with CGA using grabbars and completed clothing with CGA. Pt completes hygiene sitting on toilet independently. Min A due to low surface for sit to stand from toilet. Pt ambulated to shower with CGA. CGA for shower transfer. Sitting on BSC in shower, pt able to complete shower by self using LH sponge, grabbars and hand held shower by self after set up. After set up, pt able to complete dressing by self. After therapy, pt sitting in recliner with call light/phone in reach. All needs met in room. Therapy Code Descriptions/Definitions Functional [place] Measure: 0=Not Assessed/NA 4=Minimal Assistance 1=Total Assistance 5=Supervision or Setup 2=Maximal Assistance 6=Modified [place] 3=Moderate Assistance 7=Complete IndependenceSCALE: Activities may be completed with or without assistive devices. 2-Zflijzubsq-pifiqhj completes the activity by him/herself with no assistance from a helper. 5-Set-up or Clean-up Assistance-helper sets up or cleans up; patient completes activity. [place] assists only prior to or following the activity. 4-Supervision or Touching Assistance-helper provides verbal cues and/or touching/steadying and/or contact guard assistance as patient completes activity. Assistance may be provided throughout the activity or intermittently. 3-Partial/Moderate Assistance-helper does LESS THAN HALF the effort. [place] lifts, holds or supports trunk or limbs, but provides less than half the effort. 2-Substantial/Maximal Assistance-helper does MORE THAN HALF the effort. [place] lifts or holds trunk or limbs and provides more than half the effort. 6-Alblfbttj-etgify does ALL the effort. Patient does none of the effort to complete the activity. Or, the assistance of 2 or more helpers is required for the patient to complete the activity. If activity was not attempted, code reason: 7-Patient Refused. 9-Not Applicable-not attempted and the patient did not perform the activity before the current illness, exacerbation or injury. 10-Not Attempted due to Environmental Limitations-(lack of equipment, weather restraints, etc.). 88-Not Attempted due to Medical Conditions or Safety Concerns. Shower/Bathe Self (QC): 5 Upper Body Dressing (QC): 5 Lower Body Dressing (QC): 5 On/Off Footwear: 5 Toileting Hygiene (QC): 4 Toilet Transfer (QC): 4 Other Treatment Co-treat with PT ([id number]), skills of 2 clinicians required to increase stamina, decrease fall risk and increase functional mobility. PT focusing on ambulation, transfer and BLE strength while OT focusing on ADLs, functional mobility and B UE strength. Pt ambulated to/from therapy gym with multiple lengthy recovery breaks. Pt's O2 levels drop to 80's then recovery has been progressing. Pt then stood at therapy mat to complete dynamic standing activity 3x's with lengthy breaks between each one. After therapy, pt sitting in recliner with call light/phone in reach. All needs met in room. OT Short Term Goals Short Term Goals Time Frame: Sep 16, 2020 Eatin Oral hygiene: 4 Toileting hygiene: 3 Shower/bathe self: 3 Upper body dressin Lower body dressin Putting on/taking off footwear: 3 OT Sand Caster Goals Longterm Goals Time Frame: Sep 30, 2020 Eating (QC): 6 Oral Hygiene (QC): 6 Toileting Hygiene (QC): 6 Shower/Bathe Self (QC): 4 Upper Body Dressing (QC): 5 Lower Body Dressing (QC): 4 On/Off Footwear (QC): 5 Additional Goals: 1-Demonstrate ADL Tasks, 2-Verbalize Understanding, 3- ImproveStrength/Luis Manuel 1=Demonstrate adherence to instructed precautions during ADL tasks. 2=Patient will verbalize/demonstrate understanding of assistive devices/modifications for ADL. 3=Patient will improve strength/tolerance for activity to enable patient to perform ADL's. OT Education/Plan Problem List/Assessment Assessment: Decreased Activ Tolerance, Decreased UE Strength, Impaired Self- Care Skills Discharge Recommendations Plan/Recommendations: Continue POC Treatment Plan/Plan of Care Patient would benefit from OT for education, treatment and training to promote independence in ADL's, mobility, safety and/or upper extremity function for ADL's. Plan of Care: ADL Retraining, Functional Mobility, UE Funct Exercise/Act Treatment Duration: Sep 30, 2020 Frequency: At least 5 of 7 days/Wk (IRF) Estimated Hrs Per Day: 1.5 hours per day Agreement: Yes Rehab Potential: Good Time/GCodes Start Time: 08:30 (1300) Stop Time: 09:30 (1345) Total Time Billed (hr/min): 105 Billed Treatment Time 1 visit-([id number]) ADL 1 (20 min) FA 3 (40 min) co-treat with PT [id number] 2nd visit-([id number]) ADL 3 (45 min) SAHIL LARSEN Sep 22, 2020 10:56
--- NOTE | 2020-09-22 11:34 | Physical Therapy Daily Note ---
PT Daily Note-Current Subjective Patient in recliner pre tx, agrees to PT, has no complaints of pain. Appearance Patient in recliner post tx with nurse call, phone, tray, all needs met. Mental Status Patient Orientation: Normal For Age Attachments: Oxygen Transfers SCALE: Activities may be completed with or without assistive devices. 6-Wdmaqishbm-zzimmvq completes the activity by him/herself with no assistance from a helper. 5-Set-up or Clean-up Assistance-helper sets up or cleans up; patient completes activity. [place] assists only prior to or following the activity. 4-Supervision or Touching Assistance-helper provides verbal cues and/or touching/steadying and/or contact guard assistance as patient completes activity. Assistance may be provided throughout the activity or intermittently. 3-Partial/Moderate Assistance-helper does LESS THAN HALF the effort. [place] lifts, holds or supports trunk or limbs, but provides less than half the effort. 2-Substantial/Maximal Assistance-helper does MORE THAN HALF the effort. [place] lifts or holds trunk or limbs and provides more than half the effort. 7-Rvoykiovv-rregjo does ALL the effort. Patient does none of the effort to complete the activity. Or, the assistance of 2 or more helpers is required for the patient to complete the activity. If activity was not attempted, code reason: 7-Patient Refused. 9-Not Applicable-not attempted and the patient did not perform the activity before the current illness, exacerbation or injury. 10-Not Attempted due to Environmental Limitations-(lack of equipment, weather restraints, etc.). 88-Not Attempted due to Medical Conditions or Safety Concerns. Sit to Stand (QC): 4 Chair/Xta-ix-Nqtio Xfer(QC): 4 CGA even from slightly lower surfaces Weight Bearing Right Lower Extremity: Right Full Weight Bearing Left Lower Extremity: Left Full Weight Bearing Wheelchair Training Does the Pt Use a Wheelchair?: Yes Wheel 50 ft with 2 turns (QC): 5 Type of Wheelchair: Manual 120'x2 to work on UE strength and endurance Exercises NuStep Minutes: 15 NuStep Workload: 5 Treatments transfers, LE strengthening, WC mobility and UE strength and endurance Assessment Current Status: Fair Progress improved sit to stand PT Short Term Goals Short Term Goals Time Frame: Sep 16, 2020 Roll Left & Right: 6 Sit to lyin Lying to sitting on side of be: 6 Sit to stand: 4 PT Client Application Support Specialist Goals Client Application Support Specialist Goals PT Client Application Support Specialist Goals Time Frame: Sep 30, 2020 Roll Left & Right (QC): 6 Sit to Lying (QC): 6 Lying-Sitting on Side/Bed(QC): 6 Sit to Stand (QC): 6 Chair/Fqp-hd-[place] Xfer(QC): 6 Toilet Transfer (QC): 6 Car Transfer (QC): 6 Does the Patient Walk: No and Walking Goal IS indicated Walk 10 feet (QC): 6 Walk 50ft with 2 Turns (QC): 6 Walk 150 ft (QC): 6 Walking 10ft on Uneven Surface: 6 1 Step (curb) (QC): 6 4 Steps (QC): 6 12 Steps (QC): 9 Picking up an Object (QC): 6 Does the Pt use WC or Scooter?: No Wheel 50 feet with 2 turns (QC: 9 Type: N/A Wheel 150 feet: 9 Type: N/A PT Plan Problem List Problem List: Activity Tolerance, Functional Strength, Safety, Balance, Gait, Transfer, Bed Mobility, ROM Treatment/Plan Treatment Plan: Continue Plan of Care Treatment Plan: Bed Mobility, Education, Functional Activity Luis Manuel, Functional Strength, Group Therapy, Gait, Safety, Therapeutic Exercise, Transfers Treatment Duration: Sep 30, 2020 Frequency: Modified Program (IRF) Estimated Hrs Per Day: 1.5 hours per day Patient and/or Family Agrees t: Yes Safety Risks/Education Patient Education: Transfer Techniques, Correct Positioning, W/C Management, Safety Issues Teaching Recipient: Patient Teaching Methods: Demonstration, Discussion Response to Teaching: Reinforcement Needed Time/GCodes Time In: 1030 Time Out: 1100 Total Billed Treatment Time: 30 Total Billed Treatment 1 visit EX 15' FA 15' OCTAVIO HENDERSON PT Sep 22, 2020 11:34
[2020-09-22] MEDS: LOPERAMIDE 2 MG (IMODIUM) TABLET PO PRN (16:31)
[2020-09-22 17:00] VITALS: BP 110/66
[2020-09-22 19:51] VITALS: BP 112/73
[2020-09-22] MEDS: MONTELUKAST 10 MG (SINGULAIR) TAB PO SCH (20:50)
[2020-09-22] MEDS: MIRTAZAPINE 15 MG (REMERON) TAB PO SCH (20:51)
[2020-09-22] MEDS: MELATONIN 3 MG TABLET PO SCH (20:51)
[2020-09-23] MEDS: predniSONE 20 MG TAB PO SCH (06:45)
[2020-09-23 07:47] VITALS: BP 109/70
[2020-09-23] MEDS: ROFLUMILAST 500 MCG TAB (DALIRESP) PO SCH (08:53)
[2020-09-23] MEDS: clonazePAM 1 MG (KlonoPIN) TAB PO SCH ×2 (08:53→20:03)
[2020-09-23] MEDS: guaiFENesin (MUCINEX) 600 MG TAB PO SCH ×2 (08:53→20:04)
[2020-09-23] MEDS: PANTOPRAZOLE 40 MG (PROTONIX) TAB PO SCH (08:53)
[2020-09-23] MEDS: COLCHICINE 0.6 MG (COLCRYS) TABLET PO SCH (08:53)
[2020-09-23] MEDS: ASCORBIC ACID (VIT C) 500 MG TABLET PO SCH ×2 (08:53→20:04)
[2020-09-23] MEDS: ALPRAZolam 0.25 MG (XANAX) TAB PO PRN ×2 (08:53→17:42)
[2020-09-23] MEDS: PARoxetine 20 MG (PAXIL) TAB PO SCH (08:53)
[2020-09-23] MEDS: MAGNESIUM OXIDE (MAG-OX)400 MG TAB PO SCH ×2 (08:53→17:42)
[2020-09-23] MEDS: APIXABAN 2.5 MG (ELIQUIS) TABLET PO SCH ×2 (08:53→20:05)
[2020-09-23] MEDS: KCL 20 MEQ TAB (K-DUR) PO SCH ×3 (08:55→17:42)
[2020-09-23] MEDS: SILDENAFIL 20 MG (REVATIO) TAB NON-FORMULARY PO SCH ×3 (08:56→20:04)
[2020-09-23] MEDS: ATENOLOL 25 MG (TENORMIN) TAB PO SCH ×2 (08:56→20:05)
--- NOTE | 2020-09-23 11:01 | Physical Therapy Daily Note ---
PT Daily Note-Current Subjective Pt sitting at EOB upon arrival. Pt agrees to PT for walking in hallway. Pain Location: No Pain Reported Mental Status Patient Orientation: Person, Place, Time, Situation Attachments: Oxygen (4L in room & 6L during tx.) Transfers SCALE: Activities may be completed with or without assistive devices. 4-Fquauyaysq-yuciwsg completes the activity by him/herself with no assistance from a helper. 5-Set-up or Clean-up Assistance-helper sets up or cleans up; patient completes activity. [place] assists only prior to or following the activity. 4-Supervision or Touching Assistance-helper provides verbal cues and/or touching/steadying and/or contact guard assistance as patient completes acti vity. Assistance may be provided throughout the activity or intermittently. 3-Partial/Moderate Assistance-helper does LESS THAN HALF the effort. [place] lifts, holds or supports trunk or limbs, but provides less than half the effort. 2-Substantial/Maximal Assistance-helper does MORE THAN HALF the effort. [place] lifts or holds trunk or limbs and provides more than half the effort. 2-Iuckgljvq-zgkovw does ALL the effort. Patient does none of the effort to complete the activity. Or, the assistance of 2 or more helpers is required for the patient to complete the activity. If activity was not attempted, code reason: 7-Patient Refused. 9-Not Applicable-not attempted and the patient did not perform the activity before the current illness, exacerbation or injury. 10-Not Attempted due to Environmental Limitations-(lack of equipment, weather restraints, etc.). 88-Not Attempted due to Medical Conditions or Safety Concerns. Sit to Stand (QC): 4 Weight Bearing Right Lower Extremity: Right Full Weight Bearing Left Lower Extremity: Left Full Weight Bearing Gait Training Does the Patient Walk?: Yes Distance: 150' Walk 10 feet (QC): 5 Walk 50 ft with 2 Turns(QC): 5 Walk 150 ft (QC): 5 Gait Persons Needed: 1 Gait Assistive Device: FWW O2 monitored when pt rests as O2 drops into 70's with exertion but quickly recovers. Treatments TF from EOB to standing. Pt amb. in hallway with several RB as needed. O2 is monitored during tx and pt quickly recovers each RB. Pt returns to room to rest in recliner at end of tx with all needs met, call light in hand. Assessment Current Status: Good Progress Pt fatigues quickly and needs RB to recover. PT Short Term Goals Short Term Goals Time Frame: Sep 16, 2020 Roll Left & Right: 6 Sit to lyin Lying to sitting on side of be: 6 Sit to stand: 4 PT Electrotype Servicer Goals Electrotype Servicer Goals PT Electrotype Servicer Goals Time Frame: Sep 30, 2020 Roll Left & Right (QC): 6 Sit to Lying (QC): 6 Lying-Sitting on Side/Bed(QC): 6 Sit to Stand (QC): 6 Chair/Wxv-ld-Trzxm Xfer(QC): 6 Toilet Transfer (QC): 6 Car Transfer (QC): 6 Does the Patient Walk: No and Walking Goal IS indicated Walk 10 feet (QC): 6 Walk 50ft with 2 Turns (QC): 6 Walk 150 ft (QC): 6 Walking 10ft on Uneven Surface: 6 1 Step (curb) (QC): 6 4 Steps (QC): 6 12 Steps (QC): 9 Picking up an Object (QC): 6 Does the Pt use WC or Scooter?: No Wheel 50 feet with 2 turns (QC: 9 Type: N/A Wheel 150 feet: 9 Type: N/A PT Plan Problem List Problem List: Activity Tolerance, Gait Treatment/Plan Treatment Plan: Continue Plan of Care Treatment Plan: Bed Mobility, Education, Functional Activity Luis Manuel, Functional Strength, Group Therapy, Gait, Safety, Therapeutic Exercise, Transfers Treatment Duration: Sep 30, 2020 Frequency: Modified Program (IRF) Estimated Hrs Per Day: 1.5 hours per day Patient and/or Family Agrees t: Yes Safety Risks/Education Patient Education: Gait Training Teaching Recipient: Patient Teaching Methods: Discussion Response to Teaching: Verbalize Understanding Time/GCodes Time In: 930 Time Out: 1000 Total Billed Treatment Time: 30 Total Billed Treatment 1, GT x2 (30m) JOSHUA CRANDALL FELT PAD CUTTER Sep 23, 2020 11:01
--- NOTE | 2020-09-23 11:45 | PM&R Progress Note ---
Subjective HPI/CC On Admission Date Seen by Provider: Sep 23, 2020 Time Seen by Provider: 12:00 Subjective/Events-last exam 09/23/2020: Patient doing really well Bowels moved on 09/22/2020 Getting more active Feels really good about discharge plan for Friday09/22/2020: Patient much improved Lungs remain diminished Working hard Monitor closely 09/21/2020: Pt doing really well Standing a lot now Bowels moved today DC planned for 09/2909/20/2020: Pt doing really well Was able to stand for the first time today and has done is several times today Very proud of this Checked meds and labs Lungs are clear 09/19/2020: Pt doing a little better 4 liters of O2 maintained No SOB when she is resting Overall much improved 09/18/2020: Pt doing really well Remains on four liters No change in her dyspnea Magnesium is normal at 1.8 on supplement Chest X-ray no acute changes Labs good 09/17/2020: Patient in a good mood Slept pretty well last night Check meds and labs 09/16/2020: Patient much improved Getting more more independent No falls No shortness of breath she really exerts herself 09/15/2020: Patient doing very well Much improved Moving around a lot more Oxygen maintained Continue aggressive rehab 09/14/2020: Pt progressing Maintain on 4 liters of oxygen Checked meds and labs No major issues 09/13/2020: Pt doing pretty well No bed almazan use now, only commode 4 liters of O2 Decreasing Prednisone to 40mg daily 09/12/2020: Pt doing really well Four liters of oxygen maintained Very weak Dramatically improved though 09/11/2020: Pt doing pretty well Sleeping now 4 liters of O2 maintained Bowels moved yesterday 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 09/10/2020: Patient improving Now on 4 L of oxygen Uses bedpan still We will monitor closely 09/09/2020: Pt progressing nicely Down to five liters of oxygen Bowels moved on the Much improved 09/08/2020: Pt doing well but Prednisone was 10mg daily, supposed to be 50 so getting that corrected Oxygenation does go down with any activity but actually showed today and did pretty well 09/07/2020: Pt doing pretty well Pulmonary consult today Nose bleed a little bit today Bowels moving On six liters during bed-almazan which seems to help recovery 09/06/2020: Pt doing pretty well Had an episode of SOB in the shower Doing okay now Feels like no other problems are occurring X-ray for picc line to be sure it is functioning adequately 09/05/2020: Pt doing pretty well but having loose stools Eliquis restarted since no nose bleeds Echocardiogram ordered per pulmonology consult Four liters of oxygen maintained Talked about her Scoliosis and restrictive lung disease Patient does not want inhaler or breathing treatment 09/04/2020: Pt doing pretty well Wonders if she should have a continuous pulse-ox and I told her we are monitoring that with frequent spot checks. Chest X-ray ordered for pulmonary consultation She even gets SOB on the bed-almazan Echo was recommended so we will order Review of Systems Pulmonary: Dyspnea Objective Exam Vital Signs Vital Signs Date Time Temp Pulse Resp B/P (MAP) Pulse Ox O2 Delivery O2 Flow Rate FiO2 09/24/20 07:27 High Flow N/C 4.00 09/23/20 19:38 36.0 98 20 113/76 (88) 94 Capillary Refill : General Appearance: No Apparent Distress, WD/WN, Chronically ill, Obese HEENT: PERRL/EOMI, Normal ENT Inspection, Pharynx Normal Neck: Full Range of Motion, Normal Inspection, Non Tender, Supple, Carotid Bruit Respiratory: Chest Non Tender, Lungs Clear, No Accessory Muscle Use, No Respiratory Distress, Decreased Breath Sounds Cardiovascular: Regular Rate, Rhythm, No Edema, No Gallop, No JVD, No Murmur, Normal Peripheral Pulses Gastrointestinal: Normal Bowel Sounds, No Organomegaly, No Pulsatile Mass, Non Tender, Soft Back: Normal Inspection, No CVA Tenderness, No Vertebral Tenderness Extremity: Normal Capillary Refill, Normal Inspection, Normal Range of Motion, Non Tender, No Calf Tenderness, No Pedal Edema Neurologic/Psychiatric: Alert, Oriented x3, No Motor/Sensory Deficits, Normal 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 FIM Transfers Therapy Code Descriptions/Definitions Functional [place] Measure: 0=Not Assessed/NA 4=Minimal Assistance 1=Total Assistance 5=Supervision or Setup 2=Maximal Assistance 6=Modified [place] 3=Moderate Assistance 7=Complete IndependenceSCALE: Activities may be completed with or without assistive devices. 9-Uaaitneloy-kyvowfe completes the activity by him/herself with no assistance from a helper. 5-Set-up or Clean-up Assistance-helper sets up or cleans up; patient completes activity. [place] assists only prior to or following the activity. 4-Supervision or Touching Assistance-helper provides verbal cues and/or touching/steadying and/or contact guard assistance as patient completes activity. Assistance may be provided throughout the activity or intermittently. 3-Partial/Moderate Assistance-helper does LESS THAN HALF the effort. [place] lifts, holds or supports trunk or limbs, but provides less than half the effort. 2-Substantial/Maximal Assistance-helper does MORE THAN HALF the effort. [place] lifts or holds trunk or limbs and provides more than half the effort. 5-Ugeswdqkz-lnziuv does ALL the effort. Patient does none of the effort to complete the activity. Or, the assistance of 2 or more helpers is required for the patient to complete the activity. If activity was not attempted, code reason: 7-Patient Refused. 9-Not Applicable-not attempted and the patient did not perform the activity before the current illness, exacerbation or injury. 10-Not Attempted due to Environmental Limitations-(lack of equipment, weather restraints, etc.). 88-Not Attempted due to Medical Conditions or Safety Concerns. Roll Left to Right (QC): 6 Sit to Lying (QC): 6 Sit to Stand (QC): 4 Chair/Dnx-ra-Stzje Xfer(QC): 4 Car Transfer (QC): 88 Gait Training Does the Patient Walk?: Yes Distance: 150' Walk 10 feet (QC): 5 Walk 50 ft with 2 Turns(QC): 5 Walk 150 ft (QC): 5 Walking 10ft/uneven surface-QC: 88 Gait Persons Needed: 1 Gait Assistive Device: FWW Wheelchair Training Does the Pt Use a Wheelchair?: Yes Wheel 50 ft with 2 turns (QC): 5 Wheel 150 ft (QC): 4 Type of Wheelchair: Manual Stair Training 1 Step (curb) (QC): 88 4 Steps (QC): 88 12 Steps (QC): 88 Balance Picking up an Object (QC): 88 ADL-Treatment Eating (QC): 6 (per clinical judgment) Oral Hygiene (QC): 6 Shower/Bathe Self (QC): 5 Upper Body Dressing (QC): 5 Lower Body Dressing (QC): 5 On/Off Footwear (QC): 5 Toileting Hygiene (QC): 4 Toilet Transfer (QC): 4 Assessment/Plan Assessment and Plan Assess & Plan/Chief Complaint Assessment: COVID-19 pneumonia with ongoing hypoxic respiratory failure Chronic scoliosis back pain History of pain pill addiction Claustrophobia Anxiety Gout Restrictive lung disease Recent pneumomediastinum Thrombocytopenia Anemia Hypokalemia Hypomag Plan: Inpatient rehab protocol Slow therapy 31/08 due to severe hypoxia with exertion due to COVID-19 pneumonia Monitor closely Replace potassium and mag 09/04/2020: Supportive care Pulmonary consultation appreciated Echo Slow taper 09/05/2020: Discontinue breathing treatments since it makes her too shaky Long taper of prednisone 09/06/2020: Supportive care Oxygen supplementation 09/07/2020: Monitor desaturation Supportive care 09/08/2020: Maintain prednisone slow taper Monitor closely Improved 09/09/2020: Supportive care Monitor closely Much improved 09/10/2020: Continue oxygen wean Maintain slow taper prednisone 09/11/2020: Continue to wean oxygen Slow taper prednisone 09/12/20: Maintain prednisone O2 wean 09/13/2020: Supportive care Improving but slowly 09/14/2020: Improving a little bit each day Continue aggressive treatment Oxygen supplementation 09/15/2020: Oxygen maintained Continue aggressive rehab 09/16/2020: Dramatic improvement Continue recovery Maintain oxygen 09/17/2020: Supportive care Check chest x-ray and labs in the morning 09/18/2020: Supportive care Oxygen maintained 09/19/2020: Titrate prednisone down Maintain oxygen 09/20/2020: Decrease prednisone Aggressive therapy 09/21/2020: Continue aggressive physical therapy Much improved status 09/22/2020: Discharge is planned for Friday Wean oxygen if possible 09/23/2020: Supportive care Long steroid taper dose Discussed vaccine (1) COVID-19 JULES ROJAS DO Sep 23, 2020 11:45
[2020-09-23 19:38] VITALS: BP 113/76
[2020-09-23] MEDS: MONTELUKAST 10 MG (SINGULAIR) TAB PO SCH (20:05)
[2020-09-23] MEDS: HYDROcodone/APAP 5 MG/325 MG (LORTAB) TAB PO PRN (20:05)
[2020-09-23] MEDS: MELATONIN 3 MG TABLET PO SCH (20:05)
[2020-09-23] MEDS: MIRTAZAPINE 15 MG (REMERON) TAB PO SCH (20:05)
[2020-09-24] MEDS: predniSONE 20 MG TAB PO SCH (06:37)
[2020-09-24 08:00] VITALS: BP 115/60
[2020-09-24] MEDS: clonazePAM 1 MG (KlonoPIN) TAB PO SCH ×2 (08:56→20:11)
[2020-09-24] MEDS: guaiFENesin (MUCINEX) 600 MG TAB PO SCH ×2 (08:56→20:11)
[2020-09-24] MEDS: COLCHICINE 0.6 MG (COLCRYS) TABLET PO SCH (08:56)
[2020-09-24] MEDS: MAGNESIUM OXIDE (MAG-OX)400 MG TAB PO SCH ×2 (08:56→16:55)
[2020-09-24] MEDS: KCL 20 MEQ TAB (K-DUR) PO SCH ×3 (08:56→16:55)
[2020-09-24] MEDS: APIXABAN 2.5 MG (ELIQUIS) TABLET PO SCH ×2 (08:56→20:11)
[2020-09-24] MEDS: PANTOPRAZOLE 40 MG (PROTONIX) TAB PO SCH (08:56)
[2020-09-24] MEDS: ATENOLOL 25 MG (TENORMIN) TAB PO SCH ×2 (08:56→20:11)
[2020-09-24] MEDS: ROFLUMILAST 500 MCG TAB (DALIRESP) PO SCH (08:56)
[2020-09-24] MEDS: SILDENAFIL 20 MG (REVATIO) TAB NON-FORMULARY PO SCH ×3 (08:56→20:11)
[2020-09-24] MEDS: PARoxetine 20 MG (PAXIL) TAB PO SCH (08:56)
[2020-09-24] MEDS: ASCORBIC ACID (VIT C) 500 MG TABLET PO SCH ×2 (08:56→20:11)
--- NOTE | 2020-09-24 13:45 | PM&R Progress Note ---
Subjective HPI/CC On Admission Date Seen by Provider: Sep 24, 2020 Time Seen by Provider: 12:00 Subjective/Events-last exam 09/24/2020: Patient in a good mood today Getting excited about going home on Friday No issues Requiring 4-6 L/min oxygen 09/23/2020: Patient doing really well Bowels moved on 09/22/2020 Getting more active Feels really good about discharge plan for Friday09/22/2020: Patient much improved Lungs remain diminished Working hard Monitor closely 09/21/2020: Pt doing really well Standing a lot now Bowels moved today DC planned for 09/2909/20/2020: Pt doing really well Was able to stand for the first time today and has done is several times today Very proud of this Checked meds and labs Lungs are clear 09/19/2020: Pt doing a little better 4 liters of O2 maintained No SOB when she is resting Overall much improved 09/18/2020: Pt doing really well Remains on four liters No change in her dyspnea Magnesium is normal at 1.8 on supplement Chest X-ray no acute changes Labs good 09/17/2020: Patient in a good mood Slept pretty well last night Check meds and labs 09/16/2020: Patient much improved Getting more more independent No falls No shortness of breath she really exerts herself 09/15/2020: Patient doing very well Much improved Moving around a lot more Oxygen maintained Continue aggressive rehab 09/14/2020: Pt progressing Maintain on 4 liters of oxygen Checked meds and labs No major issues 09/13/2020: Pt doing pretty well No bed almazan use now, only commode 4 liters of O2 Decreasing Prednisone to 40mg daily 09/12/2020: Pt doing really well Four liters of oxygen maintained Very weak Dramatically improved though 09/11/2020: Pt doing pretty well Sleeping now 4 liters of O2 maintained Bowels moved yesterday 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 09/10/2020: Patient improving Now on 4 L of oxygen Uses bedpan still We will monitor closely 09/09/2020: Pt progressing nicely Down to five liters of oxygen Bowels moved on the Much improved 09/08/2020: Pt doing well but Prednisone was 10mg daily, supposed to be 50 so getting that corrected Oxygenation does go down with any activity but actually showed today and did pretty well 09/07/2020: Pt doing pretty well Pulmonary consult today Nose bleed a little bit today Bowels moving On six liters during bed-almazan which seems to help recovery 09/06/2020: Pt doing pretty well Had an episode of SOB in the shower Doing okay now Feels like no other problems are occurring X-ray for picc line to be sure it is functioning adequately 09/05/2020: Pt doing pretty well but having loose stools Eliquis restarted since no nose bleeds Echocardiogram ordered per pulmonology consult Four liters of oxygen maintained Talked about her Scoliosis and restrictive lung disease Patient does not want inhaler or breathing treatment 09/04/2020: Pt doing pretty well Wonders if she should have a continuous pulse-ox and I told her we are monitoring that with frequent spot checks. Chest X-ray ordered for pulmonary consultation She even gets SOB on the bed-almazan Echo was recommended so we will order Review of Systems General: Fatigue Pulmonary: Dyspnea Objective Exam Vital Signs Vital Signs Date Time Temp Pulse Resp B/P (MAP) Pulse Ox O2 Delivery O2 Flow Rate FiO2 09/24/20 20:09 36.4 87 22 122/66 (84) 90 Nasal Cannula 4.00 Capillary Refill : General Appearance: No Apparent Distress, WD/WN, Chronically ill, Obese HEENT: PERRL/EOMI, Normal ENT Inspection, Pharynx Normal Neck: Full Range of Motion, Normal Inspection, Non Tender, Supple, Carotid Brui t Respiratory: Chest Non Tender, Lungs Clear, No Accessory Muscle Use, No Respiratory Distress, Decreased Breath Sounds Cardiovascular: Regular Rate, Rhythm, No Edema, No Gallop, No JVD, No Murmur, Normal Peripheral Pulses Gastrointestinal: Normal Bowel Sounds, No Organomegaly, No Pulsatile Mass, Non Tender, Soft Back: Normal Inspection, No CVA Tenderness, No Vertebral Tenderness Extremity: Normal Capillary Refill, Normal Inspection, Normal Range of Motion, Non Tender, No Calf Tenderness, No Pedal Edema Neurologic/Psychiatric: Alert, Oriented x3, No Motor/Sensory Deficits, Normal Mood/Affect, pattern marker II-XII Norm as Tested, Motor Weakness (generalized 3/5) Skin: Normal Color, Warm/Dry Lymphatic: No Adenopathy Results/Procedures Lab Patient resulted labs reviewed. FIM Transfers Therapy Code Descriptions/Definitions Functional [place] Measure: 0=Not Assessed/NA 4=Minimal Assistance 1=Total Assistance 5=Supervision or Setup 2=Maximal Assistance 6=Modified [place] 3=Moderate Assistance 7=Complete IndependenceSCALE: Activities may be completed with or without assistive devices. 0-Anffnmkoht-dtwmufe completes the activity by him/herself with no assistance from a helper. 5-Set-up or Clean-up Assistance-helper sets up or cleans up; patient completes activity. [place] assists only prior to or following the activity. 4-Supervision or Touching Assistance-helper provides verbal cues and/or touching/steadying and/or contact guard assistance as patient completes activity. Assistance may be provided throughout the activity or intermittently. 3-Partial/Moderate Assistance-helper does LESS THAN HALF the effort. [place] lifts, holds or supports trunk or limbs, but provides less than half the effort. 2-Substantial/Maximal Assistance-helper does MORE THAN HALF the effort. [place] lifts or holds trunk or limbs and provides more than half the effort. 3-Ipgeizikh-fyoihz does ALL the effort. Patient does none of the effort to complete the activity. Or, the assistance of 2 or more helpers is required for the patient to complete the activity. If activity was not attempted, code reason: 7-Patient Refused. 9-Not Applicable-not attempted and the patient did not perform the activity before the current illness, exacerbation or injury. 10-Not Attempted due to Environmental Limitations-(lack of equipment, weather restraints, etc.). 88-Not Attempted due to Medical Conditions or Safety Concerns. Roll Left to Right (QC): 6 Sit to Lying (QC): 6 Sit to Stand (QC): 4 Chair/Kwv-tz-Kpwfc Xfer(QC): 4 Car Transfer (QC): 88 Gait Training Does the Patient Walk?: Yes Distance: 150' Walk 10 feet (QC): 5 Walk 50 ft with 2 Turns(QC): 5 Walk 150 ft (QC): 5 Walking 10ft/uneven surface-QC: 88 Gait Persons Needed: 1 Gait Assistive Device: FWW Wheelchair Training Does the Pt Use a Wheelchair?: Yes Wheel 50 ft with 2 turns (QC): 5 Wheel 150 ft (QC): 4 Type of Wheelchair: Manual Stair Training 1 Step (curb) (QC): 88 4 Steps (QC): 88 12 Steps (QC): 88 Balance Picking up an Object (QC): 88 ADL-Treatment Eating (QC): 6 (per clinical judgment) Oral Hygiene (QC): 6 Shower/Bathe Self (QC): 5 Upper Body Dressing (QC): 5 Lower Body Dressing (QC): 5 On/Off Footwear (QC): 5 Toileting Hygiene (QC): 4 Toilet Transfer (QC): 4 Assessment/Plan Assessment and Plan Assess & Plan/Chief Complaint Assessment: COVID-19 pneumonia with ongoing hypoxic respiratory failure Chronic scoliosis back pain History of pain pill addiction Claustrophobia Anxiety Gout Restrictive lung disease Recent pneumomediastinum Thrombocytopenia Anemia Hypokalemia Hypomag Plan: Inpatient rehab protocol Slow therapy 31/08 due to severe hypoxia with exertion due to COVID-19 pneumonia Monitor closely Replace potassium and mag 09/04/2020: Supportive care Pulmonary consultation appreciated Echo Slow taper 09/05/2020: Discontinue breathing treatments since it makes her too shaky Long taper of prednisone 09/06/2020: Supportive care Oxygen supplementation 09/07/2020: Monitor desaturation Supportive care 09/08/2020: Maintain prednisone slow taper Monitor closely Improved 09/09/2020: Supportive care Monitor closely Much improved 09/10/2020: Continue oxygen wean Maintain slow taper prednisone 09/11/2020: Continue to wean oxygen Slow taper prednisone 09/12/20: Maintain prednisone O2 wean 09/13/2020: Supportive care Improving but slowly 09/14/2020: Improving a little bit each day Continue aggressive treatment Oxygen supplementation 09/15/2020: Oxygen maintained Continue aggressive rehab 09/16/2020: Dramatic improvement Continue recovery Maintain oxygen 09/17/2020: Supportive care Check chest x-ray and labs in the morning 09/18/2020: Supportive care Oxygen maintained 09/19/2020: Titrate prednisone down Maintain oxygen 09/20/2020: Decrease prednisone Aggressive therapy 09/21/2020: Continue aggressive physical therapy Much improved status 09/22/2020: Discharge is planned for Friday Wean oxygen if possible 09/23/2020: Supportive care Long steroid taper dose Discussed vaccine 09/24/2020: Supportive care Oxygen supplementation (1) COVID-19 JULES ROJAS DO Sep 24, 2020 13:45
[2020-09-24] MEDS: ALPRAZolam 0.25 MG (XANAX) TAB PO PRN (16:55)
[2020-09-24 20:09] VITALS: BP 122/66
[2020-09-24] MEDS: LOPERAMIDE 2 MG (IMODIUM) TABLET PO PRN (20:11)
[2020-09-24] MEDS: MONTELUKAST 10 MG (SINGULAIR) TAB PO SCH (20:11)
[2020-09-24] MEDS: MIRTAZAPINE 15 MG (REMERON) TAB PO SCH (20:11)
[2020-09-24] MEDS: MELATONIN 3 MG TABLET PO SCH (20:12)
[2020-09-25 04:48] LABS: BASOPHILS % (AUTO) 0 % (0-10); EOSINOPHILS # (AUTO) 0.4 10^3/uL (0.0-0.3); EOSINOPHILS % (AUTO) 3 % (0-10); HEMATOCRIT 36 % (35-52); HEMOGLOBIN 11.1 g/dL (11.5-16.0); LYMPHOCYTES # (AUTO) 3.3 10^3/uL (1.0-4.0); LYMPHOCYTES % (AUTO) 32 % (12-44); MEAN CORPUSCULAR HEMOGLOBIN 31 pg (25-34); MEAN CORPUSCULAR HGB CONC 31 g/dL (32-36); MEAN CORPUSCULAR VOLUME 101 fL (80-99); MEAN PLATELET VOLUME 9.2 fL (9.0-12.2); MONOCYTES # (AUTO) 0.9 10^3/uL (0.0-1.0); MONOCYTES % (AUTO) 9 % (0-12); NEUTROPHILS # (AUTO) 5.7 10^3/uL (1.8-7.8); NEUTROPHILS % (AUTO) 55 % (42-75); PLATELET COUNT 227 10^3/uL (130-400); WHITE BLOOD COUNT 10.4 10^3/uL (4.3-11.0)
[2020-09-25 05:00] LABS: ALBUMIN 3.5 GM/DL (3.2-4.5); POTASSIUM 4.3 MMOL/L (3.6-5.0)
[2020-09-25 05:01] LABS: CALCIUM 9.2 MG/DL (8.5-10.1)
[2020-09-25 05:03] LABS: TOTAL PROTEIN 5.9 GM/DL (6.4-8.2)
[2020-09-25 05:04] LABS: BILIRUBIN,TOTAL 0.3 MG/DL (0.1-1.0)
[2020-09-25 05:06] LABS: CREATININE SERUM 0.59 MG/DL (0.60-1.30)
[2020-09-25] MEDS: predniSONE 20 MG TAB PO SCH (06:31)
[2020-09-25 07:25] VITALS: BP 107/56
[2020-09-25] MEDS: SILDENAFIL 20 MG (REVATIO) TAB NON-FORMULARY PO SCH ×3 (08:00→21:37)
[2020-09-25] MEDS: ASCORBIC ACID (VIT C) 500 MG TABLET PO SCH ×2 (08:00→21:36)
[2020-09-25] MEDS: ROFLUMILAST 500 MCG TAB (DALIRESP) PO SCH (08:00)
[2020-09-25] MEDS: KCL 20 MEQ TAB (K-DUR) PO SCH ×3 (08:00→17:31)
[2020-09-25] MEDS: COLCHICINE 0.6 MG (COLCRYS) TABLET PO SCH (08:00)
[2020-09-25] MEDS: MAGNESIUM OXIDE (MAG-OX)400 MG TAB PO SCH ×2 (08:00→17:31)
[2020-09-25] MEDS: PANTOPRAZOLE 40 MG (PROTONIX) TAB PO SCH (08:00)
[2020-09-25] MEDS: clonazePAM 1 MG (KlonoPIN) TAB PO SCH ×2 (08:00→21:36)
[2020-09-25] MEDS: guaiFENesin (MUCINEX) 600 MG TAB PO SCH ×2 (08:00→21:36)
[2020-09-25] MEDS: APIXABAN 2.5 MG (ELIQUIS) TABLET PO SCH ×2 (08:00→21:37)
[2020-09-25] MEDS: PARoxetine 20 MG (PAXIL) TAB PO SCH (08:00)
[2020-09-25] MEDS: ATENOLOL 25 MG (TENORMIN) TAB PO SCH ×2 (08:01→21:37)
[2020-09-25] MEDS: ALPRAZolam 0.25 MG (XANAX) TAB PO PRN ×2 (08:03→17:31)
--- NOTE | 2020-09-25 09:39 | PM&R Progress Note ---
Subjective HPI/CC On Admission Date Seen by Provider: Sep 25, 2020 Time Seen by Provider: 10:00 Subjective/Events-last exam 09/25/2020: Pt doing really well Bowels moved yesterday Maintain on oxygen Walks around pretty well DC on Friday09/24/2020: Patient in a good mood today Getting excited about going home on Friday No issues Requiring 4-6 L/min oxygen 09/23/2020: Patient doing really well Bowels moved on 09/22/2020 Getting more active Feels really good about discharge plan for Friday09/22/2020: Patient much improved Lungs remain diminished Working hard Monitor closely 09/21/2020: Pt doing really well Standing a lot now Bowels moved today DC planned for 09/2909/20/2020: Pt doing really well Was able to stand for the first time today and has done is several times today Very proud of this Checked meds and labs Lungs are clear 09/19/2020: Pt doing a little better 4 liters of O2 maintained No SOB when she is resting Overall much improved 09/18/2020: Pt doing really well Remains on four liters No change in her dyspnea Magnesium is normal at 1.8 on supplement Chest X-ray no acute changes Labs good 09/17/2020: Patient in a good mood Slept pretty well last night Check meds and labs 09/16/2020: Patient much improved Getting more more independent No falls No shortness of breath she really exerts herself 09/15/2020: Patient doing very well Much improved Moving around a lot more Oxygen maintained Continue aggressive rehab 09/14/2020: Pt progressing Maintain on 4 liters of oxygen Checked meds and labs No major issues 09/13/2020: Pt doing pretty well No bed almazan use now, only commode 4 liters of O2 Decreasing Prednisone to 40mg daily 09/12/2020: Pt doing really well Four liters of oxygen maintained Very weak Dramatically improved though 09/11/2020: Pt doing pretty well Sleeping now 4 liters of O2 maintained Bowels moved yesterday 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 09/10/2020: Patient improving Now on 4 L of oxygen Uses bedpan still We will monitor closely 09/09/2020: Pt progressing nicely Down to five liters of oxygen Bowels moved on the Much improved 09/08/2020: Pt doing well but Prednisone was 10mg daily, supposed to be 50 so getting that corrected Oxygenation does go down with any activity but actually showed today and did pretty well 09/07/2020: Pt doing pretty well Pulmonary consult today Nose bleed a little bit today Bowels moving On six liters during bed-almazan which seems to help recovery 09/06/2020: Pt doing pretty well Had an episode of SOB in the shower Doing okay now Feels like no other problems are occurring X-ray for picc line to be sure it is functioning adequately 09/05/2020: Pt doing pretty well but having loose stools Eliquis restarted since no nose bleeds Echocardiogram ordered per pulmonology consult Four liters of oxygen maintained Talked about her Scoliosis and restrictive lung disease Patient does not want inhaler or breathing treatment 09/04/2020: Pt doing pretty well Wonders if she should have a continuous pulse-ox and I told her we are monitoring that with frequent spot checks. Chest X-ray ordered for pulmonary consultation She even gets SOB on the bed-almazan Echo was recommended so we will order Review of Systems General: Fatigue Neurological: Weakness, Incoordination Objective Exam Vital Signs Vital Signs Date Time Temp Pulse Resp B/P (MAP) Pulse Ox O2 Delivery O2 Flow Rate FiO2 09/25/20 21:00 Nasal Cannula 3.00 09/25/20 20:07 36.5 88 18 112/68 (83) 98 Capillary Refill : General Appearance: No Apparent Distress, WD/WN, Chronically ill, Obese HEENT: PERRL/EOMI, Normal ENT Inspection, Pharynx Normal Neck: Full Range of Motion, Normal Inspection, Non Tender, Supple, Carotid Bruit Respiratory: Chest Non Tender, Lungs Clear, No Accessory Muscle Use, No Res piratory Distress, Decreased Breath Sounds Cardiovascular: Regular Rate, Rhythm, No Edema, No Gallop, No JVD, No Murmur, Normal Peripheral Pulses Gastrointestinal: Normal Bowel Sounds, No Organomegaly, No Pulsatile Mass, Non Tender, Soft Back: Normal Inspection, No CVA Tenderness, No Vertebral Tenderness Extremity: Normal Capillary Refill, Normal Inspection, Normal Range of Motion, Non Tender, No Calf Tenderness, No Pedal Edema Neurologic/Psychiatric: Alert, Oriented x3, No Motor/Sensory Deficits, Normal 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 FIM Transfers Therapy Code Descriptions/Definitions Functional [place] Measure: 0=Not Assessed/NA 4=Minimal Assistance 1=Total Assistance 5=Supervision or Setup 2=Maximal Assistance 6=Modified [place] 3=Moderate Assistance 7=Complete IndependenceSCALE: Activities may be completed with or without assistive devices. 6-Wxdfomojly-schhupd completes the activity by him/herself with no assistance from a helper. 5-Set-up or Clean-up Assistance-helper sets up or cleans up; patient completes activity. [place] assists only prior to or following the activity. 4-Supervision or Touching Assistance-helper provides verbal cues and/or touching/steadying and/or contact guard assistance as patient completes activity. Assistance may be provided throughout the activity or intermittently. 3-Partial/Moderate Assistance-helper does LESS THAN HALF the effort. [place] lifts, holds or supports trunk or limbs, but provides less than half the effort. 2-Substantial/Maximal Assistance-helper does MORE THAN HALF the effort. [place] lifts or holds trunk or limbs and provides more than half the effort. 6-Lrsdglqkv-nwcpak does ALL the effort. Patient does none of the effort to complete the activity. Or, the assistance of 2 or more helpers is required for the patient to complete the activity. If activity was not attempted, code reason: 7-Patient Refused. 9-Not Applicable-not attempted and the patient did not perform the activity before the current illness, exacerbation or injury. 10-Not Attempted due to Environmental Limitations-(lack of equipment, weather restraints, etc.). 88-Not Attempted due to Medical Conditions or Safety Concerns. Roll Left to Right (QC): 6 Sit to Lying (QC): 6 Sit to Stand (QC): 4 Chair/Rlv-tl-Tfmae Xfer(QC): 4 Car Transfer (QC): 88 Gait Training Does the Patient Walk?: Yes Distance: 150' Walk 10 feet (QC): 5 Walk 50 ft with 2 Turns(QC): 5 Walk 150 ft (QC): 5 Walking 10ft/uneven surface-QC: 88 Gait Persons Needed: 1 Gait Assistive Device: FWW Wheelchair Training Does the Pt Use a Wheelchair?: Yes Wheel 50 ft with 2 turns (QC): 5 Wheel 150 ft (QC): 4 Type of Wheelchair: Manual Stair Training 1 Step (curb) (QC): 88 4 Steps (QC): 88 12 Steps (QC): 88 Balance Picking up an Object (QC): 88 ADL-Treatment Eating (QC): 6 (per clinical judgment) Oral Hygiene (QC): 6 Shower/Bathe Self (QC): 5 Upper Body Dressing (QC): 5 Lower Body Dressing (QC): 5 On/Off Footwear (QC): 5 Toileting Hygiene (QC): 4 Toilet Transfer (QC): 4 Assessment/Plan Assessment and Plan Assess & Plan/Chief Complaint Assessment: COVID-19 pneumonia with ongoing hypoxic respiratory failure Chronic scoliosis back pain History of pain pill addiction Claustrophobia Anxiety Gout Restrictive lung disease Recent pneumomediastinum Thrombocytopenia Anemia Hypokalemia [place] Plan: Inpatient rehab protocol Slow therapy 31/08 due to severe hypoxia with exertion due to COVID-19 pneumonia Monitor closely Replace potassium and mag 09/04/2020: Supportive care Pulmonary consultation appreciated Echo Slow taper 09/05/2020: Discontinue breathing treatments since it makes her too shaky Long taper of prednisone 09/06/2020: Supportive care Oxygen supplementation 09/07/2020: Monitor desaturation Supportive care 09/08/2020: Maintain prednisone slow taper Monitor closely Improved 09/09/2020: Supportive care Monitor closely Much improved 09/10/2020: Continue oxygen wean Maintain slow taper prednisone 09/11/2020: Continue to wean oxygen Slow taper prednisone 09/12/20: Maintain prednisone O2 wean 09/13/2020: Supportive care Improving but slowly 09/14/2020: Improving a little bit each day Continue aggressive treatment Oxygen supplementation 09/15/2020: Oxygen maintained Continue aggressive rehab 09/16/2020: Dramatic improvement Continue recovery Maintain oxygen 09/17/2020: Supportive care Check chest x-ray and labs in the morning 09/18/2020: Supportive care Oxygen maintained 09/19/2020: Titrate prednisone down Maintain oxygen 09/20/2020: Decrease prednisone Aggressive therapy 09/21/2020: Continue aggressive physical therapy Much improved status 09/22/2020: Discharge is planned for Live Wean oxygen if possible 09/23/2020: Supportive care Long steroid taper dose Discussed vaccine 09/24/2020: Supportive care Oxygen supplementation 09/25/2020: Planning for discharge Monitor closely (1) COVID-19 JULES ROJAS DO Sep 25, 2020 09:39
--- NOTE | 2020-09-25 11:34 | Occupational Ther Daily Note ---
OT Current Status-Daily Note Subjective Pt alert, sitting in recliner. Pt agrees to therapy. No c/o pain at this time. Mental Status/Objective Patient Orientation: Person, Place, Time, Situation Attachments: Oxygen (4L at rest, 8L when showering) ADL-Treatment 1st session([id number]) Pt agrees to shower. Pt ambulated to bathroom using FWW with CGA. Pt ambulated to shower with SBA. SBA using FWW, BSC and grabbars for shower transfer. Sitting on BSC in shower, pt able to complete shower by self using LH sponge, grabbars and hand held shower by self after set up. After set up, pt able to complete dressing by self. Pt taking increased time due to feeling dizzy earlier this AM. After therapy, pt sitting in recliner with call light/phone in reach. All needs met in room. Therapy Code Descriptions/Definitions Functional [place] Measure: 0=Not Assessed/NA 4=Minimal Assistance 1=Total Assistance 5=Supervision or Setup 2=Maximal Assistance 6=Modified [place] 3=Moderate Assistance 7=Complete IndependenceSCALE: Activities may be completed with or without assistive devices. 1-Ryqrqlwdgc-cvdwlec completes the activity by him/herself with no assistance from a helper. 5-Set-up or Clean-up Assistance-helper sets up or cleans up; patient completes activity. [place] assists only prior to or following the activity. 4-Supervision or Touching Assistance-helper provides verbal cues and/or touching/steadying and/or contact guard assistance as patient completes activity. Assistance may be provided throughout the activity or intermittently. 3-Partial/Moderate Assistance-helper does LESS THAN HALF the effort. [place] lifts, holds or supports trunk or limbs, but provides less than half the effort. 2-Substantial/Maximal Assistance-helper does MORE THAN HALF the effort. [place] lifts or holds trunk or limbs and provides more than half the effort. 2-Chmqyrevb-jgmghl does ALL the effort. Patient does none of the effort to complete the activity. Or, the assistance of 2 or more helpers is required for the patient to complete the activity. If activity was not attempted, code reason: 7-Patient Refused. 9-Not Applicable-not attempted and the patient did not perform the activity before the current illness, exacerbation or injury. 10-Not Attempted due to Environmental Limitations-(lack of equipment, weather restraints, etc.). 88-Not Attempted due to Medical Conditions or Safety Concerns. Oral Hygiene (QC): 6 (Completed in shower.) Shower/Bathe Self (QC): 5 Upper Body Dressing (QC): 5 Lower Body Dressing (QC): 5 On/Off Footwear: 5 OT Short Term Goals Short Term Goals Time Frame: Sep 16, 2020 Eatin Oral hygiene: 4 Toileting hygiene: 3 Shower/bathe self: 3 Upper body dressin Lower body dressin Putting on/taking off footwear: 3 OT Exceptional Children Teacher Goals Exceptional Children Teacher Goals Time Frame: Sep 30, 2020 Eating (QC): 6 Oral Hygiene (QC): 6 Toileting Hygiene (QC): 6 Shower/Bathe Self (QC): 4 Upper Body Dressing (QC): 5 Lower Body Dressing (QC): 4 On/Off Footwear (QC): 5 Additional Goals: 1-Demonstrate ADL Tasks, 2-Verbalize Understanding, 3-ImproveStrength/Luis Manuel 1=Demonstrate adherence to instructed precautions during ADL tasks. 2=Patient will verbalize/demonstrate understanding of assistive devices/modifications for ADL. 3=Patient will improve strength/tolerance for activity to enable patient to perform ADL's. OT Education/Plan Problem List/Assessment Assessment: Decreased Activ Tolerance, Decreased UE Strength, Impaired Self- Care Skills Discharge Recommendations Plan/Recommendations: Continue POC Treatment Plan/Plan of Care Patient would benefit from OT for education, treatment and training to promote independence in ADL's, mobility, safety and/or upper extremity function for ADL's. Plan of Care: ADL Retraining, Functional Mobility, UE Funct Exercise/Act Treatment Duration: Sep 30, 2020 Frequency: At least 5 of 7 days/Wk (IRF) Estimated Hrs Per Day: 1.5 hours per day Agreement: Yes Rehab Potential: Good Time/GCodes Start Time: 10:30 Stop Time: 11:30 Total Time Billed (hr/min): 60 Billed Treatment Time 1 visit-ADL 4 (60 min) SAHIL LARSEN Sep 25, 2020 11:34
--- NOTE | 2020-09-25 11:36 | Physical Therapy Daily Note ---
PT Daily Note-Current Subjective Pt laying Supine in bed upon arrival. Pt agrees to PT. Pain Location: No Pain Reported Mental Status Patient Orientation: Person, Place, Time, Situation Attachments: Oxygen (4L at rest & 6L with exertion) Transfers SCALE: Activities may be completed with or without assistive devices. 9-Zqqachygpk-btwvtmk completes the activity by him/herself with no assistance from a helper. 5-Set-up or Clean-up Assistance-helper sets up or cleans up; patient completes activity. [place] assists only prior to or following the activity. 4-Supervision or Touching Assistance-helper provides verbal cues and/or touching/steadying and/or contact guard assistance as patient completes activity. Assistance may be provided throughout the activity or intermittently. 3-Partial/Moderate Assistance-helper does LESS THAN HALF the effort. [place] lifts, holds or supports trunk or limbs, but provides less than half the effort. 2-Substantial/Maximal Assistance-helper does MORE THAN HALF the effort. [place] lifts or holds trunk or limbs and provides more than half the effort. 6-Fhztdxhih-igvpvh does ALL the effort. Patient does none of the effort to complete the activity. Or, the assistance of 2 or more helpers is required for the patient to complete the activity. If activity was not attempted, code reason: 7-Patient Refused. 9-Not Applicable-not attempted and the patient did not perform the activity before the current illness, exacerbation or injury. 10-Not Attempted due to Environmental Limitations-(lack of equipment, weather restraints, etc.). 88-Not Attempted due to Medical Conditions or Safety Concerns. Sit to Stand (QC): 4 Weight Bearing Right Lower Extremity: Right Full Weight Bearing Left Lower Extremity: Left Full Weight Bearing Gait Training Does the Patient Walk?: Yes Distance: 150' Walk 10 feet (QC): 5 Walk 50 ft with 2 Turns(QC): 5 Walk 150 ft (QC): 5 Gait Persons Needed: 1 Gait Assistive Device: FWW Wheelchair Training Does the Pt Use a Wheelchair?: No Exercises NuStep Minutes: 15 NuStep Workload: 5 Treatments TF from Supine to EOB and changes clothes then stood. Pt asks to use BR before leaving room. Pt amb. in hallway with RB as needed for fatigue due to SOA. Pt uses NuStep for 15m at WL 5 then takes RB before amb. back to room. Pt resting in recliner at end of tx. All needs met, call light in hand. Assessment Current Status: Good Progress Pt fatigues easily but also has improved her recovery time, needing less frequent and smaller RB. PT Short Term Goals Short Term Goals Time Frame: Sep 16, 2020 Roll Left & Right: 6 Sit to lyin Lying to sitting on side of be: 6 Sit to stand: 4 PT Long-Term Goals Pastry Assistant Goals PT Long-Term Goals Time Frame: Sep 30, 2020 Roll Left & Right (QC): 6 Sit to Lying (QC): 6 Lying-Sitting on Side/Bed(QC): 6 Sit to Stand (QC): 6 Chair/Jlh-in-Wtpfh Xfer(QC): 6 Toilet Transfer (QC): 6 Car Transfer (QC): 6 Does the Patient Walk: No and Walking Goal IS indicated Walk 10 feet (QC): 6 Walk 50ft with 2 Turns (QC): 6 Walk 150 ft (QC): 6 Walking 10ft on Uneven Surface: 6 1 Step (curb) (QC): 6 4 Steps (QC): 6 12 Steps (QC): 9 Picking up an Object (QC): 6 Does the Pt use WC or Scooter?: No Wheel 50 feet with 2 turns (QC: 9 Type: N/A Wheel 150 feet: 9 Type: N/A PT Plan Problem List Problem List: Activity Tolerance Treatment/Plan Treatment Plan: Continue Plan of Care Treatment Plan: Bed Mobility, Education, Functional Activity Luis Manuel, Functional Strength, Group Therapy, Gait, Safety, Therapeutic Exercise, Transfers Treatment Duration: Sep 30, 2020 Frequency: Modified Program (IRF) Estimated Hrs Per Day: 1.5 hours per day Patient and/or Family Agrees t: Yes Safety Risks/Education Patient Education: Gait Training, Transfer Techniques, Correct Positioning, Safety Issues Teaching Recipient: Patient Teaching Methods: Discussion Response to Teaching: Verbalize Understanding Time/GCodes Time In: 800 Time Out: 900 Total Billed Treatment Time: 60 Total Billed Treatment 1, GT x2 (30m), FA (10m) & EX (20m) JOSHUA CRANDALL TICKER MAINTAINER Sep 25, 2020 11:36
--- NOTE | 2020-09-25 13:55 | Occupational Ther Daily Note ---
OT Current Status-Daily Note Subjective Pt alert, sitting in recliner. Pt agrees to therapy. No c/o pain. Mental Status/Objective Patient Orientation: Person, Place, Time, Situation Attachments: Oxygen ADL-Treatment Co-treat with PT ([id number]), skills of 2 clinicians required to increase stamina, decrease fall risk and increase functional mobility. PT focusing on ambulation, transfer and BLE strength while OT focusing on ADLs, functional mobility and B UE strength. Pt ambulated to therapy gym with multiple lengthy recovery breaks then propelled w/c back to room. Pt's O2 levels drop to 80's then recovery has been progressing. Pt then stood outside parallel bars to complete dynamic standing activity while completing upper rows and bicep curls (10 reps) with lengthy breaks between each one. Pt then transferred to toilet with SBA using grabbars and w/c. SBA for clothing manipulation, independent with hygiene while sitting on toilet. Min A for sit to stand from toilet. After therapy, pt lying in bed with call light/phone in reach. All needs met in room. Therapy Code Descriptions/Definitions Functional [place] Measure: 0=Not Assessed/NA 4=Minimal Assistance 1=Total Assistance 5=Supervision or Setup 2=Maximal Assistance 6=Modified [place] 3=Moderate Assistance 7=Complete IndependenceSCALE: Activities may be completed with or without assistive devices. 8-Wfumxrninc-cipyacg completes the activity by him/herself with no assistance from a helper. 5-Set-up or Clean-up Assistance-helper sets up or cleans up; patient completes activity. [place] assists only prior to or following the activity. 4-Supervision or Touching Assistance-helper provides verbal cues and/or touc ivelisse/steadying and/or contact guard assistance as patient completes activity. Assistance may be provided throughout the activity or intermittently. 3-Partial/Moderate Assistance-helper does LESS THAN HALF the effort. [place] lifts, holds or supports trunk or limbs, but provides less than half the effort. 2-Substantial/Maximal Assistance-helper does MORE THAN HALF the effort. [place] lifts or holds trunk or limbs and provides more than half the effort. 8-Itpjstlbj-hjydwx does ALL the effort. Patient does none of the effort to complete the activity. Or, the assistance of 2 or more helpers is required for the patient to complete the activity. If activity was not attempted, code reason: 7-Patient Refused. 9-Not Applicable-not attempted and the patient did not perform the activity before the current illness, exacerbation or injury. 10-Not Attempted due to Environmental Limitations-(lack of equipment, weather restraints, etc.). 88-Not Attempted due to Medical Conditions or Safety Concerns. Toileting Hygiene (QC): 4 Toilet Transfer (QC): 3 OT Short Term Goals Short Term Goals Time Frame: Sep 16, 2020 Eatin Oral hygiene: 4 Toileting hygiene: 3 Shower/bathe self: 3 Upper body dressin Lower body dressin Putting on/taking off footwear: 3 OT Half-Way Goals Public Address System Installer Goals Time Frame: Sep 30, 2020 Eating (QC): 6 Oral Hygiene (QC): 6 Toileting Hygiene (QC): 6 Shower/Bathe Self (QC): 4 Upper Body Dressing (QC): 5 Lower Body Dressing (QC): 4 On/Off Footwear (QC): 5 Additional Goals: 1-Demonstrate ADL Tasks, 2-Verbalize Understanding, 3-ImproveStrength/Luis Manuel 1=Demonstrate adherence to instructed precautions during ADL tasks. 2=Patient will verbalize/demonstrate understanding of assistive devices/modifications for ADL. 3=Patient will improve strength/tolerance for activity to enable patient to perform ADL's. OT Education/Plan Problem List/Assessment Assessment: Decreased Activ Tolerance, Decreased UE Strength Discharge Recommendations Plan/Recommendations: Continue POC Treatment Plan/Plan of Care Patient would benefit from OT for education, treatment and training to promote independence in ADL's, mobility, safety and/or upper extremity function for ADL's. Plan of Care: ADL Retraining, Functional Mobility, UE Funct Exercise/Act Treatment Duration: Sep 30, 2020 Frequency: At least 5 of 7 days/Wk (IRF) Estimated Hrs Per Day: 1.5 hours per day Agreement: Yes Rehab Potential: Good Time/GCodes Start Time: 13:00 Stop Time: 13:30 Total Time Billed (hr/min): 30 Billed Treatment Time 1 visit-FA 2 (30 min) SAHIL LARSEN Sep 25, 2020 13:55
--- NOTE | 2020-09-25 14:20 | Physical Therapy Daily Note ---
PT Daily Note-Current Subjective Pt sitting in recliner upon arrival. Pt agrees to PT/OT co-treat. Pain Location: No Pain Reported Mental Status Patient Orientation: Person, Place, Time, Situation Transfers SCALE: Activities may be completed with or without assistive devices. 9-Hbsdfzfyim-lmayadu completes the activity by him/herself with no assistance from a helper. 5-Set-up or Clean-up Assistance-helper sets up or cleans up; patient completes activity. [place] assists only prior to or following the activity. 4-Supervision or Touching Assistance-helper provides verbal cues and/or touching/steadying and/or contact guard assistance as patient completes activity. Assistance may be provided throughout the activity or intermittently. 3-Partial/Moderate Assistance-helper does LESS THAN HALF the effort. [place] lifts, holds or supports trunk or limbs, but provides less than half the effort. 2-Substantial/Maximal Assistance-helper does MORE THAN HALF the effort. [place] lifts or holds trunk or limbs and provides more than half the effort. 1-Flgexawnb-majggc does ALL the effort. Patient does none of the effort to complete the activity. Or, the assistance of 2 or more helpers is required for the patient to complete the activity. If activity was not attempted, code reason: 7-Patient Refused. 9-Not Applicable-not attempted and the patient did not perform the activity before the current illness, exacerbation or injury. 10-Not Attempted due to Environmental Limitations-(lack of equipment, weather restraints, etc.). 88-Not Attempted due to Medical Conditions or Safety Concerns. Sit to Stand (QC): 4 Toilet Transfer (QC): 4 Weight Bearing Right Lower Extremity: Right Full Weight Bearing Left Lower Extremity: Left Full Weight Bearing Gait Training Does the Patient Walk?: Yes Distance: 150' Walk 10 feet (QC): 4 Walk 50 ft with 2 Turns(QC): 4 Walk 150 ft (QC): 4 Gait Persons Needed: 1 Gait Assistive Device: FWW Exercises Seated Therapy Exercises: Sit to stand Treatments Co-treat with PT ([id number]), skills of 2 clinicians required to increase stamina, decrease fall risk and increase functional mobility. PT focusing on ambulation, transfer and BLE strength while OT focusing on ADLs, functional mobility and B UE strength. Pt ambulated to therapy gym with multiple lengthy recovery breaks then propelled w/c back to room. Pt's O2 levels drop to 80's then recovery has been progressing. Pt then stood outside parallel bars to complete dynamic standing activity while completing upper rows and bicep curls (10 reps) with lengthy breaks between each one. All needs met, call light in hand. Assessment Current Status: Good Progress Pt fatigues and needs RB to recover when walking. PT Short Term Goals Short Term Goals Time Frame: Sep 16, 2020 Roll Left & Right: 6 Sit to lyin Lying to sitting on side of be: 6 Sit to stand: 4 PT Housing Assistant Property Manager Goals Care Home Goals PT Care Home Goals Time Frame: Sep 30, 2020 Roll Left & Right (QC): 6 Sit to Lying (QC): 6 Lying-Sitting on Side/Bed(QC): 6 Sit to Stand (QC): 6 Chair/Dlz-rh-Udsik Xfer(QC): 6 Toilet Transfer (QC): 6 Car Transfer (QC): 6 Does the Patient Walk: No and Walking Goal IS indicated Walk 10 feet (QC): 6 Walk 50ft with 2 Turns (QC): 6 Walk 150 ft (QC): 6 Walking 10ft on Uneven Surface: 6 1 Step (curb) (QC): 6 4 Steps (QC): 6 12 Steps (QC): 9 Picking up an Object (QC): 6 Does the Pt use WC or Scooter?: No Wheel 50 feet with 2 turns (QC: 9 Type: N/A Wheel 150 feet: 9 Type: N/A PT Plan Problem List Problem List: Activity Tolerance, Gait Treatment/Plan Treatment Plan: Continue Plan of Care Treatment Plan: Bed Mobility, Education, Functional Activity Luis Manuel, Functional Strength, Group Therapy, Gait, Safety, Therapeutic Exercise, Transfers Treatment Duration: Sep 30, 2020 Frequency: Modified Program (IRF) Estimated Hrs Per Day: 1.5 hours per day Patient and/or Family Agrees t: Yes Safety Risks/Education Patient Education: Gait Training, Correct Positioning, Safety Issues Teaching Recipient: Patient Teaching Methods: Discussion Response to Teaching: Verbalize Understanding Time/GCodes Time In: 1300 Time Out: 1330 Total Billed Treatment Time: 30 Total Billed Treatment Co-treat w/OT for 30m ([id number]) 1, GT (15m) & EX (15m) JOSHUA CRANDALL FIELD CROP FARM WORKER Sep 25, 2020 14:20
[2020-09-25 20:07] VITALS: BP 112/68
[2020-09-25] MEDS: MONTELUKAST 10 MG (SINGULAIR) TAB PO SCH (21:36)
[2020-09-25] MEDS: MELATONIN 3 MG TABLET PO SCH (21:37)
[2020-09-25] MEDS: MIRTAZAPINE 15 MG (REMERON) TAB PO SCH (21:37)
[2020-09-25] MEDS: HYDROcodone/APAP 5 MG/325 MG (LORTAB) TAB PO PRN (21:38)
[2020-09-26] MEDS: predniSONE 20 MG TAB PO SCH (06:39)
--- NOTE | 2020-09-26 06:51 | PM&R Progress Note ---
Subjective HPI/CC On Admission Date Seen by Provider: Sep 26, 2020 Time Seen by Provider: 10:00 Subjective/Events-last exam 09/26/2020: Pt weaning oxygen now on 3 liters Bowels moved Discontinued Remeron due to dizziness Decreasing Prednisone to 20mg daily 09/25/2020: Pt doing really well Bowels moved yesterday Maintain on oxygen Walks around pretty well DC on Friday09/24/2020: Patient in a good mood today Getting excited about going home on Friday No issues Requiring 4-6 L/min oxygen 09/23/2020: Patient doing really well Bowels moved on 09/22/2020 Getting more active Feels really good about discharge plan for Friday09/22/2020: Patient much improved Lungs remain diminished Working hard Monitor closely 09/21/2020: Pt doing really well Standing a lot now Bowels moved today DC planned for 09/2909/20/2020: Pt doing really well Was able to stand for the first time today and has done is several times today Very proud of this Checked meds and labs Lungs are clear 09/19/2020: Pt doing a little better 4 liters of O2 maintained No SOB when she is resting Overall much improved 09/18/2020: Pt doing really well Remains on four liters No change in her dyspnea Magnesium is normal at 1.8 on supplement Chest X-ray no acute changes Labs good 09/17/2020: Patient in a good mood Slept pretty well last night Check meds and labs 09/16/2020: Patient much improved Getting more more independent No falls No shortness of breath she really exerts herself 09/15/2020: Patient doing very well Much improved Moving around a lot more Oxygen maintained Continue aggressive rehab 09/14/2020: Pt progressing Maintain on 4 liters of oxygen Checked meds and labs No major issues 09/13/2020: Pt doing pretty well No bed almazan use now, only commode 4 liters of O2 Decreasing Prednisone to 40mg daily 09/12/2020: Pt doing really well Four liters of oxygen maintained Very weak Dramatically improved though 09/11/2020: Pt doing pretty well Sleeping now 4 liters of O2 maintained Bowels moved yesterday 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 09/10/2020: Patient improving Now on 4 L of oxygen Uses bedpan still We will monitor closely 09/09/2020: Pt progressing nicely Down to five liters of oxygen Bowels moved on the Much improved 09/08/2020: Pt doing well but Prednisone was 10mg daily, supposed to be 50 so getting that corrected Oxygenation does go down with any activity but actually showed today and did pretty well 09/07/2020: Pt doing pretty well Pulmonary consult today Nose bleed a little bit today Bowels moving On six liters during bed-almazan which seems to help recovery 09/06/2020: Pt doing pretty well Had an episode of SOB in the shower Doing okay now Feels like no other problems are occurring X-ray for picc line to be sure it is functioning adequately 09/05/2020: Pt doing pretty well but having loose stools Eliquis restarted since no nose bleeds Echocardiogram ordered per pulmonology consult Four liters of oxygen maintained Talked about her Scoliosis and restrictive lung disease Patient does not want inhaler or breathing treatment 09/04/2020: Pt doing pretty well Wonders if she should have a continuous pulse-ox and I told her we are monitoring that with frequent spot checks. Chest X-ray ordered for pulmonary consultation She even gets SOB on the bed-almazan Echo was recommended so we will order Review of Systems General: Fatigue, Malaise Pulmonary: Dyspnea Objective Exam Vital Signs Vital Signs Date Time Temp Pulse Resp B/P (MAP) Pulse Ox O2 Delivery O2 Flow Rate FiO2 09/26/20 21:00 Nasal Cannula 3.00 09/26/20 20:00 88 119/75 (90) 09/26/20 07:49 36.6 16 91 Capillary Refill : General Appearance: No Apparent Distress, WD/WN, Chronically ill, Obese HEENT: PERRL/EOMI, Normal ENT Inspection, Pharynx Normal Neck: Full Range of Motion, Normal Inspection, Non Tender, Supple, Carotid Bruit Respiratory: Chest Non Tender, Lungs Clear, No Accessory Muscle Use, No Respiratory Distress, Decreased Breath Sounds Cardiovascular: Regular Rate, Rhythm, No Edema, No Gallop, No JVD, No Murmur, Normal Peripheral Pulses Gastrointestinal: Normal Bowel Sounds, No Organomegaly, No Pulsatile Mass, Non Tender, Soft Back: Normal Inspection, No CVA Tenderness, No Vertebral Tenderness Extremity: Normal Capillary Refill, Normal Inspection, Normal Range of Motion, Non Tender, No Calf Tenderness, No Pedal Edema Neurologic/Psychiatric: Alert, Oriented x3, No Motor/Sensory Deficits, Normal Mood/Affect, linen room custodian II-XII Norm as Tested, Motor Weakness (generalized 3/5) Skin: Normal Color, Warm/Dry Lymphatic: No Adenopathy Results/Procedures Lab Patient resulted labs reviewed. FIM Transfers Therapy Code Descriptions/Definitions Functional [place] Measure: 0=Not Assessed/NA 4=Minimal Assistance 1=Total Assistance 5=Supervision or Setup 2=Maximal Assistance 6=Modified [place] 3=Moderate Assistance 7=Complete IndependenceSCALE: Activities may be completed with or without assistive devices. 2-Lgudyocvhg-lepnvgd completes the activity by him/herself with no assistance from a helper. 5-Set-up or Clean-up Assistance-helper sets up or cleans up; patient completes activity. [place] assists only prior to or following the activity. 4-Supervision or Touching Assistance-helper provides verbal cues and/or touching/steadying and/or contact guard assistance as patient completes activity. Assistance may be provided throughout the activity or intermittently. 3-Partial/Moderate Assistance-helper does LESS THAN HALF the effort. [place] lifts, holds or supports trunk or limbs, but provides less than half the effort. 2-Substantial/Maximal Assistance-helper does MORE THAN HALF the effort. [place] lifts or holds trunk or limbs and provides more than half the effort. 0-Djtxwqxrn-azigtf does ALL the effort. Patient does none of the effort to complete the activity. Or, the assistance of 2 or more helpers is required for the patient to complete the activity. If activity was not attempted, code reason: 7-Patient Refused. 9-Not Applicable-not attempted and the patient did not perform the activity before the current illness, exacerbation or injury. 10-Not Attempted due to Environmental Limitations-(lack of equipment, weather restraints, etc.). 88-Not Attempted due to Medical Conditions or Safety Concerns. Roll Left to Right (QC): 6 Sit to Lying (QC): 6 Sit to Stand (QC): 4 Chair/Lpz-hn-Wlbal Xfer(QC): 4 Car Transfer (QC): 88 Gait Training Does the Patient Walk?: Yes Distance: 150' Walk 10 feet (QC): 4 Walk 50 ft with 2 Turns(QC): 4 Walk 150 ft (QC): 4 Walking 10ft/uneven surface-QC: 88 Gait Persons Needed: 1 Gait Assistive Device: FWW Wheelchair Training Does the Pt Use a Wheelchair?: No Wheel 50 ft with 2 turns (QC): 5 Wheel 150 ft (QC): 4 Type of Wheelchair: Manual Stair Training 1 Step (curb) (QC): 88 4 Steps (QC): 88 12 Steps (QC): 88 Balance Picking up an Object (QC): 88 ADL-Treatment Eating (QC): 6 (per clinical judgment) Oral Hygiene (QC): 6 (Completed in shower.) Shower/Bathe Self (QC): 5 Upper Body Dressing (QC): 5 Lower Body Dressing (QC): 5 On/Off Footwear (QC): 5 Toileting Hygiene (QC): 4 Toilet Transfer (QC): 3 Assessment/Plan Assessment and Plan Assess & Plan/Chief Complaint Assessment: COVID-19 pneumonia with ongoing hypoxic respiratory failure Chronic scoliosis back pain History of pain pill addiction Claustrophobia Anxiety Gout Restrictive lung disease Recent pneumomediastinum Thrombocytopenia Anemia Hypokalemia Hypomag Plan: Inpatient rehab protocol Slow therapy 31/08 due to severe hypoxia with exertion due to COVID-19 pneumonia Monitor closely Replace potassium and mag 09/04/2020: Supportive care Pulmonary consultation appreciated Echo Slow taper 09/05/2020: Discontinue breathing treatments since it makes her too shaky Long taper of prednisone 09/06/2020: Supportive care Oxygen supplementation 09/07/2020: Monitor desaturation Supportive care 09/08/2020: Maintain prednisone slow taper Monitor closely Improved 09/09/2020: Supportive care Monitor closely Much improved 09/10/2020: Continue oxygen wean Maintain slow taper prednisone 09/11/2020: Continue to wean oxygen Slow taper prednisone 09/12/20: Maintain prednisone O2 wean 09/13/2020: Supportive care Improving but slowly 09/14/2020: Improving a little bit each day Continue aggressive treatment Oxygen supplementation 09/15/2020: Oxygen maintained Continue aggressive rehab 09/16/2020: Dramatic improvement Continue recovery Maintain oxygen 09/17/2020: Supportive care Check chest x-ray and labs in the morning 09/18/2020: Supportive care Oxygen maintained 09/19/2020: Titrate prednisone down Maintain oxygen 09/20/2020: Decrease prednisone Aggressive therapy 09/21/2020: Continue aggressive physical therapy Much improved status 09/22/2020: Discharge is planned for Friday Wean oxygen if possible 09/23/2020: Supportive care Long steroid taper dose Discussed vaccine 09/24/2020: Supportive care Oxygen supplementation 09/25/2020: Planning for discharge Monitor closely 09/26/2020: Wean oxygen DC Remeron due to dizziness (1) COVID-19 JULES ROJAS DO Sep 26, 2020 06:51
[2020-09-26 07:49] VITALS: BP 126/69
[2020-09-26] MEDS: ROFLUMILAST 500 MCG TAB (DALIRESP) PO SCH (08:03)
[2020-09-26] MEDS: APIXABAN 2.5 MG (ELIQUIS) TABLET PO SCH ×2 (08:04→20:57)
[2020-09-26] MEDS: PANTOPRAZOLE 40 MG (PROTONIX) TAB PO SCH (08:04)
[2020-09-26] MEDS: COLCHICINE 0.6 MG (COLCRYS) TABLET PO SCH (08:04)
[2020-09-26] MEDS: PARoxetine 20 MG (PAXIL) TAB PO SCH (08:04)
[2020-09-26] MEDS: guaiFENesin (MUCINEX) 600 MG TAB PO SCH ×2 (08:04→20:57)
[2020-09-26] MEDS: ATENOLOL 25 MG (TENORMIN) TAB PO SCH ×2 (08:04→20:57)
[2020-09-26] MEDS: SILDENAFIL 20 MG (REVATIO) TAB NON-FORMULARY PO SCH ×3 (08:04→20:57)
[2020-09-26] MEDS: ASCORBIC ACID (VIT C) 500 MG TABLET PO SCH ×2 (08:04→20:57)
[2020-09-26] MEDS: KCL 20 MEQ TAB (K-DUR) PO SCH ×3 (08:04→18:33)
[2020-09-26] MEDS: clonazePAM 1 MG (KlonoPIN) TAB PO SCH ×2 (08:04→20:56)
[2020-09-26] MEDS: MAGNESIUM OXIDE (MAG-OX)400 MG TAB PO SCH ×2 (08:04→18:33)
--- NOTE | 2020-09-26 09:04 | Physical Therapy Daily Note ---
PT Daily Note-Current Subjective Pt laying Supine in bed upon arrival. Pt agrees to PT. Pain Location: No Pain Reported Mental Status Patient Orientation: Person, Place, Time, Situation Attachments: Oxygen (3L at rest & 6L during tx) Transfers SCALE: Activities may be completed with or without assistive devices. 7-Nwvcprlgog-pleacpd completes the activity by him/herself with no assistance from a helper. 5-Set-up or Clean-up Assistance-helper sets up or cleans up; patient completes activity. [place] assists only prior to or following the activity. 4-Supervision or Touching Assistance-helper provides verbal cues and/or touching/steadying and/or contact guard assistance as patient completes activity. Assistance may be provided throughout the activity or intermittently. 3-Partial/Moderate Assistance-helper does LESS THAN HALF the effort. [place] lifts, holds or supports trunk or limbs, but provides less than half the effort. 2-Substantial/Maximal Assistance-helper does MORE THAN HALF the effort. [place] lifts or holds trunk or limbs and provides more than half the effort. 6-Kcijgyfjv-qkggwi does ALL the effort. Patient does none of the effort to complete the activity. Or, the assistance of 2 or more helpers is required for the patient to complete the activity. If activity was not attempted, code reason: 7-Patient Refused. 9-Not Applicable-not attempted and the patient did not perform the activity before the current illness, exacerbation or injury. 10-Not Attempted due to Environmental Limitations-(lack of equipment, weather restraints, etc.). 88-Not Attempted due to Medical Conditions or Safety Concerns. Lying to Sitting/Side of Bed(Q: 6 Sit to Stand (QC): 4 Toilet Transfer (QC): 4 Weight Bearing Right Lower Extremity: Right Full Weight Bearing Left Lower Extremity: Left Full Weight Bearing Gait Training Does the Patient Walk?: Yes Distance: 150', 70' Walk 10 feet (QC): 4 Walk 50 ft with 2 Turns(QC): 4 Walk 150 ft (QC): 4 Gait Persons Needed: 1 Gait Assistive Device: FWW Wheelchair Training Does the Pt Use a Wheelchair?: Yes Wheel 50 ft with 2 turns (QC): 6 Wheel 150 ft (QC): 6 Type of Wheelchair: Manual Treatments Propels WC in hallway to main floor of hospital. Pt practices ramp on main floor of hospital since she will go home to a ramp. Pt is able to amb. descending w/o RB but had to rest part way through ascending amb. due to fatigue. Pt propels WCH to ARU unit and uses BR before resting in recliner. All needs met, call light in hand. Assessment Current Status: Good Progress Pt still fatiguing during amb. but activity tolerance is improving with less frequent rest breaks and quicker recovery periods. PT Short Term Goals Short Term Goals Time Frame: Sep 16, 2020 Roll Left & Right: 6 Sit to lyin Lying to sitting on side of be: 6 Sit to stand: 4 PT Logistics Specialist Goals Logistics Specialist Goals PT Logistics Specialist Goals Time Frame: Sep 30, 2020 Roll Left & Right (QC): 6 Sit to Lying (QC): 6 Lying-Sitting on Side/Bed(QC): 6 Sit to Stand (QC): 6 Chair/Pvu-dc-Ekjdl Xfer(QC): 6 Toilet Transfer (QC): 6 Car Transfer (QC): 6 Does the Patient Walk: No and Walking Goal IS indicated Walk 10 feet (QC): 6 Walk 50ft with 2 Turns (QC): 6 Walk 150 ft (QC): 6 Walking 10ft on Uneven Surface: 6 1 Step (curb) (QC): 6 4 Steps (QC): 6 12 Steps (QC): 9 Picking up an Object (QC): 6 Does the Pt use WC or Scooter?: No Wheel 50 feet with 2 turns (QC: 9 Type: N/A Wheel 150 feet: 9 Type: N/A PT Plan Problem List Problem List: Activity Tolerance Treatment/Plan Treatment Plan: Continue Plan of Care Treatment Plan: Bed Mobility, Education, Functional Activity Luis Manuel, Functional Strength, Group Therapy, Gait, Safety, Therapeutic Exercise, Transfers Treatment Duration: Sep 30, 2020 Frequency: Modified Program (IRF) Estimated Hrs Per Day: 1.5 hours per day Patient and/or Family Agrees t: Yes Safety Risks/Education Patient Education: Gait Training, Correct Positioning, Safety Issues Teaching Recipient: Patient Teaching Methods: Discussion Response to Teaching: Verbalize Understanding Time/GCodes Time In: 800 Time Out: 900 Total Billed Treatment Time: 60 Total Billed Treatment 1, FA (15m), GT x2 (25m), WCH (20m) JOSHUA CRANDALL SENIOR OPERATIONS ANALYST Sep 26, 2020 09:04
--- NOTE | 2020-09-26 13:11 | Occupational Ther Daily Note ---
OT Current Status-Daily Note Subjective Pt alert, sitting in recliner. Pt agrees to therapy. No c/o pain at this time. Mental Status/Objective Patient Orientation: Person, Place, Time, Situation Attachments: Oxygen (3L at rest, 5-6 with activity) ADL-Treatment 1st session([id number]) Independent for stand to sit for toilet transfers, min A for sit to stand. Supervision for clothing manipulation and independent for hygiene. After therapy, pt sitting in recliner with call light/phone in reach. All needs met in room. 2nd session([id number]) Educated pt on tub transfers. Pt has purchased a tub seat already. Looking at how to sit on tub ledge to place LE's into tub then sit onto tub seat. Also educated pt on safe technique to step into tub using aguirre for stabilizing. Pt knows about tub transfer bench and transfer with equipment. Pt propelled self to/from central bathing via w/c independently. Pt completed toilet transfer with min A for sit to stand, SBA for clothing manipulation and independent for toilet hygiene. After session, pt lying in bed with call light/phone in reach. All needs met in room. Therapy Code Descriptions/Definitions Functional [place] Measure: 0=Not Assessed/NA 4=Minimal Assistance 1=Total Assistance 5=Supervision or Setup 2=Maximal Assistance 6=Modified [place] 3=Moderate Assistance 7=Complete IndependenceSCALE: Activities may be completed with or without assistive devices. 0-Tumbrpnyfg-foufdye completes the activity by him/herself with no assistance from a helper. 5-Set-up or Clean-up Assistance-helper sets up or cleans up; patient completes activity. [place] assists only prior to or following the activity. 4-Supervision or Touching Assistance-helper provides verbal cues and/or touching/steadying and/or contact guard assistance as patient completes activity. Assistance may be provided throughout the activity or intermittently. 3-Partial/Moderate Assistance-helper does LESS THAN HALF the effort. [place] lifts, holds or supports trunk or limbs, but provides less than half the effort. 2-Substantial/Maximal Assistance-helper does MORE THAN HALF the effort. [place] lifts or holds trunk or limbs and provides more than half the effort. 0-Dpsmqbrnc-lebiuc does ALL the effort. Patient does none of the effort to complete the activity. Or, the assistance of 2 or more helpers is required for the patient to complete the activity. If activity was not attempted, code reason: 7-Patient Refused. 9-Not Applicable-not attempted and the patient did not perform the activity before the current illness, exacerbation or injury. 10-Not Attempted due to Environmental Limitations-(lack of equipment, weather restraints, etc.). 88-Not Attempted due to Medical Conditions or Safety Concerns. Toileting Hygiene (QC): 4 Toilet Transfer (QC): 3 Other Treatment 1st session([id number]) Pt ambulated to/from gym using FWW with one recovery break. Pt completed B UE strengthening exercises for functional daily tasks. Arm bike completed 10 min with minimal resistance and no breaks. Wrist flex/ext/uln dev/rad dev with 1# wt 3 sets 10 reps. Pt did required recovery break between each set and each exercise. Pt's recovery is progressing well. OT Short Term Goals Short Term Goals Time Frame: Sep 16, 2020 Eatin Oral hygiene: 4 Toileting hygiene: 3 Shower/bathe self: 3 Upper body dressin Lower body dressin Putting on/taking off footwear: 3 OT Salesperson Surgical Appliances Goals Shelter Goals Time Frame: Sep 30, 2020 Eating (QC): 6 Oral Hygiene (QC): 6 Toileting Hygiene (QC): 6 Shower/Bathe Self (QC): 4 Upper Body Dressing (QC): 5 Lower Body Dressing (QC): 4 On/Off Footwear (QC): 5 Additional Goals: 1-Demonstrate ADL Tasks, 2-Verbalize Understanding, 3- ImproveStrength/Luis Manuel 1=Demonstrate adherence to instructed precautions during ADL tasks. 2=Patient will verbalize/demonstrate understanding of assistive devices/modifications for ADL. 3=Patient will improve strength/tolerance for activity to enable patient to perform ADL's. OT Education/Plan Problem List/Assessment Assessment: Decreased Activ Tolerance, Decreased UE Strength, Impaired Self- Care Skills Discharge Recommendations Plan/Recommendations: Continue POC Treatment Plan/Plan of Care Patient would benefit from OT for education, treatment and training to promote independence in ADL's, mobility, safety and/or upper extremity function for ADL's. Plan of Care: ADL Retraining, Functional Mobility, UE Funct Exercise/Act Treatment Duration: Sep 30, 2020 Frequency: At least 5 of 7 days/Wk (IRF) Estimated Hrs Per Day: 1.5 hours per day Agreement: Yes Rehab Potential: Good Time/GCodes Start Time: 11:00 (1330) Stop Time: 12:00 (1400) Total Time Billed (hr/min): 90 Billed Treatment Time 1 visit([id number])-FA 1 (15 min) EX 2 (30 min) ADL 1 (15 min) 1 visit([id number])-FA 2 (30 min) SAHIL LARSEN Sep 26, 2020 13:11
--- NOTE | 2020-09-26 14:16 | Physical Therapy Daily Note ---
PT Daily Note-Current Subjective Pt sitting in recliner upon arrival. Pt agrees to PT but reports feeling tired from morning tx so request review of HEP. Pain Location: No Pain Reported Mental Status Patient Orientation: Person, Place, Time, Situation Attachments: Oxygen (3L at rest & 6L during tx) Transfers SCALE: Activities may be completed with or without assistive devices. 4-Rpjfyawsxi-zxfzfpu completes the activity by him/herself with no assistance from a helper. 5-Set-up or Clean-up Assistance-helper sets up or cleans up; patient completes activity. [place] assists only prior to or following the activity. 4-Supervision or Touching Assistance-helper provides verbal cues and/or touching/steadying and/or contact guard assistance as patient completes activity. Assistance may be provided throughout the activity or intermittently. 3-Partial/Moderate Assistance-helper does LESS THAN HALF the effort. [place] lifts, holds or supports trunk or limbs, but provides less than half the effort. 2-Substantial/Maximal Assistance-helper does MORE THAN HALF the effort. [place] lifts or holds trunk or limbs and provides more than half the effort. 8-Jaguaqkuq-vvmjfc does ALL the effort. Patient does none of the effort to complete the activity. Or, the assistance of 2 or more helpers is required for the patient to complete the activity. If activity was not attempted, code reason: 7-Patient Refused. 9-Not Applicable-not attempted and the patient did not perform the activity before the current illness, exacerbation or injury. 10-Not Attempted due to Environmental Limitations-(lack of equipment, weather restraints, etc.). 88-Not Attempted due to Medical Conditions or Safety Concerns. Weight Bearing Right Lower Extremity: Right Full Weight Bearing Left Lower Extremity: Left Full Weight Bearing Exercises Supine Ex: Ankle pumps, Quad Set, Glut sets, Heel Slides, Short Arc Quads, Straight leg raise, Hip abd/add Supine Reps: 15 Seated Therapy Exercises: Ankle pumps, Long arc quads, Hip flexion, Hamstring Curls, Hip abd/add, Glut set Seated Reps: 15 Treatments CHIROPRACTIC ASSISTANT reviews and issues written HEP for Supine & Seated EX for B LE. Pt resting in recliner at end of tx with all need met, call light in hand. OT arrives for tx. Assessment Current Status: Good Progress Pt tolerates tx well. PT Short Term Goals Short Term Goals Time Frame: Sep 16, 2020 Roll Left & Right: 6 Sit to lyin Lying to sitting on side of be: 6 Sit to stand: 4 PT Cow Trimmer Goals Skilled Nursing Goals PT Skilled Nursing Goals Time Frame: Sep 30, 2020 Roll Left & Right (QC): 6 Sit to Lying (QC): 6 Lying-Sitting on Side/Bed(QC): 6 Sit to Stand (QC): 6 Chair/Xwg-tx-Qwsar Xfer(QC): 6 Toilet Transfer (QC): 6 Car Transfer (QC): 6 Does the Patient Walk: No and Walking Goal IS indicated Walk 10 feet (QC): 6 Walk 50ft with 2 Turns (QC): 6 Walk 150 ft (QC): 6 Walking 10ft on Uneven Surface: 6 1 Step (curb) (QC): 6 4 Steps (QC): 6 12 Steps (QC): 9 Picking up an Object (QC): 6 Does the Pt use WC or Scooter?: No Wheel 50 feet with 2 turns (QC: 9 Type: N/A Wheel 150 feet: 9 Type: N/A PT Plan Problem List Problem List: Activity Tolerance Treatment/Plan Treatment Plan: Continue Plan of Care Treatment Plan: Bed Mobility, Education, Functional Activity Luis Manuel, Functional Strength, Group Therapy, Gait, Safety, Therapeutic Exercise, Transfers Treatment Duration: Sep 30, 2020 Frequency: Modified Program (IRF) Estimated Hrs Per Day: 1.5 hours per day Patient and/or Family Agrees t: Yes Safety Risks/Education Patient Education: Issued Written HEP, Correct Positioning Teaching Recipient: Patient Teaching Methods: Demonstration, Discussion Response to Teaching: Verbalize Understanding, Return Demonstration Time/GCodes Time In: 1300 Time Out: 1330 Total Billed Treatment Time: 30 Total Billed Treatment 1, EX x2 (30m) JOSHUA CRANDALL CHIROPRACTIC ASSISTANT Sep 26, 2020 14:16
[2020-09-26] MEDS: ALPRAZolam 0.25 MG (XANAX) TAB PO PRN (14:30)
[2020-09-26 20:00] VITALS: BP 119/75
[2020-09-26] MEDS: MELATONIN 3 MG TABLET PO SCH (20:57)
[2020-09-26] MEDS: MONTELUKAST 10 MG (SINGULAIR) TAB PO SCH (20:57)
--- NOTE | 2020-09-27 06:26 | PM&R Progress Note ---
Subjective HPI/CC On Admission Date Seen by Provider: Sep 27, 2020 Time Seen by Provider: 11:00 Subjective/Events-last exam 09/27/2020: Pt doing really well Was up walking with oxygen turned down and he oxygen became 63% Overall doing well otherwise No more dizziness since Remeron was DC 09/26/2020: Pt weaning oxygen now on 3 liters Bowels moved Discontinued Remeron due to dizziness Decreasing Prednisone to 20mg daily 09/25/2020: Pt doing really well Bowels moved yesterday Maintain on oxygen Walks around pretty well DC on Friday09/24/2020: Patient in a good mood today Getting excited about going home on Friday No issues Requiring 4-6 L/min oxygen 09/23/2020: Patient doing really well Bowels moved on 09/22/2020 Getting more active Feels really good about discharge plan for Friday09/22/2020: Patient much improved Lungs remain diminished Working hard Monitor closely 09/21/2020: Pt doing really well Standing a lot now Bowels moved today DC planned for 09/2909/20/2020: Pt doing really well Was able to stand for the first time today and has done is several times today Very proud of this Checked meds and labs Lungs are clear 09/19/2020: Pt doing a little better 4 liters of O2 maintained No SOB when she is resting Overall much improved 09/18/2020: Pt doing really well Remains on four liters No change in her dyspnea Magnesium is normal at 1.8 on supplement Chest X-ray no acute changes Labs good 09/17/2020: Patient in a good mood Slept pretty well last night Check meds and labs 09/16/2020: Patient much improved Getting more more independent No falls No shortness of breath she really exerts herself 09/15/2020: Patient doing very well Much improved Moving around a lot more Oxygen maintained Continue aggressive rehab 09/14/2020: Pt progressing Maintain on 4 liters of oxygen Checked meds and labs No major issues 09/13/2020: Pt doing pretty well No bed almazan use now, only commode 4 liters of O2 Decreasing Prednisone to 40mg daily 09/12/2020: Pt doing really well Four liters of oxygen maintained Very weak Dramatically improved though 09/11/2020: Pt doing pretty well Sleeping now 4 liters of O2 maintained Bowels moved yesterday 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 09/10/2020: Patient improving Now on 4 L of oxygen Uses bedpan still We will monitor closely 09/09/2020: Pt progressing nicely Down to five liters of oxygen Bowels moved on the Much improved 09/08/2020: Pt doing well but Prednisone was 10mg daily, supposed to be 50 so getting that corrected Oxygenation does go down with any activity but actually showed today and did pretty well 09/07/2020: Pt doing pretty well Pulmonary consult today Nose bleed a little bit today Bowels moving On six liters during bed-almazan which seems to help recovery 09/06/2020: Pt doing pretty well Had an episode of SOB in the shower Doing okay now Feels like no other problems are occurring X-ray for picc line to be sure it is functioning adequately 09/05/2020: Pt doing pretty well but having loose stools Eliquis restarted since no nose bleeds Echocardiogram ordered per pulmonology consult Four liters of oxygen maintained Talked about her Scoliosis and restrictive lung disease Patient does not want inhaler or breathing treatment 09/04/2020: Pt doing pretty well Wonders if she should have a continuous pulse-ox and I told her we are mo nitoring that with frequent spot checks. Chest X-ray ordered for pulmonary consultation She even gets SOB on the bed-almazan Echo was recommended so we will order Review of Systems General: Fatigue Pulmonary: Dyspnea Objective Exam Vital Signs Vital Signs Date Time Temp Pulse Resp B/P (MAP) Pulse Ox O2 Delivery O2 Flow Rate FiO2 09/27/20 20:13 97 Nasal Cannula 3.00 09/27/20 07:58 36.4 65 14 119/66 (83) Capillary Refill : General Appearance: No Apparent Distress, WD/WN, Chronically ill, Obese HEENT: PERRL/EOMI, Normal ENT Inspection, Pharynx Normal Neck: Full Range of Motion, Normal Inspection, Non Tender, Supple, Carotid Bruit Respiratory: Chest Non Tender, Lungs Clear, No Accessory Muscle Use, No Respiratory Distress, Decreased Breath Sounds Cardiovascular: Regular Rate, Rhythm, No Edema, No Gallop, No JVD, No Murmur, Normal Peripheral Pulses Gastrointestinal: Normal Bowel Sounds, No Organomegaly, No Pulsatile Mass, Non Tender, Soft Back: Normal Inspection, No CVA Tenderness, No Vertebral Tenderness Extremity: Normal Capillary Refill, Normal Inspection, Normal Range of Motion, Non Tender, No Calf Tenderness, No Pedal Edema Neurologic/Psychiatric: Alert, Oriented x3, No Motor/Sensory Deficits, Normal Mood/Affect, trials manager II-XII Norm as Tested, Motor Weakness (generalized 3/5) Skin: Normal Color, Warm/Dry Lymphatic: No Adenopathy Results/Procedures Lab Patient resulted labs reviewed. FIM Transfers Therapy Code Descriptions/Definitions Functional [place] Measure: 0=Not Assessed/NA 4=Minimal Assistance 1=Total Assistance 5=Supervision or Setup 2=Maximal Assistance 6=Modified [place] 3=Moderate Assistance 7=Complete IndependenceSCALE: Activities may be completed with or without assistive devices. 0-Jpntcvnrlo-mbwkbem completes the activity by him/herself with no assistance from a helper. 5-Set-up or Clean-up Assistance-helper sets up or cleans up; patient completes activity. [place] assists only prior to or following the activity. 4-Supervision or Touching Assistance-helper provides verbal cues and/or touching/steadying and/or contact guard assistance as patient completes activity. Assistance may be provided throughout the activity or intermittently. 3-Partial/Moderate Assistance-helper does LESS THAN HALF the effort. [place] lifts, holds or supports trunk or limbs, but provides less than half the effort. 2-Substantial/Maximal Assistance-helper does MORE THAN HALF the effort. [place] lifts or holds trunk or limbs and provides more than half the effort. 5-Odcmxywpp-riuvja does ALL the effort. Patient does none of the effort to complete the activity. Or, the assistance of 2 or more helpers is required for the patient to complete the activity. If activity was not attempted, code reason: 7-Patient Refused. 9-Not Applicable-not attempted and the patient did not perform the activity before the current illness, exacerbation or injury. 10-Not Attempted due to Environmental Limitations-(lack of equipment, weather restraints, etc.). 88-Not Attempted due to Medical Conditions or Safety Concerns. Roll Left to Right (QC): 6 Sit to Lying (QC): 6 Sit to Stand (QC): 4 Chair/Bmy-xx-Rhyda Xfer(QC): 4 Car Transfer (QC): 88 Gait Training Does the Patient Walk?: Yes Distance: 150', 70' Walk 10 feet (QC): 4 Walk 50 ft with 2 Turns(QC): 4 Walk 150 ft (QC): 4 Walking 10ft/uneven surface-QC: 88 Gait Persons Needed: 1 Gait Assistive Device: FWW Wheelchair Training Does the Pt Use a Wheelchair?: Yes Wheel 50 ft with 2 turns (QC): 6 Wheel 150 ft (QC): 6 Type of Wheelchair: Manual Stair Training 1 Step (curb) (QC): 88 4 Steps (QC): 88 12 Steps (QC): 88 Balance Picking up an Object (QC): 88 ADL-Treatment Eating (QC): 6 (per clinical judgment) Oral Hygiene (QC): 6 (Completed in shower.) Shower/Bathe Self (QC): 5 Upper Body Dressing (QC): 5 Lower Body Dressing (QC): 5 On/Off Footwear (QC): 5 Toileting Hygiene (QC): 4 Toilet Transfer (QC): 3 Assessment/Plan Assessment and Plan Assess & Plan/Chief Complaint Assessment: COVID-19 pneumonia with ongoing hypoxic respiratory failure Chronic scoliosis back pain History of pain pill addiction Claustrophobia Anxiety Gout Restrictive lung disease Recent pneumomediastinum Thrombocytopenia Anemia Hypokalemia [place] Plan: Inpatient rehab protocol Slow therapy 31/08 due to severe hypoxia with exertion due to COVID-19 pneumonia Monitor closely Replace potassium and mag 09/04/2020: Supportive care Pulmonary consultation appreciated Echo Slow taper 09/05/2020: Discontinue breathing treatments since it makes her too shaky Long taper of prednisone 09/06/2020: Supportive care Oxygen supplementation 09/07/2020: Monitor desaturation Supportive care 09/08/2020: Maintain prednisone slow taper Monitor closely Improved 09/09/2020: Supportive care Monitor closely Much improved 09/10/2020: Continue oxygen wean Maintain slow taper prednisone 09/11/2020: Continue to wean oxygen Slow taper prednisone 09/12/20: Maintain prednisone O2 wean 09/13/2020: Supportive care Improving but slowly 09/14/2020: Improving a little bit each day Continue aggressive treatment Oxygen supplementation 09/15/2020: Oxygen maintained Continue aggressive rehab 09/16/2020: Dramatic improvement Continue recovery Maintain oxygen 09/17/2020: Supportive care Check chest x-ray and labs in the morning 09/18/2020: Supportive care Oxygen maintained 09/19/2020: Titrate prednisone down Maintain oxygen 09/20/2020: Decrease prednisone Aggressive therapy 09/21/2020: Continue aggressive physical therapy Much improved status 09/22/2020: Discharge is planned for Friday Wean oxygen if possible 09/23/2020: Supportive care Long steroid taper dose Discussed vaccine 09/24/2020: Supportive care Oxygen supplementation 09/25/2020: Planning for discharge Monitor closely 09/26/2020: Wean oxygen DC Remeron due to dizziness 09/27/2020: Improved dizziness with discontinuation of Remeron Maintain oxygen (1) COVID-19 JULES ROJAS DO Sep 27, 2020 06:26
[2020-09-27] MEDS: predniSONE 20 MG TAB PO SCH (06:33)
[2020-09-27 07:58] VITALS: BP 119/66
[2020-09-27] MEDS: ASCORBIC ACID (VIT C) 500 MG TABLET PO SCH ×2 (08:52→21:04)
[2020-09-27] MEDS: PANTOPRAZOLE 40 MG (PROTONIX) TAB PO SCH (08:52)
[2020-09-27] MEDS: MAGNESIUM OXIDE (MAG-OX)400 MG TAB PO SCH ×2 (08:52→18:27)
[2020-09-27] MEDS: COLCHICINE 0.6 MG (COLCRYS) TABLET PO SCH (08:52)
[2020-09-27] MEDS: PARoxetine 20 MG (PAXIL) TAB PO SCH (08:52)
[2020-09-27] MEDS: clonazePAM 1 MG (KlonoPIN) TAB PO SCH ×2 (08:52→21:05)
[2020-09-27] MEDS: KCL 20 MEQ TAB (K-DUR) PO SCH ×3 (08:52→18:27)
[2020-09-27] MEDS: ROFLUMILAST 500 MCG TAB (DALIRESP) PO SCH (08:52)
[2020-09-27] MEDS: guaiFENesin (MUCINEX) 600 MG TAB PO SCH ×2 (08:53→21:04)
[2020-09-27] MEDS: SILDENAFIL 20 MG (REVATIO) TAB NON-FORMULARY PO SCH ×3 (08:53→21:05)
[2020-09-27] MEDS: ATENOLOL 25 MG (TENORMIN) TAB PO SCH ×2 (08:53→21:07)
[2020-09-27] MEDS: APIXABAN 2.5 MG (ELIQUIS) TABLET PO SCH ×2 (08:53→21:05)
--- NOTE | 2020-09-27 10:31 | Physical Therapy Daily Note ---
PT Daily Note-Current Subjective Pt sitting up in bed upon arrival. Pt agrees to PT. Pain Location: No Pain Reported Mental Status Patient Orientation: Person, Place, Time, Situation Attachments: Oxygen (6L during tx & 3L at rest) Transfers SCALE: Activities may be completed with or without assistive devices. 5-Xiqxdtukjv-mtbymfv completes the activity by him/herself with no assistance from a helper. 5-Set-up or Clean-up Assistance-helper sets up or cleans up; patient completes activity. [place] assists only prior to or following the activity. 4-Supervision or Touching Assistance-helper provides verbal cues and/or touching/steadying and/or contact guard assistance as patient completes activity. Assistance may be provided throughout the activity or intermittently. 3-Partial/Moderate Assistance-helper does LESS THAN HALF the effort. [place] lifts, holds or supports trunk or limbs, but provides less than half the effort. 2-Substantial/Maximal Assistance-helper does MORE THAN HALF the effort. [place] lifts or holds trunk or limbs and provides more than half the effort. 0-Slgxvktpp-efzkzn does ALL the effort. Patient does none of the effort to complete the activity. Or, the assistance of 2 or more helpers is required for the patient to complete the activity. If activity was not attempted, code reason: 7-Patient Refused. 9-Not Applicable-not attempted and the patient did not perform the activity before the current illness, exacerbation or injury. 10-Not Attempted due to Environmental Limitations-(lack of equipment, weather restraints, etc.). 88-Not Attempted due to Medical Conditions or Safety Concerns. Sit to Stand (QC): 4 Toilet Transfer (QC): 4 Weight Bearing Right Lower Extremity: Right Full Weight Bearing Left Lower Extremity: Left Full Weight Bearing Gait Training Does the Patient Walk?: Yes Distance: 150' Walk 10 feet (QC): 5 Walk 50 ft with 2 Turns(QC): 5 Walk 150 ft (QC): 5 Gait Persons Needed: 1 Gait Assistive Device: FWW Wheelchair Training Does the Pt Use a Wheelchair?: No Exercises Seated Therapy Exercises: Ankle pumps, Long arc quads, Hip flexion, Hip abd/add, Glut set Seated Reps: 15 NuStep Minutes: 15 NuStep Workload: 5 Treatments TF to standing and uses BR. Pt amb. in hallway with RB as needed. Pt uses Nustep then takes RB followed by Seated Ex then returns to room to rest. All needs met, call light in hand. Assessment Current Status: Good Progress Pt still fatigues and needs RB but shorter ones to recover. PT Short Term Goals Short Term Goals Time Frame: Sep 16, 2020 Roll Left & Right: 6 Sit to lyin Lying to sitting on side of be: 6 Sit to stand: 4 PT Optical Laboratory Technician Goals Optical Laboratory Technician Goals PT Jail Goals Time Frame: Sep 30, 2020 Roll Left & Right (QC): 6 Sit to Lying (QC): 6 Lying-Sitting on Side/Bed(QC): 6 Sit to Stand (QC): 6 Chair/Fds-mu-Tlngc Xfer(QC): 6 Toilet Transfer (QC): 6 Car Transfer (QC): 6 Does the Patient Walk: No and Walking Goal IS indicated Walk 10 feet (QC): 6 Walk 50ft with 2 Turns (QC): 6 Walk 150 ft (QC): 6 Walking 10ft on Uneven Surface: 6 1 Step (curb) (QC): 6 4 Steps (QC): 6 12 Steps (QC): 9 Picking up an Object (QC): 6 Does the Pt use WC or Scooter?: No Wheel 50 feet with 2 turns (QC: 9 Type: N/A Wheel 150 feet: 9 Type: N/A PT Plan Problem List Problem List: Activity Tolerance, Gait Treatment/Plan Treatment Plan: Continue Plan of Care Treatment Plan: Bed Mobility, Education, Functional Activity Luis Manuel, Functional Strength, Group Therapy, Gait, Safety, Therapeutic Exercise, Transfers Treatment Duration: Sep 30, 2020 Frequency: Modified Program (IRF) Estimated Hrs Per Day: 1.5 hours per day Patient and/or Family Agrees t: Yes Safety Risks/Education Patient Education: Gait Training Teaching Recipient: Patient Teaching Methods: Discussion Response to Teaching: Verbalize Understanding Time/GCodes Time In: 945 Time Out: 1045 Total Billed Treatment Time: 60 Total Billed Treatment 1, GT (20m), FA (15m) & EX x2 (25m) JOSHUA CRANDALL CUSTOMER SERVICE CASHIER Sep 27, 2020 10:31
--- NOTE | 2020-09-27 11:59 | Occupational Ther Daily Note ---
OT Current Status-Daily Note Subjective Pt alert, sitting in recliner. Pt agrees to therapy. No c/o pain at this time. Mental Status/Objective Patient Orientation: Person, Place, Time, Situation Attachments: Oxygen (3L at rest, 6L with activity) ADL-Treatment Pt declines ADLs, will complete tomorrow. Therapy Code Descriptions/Definitions Functional [place] Measure: 0=Not Assessed/NA 4=Minimal Assistance 1=Total Assistance 5=Supervision or Setup 2=Maximal Assistance 6=Modified [place] 3=Moderate Assistance 7=Complete IndependenceSCALE: Activities may be completed with or without assistive devices. 3-Mtywmszzwu-gudngfj completes the activity by him/herself with no assistance from a helper. 5-Set-up or Clean-up Assistance-helper sets up or cleans up; patient completes activity. [place] assists only prior to or following the activity. 4-Supervision or Touching Assistance-helper provides verbal cues and/or touching/steadying and/or contact guard assistance as patient completes activity. Assistance may be provided throughout the activity or intermittently. 3-Partial/Moderate Assistance-helper does LESS THAN HALF the effort. [place] lifts, holds or supports trunk or limbs, but provides less than half the effort. 2-Substantial/Maximal Assistance-helper does MORE THAN HALF the effort. [place] lifts or holds trunk or limbs and provides more than half the effort. 5-Exfsilwuo-cvdlgy does ALL the effort. Patient does none of the effort to complete the activity. Or, the assistance of 2 or more helpers is required for the patient to complete the activity. If activity was not attempted, code reason: 7-Patient Refused. 9-Not Applicable-not attempted and the patient did not perform the activity before the current illness, exacerbation or injury. 10-Not Attempted due to Environmental Limitations-(lack of equipment, weather restraints, etc.). 88-Not Attempted due to Medical Conditions or Safety Concerns. Other Treatment 1st session([id number]) Pt propelled w/c to therapy gym. Pt completed arm bike and fine motor tasks in standing to increase strength and activity tolerance for daily functional tasks. Pt able to stand at arm bike for 2 min then 3 min with minimal break between times. Pt then stood to complete fine motor activity 4x's with one break. Using 1# hand wt, pt able to complete 1 set 10 reps of bicep curls in standing. Pt then completed tricep, shldr press exercises in sitting with 2# wt. After session, pt sitting in recliner with call light/phone in reach. All needs met in room. 2nd session([id number])Pt c/o increased fatigue. Independent with SPT from recliner to bed. Independent with bed mobility. Pt able to demonstrate by gestures and verbally HEP for theraband, theraputty and therapy sponge. Discussed energy conservation for all areas of home. Pt has home set up for safety and energy conservation. After therapy, pt lying in bed with call light/phone in reach. All needs met in room. OT Short Term Goals Short Term Goals Time Frame: Sep 16, 2020 Eatin Oral hygiene: 4 Toileting hygiene: 3 Shower/bathe self: 3 Upper body dressin Lower body dressin Putting on/taking off footwear: 3 OT Correction Goals Environment Coordinator Goals Time Frame: Sep 30, 2020 Eating (QC): 6 Oral Hygiene (QC): 6 Toileting Hygiene (QC): 6 Shower/Bathe Self (QC): 4 Upper Body Dressing (QC): 5 Lower Body Dressing (QC): 4 On/Off Footwear (QC): 5 Additional Goals: 1-Demonstrate ADL Tasks, 2-Verbalize Understanding, 3- ImproveStrength/Luis Manuel 1=Demonstrate adherence to instructed precautions during ADL tasks. 2=Patient will verbalize/demonstrate understanding of assistive devices/modifications for ADL. 3=Patient will improve strength/tolerance for activity to enable patient to perform ADL's. OT Education/Plan Problem List/Assessment Assessment: Decreased Activ Tolerance, Decreased UE Strength Discharge Recommendations Plan/Recommendations: Continue POC Treatment Plan/Plan of Care Patient would benefit from OT for education, treatment and training to promote independence in ADL's, mobility, safety and/or upper extremity function for ADL's. Plan of Care: ADL Retraining, Functional Mobility, UE Funct Exercise/Act Treatment Duration: Sep 30, 2020 Frequency: At least 5 of 7 days/Wk (IRF) Estimated Hrs Per Day: 1.5 hours per day Agreement: Yes Rehab Potential: Good Time/GCodes Start Time: 11:00 (1335) Stop Time: 12:00 (1405) Total Time Billed (hr/min): 90 Billed Treatment Time 1 visit([id number]) EX 4 (60 min) 1 visit([id number]) FA 2 (30 min) SAHIL LARSEN Sep 27, 2020 11:59
--- NOTE | 2020-09-27 13:40 | Physical Therapy Daily Note ---
PT Daily Note-Current Subjective Pt sitting in recliner upon arrival. Pt agrees to PT but reports very fatigued. Pt asks to use BR to start tx. Pain Location: No Pain Reported Mental Status Patient Orientation: Person, Place, Time, Situation Attachments: Oxygen (6L during tx & 3L at rest) Transfers SCALE: Activities may be completed with or without assistive devices. 4-Spsusnqoth-ihyinep completes the activity by him/herself with no assistance from a helper. 5-Set-up or Clean-up Assistance-helper sets up or cleans up; patient completes activity. [place] assists only prior to or following the activity. 4-Supervision or Touching Assistance-helper provides verbal cues and/or touching/steadying and/or contact guard assistance as patient completes activity. Assistance may be provided throughout the activity or intermittently. 3-Partial/Moderate Assistance-helper does LESS THAN HALF the effort. [place] lifts, holds or supports trunk or limbs, but provides less than half the effort. 2-Substantial/Maximal Assistance-helper does MORE THAN HALF the effort. [place] lifts or holds trunk or limbs and provides more than half the effort. 4-Herednpsn-pnthgm does ALL the effort. Patient does none of the effort to complete the activity. Or, the assistance of 2 or more helpers is required for the patient to complete the activity. If activity was not attempted, code reason: 7-Patient Refused. 9-Not Applicable-not attempted and the patient did not perform the activity bef ore the current illness, exacerbation or injury. 10-Not Attempted due to Environmental Limitations-(lack of equipment, weather r estraints, etc.). 88-Not Attempted due to Medical Conditions or Safety Concerns. Sit to Stand (QC): 5 Toilet Transfer (QC): 4 Weight Bearing Right Lower Extremity: Right Full Weight Bearing Left Lower Extremity: Left Full Weight Bearing Exercises Seated Therapy Exercises: Ankle pumps, Long arc quads, Hip flexion, Hip abd/add, Glut set Seated Reps: 15 Treatments TF to standing and uses BR then returns to recliner to rest. Pt completes Seated Ex and rests. All needs met, call light in hand. Assessment Current Status: Good Progress Pt more fatigued this afternoon. PT Short Term Goals Short Term Goals Time Frame: Sep 16, 2020 Roll Left & Right: 6 Sit to lyin Lying to sitting on side of be: 6 Sit to stand: 4 PT Biomedical Equipment Tech Goals Residential Goals PT Residential Goals Time Frame: Sep 30, 2020 Roll Left & Right (QC): 6 Sit to Lying (QC): 6 Lying-Sitting on Side/Bed(QC): 6 Sit to Stand (QC): 6 Chair/Jld-ha-Yptoz Xfer(QC): 6 Toilet Transfer (QC): 6 Car Transfer (QC): 6 Does the Patient Walk: No and Walking Goal IS indicated Walk 10 feet (QC): 6 Walk 50ft with 2 Turns (QC): 6 Walk 150 ft (QC): 6 Walking 10ft on Uneven Surface: 6 1 Step (curb) (QC): 6 4 Steps (QC): 6 12 Steps (QC): 9 Picking up an Object (QC): 6 Does the Pt use WC or Scooter?: No Wheel 50 feet with 2 turns (QC: 9 Type: N/A Wheel 150 feet: 9 Type: N/A PT Plan Problem List Problem List: Activity Tolerance Treatment/Plan Treatment Plan: Continue Plan of Care Treatment Plan: Bed Mobility, Education, Functional Activity Luis Manuel, Functional Strength, Group Therapy, Gait, Safety, Therapeutic Exercise, Transfers Treatment Duration: Sep 30, 2020 Frequency: Modified Program (IRF) Estimated Hrs Per Day: 1.5 hours per day Patient and/or Family Agrees t: Yes Time/GCodes Time In: 1300 Time Out: 1330 Total Billed Treatment Time: 30 Total Billed Treatment 1, FA (10m) & EX (20m) JOSHUA CRANDALL IMPLEMENTATION COORDINATOR Sep 27, 2020 13:40
[2020-09-27] MEDS: ALPRAZolam 0.25 MG (XANAX) TAB PO PRN (14:10)
[2020-09-27 20:00] VITALS: BP 110/61
[2020-09-27] MEDS: MONTELUKAST 10 MG (SINGULAIR) TAB PO SCH (21:04)
[2020-09-27] MEDS: HYDROcodone/APAP 5 MG/325 MG (LORTAB) TAB PO PRN (21:05)
[2020-09-27] MEDS: MELATONIN 3 MG TABLET PO SCH (21:05)
[2020-09-28] MEDS: predniSONE 20 MG TAB PO SCH (06:37)
[2020-09-28] MEDS: ROFLUMILAST 500 MCG TAB (DALIRESP) PO SCH (07:30)
[2020-09-28] MEDS: guaiFENesin (MUCINEX) 600 MG TAB PO SCH ×2 (07:30→20:12)
[2020-09-28] MEDS: APIXABAN 2.5 MG (ELIQUIS) TABLET PO SCH ×2 (07:30→20:12)
[2020-09-28] MEDS: MAGNESIUM OXIDE (MAG-OX)400 MG TAB PO SCH ×2 (07:30→17:27)
[2020-09-28] MEDS: PARoxetine 20 MG (PAXIL) TAB PO SCH (07:32)
[2020-09-28] MEDS: PANTOPRAZOLE 40 MG (PROTONIX) TAB PO SCH (07:32)
[2020-09-28] MEDS: COLCHICINE 0.6 MG (COLCRYS) TABLET PO SCH (07:32)
[2020-09-28] MEDS: clonazePAM 1 MG (KlonoPIN) TAB PO SCH ×2 (07:32→20:12)
[2020-09-28] MEDS: KCL 20 MEQ TAB (K-DUR) PO SCH ×3 (07:32→17:27)
[2020-09-28] MEDS: ATENOLOL 25 MG (TENORMIN) TAB PO SCH ×2 (07:32→20:14)
[2020-09-28] MEDS: ASCORBIC ACID (VIT C) 500 MG TABLET PO SCH ×2 (07:32→20:12)
[2020-09-28] MEDS: SILDENAFIL 20 MG (REVATIO) TAB NON-FORMULARY PO SCH ×3 (07:32→20:12)
[2020-09-28 07:41] VITALS: BP 113/60
--- NOTE | 2020-09-28 10:32 | Occupational Ther Daily Note ---
OT Current Status-Daily Note Subjective Pt alert, lying in bed. Pt agrees to therapy. No c/o pain. Mental Status/Objective Patient Orientation: Person, Place, Time, Situation Attachments: Oxygen (4L at rest and activity) ADL-Treatment Pt agrees to shower. Bed mobility independent. SPT to w/c independent. Used w/c to retrieve clothing from closet then transported to bathroom. Pt transferred into shower independently using BSC and grabbars. Sitting on BSC pt completed shower using hand held shower and grabbars independently. Pt completed dressing independently. Oral care and eating independently. Therapy Code Descriptions/Definitions Functional [place] Measure: 0=Not Assessed/NA 4=Minimal Assistance 1=Total Assistance 5=Supervision or Setup 2=Maximal Assistance 6=Modified [place] 3=Moderate Assistance 7=Complete IndependenceSCALE: Activities may be completed with or without assistive devices. 6-Uazunhelym-ugldrqd completes the activity by him/herself with no assistance from a helper. 5-Set-up or Clean-up Assistance-helper sets up or cleans up; patient completes activity. [place] assists only prior to or following the activity. 4-Supervision or Touching Assistance-helper provides verbal cues and/or touching/steadying and/or contact guard assistance as patient completes activity. Assistance may be provided throughout the activity or intermittently. 3-Partial/Moderate Assistance-helper does LESS THAN HALF the effort. [place] lifts, holds or supports trunk or limbs, but provides less than half the effort. 2-Substantial/Maximal Assistance-helper does MORE THAN HALF the effort. [place] lifts or holds trunk or limbs and provides more than half the effort. 5-Llvhnoziz-fupprc does ALL the effort. Patient does none of the effort to complete the activity. Or, the assistance of 2 or more helpers is required for the patient to complete the activity. If activity was not attempted, code reason: 7-Patient Refused. 9-Not Applicable-not attempted and the patient did not perform the activity before the current illness, exacerbation or injury. 10-Not Attempted due to Environmental Limitations-(lack of equipment, weather restraints, etc.). 88-Not Attempted due to Medical Conditions or Safety Concerns. Eating (QC): 6 Oral Hygiene (QC): 6 Shower/Bathe Self (QC): 6 Upper Body Dressing (QC): 6 Lower Body Dressing (QC): 6 On/Off Footwear: 6 Toileting Hygiene (QC): 6 Other Treatment Pt then demonstrated independence with HEP for therapy sponge and light resistance theraband. After therapy, pt sitting in recliner with call light/phone in reach. All needs met in room. OT Short Term Goals Short Term Goals Time Frame: Sep 16, 2020 Eatin Oral hygiene: 4 Toileting hygiene: 3 Shower/bathe self: 3 Upper body dressin Lower body dressin Putting on/taking off footwear: 3 OT Small Equipment Operator Goals Skilled Nursing Goals Time Frame: Sep 30, 2020 Eating (QC): 6 (met) Oral Hygiene (QC): 6 (met) Toileting Hygiene (QC): 6 (met) Shower/Bathe Self (QC): 4 (met) Upper Body Dressing (QC): 5 (et) Lower Body Dressing (QC): 4 (met) On/Off Footwear (QC): 5 (met) Additional Goals: 1-Demonstrate ADL Tasks, 2-Verbalize Understanding, 3- ImproveStrength/Luis Manuel 1=Demonstrate adherence to instructed precautions during ADL tasks. 2=Patient will verbalize/demonstrate understanding of assistive devices/modifications for ADL. 3=Patient will improve strength/tolerance for activity to enable patient to perform ADL's. OT Education/Plan Problem List/Assessment Assessment: Decreased Activ Tolerance Discharge Recommendations Plan/Recommendations: Continue POC Treatment Plan/Plan of Care Patient would benefit from OT for education, treatment and training to promote i ndependence in ADL's, mobility, safety and/or upper extremity function for ADL's. Plan of Care: ADL Retraining, Functional Mobility, UE Funct Exercise/Act Treatment Duration: Sep 30, 2020 Frequency: At least 5 of 7 days/Wk (IRF) Estimated Hrs Per Day: 1.5 hours per day Agreement: Yes Rehab Potential: Good Time/GCodes Start Time: 09:00 Stop Time: 10:30 Total Time Billed (hr/min): 90 Billed Treatment Time 1 visit-ADL 3 (45 min) FA 1 (15 min) EX 2 (30 min) SAHIL LARSEN Sep 28, 2020 10:32
--- NOTE | 2020-09-28 11:56 | Physical Therapy Daily Note ---
PT Daily Note-Current Subjective Pt sitting in recliner upon arrival. Pt agrees to PT. Pain Location: No Pain Reported Mental Status Patient Orientation: Person, Place, Time, Situation Attachments: Oxygen (4L in room, attempted w/tx but had to increase to 6L ) Transfers SCALE: Activities may be completed with or without assistive devices. 3-Uvhklgvjtv-zpqegrf completes the activity by him/herself with no assistance from a helper. 5-Set-up or Clean-up Assistance-helper sets up or cleans up; patient completes activity. [place] assists only prior to or following the activity. 4-Supervision or Touching Assistance-helper provides verbal cues and/or touching/steadying and/or contact guard assistance as patient completes activity. Assistance may be provided throughout the activity or intermittently. 3-Partial/Moderate Assistance-helper does LESS THAN HALF the effort. [place] lifts, holds or supports trunk or limbs, but provides less than half the effort. 2-Substantial/Maximal Assistance-helper does MORE THAN HALF the effort. [place] lifts or holds trunk or limbs and provides more than half the effort. 8-Eoxcewouw-nmcsfx does ALL the effort. Patient does none of the effort to complete the activity. Or, the assistance of 2 or more helpers is required for the patient to complete the activity. If activity was not attempted, code reason: 7-Patient Refused. 9-Not Applicable-not attempted and the patient did not perform the activity before the current illness, exacerbation or injury. 10-Not Attempted due to Environmental Limitations-(lack of equipment, weather restraints, etc.). 88-Not Attempted due to Medical Conditions or Safety Concerns. Roll Left & Right (QC): 6 Sit to Lying (QC): 6 Lying to Sitting/Side of Bed(Q: 6 Sit to Stand (QC): 6 Chair/Iqt-ha-Bjwrv Xfer(QC): 6 Toilet Transfer (QC): 6 Car Transfer (QC): 6 Weight Bearing Right Lower Extremity: Right Full Weight Bearing Left Lower Extremity: Left Full Weight Bearing Gait Training Does the Patient Walk?: Yes Distance: 150' x2 Walk 10 feet (QC): 6 Walk 50 ft with 2 Turns(QC): 6 Walk 150 ft (QC): 6 Walking 10ft/uneven surface-QC: 6 Gait Persons Needed: 0 Gait Assistive Device: FWW Wheelchair Training Does the Pt Use a Wheelchair?: No Stair Training 1 Step (curb) (QC): 7 4 Steps (QC): 7 12 Steps (QC): 7 Pt now has a ramp at home and won't be using stairs. Balance Picking up an Object (QC): 9 Special Test Comments Pt states she would sit to cotton picker something from floor not bend over. Pt has human resource analyst to use at home. Exercises NuStep Minutes: 15 NuStep Workload: 5 Treatments TF to standing and uses BR. Pt amb. in hallway and completes QC scoring items listed above. Pt takes periodic RB as needed for fatigue. Pt uses NuStep for 15m at WL 5. Pt returns to room at end of tx to rest and eat lunch. All needs met, call light in hand. Assessment Current Status: Good Progress Pt is improving with activity tolerance as pt is able to ambulate farther before RB. Recovery periods are also shorter. PT Short Term Goals Short Term Goals Time Frame: Sep 16, 2020 Roll Left & Right: 6 Sit to lyin Lying to sitting on side of be: 6 Sit to stand: 4 PT Business Unit Leader Goals Business Unit Leader Goals PT Longterm Goals Time Frame: Sep 30, 2020 Roll Left & Right (QC): 6 Sit to Lying (QC): 6 Lying-Sitting on Side/Bed(QC): 6 Sit to Stand (QC): 6 Chair/Idu-rf-Bflmu Xfer(QC): 6 Toilet Transfer (QC): 6 Car Transfer (QC): 6 Does the Patient Walk: No and Walking Goal IS indicated Walk 10 feet (QC): 6 Walk 50ft with 2 Turns (QC): 6 Walk 150 ft (QC): 6 Walking 10ft on Uneven Surface: 6 1 Step (curb) (QC): 6 4 Steps (QC): 6 12 Steps (QC): 9 Picking up an Object (QC): 6 Does the Pt use WC or Scooter?: No Wheel 50 feet with 2 turns (QC: 9 Type: N/A Wheel 150 feet: 9 Type: N/A PT Plan Problem List Problem List: Activity Tolerance Treatment/Plan Treatment Plan: Continue Plan of Care Treatment Plan: Bed Mobility, Education, Functional Activity Luis Manuel, Functional Strength, Group Therapy, Gait, Safety, Therapeutic Exercise, Transfers Treatment Duration: Sep 30, 2020 Frequency: Modified Program (IRF) Estimated Hrs Per Day: 1.5 hours per day Patient and/or Family Agrees t: Yes Time/GCodes Time In: 1100 Time Out: 1200 Total Billed Treatment Time: 60 Total Billed Treatment 1, GT (20m), FA x2 (25m) & EX (15m) JOSHUA CRANDALL DEVELOPING MACHINE OPERATOR Sep 28, 2020 11:56
--- NOTE | 2020-09-28 12:27 | PM&R Progress Note ---
Subjective HPI/CC On Admission Date Seen by Provider: Sep 28, 2020 Time Seen by Provider: 12:30 Subjective/Events-last exam 09/28/2020: Pt excited about going home Home O2 evaluation Will continue to recover at home 09/27/2020: Pt doing really well Was up walking with oxygen turned down and he oxygen became 63% Overall doing well otherwise No more dizziness since Remeron was DC 09/26/2020: Pt weaning oxygen now on 3 liters Bowels moved Discontinued Remeron due to dizziness Decreasing Prednisone to 20mg daily 09/25/2020: Pt doing really well Bowels moved yesterday Maintain on oxygen Walks around pretty well DC on Friday09/24/2020: Patient in a good mood today Getting excited about going home on Friday No issues Requiring 4-6 L/min oxygen 09/23/2020: Patient doing really well Bowels moved on 09/22/2020 Getting more active Feels really good about discharge plan for Friday09/22/2020: Patient much improved Lungs remain diminished Working hard Monitor closely 09/21/2020: Pt doing really well Standing a lot now Bowels moved today DC planned for 09/2909/20/2020: Pt doing really well Was able to stand for the first time today and has done is several times today Very proud of this Checked meds and labs Lungs are clear 09/19/2020: Pt doing a little better 4 liters of O2 maintained No SOB when she is resting Overall much improved 09/18/2020: Pt doing really well Remains on four liters No change in her dyspnea Magnesium is normal at 1.8 on supplement Chest X-ray no acute changes Labs good 09/17/2020: Patient in a good mood Slept pretty well last night Check meds and labs 09/16/2020: Patient much improved Getting more more independent No falls No shortness of breath she really exerts herself 09/15/2020: Patient doing very well Much improved Moving around a lot more Oxygen maintained Continue aggressive rehab 09/14/2020: Pt progressing Maintain on 4 liters of oxygen Checked meds and labs No major issues 09/13/2020: Pt doing pretty well No bed almazan use now, only commode 4 liters of O2 Decreasing Prednisone to 40mg daily 09/12/2020: Pt doing really well Four liters of oxygen maintained Very weak Dramatically improved though 09/11/2020: Pt doing pretty well Sleeping now 4 liters of O2 maintained Bowels moved yesterday 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 09/10/2020: Patient improving Now on 4 L of oxygen Uses bedpan still We will monitor closely 09/09/2020: Pt progressing nicely Down to five liters of oxygen Bowels moved on the Much improved 09/08/2020: Pt doing well but Prednisone was 10mg daily, supposed to be 50 so getting that corrected Oxygenation does go down with any activity but actually showed today and did pretty well 09/07/2020: Pt doing pretty well Pulmonary consult today Nose bleed a little bit today Bowels moving On six liters during bed-almazan which seems to help recovery 09/06/2020: Pt doing pretty well Had an episode of SOB in the shower Doing okay now Feels like no other problems are occurring X-ray for picc line to be sure it is functioning adequately 09/05/2020: Pt doing pretty well but having loose stools Eliquis restarted since no nose bleeds Echocardiogram ordered per pulmonology consult Four liters of oxygen maintained Talked about her Scoliosis and restrictive lung disease Patient does not want inhaler or breathing treatment 09/04/2020: Pt doing pretty well Wonders if she should have a continuous pulse-ox and I told her we are monitoring that with frequent spot checks. Chest X-ray ordered for pulmonary consultation She even gets SOB on the bed-almazan Echo was recommended so we will order Review of Systems General: Fatigue, Malaise Pulmonary: Dyspnea Objective Exam Vital Signs Vital Signs Date Time Temp Pulse Resp B/P (MAP) Pulse Ox O2 Delivery O2 Flow Rate FiO2 09/28/20 20:15 High Flow N/C 3.00 09/28/20 20:00 36.2 71 18 109/66 (80) 100 Capillary Refill : General Appearance: No Apparent Distress, WD/WN, Chronically ill, Obese HEENT: PERRL/EOMI, Normal ENT Inspection, Pharynx Normal Neck: Full Range of Motion, Normal Inspection, Non Tender, Supple, Carotid Bruit Respiratory: Chest Non Tender, Lungs Clear, No Accessory Muscle Use, No Respiratory Distress, Decreased Breath Sounds Cardiovascular: Regular Rate, Rhythm, No Edema, No Gallop, No JVD, No Murmur, Normal Peripheral Pulses Gastrointestinal: Normal Bowel Sounds, No Organomegaly, No Pulsatile Mass, Non Tender, Soft Back: Normal Inspection, No CVA Tenderness, No Vertebral Tenderness Extremity: Normal Capillary Refill, Normal Inspection, Normal Range of Motion, Non Tender, No Calf Tenderness, No Pedal Edema Neurologic/Psychiatric: Alert, Oriented x3, No Motor/Sensory Deficits, Normal Mood/Affect, making department preparer II-XII Norm as Tested, Motor Weakness (generalized 3/5) Skin: Normal Color, Warm/Dry Lymphatic: No Adenopathy Results/Procedures Lab Patient resulted labs reviewed. FIM Transfers Therapy Code Descriptions/Definitions Functional [place] Measure: 0=Not Assessed/NA 4=Minimal Assistance 1=Total Assistance 5=Supervision or Setup 2=Maximal Assistance 6=Modified [place] 3=Moderate Assistance 7=Complete IndependenceSCALE: Activities may be completed with or without assistive devices. 7-Vpkrxcrqug-atzbgul completes the activity by him/herself with no assistance from a helper. 5-Set-up or Clean-up Assistance-helper sets up or cleans up; patient completes activity. [place] assists only prior to or following the activity. 4-Supervision or Touching Assistance-helper provides verbal cues and/or touching/steadying and/or contact guard assistance as patient completes activity. Assistance may be provided throughout the activity or intermittently. 3-Partial/Moderate Assistance-helper does LESS THAN HALF the effort. [place] lifts, holds or supports trunk or limbs, but provides less than half the effort. 2-Substantial/Maximal Assistance-helper does MORE THAN HALF the effort. [place] lifts or holds trunk or limbs and provides more than half the effort. 1-Acpixjgat-hnlkay does ALL the effort. Patient does none of the effort to complete the activity. Or, the assistance of 2 or more helpers is required for the patient to complete the activity. If activity was not attempted, code reason: 7-Patient Refused. 9-Not Applicable-not attempted and the patient did not perform the activity before the current illness, exacerbation or injury. 10-Not Attempted due to Environmental Limitations-(lack of equipment, weather restraints, etc.). 88-Not Attempted due to Medical Conditions or Safety Concerns. Roll Left to Right (QC): 6 Sit to Lying (QC): 6 Sit to Stand (QC): 6 Chair/Zpb-vs-Blqyk Xfer(QC): 6 Car Transfer (QC): 6 Gait Training Does the Patient Walk?: Yes Distance: 150' x2 Walk 10 feet (QC): 6 Walk 50 ft with 2 Turns(QC): 6 Walk 150 ft (QC): 6 Walking 10ft/uneven surface-QC: 6 Gait Persons Needed: 0 Gait Assistive Device: FWW Wheelchair Training Does the Pt Use a Wheelchair?: No Wheel 50 ft with 2 turns (QC): 6 Wheel 150 ft (QC): 6 Type of Wheelchair: Manual Stair Training 1 Step (curb) (QC): 7 4 Steps (QC): 7 12 Steps (QC): 7 Balance Picking up an Object (QC): 9 ADL-Treatment Eating (QC): 6 Oral Hygiene (QC): 6 Shower/Bathe Self (QC): 6 Upper Body Dressing (QC): 6 Lower Body Dressing (QC): 6 On/Off Footwear (QC): 6 Toileting Hygiene (QC): 6 Toilet Transfer (QC): 3 Assessment/Plan Assessment and Plan Assess & Plan/Chief Complaint Assessment: COVID-19 pneumonia with ongoing hypoxic respiratory failure Chronic scoliosis back pain History of pain pill addiction Claustrophobia Anxiety Gout Restrictive lung disease Recent pneumomediastinum Thrombocytopenia Anemia Hypokalemia [place] Plan: Inpatient rehab protocol Slow therapy 31/08 due to severe hypoxia with exertion due to COVID-19 pneumonia Monitor closely Replace potassium and mag 09/04/2020: Supportive care Pulmonary consultation appreciated Echo Slow taper 09/05/2020: Discontinue breathing treatments since it makes her too shaky Long taper of prednisone 09/06/2020: Supportive care Oxygen supplementation 09/07/2020: Monitor desaturation Supportive care 09/08/2020: Maintain prednisone slow taper Monitor closely Improved 09/09/2020: Supportive care Monitor closely Much improved 09/10/2020: Continue oxygen wean Maintain slow taper prednisone 09/11/2020: Continue to wean oxygen Slow taper prednisone 09/12/20: Maintain prednisone O2 wean 09/13/2020: Supportive care Improving but slowly 09/14/2020: Improving a little bit each day Continue aggressive treatment Oxygen supplementation 09/15/2020: Oxygen maintained Continue aggressive rehab 09/16/2020: Dramatic improvement Continue recovery Maintain oxygen 09/17/2020: Supportive care Check chest x-ray and labs in the morning 09/18/2020: Supportive care Oxygen maintained 09/19/2020: Titrate prednisone down Maintain oxygen 09/20/2020: Decrease prednisone Aggressive therapy 09/21/2020: Continue aggressive physical therapy Much improved status 09/22/2020: Discharge is planned for Friday Wean oxygen if possible 09/23/2020: Supportive care Long steroid taper dose Discussed vaccine 09/24/2020: Supportive care Oxygen supplementation 09/25/2020: Planning for discharge Monitor closely 09/26/2020: Wean oxygen DC Remeron due to dizziness 09/27/2020: Improved dizziness with discontinuation of Remeron Maintain oxygen 09/28/2020: Supportive care Discharge home tomorrow (1) COVID-19 JULES ROJAS DO Sep 28, 2020 12:27
--- NOTE | 2020-09-28 14:14 | Physical Therapy Daily Note ---
PT Daily Note-Current Subjective Pt is sitting in recliner upon arrival. Pt agrees to PT. Pain Location: No Pain Reported Mental Status Patient Orientation: Person, Place, Time, Situation Attachments: Oxygen (4L at rest & 6L during tx) Transfers SCALE: Activities may be completed with or without assistive devices. 0-Nkrqdqeyuy-dzzjwnu completes the activity by him/herself with no assistance from a helper. 5-Set-up or Clean-up Assistance-helper sets up or cleans up; patient completes activity. [place] assists only prior to or following the activity. 4-Supervision or Touching Assistance-helper provides verbal cues and/or touching/steadying and/or contact guard assistance as patient completes activity. Assistance may be provided throughout the activity or intermittently. 3-Partial/Moderate Assistance-helper does LESS THAN HALF the effort. [place] lifts, holds or supports trunk or limbs, but provides less than half the effort. 2-Substantial/Maximal Assistance-helper does MORE THAN HALF the effort. [place] lifts or holds trunk or limbs and provides more than half the effort. 9-Siywwovps-zjzqmi does ALL the effort. Patient does none of the effort to complete the activity. Or, the assistance of 2 or more helpers is required for the patient to complete the activity. If activity was not attempted, code reason: 7-Patient Refused. 9-Not Applicable-not attempted and the patient did not perform the activity before the current illness, exacerbation or injury. 10-Not Attempted due to Environmental Limitations-(lack of equipment, weather restraints, etc.). 88-Not Attempted due to Medical Conditions or Safety Concerns. Sit to Stand (QC): 6 Toilet Transfer (QC): 5 Weight Bearing Right Lower Extremity: Right Full Weight Bearing Left Lower Extremity: Left Full Weight Bearing Gait Training Does the Patient Walk?: Yes Distance: 150' Walk 10 feet (QC): 5 Walk 50 ft with 2 Turns(QC): 5 Walk 150 ft (QC): 5 Gait Persons Needed: 1 Gait Assistive Device: FWW Pt is more fatigued this afternoon so FINISHER SCREWDOWN stayed closer. Wheelchair Training Does the Pt Use a Wheelchair?: No Treatments TF to standing and asks to use BR. Pt amb. in hallway, taking RB as needed for fatigue. Pt returns to recliner to rest with all needs met, call light in hand. Assessment Current Status: Good Progress Pt is pushing self to get as much as pt can before needing to rest. Pt takes RB as needed, observing O2 until less fatigued. Pt will monitor O2 at home as pt has purchased Pulse Ox for home. PT Short Term Goals Short Term Goals Time Frame: Sep 16, 2020 Roll Left & Right: 6 Sit to lyin Lying to sitting on side of be: 6 Sit to stand: 4 PT Vp Marketing Goals Vp Marketing Goals PT Custodial Goals Time Frame: Sep 30, 2020 Roll Left & Right (QC): 6 Sit to Lying (QC): 6 Lying-Sitting on Side/Bed(QC): 6 Sit to Stand (QC): 6 Chair/Tcs-hl-Ifyay Xfer(QC): 6 Toilet Transfer (QC): 6 Car Transfer (QC): 6 Does the Patient Walk: No and Walking Goal IS indicated Walk 10 feet (QC): 6 Walk 50ft with 2 Turns (QC): 6 Walk 150 ft (QC): 6 Walking 10ft on Uneven Surface: 6 1 Step (curb) (QC): 6 4 Steps (QC): 6 12 Steps (QC): 9 Picking up an Object (QC): 6 Does the Pt use WC or Scooter?: No Wheel 50 feet with 2 turns (QC: 9 Type: N/A Wheel 150 feet: 9 Type: N/A PT Plan Problem List Problem List: Activity Tolerance Treatment/Plan Treatment Plan: Continue Plan of Care Treatment Plan: Bed Mobility, Education, Functional Activity Luis Manuel, Functional Strength, Group Therapy, Gait, Safety, Therapeutic Exercise, Transfers Treatment Duration: Sep 30, 2020 Frequency: Modified Program (IRF) Estimated Hrs Per Day: 1.5 hours per day Patient and/or Family Agrees t: Yes Time/GCodes Time In: 1330 Time Out: 1400 Total Billed Treatment Time: 30 Total Billed Treatment 1, FA (15m) & GT (15m) JOSHUA CRANDALL FINISHER SCREWDOWN Sep 28, 2020 14:14
[2020-09-28] MEDS: ALPRAZolam 0.25 MG (XANAX) TAB PO PRN (14:42)
[2020-09-28] MEDS: LOPERAMIDE 2 MG (IMODIUM) TABLET PO PRN (17:44)
[2020-09-28 20:00] VITALS: BP 109/66
[2020-09-28] MEDS: MONTELUKAST 10 MG (SINGULAIR) TAB PO SCH (20:12)
[2020-09-28] MEDS: MELATONIN 3 MG TABLET PO SCH (20:13)
[2020-09-28] MEDS: HYDROcodone/APAP 5 MG/325 MG (LORTAB) TAB PO PRN (20:13)
[2020-09-29] MEDS ORDERED: ASCO500T17 PO (04:42)
[2020-09-29] MEDS ORDERED: APIX2.5T PO (04:42)
[2020-09-29] MEDS ORDERED: MAGN400T8 PO (04:42)
[2020-09-29] MEDS ORDERED: PARO20TA5 PO (04:42)
[2020-09-29] MEDS ORDERED: ROFL500T PO (04:42)
[2020-09-29] MEDS ORDERED: COLC0.6T53 PO (04:42)
[2020-09-29] MEDS ORDERED: ATEN25TA PO (04:42)
[2020-09-29] MEDS ORDERED: PANT40TA52 PO (04:42)
[2020-09-29] MEDS ORDERED: ALPR.25T PO (04:42)
[2020-09-29] MEDS ORDERED: MELA3TAB39 PO (04:42)
[2020-09-29] MEDS ORDERED: POTA20TA8 PO (04:42)
[2020-09-29] MEDS ORDERED: GUAI600T43 PO (04:42)
[2020-09-29] MEDS ORDERED: MONT10TA32 PO (04:42)
[2020-09-29] MEDS ORDERED: SILD20TA14 PO (04:42)
[2020-09-29] MEDS ORDERED: CLON1TAB13 PO (04:42)
[2020-09-29] MEDS ORDERED: PRD20T PO (04:42)
--- NOTE | 2020-09-29 04:43 | Discharge Summary ---
Diagnosis/Chief Complaint Date of Admission Sep 02, 2020 at 10:09 Date of Discharge Discharge Date: Sep 29, 2020 Discharge Diagnosis Assessment: COVID-19 pneumonia with ongoing hypoxic respiratory failure Chronic scoliosis back pain History of pain pill addiction Claustrophobia Anxiety Gout Restrictive lung disease Recent pneumomediastinum Thrombocytopenia Anemia Hypokalemia Hypomag Plan: Inpatient rehab protocol Slow therapy 31/08 due to severe hypoxia with exertion due to COVID-19 pneumonia Monitor closely Replace potassium and mag 09/04/2020: Supportive care Pulmonary consultation appreciated Echo Slow taper 09/05/2020: Discontinue breathing treatments since it makes her too shaky Long taper of prednisone 09/06/2020: Supportive care Oxygen supplementation 09/07/2020: Monitor desaturation Supportive care 09/08/2020: Maintain prednisone slow taper Monitor closely Improved 09/09/2020: Supportive care Monitor closely Much improved 09/10/2020: Continue oxygen wean Maintain slow taper prednisone 09/11/2020: Continue to wean oxygen Slow taper prednisone 09/12/20: Maintain prednisone O2 wean 09/13/2020: Supportive care Improving but slowly 09/14/2020: Improving a little bit each day Continue aggressive treatment Oxygen supplementation 09/15/2020: Oxygen maintained Continue aggressive rehab 09/16/2020: Dramatic improvement Continue recovery Maintain oxygen 09/17/2020: Supportive care Check chest x-ray and labs in the morning 09/18/2020: Supportive care Oxygen maintained 09/19/2020: Titrate prednisone down Maintain oxygen 09/20/2020: Decrease prednisone Aggressive therapy 09/21/2020: Continue aggressive physical therapy Much improved status 09/22/2020: Discharge is planned for Friday Wean oxygen if possible 09/23/2020: Supportive care Long steroid taper dose Discussed vaccine 09/24/2020: Supportive care Oxygen supplementation 09/25/2020: Planning for discharge Monitor closely 09/26/2020: Wean oxygen DC Remeron due to dizziness 09/27/2020: Improved dizziness with discontinuation of Remeron Maintain oxygen 09/28/2020: Supportive care Discharge home tomorrow (1) COVID-19 Discharge Summary Discharge Physical Examination Allergies: Coded Allergies: latex (Verified Allergy, Unknown, 09/02/20) Vitals & I&Os Vital Signs Date Time Temp Pulse Resp B/P (MAP) Pulse Ox O2 Delivery O2 Flow Rate FiO2 09/29/20 11:00 36.7 95 16 125/74 99 High Flow N/C 3.50 General Appearance: Alert, Oriented X3, Cooperative Respiratory: Clear to Auscultation Cardiovascular: Regular Rate Neuro: Normal Gait, Normal Speech, Strength at 5/5 X4 Ext Psych/Mental Status: Mental Status NL Hospital Course Was the Problem List Reviewed?: Yes Hospital Course: Pt had a 28 day hospital course after suffering from Covid-19 pneumonia with acute on chronic respiratory failure with restrictive lung disease. She had a lengthy hospital course but improved immensely during that time in order to return back to independent ADLs and ambulatory skills along with oxygen supplementation. Overall she responded very well and had no new complaints and was significant improved at ME. Labs (last 24 hrs) Laboratory Tests 09/03/20 05:05: White Blood Count 5.5, Red Blood Count 2.97L, Hemoglobin 8.9L, Hematocrit 28L, Mean Corpuscular Volume 95, Mean Corpuscular Hemoglobin 30, Mean Corpuscular Hemoglobin Concent 32, Red Cell Distribution Width 18.4H, Platelet Count 172, Mean Platelet Volume 9.1, Immature Granulocyte % (Auto) 5, Neutrophils (%) (Auto) 51, Lymphocytes (%) (Auto) 33, Monocytes (%) (Auto) 10, Eosinophils (%) (Auto) 1, Basophils (%) (Auto) 1, Neutrophils # (Auto) 2.8, Lymphocytes # (Auto) 1.8, Monocytes # (Auto) 0.5, Eosinophils # (Auto) 0.1, Basophils # (Auto) 0.0, Immature Granulocyte # (Auto) 0.3H, Sodium Level 144, Potassium Level 3.1L, Chloride Level 103, Carbon Dioxide Level 29, Anion Gap 12, Blood Urea Nitrogen 11, Creatinine 0.43L, Estimat Glomerular Filtration Rate > 60, BUN/Creatinine Ratio 26, Glucose Level 109H, Calcium Level 8.1L, Corrected Calcium 8.8, Phosphorus Level 4.5, Magnesium Level 1.1*L, Iron Level 78, Total Bilirubin 0.4, Aspartate Amino Transf (AST/SGOT) 15, Alanine Aminotransferase (ALT/SGPT) 35, Alkaline Phosphatase 52, Total Protein 5.4L, Albumin 3.1L 09/11/20 05:50: White Blood Count 8.4, Red Blood Count 3.10L, Hemoglobin 9.4L, Hematocrit 30L, Mean Corpuscular Volume 98, Mean Corpuscular Hemoglobin 30, Mean Corpuscular Hemoglobin Concent 31L, Red Cell Distribution Width 18.6H, Platelet Count 249, Mean Platelet Volume 9.4, Immature Granulocyte % (Auto) 4, Neutrophils (%) ( Auto) 54, Lymphocytes (%) (Auto) 30, Monocytes (%) (Auto) 11, Eosinophils (%) (Auto) 1, Basophils (%) (Auto) 0, Neutrophils # (Auto) 4.5, Lymphocytes # (Auto) 2.5, Monocytes # (Auto) 1.0, Eosinophils # (Auto) 0.1, Basophils # (Auto) 0.0, Immature Granulocyte # (Auto) 0.3H, Sodium Level 141, Potassium Level 4.4, Chloride Level 102, Carbon Dioxide Level 33H, Anion Gap 6, Blood Urea Nitrogen 17, Creatinine 0.49L, Estimat Glomerular Filtration Rate 131, BUN/Creatinine Ratio 35, Glucose Level 79, Calcium Level 8.8, Corrected Calcium 9.4, Total Bilirubin 0.3, Aspartate Amino Transf (AST/SGOT) 15, Alanine Aminotransferase (ALT/SGPT) 30, Alkaline Phosphatase 58, Total Protein 5.7L, Albumin 3.3 09/18/20 06:48: White Blood Count 9.3, Red Blood Count 3.44L, Hemoglobin 10.3L, Hematocrit 34L, Mean Corpuscular Volume 98, Mean Corpuscular Hemoglobin 30, Mean Corpuscular Hemoglobin Concent 31L, Red Cell Distribution Width 17.6H, Platelet Count 210, Mean Platelet Volume 9.3, Immature Granulocyte % (Auto) 2, Neutrophils (%) (Auto) 53, Lymphocytes (%) (Auto) 33, Monocytes (%) (Auto) 10, Eosinophils (%) (Auto) 2, Basophils (%) (Auto) 0, Neutrophils # (Auto) 4.9, Lymphocytes # (Auto) 3.0, Monocytes # (Auto) 1.0, Eosinophils # (Auto) 0.2, Basophils # (Auto) 0.0, Immature Granulocyte # (Auto) 0.2H, Sodium Level 143, Potassium Level 4.3, Chloride Level 101, Carbon Dioxide Level 29, Anion Gap 13, Blood Urea Nitrogen 14, Creatinine 0.55L, Estimat Glomerular Filtration Rate 114, BUN/Creatinine Ratio 25, Glucose Level 86, Calcium Level 9.3, Corrected Calcium 9.7, Magnesium Level 1.8, Total Bilirubin 0.3, Aspartate Amino Transf (AST/SGOT) 16, Alanine Aminotransferase (ALT/SGPT) 28, Alkaline Phosphatase 58, Total Protein 5.7L, Albumin 3.5 09/25/20 04:40: White Blood Count 10.4, Red Blood Count 3.60L, Hemoglobin 11.1L, Hematocrit 36, Mean Corpuscular Volume 101H, Mean Corpuscular Hemoglobin 31, Mean Corpuscular Hemoglobin Concent 31L, Red Cell Distribution Width 17.0H, Platelet Count 227, Mean Platelet Volume 9.2, Immature Granulocyte % (Auto) 1, Neutrophils (%) (Auto) 55, Lymphocytes (%) (Auto) 32, Monocytes (%) (Auto) 9, Eosinophils (%) (Auto) 3, Basophils (%) (Auto) 0, Neutrophils # (Auto) 5.7, Lymphocytes # (Auto) 3.3, Monocytes # (Auto) 0.9, Eosinophils # (Auto) 0.4H, Basophils # (Auto) 0.0, Immature Granulocyte # (Auto) 0.2H, Sodium Level 142, Potassium Level 4.3, Chloride Level 103, Carbon Dioxide Level 28, Anion Gap 11, Blood Urea Nitrogen 17, Creatinine 0.59L, Estimat Glomerular Filtration Rate 105, BUN/Creatinine Ratio 29, Glucose Level 85, Calcium Level 9.2, Corrected Calcium 9.6, Total Bilirubin 0.3, Aspartate Amino Transf (AST/SGOT) 16, Alanine Aminotransferase (ALT/SGPT) 33, Alkaline Phosphatase 61, Total Protein 5.9L, Albumin 3.5 Pending Labs Laboratory Tests 09/03/20 05:05: White Blood Count 5.5, Red Blood Count 2.97, Hemoglobin 8.9, Hematocrit 28, Mean Corpuscular Volume 95, Mean Corpuscular Hemoglobin 30, Mean Corpuscular Hemoglobin Concent 32, Red Cell Distribution Width 18.4, Platelet Count 172, Mean Platelet Volume 9.1, Immature Granulocyte % (Auto) 5, Neutrophils (%) (Auto) 51, Lymphocytes (%) (Auto) 33, Monocytes (%) (Auto) 10, Eosinophils (%) (Auto) 1, Basophils (%) (Auto) 1, Neutrophils # (Auto) 2.8, Lymphocytes # (Auto) 1.8, Monocytes # (Auto) 0.5, Eosinophils # (Auto) 0.1, Basophils # (Auto) 0.0, Immature Granulocyte # (Auto) 0.3, Sodium Level 144, Potassium Level 3.1, Chloride Level 103, Carbon Dioxide Level 29, Anion Gap 12, Blood Urea Nitrogen 11, Creatinine 0.43, Estimat Glomerular Filtration Rate > 60, BUN/Creatinine Ratio 26, Glucose Level 109, Calcium Level 8.1, Corrected Calcium 8.8, Phosphorus Level 4.5, Magnesium Level 1.1, Iron Level 78, Total Bilirubin 0.4, Aspartate Amino Transf (AST/SGOT) 15, Alanine Aminotransferase (ALT/SGPT) 35, Alkaline Phosphatase 52, Total Protein 5.4, Albumin 3.1 09/11/20 05:50: White Blood Count 8.4, Red Blood Count 3.10, Hemoglobin 9.4, Hematocrit 30, Mean Corpuscular Volume 98, Mean Corpuscular Hemoglobin 30, Mean Corpuscular Hemoglobin Concent 31, Red Cell Distribution Width 18.6, Platelet Count 249, Mean Platelet Volume 9.4, Immature Granulocyte % (Auto) 4, Neutrophils (%) (A uto) 54, Lymphocytes (%) (Auto) 30, Monocytes (%) (Auto) 11, Eosinophils (%) (Auto) 1, Basophils (%) (Auto) 0, Neutrophils # (Auto) 4.5, Lymphocytes # (Auto) 2.5, Monocytes # (Auto) 1.0, Eosinophils # (Auto) 0.1, Basophils # (Auto) 0.0, Immature Granulocyte # (Auto) 0.3, Sodium Level 141, Potassium Level 4.4, Chloride Level 102, Carbon Dioxide Level 33, Anion Gap 6, Blood Urea Nitrogen 17, Creatinine 0.49, Estimat Glomerular Filtration Rate 131, BUN/Creatinine Ratio 35, Glucose Level 79, Calcium Level 8.8, Corrected Calcium 9.4, Total Bilirubin 0.3, Aspartate Amino Transf (AST/SGOT) 15, Alanine Aminotransferase (ALT/SGPT) 30, Alkaline Phosphatase 58, Total Protein 5.7, Albumin 3.3 09/18/20 06:48: White Blood Count 9.3, Red Blood Count 3.44, Hemoglobin 10.3, Hematocrit 34, Mean Corpuscular Volume 98, Mean Corpuscular Hemoglobin 30, Mean Corpuscular Hemoglobin Concent 31, Red Cell Distribution Width 17.6, Platelet Count 210, Mean Platelet Volume 9.3, Immature Granulocyte % (Auto) 2, Neutrophils (%) (Auto) 53, Lymphocytes (%) (Auto) 33, Monocytes (%) (Auto) 10, Eosinophils (%) (Auto) 2, Basophils (%) (Auto) 0, Neutrophils # (Auto) 4.9, Lymphocytes # (Auto) 3.0, Monocytes # (Auto) 1.0, Eosinophils # (Auto) 0.2, Basophils # (Auto) 0.0, Immature Granulocyte # (Auto) 0.2, Sodium Level 143, Potassium Level 4.3, Chloride Level 101, Carbon Dioxide Level 29, Anion Gap 13, Blood Urea Nitrogen 14, Creatinine 0.55, Estimat Glomerular Filtration Rate 114, BUN/Creatinine Ratio 25, Glucose Level 86, Calcium Level 9.3, Corrected Calcium 9.7, Magnesium Level 1.8, Total Bilirubin 0.3, Aspartate Amino Transf (AST/SGOT) 16, Alanine Aminotransferase (ALT/SGPT) 28, Alkaline Phosphatase 58, Total Protein 5.7, Albumin 3.5 09/25/20 04:40: White Blood Count 10.4, Red Blood Count 3.60, Hemoglobin 11.1, Hematocrit 36, Mean Corpuscular Volume 101, Mean Corpuscular Hemoglobin 31, Mean Corpuscular Hemoglobin Concent 31, Red Cell Distribution Width 17.0, Platelet Count 227, Mean Platelet Volume 9.2, Immature Granulocyte % (Auto) 1, Neutrophils (%) (Auto) 55, Lymphocytes (%) (Auto) 32, Monocytes (%) (Auto) 9, Eosinophils (%) (Auto) 3, Basophils (%) (Auto) 0, Neutrophils # (Auto) 5.7, Lymphocytes # (Auto) 3.3, Monocytes # (Auto) 0.9, Eosinophils # (Auto) 0.4, Basophils # (Auto) 0.0, Immature Granulocyte # (Auto) 0.2, Sodium Level 142, Potassium Level 4.3, Chloride Level 103, Carbon Dioxide Level 28, Anion Gap 11, Blood Urea Nitrogen 17, Creatinine 0.59, Estimat Glomerular Filtration Rate 105, BUN/Creatinine Rat io 29, Glucose Level 85, Calcium Level 9.2, Corrected Calcium 9.6, Total Bilirubin 0.3, Aspartate Amino Transf (AST/SGOT) 16, Alanine Aminotransferase (ALT/SGPT) 33, Alkaline Phosphatase 61, Total Protein 5.9, Albumin 3.5 Discharge Home Medications: Active Scripts Active Melatonin 3 Mg Tablet 9 Mg PO HS Colcrys (Colchicine) 0.6 Mg Tablet 0.6 Mg PO DAILY Vitamin C (Ascorbic Acid) 500 Mg Tablet 500 Mg PO BID Prednisone 20 Mg Tab 20 Mg PO DAILY@0700 1 tablet daily x 7 days then 1/2 tab daily for 14 days Pantoprazole Sodium 40 Mg Tablet.dr 40 Mg PO DAILY Magnesium Oxide 400 Mg Tablet 400 Mg PO BIDPC Daliresp (Roflumilast) 500 Mcg Tablet 500 Mcg PO DAILY Mucinex (Guaifenesin) 600 Mg Tab.er.12h 600 Mg PO BID Montelukast Sodium 10 Mg Tablet 10 Mg PO HS Klor-Con M20 (Potassium Chloride) 20 Meq Tab.er.prt 20 Meq PO BID WITH MEALS Xanax Tablet (Alprazolam) 0.25 Mg Tab 0.25 Mg PO Q8H PRN Paroxetine HCl 20 Mg Tablet 20 Mg PO DAILY Clonazepam 1 Mg Tablet 1 Mg PO BID Atenolol 25 Mg Tablet 12.5 Mg PO BID Sildenafil (Sildenafil Citrate) 20 Mg Tablet 20 Mg PO TID Eliquis (Apixaban) 2.5 Mg Tablet 2.5 Mg PO BID Instructions to patient/family Please see electronic discharge instructions given to patient. Diagnosis/Problems Diagnosis/Problems (1) COVID-19 JULES ROJAS DO Sep 29, 2020 04:43
[2020-09-29] MEDS: predniSONE 20 MG TAB PO SCH (06:21)
[2020-09-29 08:00] VITALS: BP 125/74
[2020-09-29] MEDS: MAGNESIUM OXIDE (MAG-OX)400 MG TAB PO SCH (08:00)
[2020-09-29] MEDS: KCL 20 MEQ TAB (K-DUR) PO SCH (08:00)
[2020-09-29] MEDS: APIXABAN 2.5 MG (ELIQUIS) TABLET PO SCH (08:13)
[2020-09-29] MEDS: ASCORBIC ACID (VIT C) 500 MG TABLET PO SCH (08:13)
[2020-09-29] MEDS: clonazePAM 1 MG (KlonoPIN) TAB PO SCH (08:13)
[2020-09-29] MEDS: guaiFENesin (MUCINEX) 600 MG TAB PO SCH (08:13)
[2020-09-29] MEDS: PANTOPRAZOLE 40 MG (PROTONIX) TAB PO SCH (08:13)
[2020-09-29] MEDS: COLCHICINE 0.6 MG (COLCRYS) TABLET PO SCH (08:14)
[2020-09-29] MEDS: SILDENAFIL 20 MG (REVATIO) TAB NON-FORMULARY PO SCH (08:14)
[2020-09-29] MEDS: ROFLUMILAST 500 MCG TAB (DALIRESP) PO SCH (08:14)
[2020-09-29] MEDS: ATENOLOL 25 MG (TENORMIN) TAB PO SCH (08:14)
[2020-09-29] MEDS: PARoxetine 20 MG (PAXIL) TAB PO SCH (08:14)
[2020-09-29] MEDS: ALPRAZolam 0.25 MG (XANAX) TAB PO PRN (08:23)
[2020-09-29 11:00] VITALS: BP 125/74
--- NOTE | 2020-09-29 11:13 | Therapy Team Discharge Summary ---
Therapy Discharge Summary Discharge Recommendations Date of Discharge Physical Therapy Patient came to rehab with debility following covid 19. Upon evaluation patient performed bed mobility and sit to supine with SBA, supine to sit min assist, sit to stand and transfers dependent. Patient has been performing bed mobility and transfer training, balance and endurance training, functional strengthening, stair training, gait training, and education. Patient has made good progress and has met all of her intermediate goals except for stairs (she has a ramp at home now), and picking up an object from the floor. Now, patient performs bed mobility and transfers with independence, car transfer independent, ambulates 150' with a rolling walker with independence (including 50' with at least 2 turns of 90 degrees and 10' over an uneven surface). Patient is discharging from this facility today and will be discharged from PT at this time. Occupational Therapy Decreased Activ Tolerance PT [facility] Goals Waste Management Recycling Technician Goals PT Waste Management Recycling Technician Goals Time Frame: Sep 30, 2020 Roll Left to Right (QC): 6 Sit to Lying (QC): 6 Lying-Sitting on Side/Bed(QC): 6 Sit to Stand (QC): 6 Chair/Sph-pu-Tpdlg Xfer(QC): 6 Car Transfer (QC): 6 Does the Patient Walk: No and Walking Goal IS indicated Walk 10 feet (QC): 6 Walk 10ft-Uneven Surface(QC): 6 Walk 50ft with 2 Turns (QC): 6 Walk 150 ft (QC): 6 Does the Pt use WC or Scooter?: No Wheel 50 feet with 2 turns (QC: 9 1 Step (curb) (QC): 6 4 Steps (QC): 6 12 Steps (QC): 9 Picking up an Object (QC): 6 OT [facility] Goals Waste Management Recycling Technician Goals Time Frame: Sep 30, 2020 Eating (QC): 6 (met) Oral Hygiene (QC): 6 (met) Shower/Bathe Self (QC): 4 (met) Upper Body Dressing (QC): 5 (et) Lower Body Dressing (QC): 4 (met) On/Off Footwear (QC): 5 (met) Toileting Hygiene (QC): 6 (met) Toilet/Commode Transfer (QC): 6 Additional Goals: 1-Demonstrate ADL Tasks, 2-Verbalize Understanding, 3- ImproveStrength/Luis Manuel 1=Demonstrate adherence to instructed precautions during ADL tasks. 2=Patient will verbalize/demonstrate understanding of assistive dev ices/modifications for ADL. 3=Patient will improve strength/tolerance for activity to enable patient to perform ADL's. OCTAVIO HENDERSON PT Sep 29, 2020 11:13
--- NOTE | 2020-10-02 12:00 | Occupational Ther Daily Note ---
OT Current Status-Daily Note Subjective Late Entry for 09/18/2020-Pt alert, lying in bed. Pt agrees to therapy. No c/o pain at this time. ADL-Treatment Pt request to use BSC. Min A for sit to stand from lift chair, CGA for SPT to BSC. CGA to manipulate clothing and pt completes hygiene sitting on BSC. Therapy Code Descriptions/Definitions Functional [place] Measure: 0=Not Assessed/NA 4=Minimal Assistance 1=Total Assistance 5=Supervision or Setup 2=Maximal Assistance 6=Modified [place] 3=Moderate Assistance 7=Complete IndependenceSCALE: Activities may be completed with or without assistive devices. 6-Rhxzjpnjqq-aegylcg completes the activity by him/herself with no assistance from a helper. 5-Set-up or Clean-up Assistance-helper sets up or cleans up; patient completes activity. [place] assists only prior to or following the activity. 4-Supervision or Touching Assistance-helper provides verbal cues and/or touching/steadying and/or contact guard assistance as patient completes activity. Assistance may be provided throughout the activity or intermittently. 3-Partial/Moderate Assistance-helper does LESS THAN HALF the effort. [place] lifts, holds or supports trunk or limbs, but provides less than half the effort. 2-Substantial/Maximal Assistance-helper does MORE THAN HALF the effort. [place] lifts or holds trunk or limbs and provides more than half the effort. 4-Xjqpjvxue-mnptqk does ALL the effort. Patient does none of the effort to complete the activity. Or, the assistance of 2 or more helpers is required for the patient to complete the activity. If activity was not attempted, code reason: 7-Patient Refused. 9-Not Applicable-not attempted and the patient did not perform the activity before the current illness, exacerbation or injury. 10-Not Attempted due to Environmental Limitations-(lack of equipment, weather restraints, etc.). 88-Not Attempted due to Medical Conditions or Safety Concerns. Other Treatment Pt is demonstrating understanding of B UE exercises without resistance due to decreased stamina. After therapy, pt lying in bed with call light/phone in reach. All needs met in room. OT Short Term Goals Short Term Goals Time Frame: Sep 16, 2020 Eatin Oral hygiene: 4 Toileting hygiene: 3 Shower/bathe self: 3 Upper body dressin Lower body dressin Putting on/taking off footwear: 3 OT Nursing Home Goals Nursing Home Goals Time Frame: Sep 30, 2020 Eating (QC): 6 (met) Oral Hygiene (QC): 6 (met) Toileting Hygiene (QC): 6 (met) Shower/Bathe Self (QC): 4 (met) Upper Body Dressing (QC): 5 (et) Lower Body Dressing (QC): 4 (met) On/Off Footwear (QC): 5 (met) Additional Goals: 1-Demonstrate ADL Tasks, 2-Verbalize Understanding, 3- ImproveStrength/Luis Manuel 1=Demonstrate adherence to instructed precautions during ADL tasks. 2=Patient will verbalize/demonstrate understanding of assistive dev ices/modifications for ADL. 3=Patient will improve strength/tolerance for activity to enable patient to perform ADL's. OT Education/Plan Problem List/Assessment Assessment: Decreased Activ Tolerance, Decreased Safety Aware, Decreased UE Strength, Impaired Self-Care Skills Discharge Recommendations Plan/Recommendations: Continue POC Treatment Plan/Plan of Care Patient would benefit from OT for education, treatment and training to promote independence in ADL's, mobility, safety and/or upper extremity function for ADL's. Plan of Care: ADL Retraining, Functional Mobility, UE Funct Exercise/Act Treatment Duration: Sep 30, 2020 Frequency: At least 5 of 7 days/Wk (IRF) Estimated Hrs Per Day: 1.5 hours per day Agreement: Yes Rehab Potential: Good Time/GCodes Start Time: 13:00 Stop Time: 13:30 Total Time Billed (hr/min): 30 Billed Treatment Time Late Entry for 09/18/2020-1 visit-ADL 1 (15 min) EX 1 (15 min) SAHIL LARSEN Oct 02, 2020 12:00
--- NOTE | 2020-10-03 08:29 | Therapy Team Discharge Summary ---
Therapy Discharge Summary Discharge Recommendations Date of Discharge Sep 29, 2020 at 11:00 Therapy D/C Recommendations: Home w/ Family Support Occupational Therapy Pt. was seen on inpt. rehab by Occupational therapy to increase overall independence with daily tasks. Pt. met all goals of independence with bathing, dressing, toileting, and mobility. Pt. continues to work on overall endurance and strength, as she fatigues easily and can become SOA. Pt. discharged home with friend and has demonstrated independence with HEP. Pt. has been educated in energy conservation techniques. Pt. has met all goals. Pt. has needed equipment. Decreased Activ Tolerance PT Mcc Goals Mcc Goals PT Order Entry Representative Goals Time Frame: Sep 30, 2020 Roll Left to Right (QC): 6 Sit to Lying (QC): 6 Lying-Sitting on Side/Bed(QC): 6 Sit to Stand (QC): 6 Chair/Amk-ep-Zotko Xfer(QC): 6 Car Transfer (QC): 6 Does the Patient Walk: No and Walking Goal IS indicated Walk 10 feet (QC): 6 Walk 10ft-Uneven Surface(QC): 6 Walk 50ft with 2 Turns (QC): 6 Walk 150 ft (QC): 6 Does the Pt use WC or Scooter?: No Wheel 50 feet with 2 turns (QC: 9 1 Step (curb) (QC): 6 4 Steps (QC): 6 12 Steps (QC): 9 Picking up an Object (QC): 6 OT Order Entry Representative Goals Order Entry Representative Goals Time Frame: Sep 30, 2020 Eating (QC): 6 (met) Oral Hygiene (QC): 6 (met) Shower/Bathe Self (QC): 4 (met) Upper Body Dressing (QC): 5 (et) Lower Body Dressing (QC): 4 (met) On/Off Footwear (QC): 5 (met) Toileting Hygiene (QC): 6 (met) Toilet/Commode Transfer (QC): 6 Additional Goals: 1-Demonstrate ADL Tasks, 2-Verbalize Understanding, 3- ImproveStrength/Luis Manuel 1=Demonstrate adherence to instructed precautions during ADL tasks. 2=Patient will verbalize/demonstrate understanding of assistive devices/modifications for ADL. 3=Patient will improve strength/tolerance for activity to enable patient to perform ADL's. YEE ROJAS OT Oct 03, 2020 08:29
== END 2020-09-29 11:00 | disposition home or self-care (01) | DRG 189 ==
PROVIDERS: ADMIT Internal Medicine; ATTEND Internal Medicine
DX: J96.91 Respiratory failure, unspecified with hypoxia (principal); B94.8 Sequelae of other specified infectious and parasitic diseases; Z87.01 Personal history of pneumonia (recurrent); E87.6 Hypokalemia; M41.9 Scoliosis, unspecified; J98.4 Other disorders of lung; F41.9 Anxiety disorder, unspecified; M10.9 Gout, unspecified; D69.6 Thrombocytopenia, unspecified; E83.42 Hypomagnesemia; F32.9 Major depressive disorder, single episode, unspecified; H54.7 Unspecified visual loss; F40.240 Claustrophobia; Z87.891 Personal history of nicotine dependence; D64.9 Anemia, unspecified; R42 Dizziness and giddiness; T43.025A Adverse effect of tetracyclic antidepressants, initial encounter
CPT/HCPCS: 36415; 71045; 80053; 83540; 83735; 84100; 85025; 93306; 94640; 94760; 94761